=== PATIENT | male | born 1970 | race Caucasian/White ===

== ENCOUNTER 2021-01-09 15:43 | Inpatient (IN) | payer MEDICARE, MEDICAID, SELFPAY ==
[2021-01-09 15:59] VITALS: BP 128/94; PULSE 93; RESP 18; TEMP 37; O2SAT 92
--- NOTE | 2021-01-09 16:21 | ED.GENADUL_ITS ---
Discharge Plan Disposition Patient Disposition: [facility] INPATIENT Condition: Stable Discharge Details Clinical Impression: Alcohol intoxication, Depression, Suicidal ideation Primary Care Provider: Jada Mulligan ED Provider: Mark Parra Home Meds and New Rx's Prescriptions: No Action trazodone 100 mg Tablet 100 mg PO DAILY RF: 0 lisinopril 10 mg Tablet 10 mg PO DAILY RF: 0 sertraline [Zoloft] 50 mg Tablet 50 mg PO DAILY RF: 0 atenolol 50 mg Tablet 50 mg PO DAILY RF: 0 hydrochlorothiazide 12.5 mg Tablet 12.5 mg PO DAILY RF: 0 omeprazole 20 mg Tablet,Delayed Release (Dr/Ec) 20 mg PO DAILY RF: 0 methadone 5 mg/5 mL Syringe 80 mg PO QAM RF: 0 Medical Decision Making <Flo Machuca MD - Last Filed: 01/09/21 21:27> 50 yo male with hx of alcohol abuse comes in with complaints of feeling depressed and having thoughts of self harm due to his alcohol addiction. He has been feeling this way for 2 weeks and states he was kicked out of his intermediate house. He denies drug use but states he is on methadone. He denies acutally attempting to harm himself. HE does not give me a specific plan on how he would harm himself. He is caox4 with no focal deficits, no pain anywhere. Does have mild slurred speech and has smell of alcohol on his breath and admits to drinking today. Will order cpso and obtain psychiatric labs and reassess. labs show alcohol level of of 240, remains stable, will continue to monitor until sober enough for mental health evaluation pt signed out to Dr. Parra pending reevaluation when sober Differential Diagnosis Differential Diagnosis: depression, alcohol abuse Lab Data Lab results reviewed: Yes I reviewed the patient's lab results. <Makr Parra DO - Last Filed: 01/10/21 05:03> Patient was signed out to me by my colleague Dr. Flo Machuca, please refer to his physical exam assessment and plan. Time of signout are pending reassessment after the patient was clinically sober. Patient is clinically sober now, alcohol level has returned towards normal. On my reexamination the patient states that he still does not want to end his life, and he would do this by overdosing on pharmaceutical drugs. He denies any homicidal ideation. He does want help. We will consult mental health for evaluation. 4:27 AM Patient has been evaluated by mental health, they agree on the need for management and inpatient placement for mental health assistance. Patient was starting to get quite jittery again showing some signs of withdrawal, he was given 2 mg of Ativan p.o. Discussed the case with the hospitalist, he agrees with assessment and plan. Patient will be admitted for voluntary admission for potential inpatient psych placement. I have extensively reviewed the treatment plan with the patient. I have addressed all patient concerns at this time. I have also discussed the plan with the admitting physician and they agree with the current assessment and plan and have agreed to assume responsibility for the patient. All parties demonstrate verbal understanding and agreement with our assessment and plan at this time. The documentation in this chart was dictated using [employer] dictation software. Please excuse any dictation errors. HPI <Flo Machuca MD - Last Filed: 01/09/21 21:27> General Mode of arrival: ambulatory . Date/Time Provider Initiated Documentation: 01/09/21 16:06 . Limitations to Documentation: no limitations . Information obtained by: patient . History of Present Illness 50 year old M presents to the emergency department with the chief complaint of depressed, described as moderate, Patient started experiencing this week(s) (2) and it has been constant. No relieving factors improve symptom(s), No exacerbating factors reported . Patient notes denies fever/chills and headaches. Patient did receive the following treatments prior to arrival, none Related Data Home Medications Medication Instructions Recorded Confirmed atenolol 50 mg PO DAILY 01/09/21 01/09/21 hydrochlorothiazide 12.5 mg PO DAILY 01/09/21 01/09/21 lisinopril 10 mg PO DAILY 01/09/21 01/09/21 methadone 80 mg PO QAM 01/09/21 01/09/21 omeprazole 20 mg PO DAILY 01/09/21 01/09/21 sertraline [Zoloft] 50 mg PO DAILY 01/09/21 01/09/21 trazodone 100 mg PO DAILY 01/09/21 01/09/21 Allergies Allergy/AdvReac Type Severity Reaction Status Date / Time Sulfa (Sulfonamide Allergy Intermediate Skin Rash Unverified 01/09/21 16:04 Antibiotics) General Stated Complaint: PsychEval RODGER: 2 Review of Systems <Flo Machuca MD - Last Filed: 01/09/21 21:27> All systems reviewed & are unremarkable except as noted in HPI and below Constitutional Constitutional: Denies chills, Denies fever(s) and Denies weakness Cardiovascular Cardiovascular: Denies chest pain and Denies dyspnea Respiratory Respiratory: Denies cough and Denies dyspnea Gastrointestinal Gastrointestinal: Denies abdominal pain, Denies nausea and Denies vomiting Genitourinary Genitourinary: Denies dysuria Musculoskeletal Musculoskeletal: Denies joint swelling Neurologic Neurologic: Denies weakness PFS <Flo Machuca MD - Last Filed: 01/09/21 21:27> Social History Smoking/Tobacco Use Status: Current every day Tobacco Type: cigarettes Smoking risk assessment performed?: Yes Alcohol Intake: current Alcohol Intake frequency: 3 or more drinks per day Alcohol type: hard liquor Drug use: Never Substance use type: does not use Additional Social history: was in a intermediate house Exam <Flo Machuca MD - Last Filed: 01/09/21 21:27> Const General: no acute distress Orientation: alert HENOK Head: normal to inspection Ears: external ears normal General nose exam: external nose normal Mouth: moist mucous membranes Eyes General: appearance normal, both eyes and all related structures Neck Neck: normal visual inspection Resp Effort & Inspection: normal respiratory effort and able to speak in complete sentences Cardio Rate: regular rate Skin General skin exam: no rashes or lesions noted Neuro General: patient alert and patient oriented x3 Extrem General: normal to inspection Psych Affect: indifferent Attitude: cooperative Course <Flo Machuca MD - Last Filed: 01/09/21 21:27> Vital Signs Vital signs: Vital Signs Temperature 37 C 01/09/21 15:59 Pulse 93 H 01/09/21 15:59 Respiratory Rate 18 01/09/21 15:59 Blood Pressure 128/94 H 01/09/21 15:59 Pulse Oximetry 92 01/09/21 15:59 Temperature 37 C 01/09/21 15:59 Temperature Source Temporal Artery Scan 01/09/21 15:59 Pulse 93 H 01/09/21 15:59 Respiratory Rate 18 01/09/21 15:59 Respiratory Effort Non-Labored 01/09/21 16:05 Blood Pressure 128/94 H 01/09/21 15:59 Blood Pressure Position Sitting 01/09/21 15:59 Pulse Oximetry 92 01/09/21 15:59 Oxygen Delivery Method Room Air 01/09/21 15:59 Oxygen Flow Rate 0 01/09/21 15:59 Sign Out <Flo Machuca MD - Last Filed: 01/09/21 21:27> Sign Out Data: Sign Out Comment: intoxicated, stating thoughts of self harm, awaiting sobriety to have mental health exam Last updated by Flo Machuca MD at 01/09/21 21:54 PAWSS <Flo Machuca MD - Last Filed: 01/09/21 21:27> Have you Been Recently Intoxicated or Drunk Within the Last 30 days?: Yes Have you Ever Experienced Previous Episodes of Alcohol Withdrawal?: Yes Have you ever Experienced Withdrawal Seizures?: Yes Have you ever Experienced Delirium Tremens(DT)s?: Yes Have you ever undergone Alcohol Rehabilitation Treatment (i.e, inpt ot outpatient treatment programs)?: Yes Have you ever Experienced Blackouts?: Yes Have you ever Combined Alcohol with other Downers within the last 90 days?: No Have you ever Combined Alcohol with any other Substance of Abuse during the last 90 days?: Yes Positive Blood Alcohol level on Presentation? [PCS.BAL]: Yes Evidence of Increased Autonomic Activity (i.e. HR>120, tremor, sweating, agitation, nausea)?: No Result: 9
[2021-01-09 16:31] LABS: Source Nasal/Nares
[2021-01-09 16:35] LABS: Abs Immature Grans 0.04 10^3/uL (0.0-0.06); Absolute Basophil Count 0.08 10^3/uL (0.0-0.2); Absolute Eosinophil Count 0.04 10^3/uL (0.0-0.7); Absolute Monocyte Count 0.85 10^3/uL (0.1-0.8); Absolute Neutrophil Count 7.26 10^3/uL (1.2-6.7); Basophils % 0.8; Eosinophils % 0.4; HCT 40.4 % (40.0-50.0); HGB 13.4 g/dL (13.5-17.5); Immature Grans % 0.4; MCH 30.8 pg (27.0-33.0); MCHC 33.2 % (32.0-36.0); MCV 92.9 fL (80-95); MPV 9.1 fL (8.0-11.0); Monocytes % 8.1; Neutrophils % 69.3; Nucleated RBC 0 %; Platelet Count 299 10^3/uL (130-400); RBC 4.35 10^6/uL (4.36-5.78); RDW 13.5 % (11.8-14.1); RDW-SD 45.9 fL; WBC 10.47 10^3/uL (4.4-10.8)
[2021-01-09 16:57] LABS: ALT 33 U/L (16-63); AST 32 U/L (15-37); Albumin 3.7 g/dL (3.4-5.0); Alkaline Phosphatase 94 U/L (46-116); Anion Gap 8.1 mmol/L (3-11); BUN 14 mg/dL (7-18); Bilirubin, Total 0.6 mg/dL (0.2-1.0); CO2 28.9 mmol/L (21.0-32.0); CREATININE 1.1 mg/dL (0.70-1.30); Calcium 9.2 mg/dL (8.5-10.1); Chloride 105 mmol/L (98-107); ETHANOL BLOOD 242.1 mg/dL (<3); Glucose 90 mg/dL (74-106); Potassium 3.6 mmol/L (3.5-5.1); Sodium 142 mmol/L (136-145); TSH (W/Ref FT4) 1.04 uIU/mL (0.36-3.74); Total Protein 7.6 g/dL (6.4-8.2)
[2021-01-09 17:11] LABS: Salicylate 4.4 mg/dL (<2.8)
[2021-01-09 17:12] LABS: Acetaminophen < 2 ug/mL (10-30)
[2021-01-09] MEDS: LORazepam 1 MG TAB 2 MG PO (17:22)
[2021-01-09 17:40] LABS: COVID-19 PCR Negative (Negative)
[2021-01-09 18:37] LABS: Bilirubin Negative (Negative); Blood Trace-intact (Negative); Clarity Clear (Clear); Glucose Negative (Negative); Ketones Negative (Negative); Leukocyte Esterase Negative (Negative); Nitrite Negative (Negative); Specific Gravity <= 1.005 (1.005-1.025); Urobilinogen 0.2 EU/dL (Up TO 0.2)
[2021-01-09 18:43] LABS: *AMPHETAMINES SCREEN URINE Negative (Negative); *BARBITURATES SCREEN URINE Negative (Negative); *BENZODIAZEPINES SCREEN URINE Negative (Negative); Cannabinoids THC Negative (Negative); Cocaine Screen,Urine Negative (Negative); METHADONE URINE SCREEN Positive (Negative); OPIATES URINE SCREEN Negative (Negative)
[2021-01-09 18:44] LABS: Tricyclic Antidepressants Negative (Negative)
[2021-01-09 18:46] LABS: Bacteria Negative HPF (Negative); C & S Indicated? No; Casts Negative LPF (Negative); Crystals Negative HPF (Negative); Epithelial Cells Few HPF (Negative); Mucus Negative (Negative); RBC 0-2 HPF (0-2); WBC 0-2 HPF (0-5)
[2021-01-10 00:09] LABS: ETHANOL BLOOD 45.6 mg/dL (<3)
[2021-01-10 01:24] VITALS: BP 155/79; PULSE 84; RESP 18; TEMP 36.7; O2SAT 93
[2021-01-10] MEDS: LORazepam 1 MG TAB 2 MG PO (03:39)
[2021-01-10] MEDS: Acetaminophen 500 MG TAB (03:41)
--- NOTE | 2021-01-10 04:36 | W.PM.HP.N ---
Date of service: 01/10/21 Time of Service: 04:37 Assessment and Plan Assessment and plan (1) Depression: Status: Chronic Assessment and plan: Suicidal ideation. Agree with placement, will admit pending psych bed availability. Maintain precautions. Methadone use: continue usual dose Alcohol withdrawal: Seems to be responding well to benzos. Will place on scheduled Librium along with prn per CIWA scoring History of Present Illness History of Present Illness Chief Complaint: depression Narrative: 50 male with h/o alcohol abuse, substance abuse, on chronic Methadone. Here with several weeks of depression and suicidal thinking, though no actual plan or specific intent to harm. Last drink sometime yesterday, EtOH level 45 on arrival. Has received Ativan 4 mg in divided doses due to shakiness, feeling better at this time. Seen by mental health, agrees to voluntary admission pending availability of psych bed for transfer. UDS positive only for Methadone. Review of Systems All systems reviewed & are unremarkable except as noted in HPI and below PFSH Social History Smoking/Tobacco Use Status: Current every day Tobacco Type: cigarettes Smoking risk assessment performed?: Yes Alcohol Intake: current Alcohol Intake frequency: 3 or more drinks per day Alcohol type: hard liquor Drug use: Never Substance use type: does not use Additional Social history: was in a senior living house Meds Allergies and Home Medications Allergies Allergy/AdvReac Type Severity Reaction Status Date / Time Sulfa (Sulfonamide Allergy Intermediate Skin Rash Unverified 01/09/21 16:04 Antibiotics) Home Medications Medication Instructions Recorded Confirmed Type atenolol 50 mg PO DAILY 01/09/21 01/09/21 History hydrochlorothiazide 12.5 mg PO DAILY 01/09/21 01/09/21 History lisinopril 10 mg PO DAILY 01/09/21 01/09/21 History methadone 80 mg PO QAM 01/09/21 01/09/21 History omeprazole 20 mg PO DAILY 01/09/21 01/09/21 History sertraline [Zoloft] 50 mg PO DAILY 01/09/21 01/09/21 History trazodone 100 mg PO DAILY 01/09/21 01/09/21 History Exam Narrative Exam Narrative: 155/79, 84, 36.7, 18, 93% RA. HEENT atraumatic, no scleral icterus; neck supple; lungs clear; heart RRR; abdomen soft and NT; extremities w/o edema; neuro slightly tremulous, Ox3, moves all 4s Results Labs Result diagrams: 01/09/21 16:30 01/09/21 16:30 Labs: Laboratory Results - last 24 hr 01/09/21 01/09/21 01/09/21 16:06 16:30 16:30 WBC RBC Hgb Hct MCV MCH MCHC RDW Plt Count MPV Immature Gran % Neutrophils % Lymphocytes % Monocytes % Eosinophils % Basophils % Nucleated RBC % Absolute Neutrophils Absolute Lymphocytes Absolute Monocytes Absolute Eosinophils Absolute Basophils Sodium 142 Potassium 3.6 Chloride 105 Carbon Dioxide 28.9 Anion Gap 8.1 BUN 14 Creatinine 1.1 Estimated GFR/1.73 m2 >= 60.00 Glucose 90 Calcium 9.2 Total Bilirubin 0.6 AST 32 ALT 33 Alkaline Phosphatase 94 Total Protein 7.6 Albumin 3.7 TSH 1.04 Urine Color Urine Clarity Urine pH Ur Specific [place] Urine Protein Urine Ketones Urine Blood Urine Nitrite Urine Bilirubin Urine Urobilinogen Ur Leukocyte Esterase Urine RBC Urine WBC Ur Epithelial Cells Urine Crystals Urine Bacteria Urine Casts Urine Mucus Ur Culture Indicated? Urine Glucose Salicylates 4.4 Urine Opiates Screen Urine Methadone Screen Acetaminophen < 2 Ur Barbiturates Screen Ur Tricyclics Screen Ur Amphetamines Screen U Benzodiazepines Scrn Urine Cocaine Screen Ur THC Screen Ethyl Alcohol 242.1 COVID-19 Source Nasal/Nares SARS-CoV-2 (PCR) Negative 01/09/21 01/09/21 01/09/21 16:30 18:24 18:24 WBC 10.47 RBC 4.35 L Hgb 13.4 L Hct 40.4 MCV 92.9 MCH 30.8 MCHC 33.2 RDW 13.5 Plt Count 299 MPV 9.1 Immature Gran % 0.4 Neutrophils % 69.3 Lymphocytes % 21.0 Monocytes % 8.1 Eosinophils % 0.4 Basophils % 0.8 Nucleated RBC % 0 Absolute Neutrophils 7.26 H Absolute Lymphocytes 2.20 Absolute Monocytes 0.85 H Absolute Eosinophils 0.04 Absolute Basophils 0.08 Sodium Potassium Chloride Carbon Dioxide Anion Gap BUN Creatinine Estimated GFR/1.73 m2 Glucose Calcium Total Bilirubin AST ALT Alkaline Phosphatase Total Protein Albumin TSH Urine Color Yellow Urine Clarity Clear Urine pH 5.0 Ur Specific [place] <= 1.005 Urine Protein Negative Urine Ketones Negative Urine Blood Trace-intact H Urine Nitrite Negative Urine Bilirubin Negative Urine Urobilinogen 0.2 Ur Leukocyte Esterase Negative Urine RBC 0-2 Urine WBC 0-2 Ur Epithelial Cells Few Urine Crystals Negative Urine Bacteria Negative Urine Casts Negative Urine Mucus Negative Ur Culture Indicated? No Urine Glucose Negative Salicylates Urine Opiates Screen Negative Urine Methadone Screen Positive A Acetaminophen Ur Barbiturates Screen Negative Ur Tricyclics Screen Negative Ur Amphetamines Screen Negative U Benzodiazepines Scrn Negative Urine Cocaine Screen Negative Ur THC Screen Negative Ethyl Alcohol COVID-19 Source SARS-CoV-2 (PCR) 01/09/21 23:50 WBC RBC Hgb Hct MCV MCH MCHC RDW Plt Count MPV Immature Gran % Neutrophils % Lymphocytes % Monocytes % Eosinophils % Basophils % Nucleated RBC % Absolute Neutrophils Absolute Lymphocytes Absolute Monocytes Absolute Eosinophils Absolute Basophils Sodium Potassium Chloride Carbon Dioxide Anion Gap BUN Creatinine Estimated GFR/1.73 m2 Glucose Calcium Total Bilirubin AST ALT Alkaline Phosphatase Total Protein Albumin TSH Urine Color Urine Clarity Urine pH Ur Specific [place] Urine Protein Urine Ketones Urine Blood Urine Nitrite Urine Bilirubin Urine Urobilinogen Ur Leukocyte Esterase Urine RBC Urine WBC Ur Epithelial Cells Urine Crystals Urine Bacteria Urine Casts Urine Mucus Ur Culture Indicated? Urine Glucose Salicylates Urine Opiates Screen Urine Methadone Screen Acetaminophen Ur Barbiturates Screen Ur Tricyclics Screen Ur Amphetamines Screen U Benzodiazepines Scrn Urine Cocaine Screen Ur THC Screen Ethyl Alcohol 45.6 COVID-19 Source SARS-CoV-2 (PCR) Last Vital Signs Temp 36.7 C 01/10/21 01:24 Pulse 84 01/10/21 01:24 Resp 18 01/10/21 01:24 BP 155/79 H 01/10/21 01:24 Pulse Ox 93 01/10/21 01:24 PAWSS Have you Been Recently Intoxicated or Drunk Within the Last 30 days?: Yes Have you Ever Experienced Previous Episodes of Alcohol Withdrawal?: Yes Have you ever Experienced Withdrawal Seizures?: Yes Have you ever Experienced Delirium Tremens(DT)s?: Yes Have you ever undergone Alcohol Rehabilitation Treatment (i.e, inpt ot outpatient treatment programs)?: Yes Have you ever Experienced Blackouts?: Yes Have you ever Combined Alcohol with other Downers within the last 90 days?: No Have you ever Combined Alcohol with any other Substance of Abuse during the last 90 days?: Yes Positive Blood Alcohol level on Presentation? [PCS.BAL]: Yes Evidence of Increased Autonomic Activity (i.e. HR>120, tremor, sweating, agitation, nausea)?: No Result: 9
[2021-01-10] MEDS: chlordiazePOXIDE 25 MG CAP PO ×5 (05:03→19:45)
[2021-01-10 05:52] VITALS: BP 134/79; PULSE 72; RESP 18; TEMP 36.7; O2SAT 94
[2021-01-10] MEDS: LORazepam 1 MG TAB PO/SL ×3 (08:51→19:45)
[2021-01-10] MEDS: traZODone 100 MG TAB PO (08:52)
[2021-01-10] MEDS: Sertraline 50 MG TAB PO (08:52)
[2021-01-10] MEDS: Omeprazole 20 MG CAPCR PO (08:52)
[2021-01-10] MEDS: hydroCHLOROthiazide 12.5 MG TAB PO (08:52)
[2021-01-10] MEDS: Lisinopril 10 MG TAB PO (08:53)
[2021-01-10] MEDS: Methadone Liquid 10 MG/ML 80 MG PO (08:53)
[2021-01-10 08:54] VITALS: BP 151/95; PULSE 75; RESP 18; TEMP 36.4; O2SAT 96
[2021-01-10 09:00] VITALS: BP 151/95; PULSE 96; RESP 16; TEMP 36.4; O2SAT 96
[2021-01-10] MEDS: Folic Acid 1 MG TAB PO (09:38)
[2021-01-10] MEDS: Multivitamin TAB 1 TAB PO (09:38)
[2021-01-10] MEDS: Thiamine 100 MG TAB PO (09:38)
[2021-01-10] MEDS: Atenolol 50 MG TAB PO (10:00)
--- NOTE | 2021-01-10 10:20 | PDOC.CMSAFE ---
- If Service Date Differs Date of service: 01/10/21 Time of Service: 10:20 Care Management Safety Plan Status: Interim - Reason for Wait Reason for Wait: Inpatient Admission Chief Complaint: 50 year old male with h/o alcohol use, substance use and on chronic Methadone. Here with several weeks of depression and suicidal thinking, though no actual plan or specific intent to harm. Last drink sometime yesterday, ETOH level was 45 on arrival. Garrett was seen by mental health while in the ER and agrees to voluntary admission pending availability of psych bed for transfer. Garrett is not medically cleared by MD at this time. CM will assess patient after patient has been medically cleared and assessed by MH screener. If screener deems patient meets criteria for psychiatric stabilization CM will facilitate interdepartmental huddle with [facility] screener for safety planning considerations and meet with patient to review [facility] policy and safety plan, establish individual wishes for treatment and maintain patient rights. In the interim; please note safety plan below to guide patient care while awaiting medical clearance and mental health screening. SAFETY PLAN: 1. Will remain on suicide precautions and in paper clothes. 2. Will remain in room under direct supervision of one-on-one staff at all times provided by KEVAN, WAREHOUSE DELIVERY MANAGER agriculture instructor. 3. May have paper cups, plates, finger foods as well as a cardboard spoon with which to eat meals. 4. Follow [facility] Management of the Admitted Behavioral Health Patient policy. 5. Personal care: Comfort bath system only at this time. 6. Bathroom privileges: Available in room without limitation on Med/Surg. 6. No personal belongings at this time; per RN discretion. 7. No visitors at this time. 8. Phone contact limited to legal contact at this time. 9. Activities: Music tablet per RN discretion. Television and remote available at RN discretion. 10. Due to VOLUNTARY status, if patient wishes to leave [facility], staff will contact [facility] Crisis Screener ([phone]) and On-Call Safety Engineer ([phone]) as soon as possible. In the event of elopement, notify [facility] Police ([phone]). If deemed appropriate for inpatient psychiatric care, safety plan will be established with patient, and care team, to adhere to patient goals, identify restrictions based on behavioral status, address nutrition, and determine allowed personal belongings, tools for hygiene and personal care. As well plan will determine level of activity including ambulation, level of supervision, visitors, and determine privileges based on level of acuity, behaviors and level of engagement by patient.
--- NOTE | 2021-01-10 11:42 | INITIAL_ITS ---
- If Service Date Differs Date of service: 01/10/21 Time of Service: 11:42 Care Management Initial Assess REASON FOR HOSPITALIZATION:: SI, Alcohol Withdrawal, depression PAST MEDICAL HISTORY/PAST SURGICAL HISTORY:: H/O alcohol abuse, substance abuse, on chronic Methadone. PREVIOUS FUNCTIONAL STATUS/SOCIAL/FAMILY SUPPORTS:: Garrett is currently homeless and shares that he was recently kicked out of the senior living housing where he was r esiding in [facility] after using alcohol. Garrett is a member of the [employer] program and is on Methodone. He has been in and out of recovery centers and sober living environments for several years. He advises that prior to coming to [facility] he was sober for 3 months while at the [facility] in [place] but then they wanted him to seek transitional housing in [place] and was unable to do so because he was on Methodone. CURRENT FUNCTIONAL STATUS:: Garrett was lying in bed when CM met with him. He was alert and oriented X3, pleasant and open to conversation. He shares that his number one concern is being homeless and is hopeful that he will be able to go back to the sober living house where he was staying. He shares that he does find it to be a supportive environment. Garrett thinks it may be possible for him to return at some point if they are willing to add stipulations to his stay. In the meantime, he is willing to remain inpatient until medically cleared by MD. He is also agreeable to having [facility] continue to look for placement for inpatient psych and rehab centers. ADVANCE DIRECTIVES:: None on file at [facility] Has patient been provided with info about the portal/API?: Yes Did the patient sign up for the portal?: No CODE STATUS:: Full Code INSURANCE COVERAGE / FINANCIAL ISSUES:: Medicaid. Medicare. [facility] CURRENT HOME/COMMUNITY SERVICES/EQUIPMENT:: Recently [address] PRIMARY CARE PHYSICIAN:: Jada Mulligan POTENTIAL DISCHARGE NEEDS:: Inpatient psych treatment, [facility] PATIENT/FAMILY EDUCATION NEEDS:: Review of discharge instuctions, ask me three. ANTICIPATED BARRIERS TO DISCHARGE:: On methodone, waiting for psych placement TRANSPORTATION:: Dependent on disposition, anticipate inpatient psych facility via [employer] PLAN:: Garrett is awaiting voluntary admission to psych facility pending availability of psych bed availabilty. He will remain inpatient at [facility] on an interim safety plan until medically cleared by MD. [facility] has sent referrals to the following facilities, the majority has either declined or is at full capacity. Grant from [facility] reports that he is still waiting on a response from John and Lala. continues to follow. Declined: [facility] d/t homeless status. Full Capacity: [facility], [facility] and [facility]. John: Pending Review. Lala: [facility] will send referral
[2021-01-10] MEDS: Gabapentin 600 MG TAB PO ×2 (14:59→19:45)
[2021-01-10 16:30] VITALS: BP 117/79; PULSE 58; RESP 16; TEMP 36.2; O2SAT 96
[2021-01-10 23:43] VITALS: BP 114/77; PULSE 78; RESP 18; TEMP 36.2; O2SAT 97
[2021-01-11] MEDS: LORazepam 1 MG TAB PO/SL ×4 (06:44→19:18)
[2021-01-11] MEDS: Gabapentin 600 MG TAB PO ×3 (07:44→19:18)
[2021-01-11] MEDS: chlordiazePOXIDE 25 MG CAP PO ×4 (07:44→19:18)
[2021-01-11] MEDS: Atenolol 50 MG TAB PO (07:44)
[2021-01-11] MEDS: Thiamine 100 MG TAB PO (07:44)
[2021-01-11] MEDS: Sertraline 50 MG TAB PO (07:44)
[2021-01-11] MEDS: Lisinopril 10 MG TAB PO (07:44)
[2021-01-11] MEDS: Omeprazole 20 MG CAPCR PO (07:44)
[2021-01-11] MEDS: Multivitamin TAB 1 TAB PO (07:45)
[2021-01-11] MEDS: traZODone 100 MG TAB PO (07:45)
[2021-01-11] MEDS: hydroCHLOROthiazide 12.5 MG TAB PO (07:45)
[2021-01-11] MEDS: Folic Acid 1 MG TAB PO (07:45)
[2021-01-11] MEDS: Methadone Liquid 10 MG/ML 80 MG PO (07:45)
[2021-01-11 08:26] VITALS: BP 125/91; PULSE 79; RESP 18; TEMP 36.4; O2SAT 94
--- NOTE | 2021-01-11 09:43 | PDOC.CMSAFE ---
- If Service Date Differs Date of service: 01/11/21 Time of Service: 09:43 Care Management Safety Plan Status: Interim - Reason for Wait Reason for Wait: Inpatient Admission ( ) Chief Complaint: 50 year old male with h/o alcohol use, substance use and on chronic Methadone. Here with several weeks of depression and suicidal thinking, though no actual plan or specific intent to harm. Last drink sometime yesterday, ETOH level was 45 on arrival. Garrett was seen by mental health while in the ER and agrees to voluntary admission pending availability of psych bed for transfer. Garrett is not medically cleared by MD at this time. Per MD he is still showing symptoms of withdrawal. CM will assess patient after patient has been medically cleared and assessed by MH screener. If screener deems patient meets criteria for psychiatric stabilization CM will facilitate interdepartmental huddle with [facility] screener for safety planning considerations and meet with patient to review [facility] policy and safety plan, establish individual wishes for treatment and maintain patient rights. In the interim; please note safety plan below to guide patient care while awaiting medical clearance and mental health screening. SAFETY PLAN: 1. Will remain on suicide precautions and in paper clothes. 2. Will remain in room under direct supervision of one-on-one staff at all times provided by KEVAN, INDUSTRIAL ELECTRICIAN retort cooler. 3. May have paper cups, plates, finger foods as well as a cardboard spoon with which to eat meals. 4. Follow [facility] Management of the Admitted Behavioral Health Patient policy. 5. Personal care: Comfort bath system, may have a shower at RN discretion. 6. Bathroom privileges: Available in room without limitation on Med/Surg. 6. No personal belongings at this time; per RN discretion. 7. No visitors at this time. 8. Phone contact limited to legal contact at this time. 9. Activities: Music tablet per RN discretion. Television and remote available at RN discretion. 10. Due to VOLUNTARY status, if patient wishes to leave [facility], staff will contact [facility] Crisis Screener ([phone]) and On-Call General Studies Program Chair ([phone]) as soon as possible. In the event of elopement, notify [facility] Police ([phone]). If deemed appropriate for inpatient psychiatric care, safety plan will be established with patient, and care team, to adhere to patient goals, identify restrictions based on behavioral status, address nutrition, and determine allowed personal belongings, tools for hygiene and personal care. As well plan will determine level of activity including ambulation, level of supervision, visitors, and determine privileges based on level of acuity, behaviors and level of engagement by patient.
--- NOTE | 2021-01-11 09:52 | CMPROGNOTE_ITS ---
- If Service Date Differs Date of service: 01/11/21 Time of Service: 09:53 Care Management Progress Note S/O: Garrett was lying in bed when CM met with him. He was pleasant and agreeable to conversation and made good eye contact. He shares that he continues to have suicidal thoughts and reports that he doesn't have a lot to live for especially now that he is without housing. He doesn't relay any actual plan to CM but states if her really wants to he could. He is agreeable to remain inpatient until he is medically cleared followed by voluntary inpatient psychiatric placement. A: 50 year old male admitted to [facility] on 01/10/21 for suicidal ideation and alcohol intoxication. P: Garrett is awaiting voluntary admission to psych facility pending availability of psych bed availability. He will remain inpatient at [facility] on an interim safety plan until medically cleared by MD. [facility] has sent referrals to the following facilities, the majority have either declined or are at full capacity. Grant from [facility] reports that he is still waiting on a response from John and [facility]. CM continues to follow. Declined: [facility] d/t homeless status. Full Capacity: [facility], [facility] and [facility]. John: Pending Review. Lala: [facility] will send referral.
[2021-01-11 10:08] LABS: Abs Immature Grans 0.01 10^3/uL (0.0-0.06); Absolute Basophil Count 0.08 10^3/uL (0.0-0.2); Absolute Eosinophil Count 0.19 10^3/uL (0.0-0.7); Absolute Monocyte Count 0.83 10^3/uL (0.1-0.8); Absolute Neutrophil Count 3.88 10^3/uL (1.2-6.7); Basophils % 1.1; Eosinophils % 2.6; HCT 43.3 % (40.0-50.0); HGB 13.9 g/dL (13.5-17.5); Immature Grans % 0.1; Lymphocytes % 31.6; MCH 30.4 pg (27.0-33.0); MCHC 32.1 % (32.0-36.0); MCV 94.7 fL (80-95); MPV 9.4 fL (8.0-11.0); Monocytes % 11.4; Neutrophils % 53.2; Nucleated RBC 0 %; Platelet Count 275 10^3/uL (130-400); RBC 4.57 10^6/uL (4.36-5.78); RDW 13.8 % (11.8-14.1); RDW-SD 47.3 fL; WBC 7.29 10^3/uL (4.4-10.8)
[2021-01-11 10:16] LABS: BUN 17 mg/dL (7-18); CREATININE 1.1 mg/dL (0.70-1.30); Calcium 9.6 mg/dL (8.5-10.1); Chloride 105 mmol/L (98-107); Glucose 154 mg/dL (74-106); Magnesium 2.2 mg/dL (1.8-2.4); Potassium 3.9 mmol/L (3.5-5.1); Sodium 141 mmol/L (136-145)
[2021-01-11] MEDS: Nicotine 21 MG/24 HR PATCH TD (11:12)
[2021-01-11 13:01] LABS: Vitamin B12 483 pg/mL (193-986)
[2021-01-11 13:03] LABS: Folate > 20.0 ng/mL (8.6-20.0)
--- NOTE | 2021-01-11 13:20 | W.PM.PROGNOT ---
Date of Service Date of service: 01/11/21 Time of Service: 13:20 Assessment and Plan Assessment and plan (1) Suicidal ideation: Status: Acute Assessment and plan: remains here on a voluntary psychiatric hold. plan to overdose, contracts for safety here, CPSO and behavioral plan in place mental health will be consulted when medically cleared (2) Depression: Status: Chronic Assessment and plan: continue zoloft and trazodone (3) Alcohol intoxication: Status: Acute Assessment and plan: monitored on CIWA, does not appear to be having withdrawal at time of my exam prn ativan as needed. continue scheduled librium. (4) Methadone dependence: Status: Chronic Assessment and plan: will continue home methadone dosing. (5) Discharge planning issues: Status: Inactive Assessment and plan: case management following. mental health consult once medically stable. voluntary inpatient psychiatric placement discussed with Dr Franz Subjective Subjective Patient reports: tolerating liquids well, tolerating a regular diet, voiding w/o difficulty and afebrile; denies nausea and vomiting Interval history since last seen: reports feeling anxious. states he still feels suicidal, plan would be by overdose. . Exam Const General: no acute distress, disheveled and ill appearing chronically Nutritional Appearance: obese Orientation: alert, awake and oriented x3 HENMT Head: normal to inspection, normocephalic and atraumatic Resp Effort & Inspection: normal respiratory effort Auscultation: no wheezes Cardio Rate: regular rate and not tachycardic Rhythm: regular rhythm GI Inspection: obesity Palpation: soft and nontender Neuro General: patient alert, patient awake, patient oriented x3, gait normal and no focal motor deficits Extrem General: normal to inspection, full ROM and no pedal edema Psych Appearance: disheveled Speech and Movement: speech and movement normal Mood: anxious mood Affect: blunted Attitude: cooperative Thought Content: suicidality Objective Last Vital Signs Temp 36.4 C L 01/11/21 08:26 Pulse 79 01/11/21 08:26 Resp 18 01/11/21 08:26 BP 125/91 H 01/11/21 08:26 Pulse Ox 94 01/11/21 08:26 Laboratory Results - last 24 hr 01/11/21 01/11/21 01/11/21 09:50 09:50 09:50 WBC 7.29 RBC 4.57 Hgb 13.9 Hct 43.3 MCV 94.7 MCH 30.4 MCHC 32.1 RDW 13.8 Plt Count 275 MPV 9.4 Immature Gran % 0.1 Neutrophils % 53.2 Lymphocytes % 31.6 Monocytes % 11.4 Eosinophils % 2.6 Basophils % 1.1 Nucleated RBC % 0 Absolute Neutrophils 3.88 Absolute Lymphocytes 2.30 Absolute Monocytes 0.83 H Absolute Eosinophils 0.19 Absolute Basophils 0.08 Sodium 141 Potassium 3.9 Chloride 105 Carbon Dioxide 32.0 Anion Gap 4.0 BUN 17 Creatinine 1.1 Estimated GFR/1.73 m2 >= 60.00 Glucose 154 H Calcium 9.6 Magnesium 2.2 Vitamin B12 483 Folate > 20.0 H PAWSS Have you Been Recently Intoxicated or Drunk Within the Last 30 days?: Yes Have you Ever Experienced Previous Episodes of Alcohol Withdrawal?: Yes Have you ever Experienced Withdrawal Seizures?: Yes Have you ever Experienced Delirium Tremens(DT)s?: Yes Have you ever undergone Alcohol Rehabilitation Treatment (i.e, inpt ot outpatient treatment programs)?: Yes Have you ever Experienced Blackouts?: Yes Have you ever Combined Alcohol with other Downers within the last 90 days?: Yes Have you ever Combined Alcohol with any other Substance of Abuse during the last 90 days?: Yes Positive Blood Alcohol level on Presentation? [PCS.BAL]: Unable to Obtain Evidence of Increased Autonomic Activity (i.e. HR>120, tremor, sweating, agitation, nausea)?: Yes Result: 9
[2021-01-11 13:30] VITALS: RESP 18
--- NOTE | 2021-01-11 15:54 | NUR.NOTE ---
Nursing Note: 01/11/2021 15:55 Patient c/o middle back pain 7/10 pain. Patient offered Tylenol and patient refused states Tylenol does not do anything for me, what about Flexeril? COOPER APPRENTICE will notify charge nurse.
[2021-01-11 15:58] VITALS: BP 92/60; PULSE 72; RESP 18; TEMP 37.3; O2SAT 94
--- NOTE | 2021-01-11 16:00 | W.NUTRFU ---
Date of service: 01/11/21 Time of Service: 16:00 Nutritional Follow up NOTE: Pt. has excellent PO intake on regular diet precaution tray. BMI is 41.1 kg/m2 c/w class 3 obesity. No nutrition intervention at this time. Will continue to follow. Time Spent in Nutritional Counseling and Treatment: 0
[2021-01-11] MEDS: Cyclobenzaprine 10 MG TAB PO (16:38)
[2021-01-11] MEDS: Acetaminophen 325 MG TAB 650 MG PO (18:42)
[2021-01-12 02:43] VITALS: BP 106/78; PULSE 79; RESP 20; TEMP 36.8; O2SAT 95
[2021-01-12] MEDS: LORazepam 1 MG TAB PO/SL ×2 (06:52→11:55)
[2021-01-12 07:35] VITALS: BP 123/79; PULSE 75; RESP 14; TEMP 36.8; O2SAT 94
[2021-01-12] MEDS: Folic Acid 1 MG TAB PO (08:13)
[2021-01-12] MEDS: chlordiazePOXIDE 25 MG CAP PO ×3 (08:13→20:47)
[2021-01-12] MEDS: Gabapentin 600 MG TAB PO ×3 (08:13→20:47)
[2021-01-12] MEDS: Atenolol 50 MG TAB PO (08:13)
[2021-01-12] MEDS: hydroCHLOROthiazide 12.5 MG TAB PO (08:13)
[2021-01-12] MEDS: Sertraline 50 MG TAB PO (08:14)
[2021-01-12] MEDS: Omeprazole 20 MG CAPCR PO (08:14)
[2021-01-12] MEDS: Methadone Liquid 10 MG/ML 80 MG PO (08:14)
[2021-01-12] MEDS: Nicotine 21 MG/24 HR PATCH TD (08:14)
[2021-01-12] MEDS: Multivitamin TAB 1 TAB PO (08:14)
[2021-01-12] MEDS: Lisinopril 10 MG TAB PO (08:14)
[2021-01-12] MEDS: Thiamine 100 MG TAB PO (08:14)
[2021-01-12] MEDS: traZODone 100 MG TAB PO (08:15)
--- NOTE | 2021-01-12 09:18 | PGE_ITS ---
Date of Service Date of service: 01/12/21 Time of Service: 09:20 Assessment and Plan Assessment and plan (1) Back pain: Status: Chronic Assessment and plan: thoracic spine ongoing over a month, not worsening. no radiculopathy, no upper ext weakness or numbness. continue apap prn, add lidocaine patch. f/u pcp if not improving after discharge (2) Hypoxia: Status: Acute Assessment and plan: noted overnight. chest xray negative. consider obesity hypoventilation, JUAN DANIEL. no further hypoxia noted has been afebrile with no cough or sob. consider outpatient sleep study referral. (3) Suicidal ideation: Status: Acute Assessment and plan: remains here on a voluntary psychiatric hold. plan was to overdose, contracts for safety here, CPSO and behavioral plan in place mental health will be consulted patient now requesting to leave (4) Depression: Status: Chronic Assessment and plan: continue zoloft and trazodone (5) Alcohol intoxication: Status: Acute Assessment and plan: no sign of withdrawal, hemodynamically stable, symptoms at this point are subjective and behavioral. prn ativan changed to oral qid prn taper librium. stop ciwa monitoring. (6) Methadone dependence: Status: Chronic Assessment and plan: will continue home methadone dosing. (7) Discharge planning issues: Status: Inactive Assessment and plan: case management following. mental health consult once medically stable. voluntary inpatient psychiatric placement discussed with Dr Franz Subjective Subjective Interval history since last seen: noted to desat during the night, recovered with repositioning. no fever cough or shortness of breath, c/o chronic back pain for which he has been taking apap and flexeril. also c/o anxiety which hydroxyzine ordered. no further hypoxia noted. patient eating and drinking. c/o mid back pain that he states has been present for over a month. denies trauma Exam Const General: no acute distress, disheveled and ill appearing chronically Nutritional Appearance: obese Orientation: alert, awake and oriented x3 [facility] Head: normal to inspection, normocephalic and atraumatic Resp Effort & Inspection: normal respiratory effort Auscultation: no wheezes Cardio Rate: regular rate and not tachycardic Rhythm: regular rhythm GI Inspection: obesity Palpation: soft and nontender Neuro General: patient alert, patient awake, patient oriented x3, gait normal and no focal motor deficits Extrem General: normal to inspection, full ROM and no pedal edema Psych Appearance: disheveled Speech and Movement: speech and movement normal Mood: anxious mood Affect: blunted Attitude: cooperative Thought Content: suicidality Objective Last Vital Signs Temp 36.8 C 01/12/21 07:35 Pulse 75 01/12/21 07:35 Resp 14 01/12/21 07:35 BP 123/79 01/12/21 07:35 Pulse Ox 94 01/12/21 07:35 Laboratory Results - last 24 hr 01/11/21 01/11/21 01/11/21 09:50 09:50 09:50 WBC 7.29 RBC 4.57 Hgb 13.9 Hct 43.3 MCV 94.7 MCH 30.4 MCHC 32.1 RDW 13.8 Plt Count 275 MPV 9.4 Immature Gran % 0.1 Neutrophils % 53.2 Lymphocytes % 31.6 Monocytes % 11.4 Eosinophils % 2.6 Basophils % 1.1 Nucleated RBC % 0 Absolute Neutrophils 3.88 Absolute Lymphocytes 2.30 Absolute Monocytes 0.83 H Absolute Eosinophils 0.19 Absolute Basophils 0.08 Sodium 141 Potassium 3.9 Chloride 105 Carbon Dioxide 32.0 Anion Gap 4.0 BUN 17 Creatinine 1.1 Estimated GFR/1.73 m2 >= 60.00 Glucose 154 H Calcium 9.6 Magnesium 2.2 Vitamin B12 483 Folate > 20.0 H PAWSS Have you Been Recently Intoxicated or Drunk Within the Last 30 days?: Yes Have you Ever Experienced Previous Episodes of Alcohol Withdrawal?: Yes Have you ever Experienced Withdrawal Seizures?: Yes Have you ever Experienced Delirium Tremens(DT)s?: Yes Have you ever undergone Alcohol Rehabilitation Treatment (i.e, inpt ot outpatient treatment programs)?: Yes Have you ever Experienced Blackouts?: Yes Have you ever Combined Alcohol with other Downers within the last 90 days?: Yes Have you ever Combined Alcohol with any other Substance of Abuse during the last 90 days?: Yes Positive Blood Alcohol level on Presentation? [PCS.BAL]: Unable to Obtain Evidence of Increased Autonomic Activity (i.e. HR>120, tremor, sweating, agitation, nausea)?: Yes Result: 9
--- NOTE | 2021-01-12 09:58 | DI.RAD_ITS ---
Exam(s) XR CHEST 2V PA LATERAL EXAM: XR CHEST 2V PA LATERAL CLINICAL HISTORY: hypoxia TECHNIQUE: 2D digital imaging was performed of the chest. Two images were obtained. PA and lateral views were obtained. COMPARISON: No exams were available for comparison FINDINGS: MEDIASTINUM: Normal. HEART: Normal. PULMONARY VASCULATURE: Normal. LUNGS: Clear. PLEURAL SPACE: No pleural effusion or pneumothorax. BONE:Within normal limits for the patient's age. OTHER FINDINGS:Normal. IMPRESSION: No acute pulmonary findings. DATA REPOSITORY: RADIATION DOSE DELIVERED:
--- NOTE | 2021-01-12 10:16 | PDOC.CMPRO ---
- If Service Date Differs Date of service: 01/12/21 Time of Service: 10:16 Care Management Progress Note S/O: Garrett is lying in bed when CM comes to meet with him. He easily engages in conversation and says he hopes to return to [facility] sober housing upon discharge from the hospital. He admits to suicidal ideation that comes and goes and while he still describes his mood as depressed, he shares that he does not want to . He states he has lived at [facility] for approximately a month and a half and enjoys it there. He reports being sober for five months before falling off the wagon. A: 50 year old male admitted to [facility] on 01/10/21 for suicidal ideation and alcohol intoxication. P: Garrett will remain inpatient at [facility] until he is medically cleared by provider. Once medically stable, anticipate he will be reassessed by [facility] and if he meets criteria for a voluntary psychiatric hospitalization, [facility] will seek a psych placement for him at that time. CM continues to follow. - Status Status: Interim - Reason for Wait Reason for Wait: Medical Clearance
[2021-01-12 11:57] VITALS: O2SAT 94
[2021-01-12] MEDS: Lidocaine 5% Patch 1 PATCH TP (15:20)
[2021-01-12] MEDS: hydrOXYzine HCL 25 MG TAB PO ×2 (15:21→20:47)
--- NOTE | 2021-01-12 16:08 | PDOC.MHCN ---
Date of service: 01/12/21 Time of Service: 16:09 Mental Health Crisis Note Presenting Issue How did you arrive at the ED and why did you come: Pt arrived on 01.10.2021 for intoxication and SI. Precipitating Factors Pt endorsed continued SI today stating it depends if I drink or not and when asked about plan he responded that's my business. he is not showing any signs of delusions. Disposition BEHAVIOR: Pt is cooperative minimally with the assessment. He presents as withdrawn and guarded. EYE CONTACT: Poor eye contact. MOOD: Depressed and withdrawn, hopeless and helpless. AFFECT: Affect is congruent with mood. APPETITE: Pt reported on and off appetite. SLEEP(trouble falling/staying asleep: Pt reported poor sleep. Plan Pt's evasiveness with his plans of SI and his risk level put him at a high risk. His ETOH abuse puts him at a higher risk should he start drinking again which he could not confirm he would not do. Pt agreed to stay voluntarily while [facility] seeks hospital level of care. He only requests not to go to [facility] and to be able to use the phone to contact his home to see if he could return. A huddle was had with Angelika Obrien and she is allowing him to use the phone to try and secure housing for when he discharges. Signature Clinician's Name/Title: Ana Nam MS, [facility] Emergency Services Clinician, [facility]
[2021-01-12] MEDS: LORazepam 0.5 MG TAB PO ×2 (16:49→20:47)
[2021-01-12 20:28] VITALS: BP 124/83; PULSE 75; RESP 18; TEMP 37.1; O2SAT 95
[2021-01-12] MEDS: Cyclobenzaprine 10 MG TAB PO (20:47)
[2021-01-13 02:19] VITALS: BP 121/80; PULSE 67; RESP 19; TEMP 36.8; O2SAT 97
[2021-01-13 08:14] VITALS: BP 122/84; PULSE 75; RESP 12; TEMP 35.2; O2SAT 92
[2021-01-13] MEDS: chlordiazePOXIDE 25 MG CAP PO (08:21)
[2021-01-13] MEDS: Gabapentin 600 MG TAB PO ×3 (08:21→20:02)
[2021-01-13] MEDS: Folic Acid 1 MG TAB PO (08:21)
[2021-01-13] MEDS: Atenolol 50 MG TAB PO (08:21)
[2021-01-13] MEDS: Sertraline 50 MG TAB PO (08:22)
[2021-01-13] MEDS: Omeprazole 20 MG CAPCR PO (08:22)
[2021-01-13] MEDS: Multivitamin TAB 1 TAB PO (08:22)
[2021-01-13] MEDS: Nicotine 21 MG/24 HR PATCH TD (08:22)
[2021-01-13] MEDS: hydroCHLOROthiazide 12.5 MG TAB PO (08:22)
[2021-01-13] MEDS: Methadone Liquid 10 MG/ML 80 MG PO (08:22)
[2021-01-13] MEDS: Lisinopril 10 MG TAB PO (08:22)
[2021-01-13] MEDS: traZODone 100 MG TAB PO (08:23)
[2021-01-13] MEDS: Thiamine 100 MG TAB PO (08:23)
[2021-01-13 10:54] VITALS: O2SAT 92
--- NOTE | 2021-01-13 11:41 | W.INMHPGNOTE ---
Date of service: 01/13/21 Time of Service: 09:20 Mental Health Crisis Note Presenting Issue How did you arrive at the ED and why did you come: The patient presented to [facility] emergency department 01.10.21 and disclosed suicidal statements with plan to Dr. Machuca and Dr. Parra. Currently the patient is on med surge awaiting voluntary in-patient treatment for SI and ETOH dependence. He is seen today for a follow-up assessment via telehealth. Precipitating Factors Patient appears disheveled, otherwise unremarkable. He is fully alert and oriented to time, person, place and situation. He is behaviorally calm, no unusual movements, fleeting eye contact, and appears groggy from being woken up. Engagement is limited and responses are minimally elaborated and delayed. Speech is clear, low volume, flat tone. No reported appetite or sleep concerns. He reports feeling depressed with congruent affect. No delusions or hallucinations. He denies current SI, states Not right now I just woke up. He does not endorse intent or comment on a specific plan to harm himself and denies current HI, intent or plan. Patient reports that he typically consumes a fifth of alcohol daily after relapsing. He is still seeking placement and states I'm kind of being forced into it. Disposition BEHAVIOR: Minimal engagement EYE CONTACT: Fleeting MOOD: Depressed AFFECT: Congruent to stated mood APPETITE: No reported issues SLEEP(trouble falling/staying asleep: No reported issues Plan The patient will remain at [facility] and be assessed daily until placement is secured. Per recent history of suicidal ideation and expressed intent, an inpatient is the most suitable option at this time. Updated contact list [facility] - Only accepting in-house referrals at this time. [facility] - Under review. Currently at capacity. [facility] - 'Do not connect' status, referral has not been moved forward. [facility] - Awaiting callback. [facility] - Labs and 10.5 ES document faxed. [facility] - Labs and 10.5 ES document faxed. Signature Clinician's Name/Title: Landry Álvarez [facility] clinician / [facility]
--- NOTE | 2021-01-13 13:30 | CMPROGNOTE_ITS ---
- If Service Date Differs Date of service: 01/13/21 Time of Service: 13:30 Care Management Progress Note S/O: Garrett is lying in bed when CM comes to meet with him. He is experiencing some anxiety around housing issues. Garrett was staying at the [facility] sober house in [facility] prior to coming to [facility]. He fears that he will lose his housing if he does not speak with someone at [facility]. CM assists Garrett in calling the only phone number found on [facility]'s website ([phone]) but there is no answer and it does not provide the ability to leave a message, which adds to Garrett's frustration. CM calls that same number for a second time later in the day and is able to leave a voicemail message. Garrett requests his cell phone as he reportedly has the phone number to the [facility] saved in his phone. His cell phone, however, is not in his belongings. He then requests to be able to go out to his car parked in the [facility] parking lot to see if his cell phone is in the car. He becomes even more irritable when CM advises him that we cannot accommodate this request. A: 50 year old male admitted to [facility] on 01/10/21 for suicidal ideation and alcohol intoxication. P: Garrett remains inpatient at [facility] while awaiting a voluntary psychiatric placement. Referrals are faxed to [facility], [facility], [facility], [facility], and [facility] for review. There are no available beds today. CM continues to follow. - Status Status: Voluntary - Reason for Wait Reason for Wait: Inpatient Admission
--- NOTE | 2021-01-13 13:35 | CMSP_ITS ---
- If Service Date Differs Date of service: 01/13/21 Time of Service: 13:35 Care Management Safety Plan Status: Voluntary - Reason for Wait Reason for Wait: Inpatient Admission VOLUNTARY FOR INPATIENT PSYCHIATRIC STABILIZATION. Patient is appropriate in all interactions since arriving at [facility]; Pt has demonstrated appropriate coping and communication skills, has articulated his or her needs and concerns and is fully engaged during staff interactions. A huddle is done at approximately 16:00 pm with Echo Barrett, Debbie, Nursing Drum Stenciler, THEO Rey, and CAMILO Carney, in attendance. Safety plan has been established with patient, and care team, to adhere to patient goals, identify restrictions based on behavioral status, address nutrition, and determine allowed personal belongings, tools for hygiene and personal care. Determine level of activity including ambulation, level of supervision, visitors, and determine privileges based on behaviors and level of engagement by pt. SAFETY PLAN: 1. Will remain on suicide precautions. In Paper Clothes 2. Will remain in room under direct supervision of one-on-one staff at all times provided by CPSO, KEVAN, YANIV copping machine operator. 3. May have paper cups, plates, finger foods as well as a cardboard spoon with which to eat meals. 4. Follow [facility] Management of the Admitted Behavioral Health Patient policy. 5. Personal Care: May shower with supervision and at RN discretion. 6. No personal belongings 7. Visitors-No visitors at this time 8. Activities: Soft cart items, music tablet, television and other activities at RN discretion. 9. Bathroom privileges: May use bathroom in room with no restriction. 10. Phone: May use hospital phone for incoming and outgoing phone calls at RN discretion. 11. Due to VOLUNTARY status, if patient wishes to leave [facility], staff will contact [facility] Crisis Screener ([phone]) and On-Call Field Scout ([phone]) as soon as possible. In the event of elopement, notify [place] [email or web address] ([phone]). Patient is currently voluntarily at [facility] and seeking inpatient admission when a bed becomes available. [facility] Frontline Pipe Crew Foreman will continue seeking placement. Please contact the Operations Asst Field Scout ([phone]) and [facility] Pipe Crew Foreman ([phone]) for any needed changes in the Safety Plan. Safety plan has been provided to interdepartmental care team.
[2021-01-13] MEDS: chlordiazePOXIDE 25 MG CAP 10 MG PO (14:50)
--- NOTE | 2021-01-13 15:36 | W.PM.PROGNOT ---
Date of Service Date of service: 01/13/21 Time of Service: 15:36 Assessment and Plan Assessment and plan (1) Suicidal ideation: Start date: 01/13/21 Start time: 15:38 Status: Acute Assessment and plan: remains here on a voluntary psychiatric hold. plan was to overdose, contracts for safety here, CPSO and behavioral plan in place mental health consulted now that patient is medically cleared. patient agrees to staying for voluntary admission (2) Alcohol intoxication: Start date: 01/13/21 Start time: 15:39 Status: Resolved Assessment and plan: No longer w/d, taper libruim medically cleared. Qualifiers: Complication of substance-induced condition: uncomplicated Qualified Code(s): F10.920 - Alcohol use, unspecified with intoxication, uncomplicated (3) Methadone dependence: Start date: 01/13/21 Start time: 15:40 Status: Chronic Assessment and plan: will continue home methadone dosing. (4) Back pain: Start date: 01/13/21 Start time: 15:38 Status: Chronic Assessment and plan: thoracic spine ongoing over a month, not worsening. no radiculopathy, no upper ext weakness or numbness. continue apap prn, add lidocaine patch. f/u pcp if not improving after discharge Qualifiers: Back pain location: thoracic back pain Chronicity: chronic Back pain laterality: bilateral Qualified Code(s): M54.6 - Pain in thoracic spine; G89.29 - Other chronic pain (5) Hypoxia: Start date: 01/13/21 Start time: 15:40 Status: Resolved Assessment and plan: Recommend outpatient sleep study for JUAN DANIEL when he is done with MH issues (6) Depression: Start date: 01/13/21 Start time: 15:41 Status: Chronic Assessment and plan: continue zoloft and trazodone Qualifiers: Depression Type: major depressive disorder Major depression recurrence: recurrent Active/Remission status: currently active Major depression episode severity: moderate Qualified Code(s): F33.1 - Major depressive disorder, recurrent, moderate (7) Discharge planning issues: Start date: 01/13/21 Start time: 15:41 Status: Acute Assessment and plan: case management following, awaiting bed placement at this time discussed with Dr Franz Subjective Subjective Patient reports: no new complaints Interval history since last seen: States having SI but slightly improving, sleepy but awake. CPSO present. Continue to wait placement for facility Exam Const General: no acute distress, disheveled and ill appearing chronically Nutritional Appearance: obese Orientation: alert, awake and oriented x3 HENMT Head: normal to inspection, normocephalic and atraumatic Resp Effort & Inspection: normal respiratory effort Auscultation: no wheezes Cardio Rate: regular rate and not tachycardic Rhythm: regular rhythm GI Inspection: obesity Palpation: soft and nontender Neuro General: patient alert, patient awake, patient oriented x3, gait normal and no focal motor deficits Extrem General: normal to inspection, full ROM and no pedal edema Psych Appearance: disheveled Speech and Movement: speech and movement normal Affect: blunted Attitude: cooperative Thought Content: suicidality Objective Last Vital Signs Temp 35.2 C L 01/13/21 08:14 Pulse 75 01/13/21 08:14 Resp 12 01/13/21 08:14 BP 122/84 01/13/21 08:14 Pulse Ox 92 01/13/21 10:54 PAWSS Have you Been Recently Intoxicated or Drunk Within the Last 30 days?: Yes Have you Ever Experienced Previous Episodes of Alcohol Withdrawal?: Yes Have you ever Experienced Withdrawal Seizures?: Yes Have you ever Experienced Delirium Tremens(DT)s?: Yes Have you ever undergone Alcohol Rehabilitation Treatment (i.e, inpt ot outpatient treatment programs)?: Yes Have you ever Experienced Blackouts?: Yes Have you ever Combined Alcohol with other Downers within the last 90 days?: Yes Have you ever Combined Alcohol with any other Substance of Abuse during the last 90 days?: Yes Positive Blood Alcohol level on Presentation? [PCS.BAL]: Unable to Obtain Evidence of Increased Autonomic Activity (i.e. HR>120, tremor, sweating, agitation, nausea)?: Yes Result: 9
[2021-01-13] MEDS: Lidocaine 5% Patch 1 PATCH TP (16:17)
[2021-01-13] MEDS: LORazepam 0.5 MG TAB PO (16:18)
[2021-01-13 18:54] VITALS: BP 101/68; PULSE 75; RESP 18; TEMP 36.7; O2SAT 96
[2021-01-14] MEDS: Omeprazole 20 MG CAPCR PO (06:31)
[2021-01-14] MEDS: Nicotine 21 MG/24 HR PATCH TD (09:09)
[2021-01-14] MEDS: Folic Acid 1 MG TAB PO (09:10)
[2021-01-14] MEDS: hydroCHLOROthiazide 12.5 MG TAB PO (09:10)
[2021-01-14] MEDS: Sertraline 50 MG TAB PO (09:10)
[2021-01-14] MEDS: Multivitamin TAB 1 TAB PO (09:10)
[2021-01-14] MEDS: Atenolol 50 MG TAB PO (09:11)
[2021-01-14] MEDS: Methadone Liquid 10 MG/ML 80 MG PO (09:11)
[2021-01-14] MEDS: Gabapentin 600 MG TAB PO ×3 (09:11→22:26)
[2021-01-14] MEDS: Thiamine 100 MG TAB PO (09:11)
[2021-01-14] MEDS: Lisinopril 10 MG TAB PO (09:11)
[2021-01-14] MEDS: traZODone 100 MG TAB PO (09:29)
[2021-01-14 09:33] VITALS: BP 108/75; PULSE 75; RESP 18; TEMP 36.8; O2SAT 96
--- NOTE | 2021-01-14 10:31 | CMSP_ITS ---
- If Service Date Differs Date of service: 01/14/21 Time of Service: 17:16 Care Management Safety Plan Status: Voluntary - Reason for Wait Reason for Wait: Inpatient Admission VOLUNTARY FOR INPATIENT PSYCHIATRIC STABILIZATION. Garrett is experiencing some anxiety around housing issues, was previously at the [facility] ([facility]) sober house in [facility] prior to coming to [facility]. [place] ([phone]) Garrett requests his cell phone as he reportedly has a different phone number to the [facility] house saved in his phone. His cell phone, however, is not in his belongings. Referrals faxed to [facility], [facility], [facility], [facility], and [facility] for review. There are no available beds today. CM continues to follow. Safety plan has been established with patient, and care team, to adhere to patient goals, identify restrictions based on behavioral status, address nutrition, and determine allowed personal belongings, tools for hygiene and per tika care. Determine level of activity including ambulation, level of supervision, visitors, and determine privileges based on behaviors and level of engagement by pt. SAFETY PLAN: 1. Will remain on suicide precautions. In Paper Clothes. 2. Will remain in room under direct supervision of one-on-one staff at all times provided by CPSO, SAFETY SEALER, DUNGEON MASTER seed yeast operator. 3. May have paper cups, plates, finger foods as well as a cardboard spoon with which to eat meals. 4. Follow [facility] Management of the Admitted Behavioral Health Patient policy. 5. Personal Care: Comfort system available as well as shower with escort to shower room, at RN discretion. 6. No personal belongings at this time. 7. Visitors-No visitors at this time 8. Activities: Soft cart items, music tablet, television and other activities at RN discretion. 9. Bathroom available in room without restriction. 10. Phone: May use [employer] hospital phone for incoming and outgoing phone calls at RN discretion. 11. Due to VOLUNTARY status, if patient wishes to leave [facility], staff will contact [facility] Crisis Screener ([phone]) and On-Call Information Technology Administrator ([phone]) as soon as possible. In the event of elopement, notify [facility] Police ([phone]). Patient is currently voluntarily at [facility] and seeking inpatient admission when a bed becomes available. [facility] Frontline Laser Specialist will continue seeking placement. Please contact the Building Wrecker Information Technology Administrator ([phone]) and [facility] Laser Specialist ([phone]) for any needed changes in the Safety Plan. Safety p shanon has been provided to interdepartmental care team.
--- NOTE | 2021-01-14 10:31 | PDOC.CMSAFE ---
- If Service Date Differs Date of service: 01/14/21 Time of Service: 17:16 Care Management Safety Plan Status: Voluntary - Reason for Wait Reason for Wait: Inpatient Admission VOLUNTARY FOR INPATIENT PSYCHIATRIC STABILIZATION. Garrett is experiencing some anxiety around housing issues, was previously at the [facility] ([facility] sober house in [facility] prior to coming to [facility]. [facility] ([phone]) Garrett requests his cell phone as he reportedly has a different phone number to the [facility] house saved in his phone. His cell phone, however, is not in his belongings. Referrals faxed to [facility], [facility], [facility], [facility], [facility], and [facility] for review. There are no available beds today. CM continues to follow. Safety plan has been established with patient, and care team, to adhere to patient goals, identify restrictions based on behavioral status, address nutrition, and determine allowed personal belongings, tools for hygiene and personal care. Determine level of activity including ambulation, level of supervision, visitors, and determine privileges based on behaviors and level of engagement by pt. SAFETY PLAN: 1. Will remain on suicide precautions. In Paper Clothes. 2. Will remain in room under direct supervision of one-on-one staff at all times provided by CPSO, BEHAVIORAL SCIENTIST, DRIVE THRU ORDER TAKER skip operator. 3. May have paper cups, plates, finger foods as well as a cardboard spoon with which to eat meals. 4. Follow [facility] Management of the Admitted Behavioral Health Patient policy. 5. Personal Care: Comfort system available as well as shower with escort to shower room, at RN discretion. 6. No personal belongings at this time. 7. Visitors-No visitors at this time 8. Activities: Soft cart items, music tablet, television and other activities at RN discretion. 9. Bathroom available in room without restriction. 10. Phone: May use [employer] hospital phone for incoming and outgoing phone calls at RN discretion. 11. Due to VOLUNTARY status, if patient wishes to leave [facility], staff will contact [facility] Crisis Screener ([phone]) and On-Call Branch Account Executive ([phone]) as soon as possible. In the event of elopement, notify [facility] Police ([phone]). Patient is currently voluntarily at [facility] and seeking inpatient admission when a bed becomes available. [facility] Frontline Machine Clothing Worker will continue seeking placement. Please contact the Legal Document Assistant Branch Account Executive ([phone]) and [facility] Machine Clothing Worker ([phone]) for any needed changes in the Safety Plan. Safety plan has been provided to interdepartmental care team.
[2021-01-14] MEDS: LORazepam 0.5 MG TAB PO ×2 (13:44→17:13)
--- NOTE | 2021-01-14 14:27 | W.PM.PROGNOT ---
Date of Service Date of service: 01/14/21 Time of Service: 14:28 Assessment and Plan Assessment and plan (1) Suicidal ideation: Start date: 01/14/21 Start time: 14:31 Status: Acute Assessment and plan: remains here on a voluntary psychiatric hold. plan was to overdose, contracts for safety here, CPSO and behavioral plan in place mental health consulted now that patient is medically cleared. patient agrees to staying for voluntary admission (2) Alcohol intoxication: Start date: 01/14/21 Start time: 14:31 Status: Resolved Assessment and plan: No longer w/d, taper libruim medically cleared. Qualifiers: Complication of substance-induced condition: uncomplicated Qualified Code(s): F10.920 - Alcohol use, unspecified with intoxication, uncomplicated (3) Methadone dependence: Start date: 01/14/21 Start time: 14:32 Status: Chronic Assessment and plan: will continue home methadone dosing. (4) Back pain: Start date: 01/14/21 Start time: 14:32 Status: Chronic Assessment and plan: thoracic spine ongoing over a month, not worsening. no radiculopathy, no upper ext weakness or numbness. continue apap prn, add lidocaine patch. f/u pcp if not improving after discharge Qualifiers: Back pain location: thoracic back pain Chronicity: chronic Back pain laterality: bilateral Qualified Code(s): M54.6 - Pain in thoracic spine; G89.29 - Other chronic pain (5) Depression: Start date: 01/14/21 Start time: 14:33 Status: Chronic Assessment and plan: continue zoloft and trazodone Qualifiers: Depression Type: major depressive disorder Major depression recurrence: recurrent Active/Remission status: currently active Major depression episode severity: moderate Qualified Code(s): F33.1 - Major depressive disorder, recurrent, moderate (6) Discharge planning issues: Start date: 01/14/21 Start time: 14:33 Status: Acute Assessment and plan: case management following, awaiting bed placement at this time discussed with Dr Zamudio Subjective Subjective Patient reports: other Interval history since last seen: having SI voluntary status awaiting bed placement. Exam Const General: no acute distress, disheveled and ill appearing chronically Nutritional Appearance: obese Orientation: alert, awake and oriented x3 HENMT Head: normal to inspection, normocephalic and atraumatic Resp Effort & Inspection: normal respiratory effort Auscultation: no wheezes Cardio Rate: regular rate and not tachycardic Rhythm: regular rhythm GI Inspection: obesity Palpation: soft and nontender Neuro General: patient alert, patient awake, patient oriented x3, gait normal and no focal motor deficits Extrem General: normal to inspection, full ROM and no pedal edema Psych Appearance: disheveled Speech and Movement: speech and movement normal Affect: blunted Attitude: cooperative Thought Content: suicidality Objective Last Vital Signs Temp 36.8 C 01/14/21 09:33 Pulse 75 01/14/21 09:33 Resp 18 01/14/21 09:33 BP 108/75 01/14/21 09:33 Pulse Ox 96 01/14/21 09:33 PAWSS Have you Been Recently Intoxicated or Drunk Within the Last 30 days?: Yes Have you Ever Experienced Previous Episodes of Alcohol Withdrawal?: Yes Have you ever Experienced Withdrawal Seizures?: Yes Have you ever Experienced Delirium Tremens(DT)s?: Yes Have you ever undergone Alcohol Rehabilitation Treatment (i.e, inpt ot outpatient treatment programs)?: Yes Have you ever Experienced Blackouts?: Yes Have you ever Combined Alcohol with other Downers within the last 90 days?: Yes Have you ever Combined Alcohol with any other Substance of Abuse during the last 90 days?: Yes Positive Blood Alcohol level on Presentation? [PCS.BAL]: Unable to Obtain Evidence of Increased Autonomic Activity (i.e. HR>120, tremor, sweating, agitation, nausea)?: Yes Result: 9
[2021-01-14 17:00] VITALS: BP 101/69; PULSE 75; RESP 18; TEMP 37.1; O2SAT 95
[2021-01-14] MEDS: Lidocaine 5% Patch 1 PATCH TP (17:11)
[2021-01-14] MEDS: Cyclobenzaprine 10 MG TAB PO (22:26)
[2021-01-15 05:53] VITALS: BP 151/81; PULSE 79; RESP 18; TEMP 36.6; O2SAT 96
[2021-01-15] MEDS: Omeprazole 20 MG CAPCR PO (06:34)
[2021-01-15] MEDS: Atenolol 50 MG TAB PO (08:39)
[2021-01-15] MEDS: Sertraline 50 MG TAB PO (08:39)
[2021-01-15] MEDS: Gabapentin 600 MG TAB PO ×3 (08:39→22:48)
[2021-01-15] MEDS: hydroCHLOROthiazide 12.5 MG TAB PO (08:40)
[2021-01-15] MEDS: traZODone 100 MG TAB PO (08:40)
[2021-01-15] MEDS: Thiamine 100 MG TAB PO (08:40)
[2021-01-15] MEDS: Multivitamin TAB 1 TAB PO (08:40)
[2021-01-15] MEDS: Nicotine 21 MG/24 HR PATCH TD (08:41)
[2021-01-15] MEDS: Lisinopril 10 MG TAB PO (08:41)
[2021-01-15] MEDS: Methadone Liquid 10 MG/ML 80 MG PO (08:41)
[2021-01-15] MEDS: Folic Acid 1 MG TAB PO (08:56)
--- NOTE | 2021-01-15 09:33 | PGE_ITS ---
Date of Service Date of service: 01/15/21 Time of Service: 09:33 Assessment and Plan Assessment and plan (1) Suicidal ideation: Start date: 01/15/21 Start time: 09:34 Status: Acute Assessment and plan: remains here on a voluntary psychiatric hold. plan was to overdose, contracts for safety here, CPSO and behavioral plan in place mental health consulted now that patient is medically cleared. patient agrees to staying for voluntary admission (2) Alcohol intoxication: Start date: 01/15/21 Start time: 09:35 Status: Resolved Assessment and plan: No longer w/d, tapered libruim to BID yesterday, continue to taper medically cleared. Qualifiers: Complication of substance-induced condition: uncomplicated Qualified Code(s): F10.920 - Alcohol use, unspecified with intoxication, uncomplicated (3) Methadone dependence: Start date: 01/15/21 Start time: 09:35 Status: Chronic Assessment and plan: will continue home methadone dosing. (4) Back pain: Start date: 01/15/21 Start time: 09:35 Status: Chronic Assessment and plan: thoracic spine ongoing over a month, not worsening. no radiculopathy, no upper ext weakness or numbness. continue apap prn, add lidocaine patch. f/u pcp if not improving after discharge Qualifiers: Back pain laterality: bilateral Back pain location: thoracic back pain Chronicity: chronic Qualified Code(s): M54.6 - Pain in thoracic spine; G89.29 - Other chronic pain (5) Depression: Start date: 01/15/21 Start time: 09:35 Status: Chronic Assessment and plan: continue zoloft and trazodone Qualifiers: Active/Remission status: currently active Depression Type: major depressive disorder Major depression episode severity: moderate Major depression recurrence: recurrent Qualified Code(s): F33.1 - Major depressive disorder, recurrent, moderate (6) Discharge planning issues: Start date: 01/15/21 Start time: 09:36 Status: Acute Assessment and plan: case management following, awaiting bed placement at this time discussed with Dr Zamudio Subjective Subjective Patient reports: other Interval history since last seen: Still having thoughts of SI. Continue to wait for bed for MH. Exam Const General: no acute distress, disheveled and ill appearing chronically Nutritional Appearance: obese Orientation: alert, awake and oriented x3 HENMT Head: normal to inspection, normocephalic and atraumatic Resp Effort & Inspection: normal respiratory effort Auscultation: no wheezes Cardio Rate: regular rate and not tachycardic Rhythm: regular rhythm GI Inspection: obesity Palpation: soft and nontender Neuro General: patient alert, patient awake, patient oriented x3, gait normal and no focal motor deficits Extrem General: normal to inspection, full ROM and no pedal edema Psych Appearance: disheveled Speech and Movement: speech and movement normal Affect: blunted Attitude: cooperative Thought Content: suicidality Objective Last Vital Signs Temp 36.6 C 01/15/21 05:53 Pulse 79 01/15/21 05:53 Resp 18 01/15/21 05:53 BP 151/81 H 01/15/21 05:53 Pulse Ox 96 01/15/21 05:53 PAWSS Have you Been Recently Intoxicated or Drunk Within the Last 30 days?: Yes Have you Ever Experienced Previous Episodes of Alcohol Withdrawal?: Yes Have you ever Experienced Withdrawal Seizures?: Yes Have you ever Experienced Delirium Tremens(DT)s?: Yes Have you ever undergone Alcohol Rehabilitation Treatment (i.e, inpt ot outpatient treatment programs)?: Yes Have you ever Experienced Blackouts?: Yes Have you ever Combined Alcohol with other Downers within the last 90 days?: Yes Have you ever Combined Alcohol with any other Substance of Abuse during the last 90 days?: Yes Positive Blood Alcohol level on Presentation? [PCS.BAL]: Unable to Obtain Evidence of Increased Autonomic Activity (i.e. HR>120, tremor, sweating, agit ation, nausea)?: Yes Result: 9
--- NOTE | 2021-01-15 11:41 | CMSP_ITS ---
- If Service Date Differs Date of service: 01/15/21 Time of Service: 11:41 Care Management Safety Plan Status: Voluntary - Reason for Wait Reason for Wait: Inpatient Admission VOLUNTARY FOR INPATIENT PSYCHIATRIC STABILIZATION. Garrett is experiencing some anxiety around housing issues, was previously at the [facility] ([facility]) sober house in [facility] prior to coming to [facility]. [place] ([phone]) Garrett requests his cell phone as he reportedly has a different phone number to the [facility] house saved in his phone. His cell phone, however, is not in his belongings. Referrals faxed to [facility], [facility], [facility], [facility], and [facility] for review. There are no available beds today. CM continues to follow. Safety plan has been established with patient, and care team, to adhere to patient goals, identify restrictions based on behavioral status, address nutrition, and determine allowed personal belongings, tools for hygiene and per tika care. Determine level of activity including ambulation, level of supervision, visitors, and determine privileges based on behaviors and level of engagement by pt. SAFETY PLAN: 1. Will remain on suicide precautions. In Paper Clothes. 2. Will remain in room under direct supervision of one-on-one staff at all times provided by CPSO, AIRCRAFT RIGGING AND CONTROLS MECHANIC, CAMP MANAGER reporting analyst. 3. May have paper cups, plates, finger foods as well as a cardboard spoon with which to eat meals. 4. Follow [facility] Management of the Admitted Behavioral Health Patient policy. 5. Personal Care: Comfort system available as well as shower with escort to shower room, at RN discretion. 6. No personal belongings at this time. 7. Visitors-No visitors at this time 8. Activities: Soft cart items, music tablet, television and other activities at RN discretion. 9. Bathroom available in room without restriction. 10. Phone: May use [employer] hospital phone for incoming and outgoing phone calls at RN discretion. 11. Due to VOLUNTARY status, if patient wishes to leave [facility], staff will contact [facility] Crisis Screener ([phone]) and On-Call Continuity Clerk ([phone]) as soon as possible. In the event of elopement, notify [facility] Police ([phone]). Patient is currently voluntarily at [facility] and seeking inpatient admission when a bed becomes available. [facility] Frontline Cathode Ray Tube Assembler will continue seeking placement. Please contact the Filter Worker Continuity Clerk ([phone]) and [facility] Cathode Ray Tube Assembler ([phone]) for any needed changes in the Safety Plan. Safety p shanon has been provided to interdepartmental care team.
--- NOTE | 2021-01-15 11:41 | PDOC.CMSAFE ---
- If Service Date Differs Date of service: 01/15/21 Time of Service: 11:41 Care Management Safety Plan Status: Voluntary - Reason for Wait Reason for Wait: Inpatient Admission VOLUNTARY FOR INPATIENT PSYCHIATRIC STABILIZATION. Garrett is experiencing some anxiety around housing issues, was previously at the [facility] of [facility] ([facility] sober house in [facility] prior to coming to [facility]. [facility] ([phone]) Garrett requests his cell phone as he reportedly has a different phone number to the [facility] house saved in his phone. His cell phone, however, is not in his belongings. Referrals faxed to [facility], [facility], [facility], [facility] [place], and [facility] for review. There are no available beds today. CM continues to follow. Safety plan has been established with patient, and care team, to adhere to patient goals, identify restrictions based on behavioral status, address nutrition, and determine allowed personal belongings, tools for hygiene and personal care. Determine level of activity including ambulation, level of supervision, visitors, and determine privileges based on behaviors and level of engagement by pt. SAFETY PLAN: 1. Will remain on suicide precautions. In Paper Clothes. 2. Will remain in room under direct supervision of one-on-one staff at all times provided by [employer], GREEN FEED ATTENDANT, OFFICE 365 CONSULTANT transportation superintendent. 3. May have paper cups, plates, finger foods as well as a cardboard spoon with which to eat meals. 4. Follow [facility] Management of the Admitted Behavioral Health Patient policy. 5. Personal Care: Comfort system available as well as shower with escort to shower room, at RN discretion. 6. No personal belongings at this time. 7. Visitors-No visitors at this time 8. Activities: Soft cart items, music tablet, television and other activities at RN discretion. 9. Bathroom available in room without restriction. 10. Phone: May use [employer] hospital phone for incoming and outgoing phone calls at RN discretion. 11. Due to VOLUNTARY status, if patient wishes to leave [facility], staff will contact [facility] Crisis Screener ([phone]) and On-Call Sap Bw Developer ([phone]) as soon as possible. In the event of elopement, notify [facility] Police ([phone]). Patient is currently voluntarily at [facility] and seeking inpatient admission when a bed becomes available. [facility] Frontline Paper Cone Machine Tender will continue seeking placement. Please contact the Contract Runner Sap Bw Developer ([phone]) and [facility] Paper Cone Machine Tender ([phone]) for any needed changes in the Safety Plan. Safety plan has been provided to interdepartmental care team.
--- NOTE | 2021-01-15 19:05 | NUR.NOTE ---
Nursing Note: Full assessment at 1700 reveled patient still had lido patch on back from yesterday. Order states to have patch on for 12 hr and off for 12. No patch removal order. Discussed with [facility], spoke with pharmacy. Now have order for patch removal and placement again in the morning. Patch removed at 1700.
[2021-01-15] MEDS: Cyclobenzaprine 10 MG TAB PO (22:48)
[2021-01-15 22:52] VITALS: BP 102/68; PULSE 74; RESP 16; TEMP 37.2; O2SAT 96
[2021-01-16] MEDS: Acetaminophen 325 MG TAB 650 MG PO ×2 (03:21→18:08)
[2021-01-16] MEDS: Lidocaine 5% Patch 1 PATCH TP (08:48)
[2021-01-16] MEDS: Nicotine 21 MG/24 HR PATCH TD (08:49)
[2021-01-16] MEDS: Gabapentin 600 MG TAB PO ×3 (08:50→20:08)
[2021-01-16] MEDS: Thiamine 100 MG TAB PO (08:51)
[2021-01-16] MEDS: hydroCHLOROthiazide 12.5 MG TAB PO (08:51)
[2021-01-16] MEDS: Folic Acid 1 MG TAB PO (08:51)
[2021-01-16] MEDS: Multivitamin TAB 1 TAB PO (08:52)
[2021-01-16] MEDS: Sertraline 50 MG TAB PO (08:52)
[2021-01-16] MEDS: Omeprazole 20 MG CAPCR PO (08:52)
[2021-01-16] MEDS: Lisinopril 10 MG TAB PO (08:52)
[2021-01-16] MEDS: Atenolol 50 MG TAB PO (08:52)
[2021-01-16] MEDS: Methadone Liquid 10 MG/ML 80 MG PO (08:55)
--- NOTE | 2021-01-16 11:27 | CMSP_ITS ---
- If Service Date Differs Date of service: 01/16/21 Time of Service: 11:27 Care Management Safety Plan Status: Voluntary - Reason for Wait Reason for Wait: Inpatient Admission VOLUNTARY FOR INPATIENT PSYCHIATRIC STABILIZATION. Garrett is experiencing some anxiety around housing issues, was previously at the [facility] ([facility]) sober house in [facility] prior to coming to [facility]. [place] ([phone]) Garrett requests his cell phone as he reportedly has a different phone number to the [facility] house saved in his phone. His cell phone, however, is not in his belongings. Referrals faxed to [facility], [facility], [facility], [facility], and [facility] for review. Waiting for an update on bed availability for today. CM continues to follow. Safety plan has been established with patient, and care team, to adhere to patient goals, identify restrictions based on behavioral status, address nutrition, and determine allowed personal belongings, tools for hygiene and personal care. Determine level of activity including ambulation, level of supervision, visitors, and determine privileges based on behaviors and level of engagement by pt. SAFETY PLAN: 1. Will remain on suicide precautions. In Paper Clothes. 2. Will remain in room under direct supervision of one-on-one staff at all times provided by [employer]PS[employer], WOOL AND PELT GRADER, EXPERIENCE DESIGNER manual control auger press operator. 3. May have paper cups, plates, finger foods as well as a cardboard spoon with which to eat meals. 4. Follow [facility] Management of the Admitted Behavioral Health Patient policy. 5. Personal Care: Comfort system available as well as shower with escort to shower room, at RN discretion. 6. No personal belongings at this time. 7. Visitors-No visitors at this time 8. Activities: Soft cart items, music tablet, television and other activities at RN discretion. 9. Bathroom available in room without restriction. 10. Phone: May use [employer] hospital phone for incoming and outgoing phone calls at RN discretion. 11. Due to VOLUNTARY status, if patient wishes to leave [facility], staff will contact [facility] Crisis Screener ([phone]) and On-Call Chemical Sales Representative ([phone]) as soon as possible. In the event of elopement, notify [facility] Police ([phone]). Patient is currently voluntarily at [facility] and seeking inpatient admission when a bed becomes available. [facility] Frontline Tile And Marble Setter will continue seeking placement. Please contact the Manager Fine Chemical Sales Representative ([phone]) and [facility] Tile And Marble Setter ([phone]) for any needed changes in the Safety Plan. Safety plan has been provided to interdepartmental care team.
--- NOTE | 2021-01-16 11:27 | PDOC.CMSAFE ---
- If Service Date Differs Date of service: 01/16/21 Time of Service: 11:27 Care Management Safety Plan Status: Voluntary - Reason for Wait Reason for Wait: Inpatient Admission VOLUNTARY FOR INPATIENT PSYCHIATRIC STABILIZATION. Garrett is experiencing some anxiety around housing issues, was previously at the [facility] ([facility]) sober house in [facility] prior to coming to [facility]. [place] ([phone]) Garrett requests his cell phone as he reportedly has a different phone number to the [facility] house saved in his phone. His cell phone, however, is not in his belongings. Referrals faxed to [facility], [facility], [facility], [facility] [place], and [facility] for review. Waiting for an update on bed availability for today. CM continues to follow. Safety plan has been established with patient, and care team, to adhere to patient goals, identify restrictions based on behavioral status, address nutrition, and determine allowed personal belongings, tools for hygiene and personal care. Determine level of activity including ambulation, level of supervision, visitors, and determine privileges based on behaviors and level of engagement by pt. SAFETY PLAN: 1. Will remain on suicide precautions. In Paper Clothes. 2. Will remain in room under direct supervision of one-on-one staff at all times provided by CPSO, ENT PHYSICIAN, MARKET RESEARCH EXECUTIVE ore charger. 3. May have paper cups, plates, finger foods as well as a cardboard spoon with which to eat meals. 4. Follow [facility] Management of the Admitted Behavioral Health Patient policy. 5. Personal Care: Comfort system available as well as shower with escort to shower room, at RN discretion. 6. No personal belongings at this time. 7. Visitors-No visitors at this time 8. Activities: Soft cart items, music tablet, television and other activities at RN discretion. 9. Bathroom available in room without restriction. 10. Phone: May use [employer] hospital phone for incoming and outgoing phone calls at RN discretion. 11. Due to VOLUNTARY status, if patient wishes to leave [facility], staff will contact [facility] Crisis Screener ([phone]) and On-Call Cooking Instructor ([phone]) as soon as possible. In the event of elopement, notify [facility] Police ([phone]). Patient is currently voluntarily at [facility] and seeking inpatient admission when a bed becomes available. [facility] Frontline Junction Maker will continue seeking placement. Please contact the Roving Sizer Cooking Instructor ([phone]) and [facility] Junction Maker ([phone]) for any needed changes in the Safety Plan. Safety plan has been provided to interdepartmental care team.
--- NOTE | 2021-01-16 11:30 | PDOC.CMPRO ---
- If Service Date Differs Date of service: 01/16/21 Time of Service: 11:30 Care Management Progress Note S/O: Garrett was Lying in bed when CM met with him. He shared that he wants to go back to [facility] which is the sober living house in [place] [facility] he was recently kicked out of. Unfortunately, Grant from [facility] spoke with their court administrator Felix and re-entry for Garrett will not be considered for 60 days. Garrett remains adamant that he will be able to go back there with stipulations, if he has an advocate. Garrett had a meeting with a womens volleyball coach today coordinated by CM. Garrett was provided with contact information to the [facility] and [facility]. CM is unsure if Garrett will reach out to these sober living facilities. CM will continue to support discharge planning needs. A: 50 year old male admitted to [facility] on 01/10/21 for suicidal ideation and alcohol intoxication. P: Garrett is awaiting voluntary admission to a psych facility pending bed availability. He continues to decline placement at [place]. Garrett met with Grant from [facility] virtually today. He also met with a womens volleyball coach. Garrett wants to go back to [facility], but unfortunately they will not consider his re-entry for 60 days. CM provided patient with contact numbers to other sober living facilities such as [facility] and [facility] and encouraged him to reach out. CM continues to follow. Updated contact list [facility] - Only accepting in-house referrals at this time. [facility] - At capacity with no anticipated capacity for the next 2-3 days. [facility] - 'Do not connect' status, referral has not been moved forward. [facility] - At capacity. [facility] - Both units full with 10 in ED; Currently not accepting outside referrals.
--- NOTE | 2021-01-16 11:30 | CMPROGNOTE_ITS ---
- If Service Date Differs Date of service: 01/16/21 Time of Service: 11:30 Care Management Progress Note S/O: Garrett was Lying in bed when CM met with him. He shared that he wants to go back to [facility] which is the sober living house in [place] [facility] he was recently kicked out of. Unfortunately, Grant from [facility] spoke with their retirement administrator Felix and re- entry for Garrett will not be considered for 60 days. Garrett remains adamant that he will be able to go back there with stipulations, if he has an advocate. Garrett had a meeting with a recovery analyst today coordinated by CM. Garrett was provided with contact information to the [facility] and [facility]. CM is unsure if Garrett will reach out to these sober living facilities. CM will continue to support discharge planning needs. A: 50 year old male admitted to [facility] on 01/10/21 for suicidal ideation and alcohol intoxication. P: Garrett is awaiting voluntary admission to a psych facility pending bed availability. He continues to decline placement at [place]. Garrett met with Grant from [facility] virtually today. He also met with a recovery analyst. Garrett wants to go back to [facility], but unfortunately they will not consider his re-entry for 60 days. CM provided patient with contact numbers to other sober living facilities such as [facility] and [facility] and encouraged him to reach out. CM continues to follow. Updated contact list [facility] - Only accepting in-house referrals at this time. [facility] - At capacity with no anticipated capacity for the next 2-3 days. [facility] - 'Do not connect' status, referral has not been moved forward. [facility] - At capacity. [facility] - Both units full with 10 in ED; Currently not accepting outside referrals.
--- NOTE | 2021-01-16 12:58 | W.INMHPGNOTE ---
Date of service: 01/16/21 Time of Service: 11:45 Mental Health Crisis Note Presenting Issue How did you arrive at the ED and why did you come: The patient presented to [facility] emergency department .08.26 and disclosed suicidal statements with plan to Dr. Machuca and Dr. Parra. Currently the patient is on med surge awaiting voluntary in-patient treatment dual diagnosis of SI and ETOH dependence. No reported concerns over the weekend 10.9 - 10.10. He is seen today for a follow-up assessment via telehealth. Precipitating Factors The patient presents sitting up on hospital bed. Appearance is disheveled. He is fully alert and oriented to time, person, place and situation. General presentation unchanged from 10.8. He is behaviorally calm and appropriate with mixed eye contact. Speech is unpressured, low volume, flat tone. Patient reports Life is so shitty right now. I don't know what to do. Affect is dysphoric. Thought process intact and organized. No delusions or presenting evidence of hallucinations. Patient reports It's very boring here. I'm in a very degroot room I wish they would let me shower. He denies current SI/HI/SIB, states Not today. A little over the weekend. He reiterates several methods thought about when experiencing SI such as medication O/D, ETOH, and getting a gun, and reports intention as At the moment no, I can't here. Patient discusses his fdc house concerns and requests someone to advocate for him returning to [facility]. He states Having a place to go back to go a long way towards decreasing the thoughts. They won't take me back if I'm having suicidal thoughts though. No additional reported concerns. Disposition BEHAVIOR: Calm EYE CONTACT: Mixed MOOD: Life is so shitty right now. AFFECT: Dysphoric APPETITE: No reported issues SLEEP(trouble falling/staying asleep: No reported issues Plan The patient will remain at [facility] and be assessed daily until placement is secured. Per recent history of suicidal ideation and expressed intent, an inpatient is the most suitable option at this time, however the patient has not disclosed recent SI and alternative fdc house / detox programs may be considered. Discussed additional fdc house options with patient including [facility] and [facility] - patient indicates he would prefer returning to [facility] if possible if inpatient placement can't be secured. [facility] to [facility]. Updated [facility] CM - requested girls swimming coach consult with patient. Obtained verbal release for [facility] to obtain conditions / information on re-entry into program and spoke with Felix [facility] jira administrator. Per consult, the patient is no longer classified as a good fit for the program but may re-apply in 60 days starting from 10.7.21. The patient will need to have addressed the following concerns as part of re-application: Abuse of medications / alcohol, lack of motivation and effort to change and improve self towards growth. This information has already been emailed to the patient and has been reviewed. Updated contact list [facility] - Only accepting in-house referrals at this time. [facility] - At capacity with no anticipated capacity for the next 2-3 days. [facility] - 'Do not connect' status, referral has not been moved forward. [facility] - At capacity. [facility] - Both units full with 10 in ED; Currently not accepting outside referrals.
[2021-01-16] MEDS: LORazepam 0.5 MG TAB PO ×2 (14:11→21:43)
--- NOTE | 2021-01-16 16:42 | W.PM.PROGNOT ---
Date of Service Date of service: 01/16/21 Time of Service: 16:42 Assessment and Plan Assessment and plan (1) Suicidal ideation: Status: Acute Assessment and plan: remains here on a voluntary psychiatric hold. plan was to overdose, contracts for safety here, CPSO and behavioral plan in place mental health consulted now that patient is medically cleared. patient agrees to staying for voluntary admission (2) Alcohol intoxication: Status: Resolved Assessment and plan: No longer w/d, tapered libruim to BID yesterday, continue to taper medically cleared. Qualifiers: Complication of substance-induced condition: uncomplicated Qualified Code(s): F10.920 - Alcohol use, unspecified with intoxication, uncomplicated (3) Methadone dependence: Status: Chronic Assessment and plan: will continue home methadone dosing. (4) Back pain: Status: Chronic Assessment and plan: thoracic spine ongoing over a month, not worsening. no radiculopathy, no upper ext weakness or numbness. continue apap prn, add lidocaine patch. f/u pcp if not improving after discharge Qualifiers: Back pain location: thoracic back pain Chronicity: chronic Back pain laterality: bilateral Qualified Code(s): M54.6 - Pain in thoracic spine; G89.29 - Other chronic pain (5) Depression: Status: Chronic Assessment and plan: continue zoloft and trazodone Qualifiers: Depression Type: major depressive disorder Major depression recurrence: recurrent Active/Remission status: currently active Major depression episode severity: moderate Qualified Code(s): F33.1 - Major depressive disorder, recurrent, moderate (6) Discharge planning issues: Status: Acute Assessment and plan: case management following, awaiting bed placement at this time discussed with Dr Zamudio Subjective Subjective Patient reports: no new complaints, tolerating liquids well, tolerating a regular diet and afebrile Interval history since last seen: remains medically stable. Exam Const General: no acute distress, disheveled and ill appearing chronically Nutritional Appearance: obese Orientation: alert, awake and oriented x3 HENMT Head: normal to inspection, normocephalic and atraumatic Resp Effort & Inspection: normal respiratory effort Auscultation: no wheezes Cardio Rate: regular rate and not tachycardic Rhythm: regular rhythm GI Inspection: obesity Palpation: soft and nontender Neuro General: patient alert, patient awake, patient oriented x3, gait normal and no focal motor deficits Extrem General: normal to inspection, full ROM and no pedal edema Psych Appearance: disheveled Speech and Movement: speech and movement normal Mood: anxious mood Affect: blunted Attitude: cooperative Thought Content: suicidality Objective Last Vital Signs Temp 37.2 C 01/15/21 22:52 Pulse 74 01/15/21 22:52 Resp 16 01/15/21 22:52 BP 102/68 01/15/21 22:52 Pulse Ox 96 01/15/21 22:52 PAWSS Have you Been Recently Intoxicated or Drunk Within the Last 30 days?: Yes Have you Ever Experienced Previous Episodes of Alcohol Withdrawal?: Yes Have you ever Experienced Withdrawal Seizures?: Yes Have you ever Experienced Delirium Tremens(DT)s?: Yes Have you ever undergone Alcohol Rehabilitation Treatment (i.e, inpt ot outpatient treatment programs)?: Yes Have you ever Experienced Blackouts?: Yes Have you ever Combined Alcohol with other Downers within the last 90 days?: Yes Have you ever Combined Alcohol with any other Substance of Abuse during the last 90 days?: Yes Positive Blood Alcohol level on Presentation? [PCS.BAL]: Unable to Obtain Evidence of Increased Autonomic Activity (i.e. HR>120, tremor, sweating, agitation, nausea)?: Yes Result: 9
[2021-01-16] MEDS: Cyclobenzaprine 10 MG TAB PO (18:08)
[2021-01-16 19:19] VITALS: BP 91/61; PULSE 67; RESP 14; TEMP 36; O2SAT 96
[2021-01-16] MEDS: Lidocaine Patch Removal 1 EACH TP (20:09)
[2021-01-16] MEDS: traZODone 100 MG TAB PO (21:41)
--- NOTE | 2021-01-17 08:48 | CMSP_ITS ---
- If Service Date Differs Date of service: 01/17/21 Time of Service: 08:48 Care Management Safety Plan Status: Voluntary - Reason for Wait Reason for Wait: Inpatient Admission VOLUNTARY FOR INPATIENT PSYCHIATRIC STABILIZATION. Garrett is experiencing some anxiety around housing issues, was previously at the [facility] ([facility]) sober house in [facility] prior to coming to [facility]. [place] ([phone]) Garrett requests his cell phone as he reportedly has a different phone number to the [facility] house saved in his phone. His cell phone, however, is not in his belongings. Referrals faxed to [facility], [facility], [facility], [facility], and [facility] for review. Waiting for an update on bed availability for today. CM continues to follow. Safety plan has been established with patient, and care team, to adhere to patient goals, identify restrictions based on behavioral status, address nutrition, and determine allowed personal belongings, tools for hygiene and personal care. Determine level of activity including ambulation, level of supervision, visitors, and determine privileges based on behaviors and level of engagement by pt. SAFETY PLAN: 1. Will remain on suicide precautions. In Paper Clothes. 2. Will remain in room under direct supervision of one-on-one staff at all times provided by CPSO, DIRECTOR CONSUMER AFFAIRS, LUNCH COUNTER MANAGER interior decorator paperhanging. 3. May have paper cups, plates, finger foods as well as a cardboard spoon with which to eat meals. 4. Follow [facility] Management of the Admitted Behavioral Health Patient policy. 5. Personal Care: Comfort system available as well as shower with escort to shower room, at RN discretion. 6. No personal belongings at this time. 7. Visitors-No visitors at this time 8. Activities: Soft cart items, music tablet, television and other activities at RN discretion. 9. Bathroom available in room without restriction. 10. Phone: May use [employer] hospital phone for incoming and outgoing phone calls at RN discretion. 11. Due to VOLUNTARY status, if patient wishes to leave [facility], staff will contact [facility] Crisis Screener ([phone]) and On-Call P D Driver ([phone]) as soon as possible. In the event of elopement, notify [facility] Police ([phone]). Patient is currently voluntarily at [facility] and seeking inpatient admission when a bed becomes available. [facility] Frontline Polo Coach will continue seeking placement. Please contact the Sandfill Operator Surface P D Driver ([phone]) and [facility] Polo Coach ([phone]) for any needed changes in the Safety Plan. Safety plan has been provided to interdepartmental care team.
--- NOTE | 2021-01-17 08:48 | PDOC.CMSAFE ---
- If Service Date Differs Date of service: 01/17/21 Time of Service: 08:48 Care Management Safety Plan Status: Voluntary - Reason for Wait Reason for Wait: Inpatient Admission VOLUNTARY FOR INPATIENT PSYCHIATRIC STABILIZATION. Garrett is experiencing some anxiety around housing issues, was previously at the [facility] [place] [facility] ([facility]) sober house in [facility] prior to coming to [facility]. [place] ([phone]) Garrett requests his cell phone as he reportedly has a different phone number to the [facility] house saved in his phone. His cell phone, however, is not in his belongings. Referrals faxed to [facility], [facility], [facility], [facility], and [facility] for review. Waiting for an update on bed availability for today. CM continues to follow. Safety plan has been established with patient, and care team, to adhere to patient goals, identify restrictions based on behavioral status, address nutrition, and determine allowed personal belongings, tools for hygiene and personal care. Determine level of activity including ambulation, level of supervision, visitors, and determine privileges based on behaviors and level of engagement by pt. SAFETY PLAN: 1. Will remain on suicide precautions. In Paper Clothes. 2. Will remain in room under direct supervision of one-on-one staff at all times provided by CPSO, WORKFORCE ANALYST, METAL SPRAYER PROTECTIVE COATING feller buncher operator. 3. May have paper cups, plates, finger foods as well as a cardboard spoon with which to eat meals. 4. Follow [facility] Management of the Admitted Behavioral Health Patient policy. 5. Personal Care: Comfort system available as well as shower with escort to shower room, at RN discretion. 6. No personal belongings at this time. 7. Visitors-No visitors at this time 8. Activities: Soft cart items, music tablet, television and other activities at RN discretion. 9. Bathroom available in room without restriction. 10. Phone: May use [facility] hospital phone for incoming and outgoing phone calls at RN discretion. 11. Due to VOLUNTARY status, if patient wishes to leave [facility], staff will contact [facility] Crisis Screener ([phone]) and On-Call Power Driven Brush Maker ([phone]) as soon as possible. In the event of elopement, notify [facility] Police ([phone]). Patient is currently voluntarily at [facility] and seeking inpatient admission when a bed becomes available. [facility] Frontline Automation And Control Engineer will continue seeking placement. Please contact the Md Urologist Power Driven Brush Maker ([phone]) and [facility] Automation And Control Engineer ([phone]) for any needed changes in the Safety Plan. Safety plan has been provided to interdepartmental care team.
--- NOTE | 2021-01-17 08:53 | PDOC.CMPRO ---
- If Service Date Differs Date of service: 01/17/21 Time of Service: 08:53 Care Management Progress Note S/O: A: 50 year old male admitted to [facility] on 01/10/21 for suicidal ideation and alcohol intoxication. P: Garrett is awaiting voluntary admission to a psych facility pending bed availability. He continues to decline placement at [place]. Garrett met with a recovery collector yesterday. Garrett wants to go back to [facility], but unfortunately they will not consider his re-entry for 60 days. CM provided patient with contact numbers to other sober living facilities such as [facility] and [facility] and encouraged him to reach out. [facility] continues to look for psych placement and assess patient daily. CM continues to support discharge planning needs. Updated contact list as of 01/16/21: [facility] - Only accepting in-house referrals at this time. [facility] - At capacity with no anticipated capacity for the next 2-3 days. [facility] - 'Do not connect' status, referral has not been moved forward. [facility] - At capacity. [facility] - Both units full with 10 in ED; Currently not accepting outside referrals.
[2021-01-17 09:00] VITALS: BP 105/76; PULSE 71; RESP 18; TEMP 36.5; O2SAT 97
[2021-01-17] MEDS: Nicotine 21 MG/24 HR PATCH TD ×2 (09:00→14:15)
[2021-01-17] MEDS: Lidocaine 5% Patch 1 PATCH TP (09:01)
[2021-01-17] MEDS: Methadone Liquid 10 MG/ML 80 MG PO (09:01)
[2021-01-17] MEDS: Omeprazole 20 MG CAPCR PO (09:02)
[2021-01-17] MEDS: Lisinopril 10 MG TAB PO (09:02)
[2021-01-17] MEDS: Atenolol 50 MG TAB PO (09:02)
[2021-01-17] MEDS: Cyclobenzaprine 10 MG TAB PO (09:02)
[2021-01-17] MEDS: Folic Acid 1 MG TAB PO (09:02)
[2021-01-17] MEDS: Sertraline 50 MG TAB PO (09:02)
[2021-01-17] MEDS: Acetaminophen 325 MG TAB 650 MG PO (09:02)
[2021-01-17] MEDS: Multivitamin TAB 1 TAB PO (09:02)
[2021-01-17] MEDS: Gabapentin 600 MG TAB PO ×2 (09:02→14:10)
[2021-01-17] MEDS: Thiamine 100 MG TAB PO (09:03)
[2021-01-17] MEDS: hydroCHLOROthiazide 12.5 MG TAB PO (09:03)
[2021-01-17] MEDS: LORazepam 0.5 MG TAB PO (11:31)
[2021-01-17] MEDS: hydrOXYzine HCL 25 MG TAB PO (11:31)
--- NOTE | 2021-01-17 13:59 | DSE_ITS ---
Date of service: 01/17/21 Time of Service: 13:59 DS: Diagnosis Discharge Diagnosis (1) Suicidal ideation: Status: Acute (2) Alcohol intoxication: Status: Resolved (3) Methadone dependence: Status: Chronic (4) Back pain: Status: Chronic (5) Depression: Status: Chronic Discharge Plan Disposition Patient Disposition: HOME Condition: Stable Discharge Details Reason For Visit: suicidal ideation, alcohol intoxication Admit Date/Time: 01/10/21 04:45 Admit Provider: Garrett Chan Attending Provider: Garrett Chan Primary Care Provider: Jada Mulligan [facility] Course Hospital Course: This is a 50 male with history of alcohol abuse, substance abuse, on chronic Methadone who presented to the ED with several weeks of depression and suicidal thinking, though no actual plan or specific intent to harm. Last drink previous day with EtOH level 45 on arrival. He received Ativan 4 mg in divided doses due to shakiness and admitted to med/surg unit for medical clearance, alcohol withdrawal and suicidal ideation. He remained on ciwa protocol with scheduled librium which was weaned off. He was eating and drinking and did not have any behavioral issues. Seen by mental health, agrees to voluntary admission pending availability of psych bed for transfer. He was cleared medically and no inpatient psychiatric beds available. Mental health continued to follow and eventually he was cleared to be discharged home and no longer suicidal. Plan is to follow up outpatient with mental health. he is discharged to home. discharge discussed with Dr Franz. Home Meds and New Rx's Prescriptions: Continued trazodone 100 mg Tablet 100 mg PO DAILY RF: 0 lisinopril 10 mg Tablet 10 mg PO DAILY RF: 0 sertraline [Zoloft] 50 mg Tablet 50 mg PO DAILY RF: 0 atenolol 50 mg Tablet 50 mg PO DAILY RF: 0 hydrochlorothiazide 12.5 mg Tablet 12.5 mg PO DAILY RF: 0 omeprazole 20 mg Tablet,Delayed Release (Dr/Ec) 20 mg PO DAILY RF: 0 methadone 5 mg/5 mL Syringe 80 mg PO QAM RF: 0 gabapentin 600 mg Tablet 600 mg PO TID RF: 0 Discharge Instructions Instructions: Abuse of Alcohol (DC), Suicide Prevention (DC) Additional Instructions: DO not drink alcohol. resume usual medications as tolerated. Stand Alone Forms: Nursing Discharge Form Activity:: Activity as Tolerated Equipment/Supplies:: No Equipment Needed Diet:: As Tolerated Discharge Orders Discharge Orders: Discharge Order (Routine); Ordered 01/17/21 Ordered By: Pennie Ulloa Discharge Data Discharge Date/Time-TO BE ENTERED AT DEPARTURE: 01/17/21 14:30 DS: Summary Time Spent with Patient providing and/or coordinating discharge services: Greater than 30 minutes Status at Discharge Functional status at discharge: independent ambulation Overall status at discharge: patient is back to baseline Mental Status: mental status grossly normal Speech and Movement: speech and movement normal Mood: anxious mood Affect: blunted Exam Const General: no acute distress, disheveled and ill appearing chronically Nutritional Appearance: obese Orientation: alert, awake and oriented x3 HENMT Head: normal to inspection, normocephalic and atraumatic Resp Effort & Inspection: normal respiratory effort Auscultation: no wheezes Cardio Rate: regular rate and not tachycardic Rhythm: regular rhythm GI Inspection: obesity Palpation: soft and nontender Neuro General: patient alert, patient awake, patient oriented x3, gait normal and no focal motor deficits Extrem General: normal to inspection, full ROM and no pedal edema Psych Appearance: disheveled Mental Status: mental status grossly normal Speech and Movement: speech and movement normal Mood: anxious mood Affect: blunted Attitude: cooperative Thought Content: suicidality DS: Data Vitals/I&O Vitals and I&O: Vital Signs Temperature 36.5 C 01/17/21 09:00 Temperature Source Tympanic 01/17/21 09:00 Pulse 71 01/17/21 09:00 Pulse Rhythm Regular 01/17/21 09:00 Respiratory Rate 18 01/17/21 09:00 Respiratory Effort Non-Labored 01/17/21 09:00 Respiratory Depth Normal 01/17/21 09:00 Respiratory Pattern Normal 01/17/21 09:00 Blood Pressure 105/76 01/17/21 09:00 Blood Pressure Position Sitting 01/09/21 15:59 Pulse Oximetry 97 01/17/21 09:00 Oxygen Delivery Method Room Air 01/17/21 09:00 Oxygen Flow Rate 0 01/17/21 09:00 Pain Level 0 01/17/21 12:51 Comment 01/17/21 12:51 Intake & Output 01/16/21 01/17/21 01/17/21 23:59 11:59 23:59 Intake Total 240 / 240 1200 / 1440 240 / 1440 Balance 240 / -60 1200 / 1440 240 / 1440 Intake: Oral 240 / 240 1200 / 1440 240 / 1440 Other: Comment pt voided in toilet. ml output is unknown pt voided in toilet, unknown amount or appearance Voiding Methods Toilet Toilet [facility] Medical History (Updated 01/13/21 @ 15:41 by Tracey Guzman NP) Discharge planning issues Social History Smoking/Tobacco Use Status: Current every day Tobacco Type: cigarettes Smoking risk assessment performed?: Yes Alcohol Intake: current Alcohol Intake frequency: 3 or more drinks per day Alcohol type: hard liquor Drug use: Never Substance use type: does not use Additional Social history: was in a custodial house
[2021-01-17] MEDS: Lidocaine Patch Removal 1 EACH TP (14:15)
--- NOTE | 2021-01-17 15:32 | PDOC.CMDIS ---
- If Service Date Differs Date of service: 01/17/21 Time of Service: 15:32 LACE Index Scoring Tool - Questions: Length of Stay (in days): 7 - 13 Acuity (Admit via E.D.?): Yes E.D. Visits: 1 - Answers: Total Score: 9 Risk of Readmission: Low Risk Care Management Discharge Reason for Hospitalization: SI, Alcohol Withdrawal, depression Discharge Plan: Discharged to the community with no new services via private vehicle. He will secure housing on his own and stated he does not want additional resources from CM. Last dose letter for [facility] transcibed by CM and given to patient. Follow up with PCP, [facility] and discharge plan of care as prescribed. Patient/Family Education Needs: Review discharge instructions and plan to follow up with community providers. ask me three. - MH Services (Omit if N/A) Current MH Services: None Referred to Internal [facility] (ED embedded) patient case manager?: Yes - Disposition Disposition: Community Discharge Transport via of: Private Vechicle
--- NOTE | 2021-01-18 09:06 | W.INMHPGNOTE ---
Date of service: 01/17/21 Time of Service: 10:30 Mental Health Crisis Note Presenting Issue How did you arrive at the ED and why did you come: The patient presented to [facility] emergency department 01.10.21 and disclosed suicidal statements with plan to Dr. Machuca and Dr. Parra while intoxicated. Currently the patient is on med surge awaiting voluntary in-patient treatment dual diagnosis of SI and ETOH dependence. He is seen today for a follow-up assessment via telehealth. Precipitating Factors Patient presents sitting up on hospital bed. He appears fully alert and oriented to time, person, place and global circumstance. Behavior is calm / appropriate, attitude is reserved. Speech is unpressured, mumbled, variable / irritated tone when having to repeat answers to questions due to intelligibility issues. He reports mood as Not that great with flat affect. Thought process appears intact and coherent. No delusions or presenting evidence of hallucinations. He denies current SI/HI/SIB, states Not today. Patient denies intention or plan to harm himself or others at time of assessment and reports I'll be OK if he were to discharge to a hotel. Patient continues to decline referral to [facility], with reason stated that facility bathrooms are locked requiring permission for access. Disposition BEHAVIOR: Calm EYE CONTACT: Fair MOOD: Not that great AFFECT: Flat APPETITE: No reported issues SLEEP(trouble falling/staying asleep: No reported issues Plan Reviewed interaction with disaster recovery specialist, VFOR status, and options going forward. Patient reports that information was provided yesterday and that he has not followed up with any phone calls today. He acknowledges understanding that he will not be allowed to re-apply to [facility] for 60 days due to drug/alcohol use and lack of motivation. Patient reports wanting to remain until placement is secured or suitable discharge to alternative is found and it has been communicated that in-patient placement may not occur in a reasonable timeframe given capacity issues. However, given patient's lack of endorsement of SI, from a mental health standpoint he may discharge on a safety plan if indicated. Per [facility] CM, out of state options will be explored. Contact List [facility] - Under review. [facility] - Only accepting in-house referrals at this time. [facility] - At capacity. [facility] - 'Do not connect' status. [facility] - At capacity. Signature Clinician's Name/Title: Landry Álvarez [facility] ES clinician / HP
== END 2021-01-17 14:30 | disposition home or self-care (01) | DRG 885 ==
LOC: ER 01-10 05:45 → MS 01-10 05:49
PROVIDERS: Emergency Medicine; Nurse Practitioner Acute Care; Admitting Provider General Practice; Emergency Provider Student in an Organized Health Care Education/Training Program; PCP Nurse Practitioner Family; Visit Provider General Practice
DX: F33.1 Major depressive disorder, recurrent, moderate (principal); R45.851 Suicidal ideations; F11.20 Opioid dependence, uncomplicated; F10.139 Alcohol abuse with withdrawal, unspecified; Z68.41 Body mass index [BMI] 40.0-44.9, adult; F10.120 Alcohol abuse with intoxication, uncomplicated; F17.210 Nicotine dependence, cigarettes, uncomplicated; Y90.8 Blood alcohol level of 240 mg/100 ml or more; E66.9 Obesity, unspecified; M54.6 Pain in thoracic spine; Z20.822 Contact with and (suspected) exposure to COVID-19; R09.02 Hypoxemia
CPT/HCPCS: 36415; 80048; 80053; 80307; 87635; 99285; 71046; 80320; 80329; 81003; 81015; 82607; 82746; 83735; 84443; 85025; 99222; 99231; 99233; 99239; 99284; J3490

== ENCOUNTER 2021-01-18 10:25 | Inpatient (IN) | payer MEDICARE, MEDICAID, SELFPAY ==
[2021-01-18 10:33] VITALS: BP 122/79; PULSE 86; RESP 14; TEMP 37.3; O2SAT 92
--- NOTE | 2021-01-18 10:58 | ED.GENADUL_ITS ---
Discharge Plan Disposition Patient Disposition: [facility] INPATIENT Condition: Stable Discharge Details Clinical Impression: Major depression, Suicidal ideation, Alcohol abuse Admit Date/Time: 01/20/21 11:38 Admit Provider: Taryn Franz Attending Provider: Taryn Franz Primary Care Provider: Jada Mulligan ED Provider: Jeremy Lopes Discharge Data Discharge Date/Time-TO BE ENTERED AT DEPARTURE: 01/20/21 12:21 Medical Decision Making <Shanelle Johnson - Last Filed: 01/19/21 19:16> 30-year-old male presents to the ER with chief complaint of suicidal thoughts. Alcohol intoxication. He endorses vodka and hard liquor this morning. He does appear intoxicated slurred speech and tearful. He reports that he wants to kill himself by nova gasses such as helium in a jar. Patient reports that he did not take any of his normal medications today and did not get dose for methadone today. He has a past medical history of opioid use disorder, hypertension, GERD, does have a history of suicidal ideations, he was seen in the emergency department recently on January 09, 2021 for similar. On initial exam patient is tearful, appears depressed. Intoxicated. Denies any abdominal pain, neck pain, shortness of breath. Patient is a poor historian Medical clearance labs ordered including Tylenol salicylate level urine drug screen sitter ordered patient in the line of sight of nurses station patient dressed out in paper scrubs. At this time patient remains calm and cooperative. In formed on plan of care, verbalized understanding. 11:40 AM: Spoke with [facility] clinic: patient was last dose methadone January 09 80 mg Patient sleeping sitter at bedside. Care is to be handed off to oncoming provider Sophie Le pending metabolization of alcohol and mental health evaluation. <CANDELARIA Diaz - Last Filed: 01/18/21 23:22> Care transitioned to myself from Ayaka Johnson NP. Please see her initial note regarding history, presentation and exam. In brief, patient is a 50-year-old gentleman presenting today with chief complaint of suicidality. Currently intoxicated. Pending mental health evaluation once he is sober and able to do so. Patient is requesting his medication. States he has not taken his medications today. Blood pressure stable here. Given the time of day, I am hesitant to give him any medications now for blood pressure, particularly as his BP is WNL, will have him restart in his typical schedule tomorrow morning. However, he is scheduled for gabapentin 3 times daily, will give this now. Plan to give trazod one question of bedtime, hopefully after he is able to speak with mental health. ETOH now below legal limit. Patient evaluated by . Hayley evaluated him, he reports that patient still has a plan and suicidal ideation. She is familiar with the patient as he left our inpatient unit earlier today. Patient will stay voluntarily for placement. Patient continues to report to [facility] that he plan was to crash his truck into something alternatively as his truck for carbon monoxide poisoning. At the end of my shift, care transition to Dr. Parra with psychiatric bed placement pending. Patient is comfortable and remains voluntary. <Delores Guajardo DO - Last Filed: 01/19/21 19:45> 0800 -- no acute events overnight. 1100 -- Case discussed with mental health. No known available inpatient beds yet today. Pt remains voluntary. Case discussed with hospitalist who accepts patient for admission while awaiting inpatient psychiatric hospitalization. 1800 -- patient had been held in the ED while awaiting discharges on the floor. Floor bed no longer available. Will hold in the ED while awaiting placement at this time. 1999 -- Case endorsed to Dr. Fuentes to continue to monitor overnight. Medical Records Medical records reviewed: Yes I reviewed the patient's medical records. <Jeremy Lopes MD - Last Filed: 01/20/21 11:42> 1140 --care signed out by Dr. Fuentes. Patient here voluntarily. Apparently was here to be admitted yesterday and we were lacking bed capacity upstairs and so he was held in the ED overnight. No issues overnight. Patient did have some anxiety here this morning. He was given Ativan 1 mg IV. I called and spoke with his hospitalist Pennie Ulloa who notes that she knows the patient well and will admit him at this time daily transition bed HPI <Shanelle Johnson - Last Filed: 01/19/21 19:16> General Mode of arrival: ambulatory . Date/Time Provider Initiated Documentation: 01/18/21 10:55 . Limitations to Documentation: altered mental status (Intoxicated, Under the influence) . Information obtained by: patient, RN notes reviewed and old records reviewed . HPI Narrative: 30-year-old male presents to the ER with chief complaint of suici sobia thoughts. Alcohol intoxication. He endorses vodka and hard liquor this morning. He does appear intoxicated slurred speech and tearful. He reports that he wants to kill himself by nova gasses such as helium in a jar. Patient reports that he did not take any of his normal medications today and did not get dose for methadone today. He has a past medical history of opioid use disorder, hypertension, GERD, does have a history of suicidal ideations, he was seen in the emergency department recently on January 09, 2021 for similar. On initial exam patient is tearful, appears depressed. Intoxicated. Denies any abdominal pain, neck pain, shortness of breath. Patient is a poor historian Related Data Home Medications Medication Instructions Recorded Confirmed atenolol 50 mg PO DAILY 01/09/21 01/18/21 hydrochlorothiazide 12.5 mg PO DAILY 01/09/21 01/18/21 lisinopril 10 mg PO DAILY 01/09/21 01/18/21 methadone 80 mg PO QAM 01/09/21 01/18/21 omeprazole 20 mg PO DAILY 01/09/21 01/18/21 sertraline [Zoloft] 50 mg PO DAILY 01/09/21 01/18/21 trazodone 100 mg PO DAILY 01/09/21 01/18/21 gabapentin 600 mg PO TID 01/10/21 01/18/21 Allergies Allergy/AdvReac Type Severity Reaction Status Date / Time Sulfa (Sulfonamide Allergy Intermediate Skin Rash Unverified 01/19/21 12:54 Antibiotics) General Stated Complaint: PsychEval RODGER: 2 Review of Systems <Shanelle Johnson - Last Filed: 01/19/21 19:16> Unobtainable due to (Poor historian, intoxicated) Gastrointestinal Gastrointestinal: Denies abdominal pain, Denies hematochezia and Denies hematemesis Psychiatric Psychiatric: Reports as per HPI, Reports depression, Reports hopelessness, Denies homicidal ideation and Reports suicidal ideation Comments: Patient states it would be better for everyone if I wasn't here anymore. PFSH <Shanelle Johnson - Last Filed: 01/19/21 19:16> Medical History Discharge planning issues Social History Smoking/Tobacco Use Status: Current every day Tobacco Type: cigarettes Smoking risk assessment performed?: Yes Alcohol Intake: current Alcohol Intake frequency: 3 or more drinks per day Alcohol type: hard liquor Drug use: Never Substance use type: does not use Do you feel safe at home: No Do you feel safe in your relationship?: Yes Additional Social history: was in a detention house Exam <Shanelle Johnson - Last Filed: 01/19/21 19:16> Narrative Exam Narrative: Constitutional: intoxicated, slurred speech. Appears stated age. obese body habitus. Head: Normocephalic, no trauma. Eyes: Pupils PERRLA, Red reflex noted, EOM's intact. Eyelids symmetrical without lesions, discharge, or swelling. ENT: Bilateral TM's WNL, External ear normal to inspection, no mastoid TTP, swelling, or erythema, Nasal turbinates WNL, no nasal discharge. Normal dentition, Posterior pharynx WNL, no exudate. Chest: RRR, Normal S1, S2, distal pulses intact. Resp: Lungs clear to auscultation bilaterally, no wheezes, rales, or rhonchi. Abdomen: Soft, nondistended nontender all 4 quadrants. Musculoskeletal: Normal gait, 5/5 strength to all four extremities. Skin: No suspicious rashes or lesions. Capillary refill less than 2 sec. Neurologic: No focal neuro deficits Hematologic/Lymphatic: No ecchymosis, no lymphadenopathy. Psychiatric: See below Psych Speech and Movement: slurred speech Attitude: guarded and avoids eye contact Thought Process: loose association Thought Content: suicidality Insight: poor Judgment: poor Other: Patient states he was recently kicked out of detention house couple days ago due to alcohol use. Course <Shanelle Johnson - Last Filed: 01/19/21 19:16> Vital Signs Vital signs: Vital Signs Temperature 37.3 C 01/18/21 10:33 Pulse 86 01/18/21 10:33 Respiratory Rate 14 01/18/21 10:33 Blood Pressure 122/79 01/18/21 10:33 Pulse Oximetry 92 01/18/21 10:33 Temperature 37.3 C 01/18/21 10:33 Temperature Source Oral 01/18/21 10:33 Pulse 86 01/18/21 10:33 Respiratory Rate 14 01/18/21 10:33 Respiratory Effort Non-Labored 01/18/21 10:42 Blood Pressure 122/79 01/18/21 10:33 Blood Pressure Position Supine 01/18/21 10:33 Pulse Oximetry 92 01/18/21 10:33 Oxygen Delivery Method Room Air 01/18/21 10:33 Oxygen Flow Rate 0 01/18/21 10:33 Pain Level 4 01/18/21 10:33 Sign Out <Shanelle Johnson - Last Filed: 01/19/21 19:16> Sign Out Data: Sign Out Comment: Pending Metabolization of Alcohol, re-evaluation, and MH eval Last updated by Shanelle Johnson at 01/18/21 15:57 Sign Out Comment: Patient is actively suicidal, plans to crash truck into a tree. Was evaluated by mental health who feels that voluntary psychiatric placement is appropriate. Patient is comfortable, sitting in the room pending admission to psychiatric care facility. Last updated by Sophie Fam PA at 01/18/21 23:23 Sign Out Comment: Actively suicidal with plan, pending mental health reassessment his admission to psychiatric facility. Last updated by Mark Parra DO at 01/19/21 07:25 Sign Out Comment: Patient cooperative and remains voluntary. Awaiting placement. Last updated by Delores Guajardo DO at 01/19/21 19:42 Sign Out Comment: No issues overnight, remains cooperative. Pending voluntary psych placement Last updated by Tanner Fuentes MD at 01/20/21 07:37 PAWSS <Shanelle Johnson - Last Filed: 01/19/21 19:16> Have you Been Recently Intoxicated or Drunk Within the Last 30 days?: Yes Have you Ever Experienced Previous Episodes of Alcohol Withdrawal?: Yes Have you ever Experienced Withdrawal Seizures?: Yes Have you ever Experienced Delirium Tremens(DT)s?: Yes Have you ever undergone Alcohol Rehabilitation Treatment (i.e, inpt ot outpatient treatment programs)?: Yes Have you ever Experienced Blackouts?: Yes Have you ever Combined Alcohol with other Downers within the last 90 days?: Yes Have you ever Combined Alcohol with any other Substance of Abuse during the last 90 days?: No Evidence of Increased Autonomic Activity (i.e. HR>120, tremor, sweating, agitation, nausea)?: No Result: 6
[2021-01-18 11:27] LABS: Abs Immature Grans 0.04 10^3/uL (0.0-0.06); Absolute Basophil Count 0.07 10^3/uL (0.0-0.2); Absolute Eosinophil Count 0.29 10^3/uL (0.0-0.7); Absolute Monocyte Count 0.87 10^3/uL (0.1-0.8); Absolute Neutrophil Count 3.99 10^3/uL (1.2-6.7); Basophils % 0.8; Eosinophils % 3.4; HGB 13.2 g/dL (13.5-17.5); Immature Grans % 0.5; Lymphocytes % 38.6; MCH 30.6 pg (27.0-33.0); MCHC 32.2 % (32.0-36.0); MCV 95.1 fL (80-95); MPV 9.4 fL (8.0-11.0); Monocytes % 10.2; Neutrophils % 46.5; Nucleated RBC 0 %; Platelet Count 294 10^3/uL (130-400); RBC 4.31 10^6/uL (4.36-5.78); RDW 13.2 % (11.8-14.1); RDW-SD 46.5 fL; WBC 8.56 10^3/uL (4.4-10.8)
[2021-01-18 11:51] LABS: Salicylate 3.2 mg/dL (<2.8)
[2021-01-18 11:53] LABS: Acetaminophen < 2 ug/mL (10-30)
[2021-01-18 12:08] LABS: ALT 37 U/L (16-63); AST 24 U/L (15-37); Albumin 3.2 g/dL (3.4-5.0); Alkaline Phosphatase 86 U/L (46-116); Anion Gap 5.3 mmol/L (3-11); BUN 24 mg/dL (7-18); Bilirubin, Total 0.2 mg/dL (0.2-1.0); CO2 31.7 mmol/L (21.0-32.0); Chloride 103 mmol/L (98-107); ETHANOL BLOOD 189.9 mg/dL (<3); Glucose 100 mg/dL (74-106); Potassium 4.4 mmol/L (3.5-5.1); Sodium 140 mmol/L (136-145); TSH (W/Ref FT4) 1.51 uIU/mL (0.36-3.74); Total Protein 7.2 g/dL (6.4-8.2)
[2021-01-18 14:24] LABS: Bilirubin Negative (Negative); Blood Negative (Negative); Clarity Clear (Clear); Glucose Negative (Negative); Ketones Negative (Negative); Leukocyte Esterase Negative (Negative); Nitrite Negative (Negative); Specific Gravity 1.015 (1.005-1.025); Urobilinogen 0.2 EU/dL (Up TO 0.2); pH 5.5 (5-8)
[2021-01-18 14:36] LABS: *AMPHETAMINES SCREEN URINE Negative (Negative); *BARBITURATES SCREEN URINE Negative (Negative); *BENZODIAZEPINES SCREEN URINE Positive (Negative); Cannabinoids THC Negative (Negative); Cocaine Screen,Urine Negative (Negative); METHADONE URINE SCREEN Positive (Negative); OPIATES URINE SCREEN Negative (Negative)
[2021-01-18 14:38] LABS: Tricyclic Antidepressants Negative (Negative)
[2021-01-18 15:03] LABS: ETHANOL BLOOD 135.7 mg/dL (<3)
[2021-01-18] MEDS: Gabapentin 300 MG CAP 600 MG PO (18:20)
[2021-01-19] MEDS: Gabapentin 300 MG CAP (06:50)
[2021-01-19] MEDS: SERTRALINE 100 MG TAB (06:50)
[2021-01-19] MEDS: Methadone Liquid 10 MG/ML 80 MG PO (07:49)
[2021-01-19 07:52] VITALS: BP 126/86; PULSE 80; RESP 14; TEMP 36.6; O2SAT 92
[2021-01-19 10:30] LABS: Source Nasal/Nares
[2021-01-19] MEDS: hydroCHLOROthiazide 25 MG TAB (10:57)
[2021-01-19] MEDS: Atenolol 25 MG TAB (10:58)
[2021-01-19] MEDS: Lisinopril 10 MG TAB PO (10:58)
[2021-01-19] MEDS: Omeprazole 20 MG CAPCR PO (10:58)
[2021-01-19 12:23] LABS: Anion Gap 5.2 mmol/L (3-11); BUN 23 mg/dL (7-18); CO2 31.8 mmol/L (21.0-32.0); Chloride 103 mmol/L (98-107); Glucose 113 mg/dL (74-106); Magnesium 2.3 mg/dL (1.8-2.4); Potassium 4.2 mmol/L (3.5-5.1); Sodium 140 mmol/L (136-145)
[2021-01-19 12:24] LABS: ETHANOL BLOOD < 3.0 mg/dL (<3)
[2021-01-19 12:27] LABS: PHOSPHORUS 4.9 mg/dL (2.6-4.7)
--- NOTE | 2021-01-19 15:00 | PDOC.MHCN_ITS ---
Date of service: 01/19/21 Time of Service: 11:45 Mental Health Crisis Note Presenting Issue How did you arrive at the ED and why did you come: Patient arrived to [facility] ED 01.18.21 while intoxicated endorsing suicidal ideation with a plan and seeking in-patient referral for comorbid depression and ETOH dependence treatment. He is seen today for follow-up assessment via telehealth. Precipitating Factors Patient presents in standard issue hospital garments with disheveled appearance. He is fully alert and oriented to time, person, place and situation and reports full recollection leading up to current admission. He is calm and appropriate throughout interaction with no notable concerns. He reports I'm feeling kind of hopeless. A bit better today now that I got my methadone dose with dysphoric / flat affect and good eye contact. Appetite normal and dysregulated sleep. Thought content is coherent and goal-oriented around seeking treatment. Insight and judgment is fair. No delusions or hallucinations noted. He reports I made such a huge mistake leaving the last time. I felt I made a bad decision and I'll stay this time. He reports vague SI today, Yeah, kind of vague things of wanting to do something to end my life. On intent he reports Hard to do anything here at the hospital. Patient did not disclose specific plan to harm himself / others, however did verify statements issued to clinician 01.18.21 about driving his vehicle off a tom, into a tree, and stuffing the muffler so that he dies of carbon monoxide poisoning. He denies current HI, intent or plan. Disposition BEHAVIOR: Calm, appropriate EYE CONTACT: Good MOOD: I'm feeling kind of hopeless. A bit better today now that I got my methadone dose. AFFECT: Dysphoric / flat APPETITE: Normal SLEEP(trouble falling/staying asleep: Dysregulated Plan The patient will remain at [facility] on voluntary status and await recommended in- patient treatment. He will be assessed daily by [facility] until placement is secured. Due to patient's continued endorsement of suicidal ideation and potential for self-harm in the community, in-patient is the recommended course of action pending acuity. It has been explained to the patient that discharging prior to completion of process is counterproductive and that all hospitals need to be explored to expedite process - patient has acknowledged this and is amenable to [facility] referral. Updated [facility] CM. Contact list [facility] - Referral faxed. WC - Under review. [facility] - Only accepting in-house referrals. [facility] [place], [facility], [facility] [place] At capacity / not accepting referrals at this time. Signature Clinician's Name/Title: Landry Álvarez [facility] clinician / [facility]
--- NOTE | 2021-01-19 16:58 | W.PM.PROGNOT ---
Date of Service Date of service: 01/19/21 Time of Service: 16:59 Subjective Subjective Interval history since last seen: Observation on hospitalist service was initially requested and patient was preemptively admitted to the hospitalist service. We are now told that this admission is no longer required. Please, reconsult us if needed. Objective Last Vital Signs Temp 36.6 C 01/19/21 07:52 Pulse 80 01/19/21 07:52 Resp 14 01/19/21 07:52 BP 126/86 01/19/21 07:52 Pulse Ox 92 01/19/21 07:52 Laboratory Results - last 24 hr 01/18/21 01/19/21 01/19/21 20:10 10:23 11:58 Sodium 140 Potassium 4.2 Chloride 103 Carbon Dioxide 31.8 Anion Gap 5.2 BUN 23 H Creatinine 1.0 Estimated GFR/1.73 m2 >= 60.00 Glucose 113 H Calcium 9.0 Phosphorus Magnesium 2.3 Ethyl Alcohol 13.0 H < 3.0 COVID-19 Source Nasal/Nares 01/19/21 11:58 Sodium Potassium Chloride Carbon Dioxide Anion Gap BUN Creatinine Estimated GFR/1.73 m2 Glucose Calcium Phosphorus 4.9 H Magnesium Ethyl Alcohol COVID-19 Source PAWSS Have you Been Recently Intoxicated or Drunk Within the Last 30 days?: Yes Have you Ever Experienced Previous Episodes of Alcohol Withdrawal?: Yes Have you ever Experienced Withdrawal Seizures?: Yes Have you ever Experienced Delirium Tremens(DT)s?: Yes Have you ever undergone Alcohol Rehabilitation Treatment (i.e, inpt ot outpatient treatment programs)?: Yes Have you ever Experienced Blackouts?: Yes Have you ever Combined Alcohol with other Downers within the last 90 days?: Yes Have you ever Combined Alcohol with any other Substance of Abuse during the last 90 days?: No Evidence of Increased Autonomic Activity (i.e. HR>120, tremor, sweating, agitation, nausea)?: No Result: 6
[2021-01-19 20:30] VITALS: BP 93/56; PULSE 61; RESP 16; TEMP 36.7; O2SAT 90
[2021-01-19 20:36] LABS: COVID-19 PCR Negative (Negative)
[2021-01-19] MEDS: traZODone 100 MG TAB PO (21:29)
[2021-01-19] MEDS: Gabapentin 300 MG CAP 600 MG PO (21:29)
[2021-01-20] MEDS: Omeprazole 20 MG CAPCR PO (09:02)
[2021-01-20] MEDS: hydroCHLOROthiazide 25 MG TAB 12.5 MG PO (09:02)
[2021-01-20] MEDS: Lisinopril 10 MG TAB PO (09:02)
[2021-01-20] MEDS: Gabapentin 300 MG CAP 600 MG PO ×3 (09:03→20:12)
[2021-01-20] MEDS: Folic Acid 1 MG TAB PO (09:03)
[2021-01-20] MEDS: Atenolol 25 MG TAB 50 MG PO (09:03)
[2021-01-20] MEDS: Sertraline 50 MG TAB PO (09:04)
[2021-01-20] MEDS: Multivitamin TAB 1 TAB PO (09:04)
[2021-01-20] MEDS: Methadone Liquid 10 MG/ML 80 MG PO (09:04)
[2021-01-20] MEDS: Thiamine 100 MG TAB PO (09:04)
[2021-01-20 09:15] VITALS: BP 103/65; PULSE 60; RESP 17; TEMP 36.6; O2SAT 91
--- NOTE | 2021-01-20 09:49 | CMSP_ITS ---
- If Service Date Differs Date of service: 01/20/21 Time of Service: 18:44 Care Management Safety Plan Status: Voluntary - Reason for Wait Reason for Wait: Inpatient Admission VOLUNTARY FOR INPATIENT PSYCHIATRIC STABILIZATION. Garrett is experiencing some anxiety around housing issues, was previously at the [facility] ([facility]) sober house in [facility] prior to coming to [facility]. [place] ([phone]) reports Garrett will have to attend inpatient treatment prior to being eligible to return. Garrett asked for activity books and communicated and advocated for his needs appropriately. RN noted he communicated appropriately with her as well. Safety plan has been established with patient, and care team, to adhere to patient goals, identify restrictions based on behavioral status, address nutrition, and determine allowed personal belongings, tools for hygiene and personal care. Determine level of activity including ambulation, level of supervision, visitors, and determine privileges based on behaviors and level of engagement by pt. SAFETY PLAN: 1. Will remain on suicide precautions. In Paper Clothes. 2. Will remain in room under direct supervision of one-on-one staff at all times provided by CPSO, CUSTOMER ORDER CLERK, EVENT DECORATOR AND DESIGNER health and wellness instructor. 3. May have paper cups, plates, finger foods as well as a metal spoon with which to eat meals. 4. Follow [facility] Management of the Admitted Behavioral Health Patient policy. 5. Personal Care: Comfort system available as well as shower with escort to shower room, at RN discretion. 6. No personal belongings at this time, permitted cell phone if available at RN discretion. 7. Visitors-No visitors at this time 8. Activities: Soft cart items, music tablet, television and remote at RN discretion. 9. Bathroom available in room on M/S without limitation. 10. Phone: May use [employer] hospital phone for incoming and outgoing phone calls at RN discretion. 11. Due to VOLUNTARY status, if patient wishes to leave [facility], staff will contact [facility] Crisis Screener ([phone]) and On-Call Donor Relations Officer ([phone]) as soon as possible. In the event of elopement, notify [facility] ([phone]). Patient is currently voluntarily at [facility] and seeking inpatient admission when a bed becomes available. [facility] Frontline Support Staff will continue seeking pl acement. Please contact the Dynamicist Donor Relations Officer ([phone]) and [facility] Support Staff ([phone]) for any needed changes in the Safety Plan. Safety plan has been provided to interdepartmental care team.
--- NOTE | 2021-01-20 09:49 | PDOC.CMSAFED ---
- If Service Date Differs Date of service: 01/20/21 Time of Service: 18:44 Care Management Safety Plan Status: Voluntary - Reason for Wait Reason for Wait: Inpatient Admission VOLUNTARY FOR INPATIENT PSYCHIATRIC STABILIZATION. Garrett is experiencing some anxiety around housing issues, was previously at the [facility] sober house in [facility] prior to coming to [facility]. [place] ([phone]) reports Garrett will have to attend inpatient treatment prior to being eligible to return. Garrett asked for activity books and communicated and advocated for his needs appropriately. RN noted he communicated appropriately with her as well. Safety plan has been established with patient, and care team, to adhere to patient goals, identify restrictions based on behavioral status, address nutrition, and determine allowed personal belongings, tools for hygiene and personal care. Determine level of activity including ambulation, level of supervision, visitors, and determine privileges based on behaviors and level of engagement by pt. SAFETY PLAN: 1. Will remain on suicide precautions. In Paper Clothes. 2. Will remain in room under direct supervision of one-on-one staff at all times provided by CPSO, GAMING COMMISSIONER, FUNCTIONAL DIRECTOR supervisor weaving. 3. May have paper cups, plates, finger foods as well as a metal spoon with which to eat meals. 4. Follow [facility] Management of the Admitted Behavioral Health Patient policy. 5. Personal Care: Comfort system available as well as shower with escort to shower room, at RN discretion. 6. No personal belongings at this time, permitted cell phone if available at RN discretion. 7. Visitors-No visitors at this time 8. Activities: Soft cart items, music tablet, television and remote at RN discretion. 9. Bathroom available in room on M/S without limitation. 10. Phone: May use [email or web address] hospital phone for incoming and outgoing phone calls at RN discretion. 11. Due to VOLUNTARY status, if patient wishes to leave [facility], staff will contact [facility] Crisis Screener ([phone]) and On-Call Oracle Database Developer ([phone]) as soon as possible. In the event of elopement, notify [facility] Police ([phone]). Patient is currently voluntarily at [facility] and seeking inpatient admission when a bed becomes available. [facility] Frontline Dinkey Skinner will continue seeking placement. Please contact the Mailing Machine Assistant Oracle Database Developer ([phone]) and [facility] Dinkey Skinner ([phone]) for any needed changes in the Safety Plan. Safety plan has been provided to interdepartmental care team.
[2021-01-20] MEDS: LORazepam 1 MG TAB PO (10:55)
--- NOTE | 2021-01-20 11:40 | HPE_ITS ---
Date of service: 01/20/21 Time of Service: 11:40 Assessment and Plan Assessment and plan (1) Alcohol abuse: Status: Chronic Assessment and plan: was admitted earlier this week with no issues and tapered off librium, unlikely to withdraw. He frequently seeks polypharmacy and requests freq prn medications for anxiety. He is displaying no signs of acute alcohol withdrawal, again do not anticipate it based on time he's been here. (2) Suicidal ideation: Status: Acute (3) Major depression: Status: Chronic History of Present Illness History of Present Illness Chief Complaint: depression with suicidal ideation Narrative: returns to the ED after recent discharge for same c/o including intoxication with suicidal ideation. no behaviors issues while being held in ED. medically stable, required a dose of ativan this morning for anxiety. awaiting voluntary inpatient psychiatric placement Review of Systems All systems reviewed & are unremarkable except as noted in HPI and below Constitutional Constitutional: Denies fever(s) and Denies headache(s) Eyes Eyes: Denies change in vision ENT Ears, Nose, Mouth, and Throat: Denies headache(s) Cardiovascular Cardiovascular: Denies chest pain and Denies dyspnea Respiratory Respiratory: Denies cough and Denies dyspnea Gastrointestinal Gastrointestinal: Reports nausea Neurologic Neurologic: Denies headache(s) Psychiatric Psychiatric: Reports depression, Denies homicidal ideation and Reports suicidal ideation [facility] Medical History Discharge planning issues Social History Smoking/Tobacco Use Status: Current every day Tobacco Type: cigarettes Smoking risk assessment performed?: Yes Alcohol Intake: current Alcohol Intake frequency: 3 or more drinks per day Alcohol type: hard liquor Drug use: Never Substance use type: does not use Do you feel safe at home: No Do you feel safe in your relationship?: Yes Additional Social history: was in a long-term house Meds Allergies and Home Medications Allergies Allergy/AdvReac Type Severity Reaction Status Date / Time Sulfa (Sulfonamide Allergy Intermediate Skin Rash Unverified 01/19/21 12:54 Antibiotics) Home Medications Medication Instructions Recorded Confirmed Type atenolol 50 mg PO DAILY 01/09/21 01/18/21 History hydrochlorothiazide 12.5 mg PO DAILY 01/09/21 01/18/21 History lisinopril 10 mg PO DAILY 01/09/21 01/18/21 History methadone 80 mg PO QAM 01/09/21 01/18/21 History omeprazole 20 mg PO DAILY 01/09/21 01/18/21 History sertraline [Zoloft] 50 mg PO DAILY 01/09/21 01/18/21 History trazodone 100 mg PO DAILY 01/09/21 01/18/21 History gabapentin 600 mg PO TID 01/10/21 01/18/21 History Exam Const General: cooperative and no acute distress Nutritional Appearance: obese Orientation: alert, awake and oriented x3 HENMT Head: normal to inspection, normocephalic and atraumatic Mouth: oral mucosae normal Resp Effort & Inspection: normal respiratory effort Auscultation: clear to auscultation bilaterally Cardio Rate: regular rate Rhythm: regular rhythm GI Inspection: large pannus and obesity Palpation: soft Skin General skin exam: no rashes or lesions noted Neuro General: patient alert, patient awake and patient oriented x3 Extrem General: normal to inspection, full ROM and no pedal edema Psych Mental Status: other Speech and Movement: slowed movement Mood: other Affect: blunted Attitude: cooperative Thought Content: suicidality Results Labs Result diagrams: 01/18/21 11:13 01/19/21 11:58 Labs: Laboratory Results - last 24 hr 01/19/21 01/19/21 01/19/21 10:23 11:58 11:58 Sodium 140 Potassium 4.2 Chloride 103 Carbon Dioxide 31.8 Anion Gap 5.2 BUN 23 H Creatinine 1.0 Estimated GFR/1.73 m2 >= 60.00 Glucose 113 H Calcium 9.0 Phosphorus 4.9 H Magnesium 2.3 Ethyl Alcohol < 3.0 SARS-CoV-2 (PCR) Negative Last Vital Signs Temp 36.6 C 01/20/21 09:15 Pulse 60 01/20/21 09:15 Resp 17 01/20/21 09:15 BP 103/65 01/20/21 09:15 Pulse Ox 91 L 01/20/21 09:15 PAWSS Have you Been Recently Intoxicated or Drunk Within the Last 30 days?: Yes Have you Ever Experienced Previous Episodes of Alcohol Withdrawal?: Yes Have you ever Experienced Withdrawal Seizures?: Yes Have you ever Experienced Delirium Tremens(DT)s?: Yes Have you ever undergone Alcohol Rehabilitation Treatment (i.e, inpt ot outpatient treatment programs)?: Yes Have you ever Experienced Blackouts?: Yes Have you ever Combined Alcohol with other Downers within the last 90 days?: Yes Have you ever Combined Alcohol with any other Substance of Abuse during the last 90 days?: No Evidence of Increased Autonomic Activity (i.e. HR>120, tremor, sweating, agitation, nausea)?: No Result: 6
[2021-01-20] MEDS: LORazepam 1 MG TAB PO/SL ×2 (14:02→18:08)
--- NOTE | 2021-01-20 14:14 | PDOC.MHCN_ITS ---
Date of service: 01/20/21 Time of Service: 09:45 Mental Health Crisis Note Presenting Issue How did you arrive at the ED and why did you come: Patient arrived to [facility] ED 01.18.21 while intoxicated endorsing suicidal ideation with a plan and seeking in-patient referral for comorbid depression and ETOH dependence treatment. He is seen today for follow-up assessment via telehealth. Patient last presented to [facility] ED 01.10.21 seeking voluntary in-patient referral and discharged 01.17.21 after no longer meeting criteria and wishing to return to the community. Precipitating Factors Patient appearance unchanged from 01.19. He is fully alert and oriented to time, person, place and situation. No reported memory concerns. He is behaviorally calm and engages appropriately throughout assessment. Patient states he is doing Alright. I'm going bored out of my mind in this room. today with euthymic affect. No delusions or psychotic thought process noted. Insight and judgment appear fair. Patient endorses vague SI today, states I feel pretty hopeless. Missing my family and I'm feeling very isolated. He reports that thoughts of self-harm typically increase while under the influence of alcohol and mentions that recent relapses have been difficult. He states, It's like I can only go 4 months or so before relapsing. I know I need to also address my mental health because that's a part of it. He denies current HI, intent or plan. Disposition BEHAVIOR: Appropriate EYE CONTACT: Good MOOD: Alright. AFFECT: Euthymic APPETITE: No reported issues SLEEP(trouble falling/staying asleep: No reported issues Plan The patient will remain at [facility] on voluntary status and await recommended in- patient treatment. He will be assessed daily by [facility] until placement is secured. If self-harming ideation / acuity level decreases, discharge back to the [facility] or alternatives to in-patient placement such as penitentiary residential treatment options can be explored. Updated [facility] CM. Contact list WC - Under review; currently at capacity. [facility] - Unable to accept referrals at this time due to positive COVID cases. [facility], [facility], [facility] [place], [facility] [place] - At capacity; not accepting referrals at this time. Signature Clinician's Name/Title: Landry Álvarez [facility] clinician / [facility]
[2021-01-20 19:55] VITALS: BP 93/64; PULSE 78; RESP 18; TEMP 36.3; O2SAT 94
[2021-01-20] MEDS: traZODone 100 MG TAB PO (20:12)
[2021-01-20 22:00] VITALS: BP 94/60; PULSE 65; RESP 18; TEMP 37; O2SAT 96
[2021-01-20] MEDS: Normal Saline Flush 10 ML SYR (22:56)
[2021-01-21] VITALS (13 sets, daily range): BP systolic 89–121; BP diastolic 58–75; PULSE 48–69; RESP 12–22; TEMP 35.4–37; O2SAT 91–96
[2021-01-21] MEDS: Multivitamin TAB 1 TAB PO (07:51)
[2021-01-21] MEDS: Omeprazole 20 MG CAPCR PO (07:51)
[2021-01-21] MEDS: Folic Acid 1 MG TAB PO (07:51)
[2021-01-21] MEDS: hydroCHLOROthiazide 25 MG TAB 12.5 MG PO (07:52)
[2021-01-21] MEDS: Lisinopril 10 MG TAB PO (07:52)
[2021-01-21] MEDS: Thiamine 100 MG TAB PO (07:53)
[2021-01-21] MEDS: Gabapentin 300 MG CAP 600 MG PO ×3 (07:53→21:49)
[2021-01-21] MEDS: Atenolol 25 MG TAB 50 MG PO (07:53)
[2021-01-21] MEDS: Sertraline 50 MG TAB PO (07:53)
[2021-01-21] MEDS: Methadone Liquid 10 MG/ML 80 MG PO (08:06)
[2021-01-21] MEDS: LORazepam 1 MG TAB PO/SL (10:19)
--- NOTE | 2021-01-21 13:32 | W.PM.PROGNOT ---
Date of Service Date of service: 01/21/21 Time of Service: 13:32 Assessment and Plan Assessment and plan (1) Alcohol abuse: Status: Chronic Assessment and plan: Was admitted earlier this week with no issues and tapered off librium, unlikely to withdraw. Last drink 2 days ago. He reportedly frequently seeks polypharmacy and requests freq prn medications for anxiety. He is anxious, he states this is why he drinks ETOH. CIWA 4. (2) Suicidal ideation: Status: Acute Assessment and plan: Mental health consulted. Safety plan in place. Will need to be medically cleared. (3) Major depression: Status: Chronic Assessment and plan: Increase Zoloft. (4) Anxiety: Status: Chronic Assessment and plan: This is his biggest concern. Increase Zoloft. Hydroxyzine added. Buspar added. Lorazepam 0.5 mg TID PRN ordered during acute hospitalization. Case discussed with Dr. Batista. Subjective Subjective Interval history since last seen: Last drink 2 days ago. He feels very anxious. States this is why he drinks ETOH. Has been on zoloft for about a year. Has new hydroxyzine, states it does not work for him. States Buspar has not helped in the past. Discussed the need for a rat exterminator regimen for his anxiety, which would unlikely include benzodiazepines. Feeling hopeless. He feels like he would drink if he left the hospital. He is eating and drinking and tolerating his diet. He sleeps well if he gets his trazodone early enough. He would like it scheduled earlier. Denies SOB, coughing, wheezing, CP. Exam Narrative Exam Narrative: General: middle aged, overweight man, sitting at the edge of the bed. Appears frustrated while trying to express his needs. He is alert and oriented. HEENT: normocephalic, atraumatic, EOMI, wearing glasses, avoids eye contact, mucous membranes moist. Neck: supple. Cardiovascular: heart sounds regular, nontachycardic. Respiratory: respirations appear even and unlabored, lung sounds are clear throughout. GI: large, round abdomen, soft, nontender on palpation, nondistended. Extremities: no edema, moves all 4 extremities freely. Objective Last Vital Signs Temp 36.7 C 01/21/21 12:34 Pulse 69 01/21/21 12:34 Resp 18 10/16/21 12:34 BP 111/75 01/21/21 12:34 Pulse Ox 95 01/21/21 12:34 PAWSS Have you Been Recently Intoxicated or Drunk Within the Last 30 days?: Yes Have you Ever Experienced Previous Episodes of Alcohol Withdrawal?: Yes Have you ever Experienced Withdrawal Seizures?: Yes Have you ever Experienced Delirium Tremens(DT)s?: Yes Have you ever undergone Alcohol Rehabilitation Treatment (i.e, inpt ot outpatient treatment programs)?: Yes Have you ever Experienced Blackouts?: Yes Have you ever Combined Alcohol with other Downers within the last 90 days?: Yes Have you ever Combined Alcohol with any other Substance of Abuse during the last 90 days?: No Evidence of Increased Autonomic Activity (i.e. HR>120, tremor, sweating, agitation, nausea)?: No Result: 6
[2021-01-21] MEDS: LORazepam 0.5 MG TAB PO (16:48)
--- NOTE | 2021-01-21 17:14 | CMPROGNOTE_ITS ---
- If Service Date Differs Date of service: 01/21/21 Time of Service: 17:14 Care Management Progress Note S/O: Garrett was lying in bed when CM met with him. Per report, after concern for his potential withdrawal from alcohol, he was moved into a medical room, and is not currently medically cleared. He will not be evaluated by [facility] today, or until he becomes medically cleared. CM reviewed this with Garrett. Garrett reported that he feels that his anxiety is not being addressed. CM brought this info rmation to his RN and provider. No huddle performed today, safety plan will remain as is, and will be reviewed tomorrow if he becomes medically cleared. When asked, he stated that he is still feeling suicidal. CM will continue to follow. A: Garrett is a 50 year old male admitted to [facility] on 01/18/21 with depression and SI. P: Garrett is currently not medically cleared. Once he becomes medically cleared, CM will coordinate a Zoom with [facility] for a re assessment, which will determine if he continues to meet criteria for inpatient psychiatric treatment. Transportation to be determined by disposition. He will follow up with his PCP, [facility], and his discharge plan of care. CM will continue to follow.
--- NOTE | 2021-01-21 17:20 | CMSP_ITS ---
- If Service Date Differs Date of service: 01/21/21 Time of Service: 17:20 Care Management Safety Plan Status: Voluntary - Reason for Wait Reason for Wait: Inpatient Admission Garrett is experiencing some anxiety around housing issues, was previously at the [facility] ([facility]) sober house in [facility] prior to coming to [facility]. [facility] ([phone]) reports Garrett will have to attend inpatient treatment prior to being eligible to return. Garrett was moved to a medical room due to concern for him withdrawing from alcohol. No change in safety plan today. He will be reassessed by [facility] once he becomes medically cleared. Safety plan has been established with patient, and care team, to adhere to patient goals, identify restrictions based on behavioral status, address nutrition, and determine allowed personal belongings, tools for hygiene and personal care. Determine level of activity including ambulation, level of supervision, visitors, and determine privileges based on behaviors and level of engagement by pt. SAFETY PLAN: 1. Will remain on suicide precautions. In Paper Clothes. 2. Will remain in room under direct supervision of one-on-one staff at all times provided by CPSO, LANG INTERPRETER, OPERATING COST CLERK domestic laundry worker. 3. May have paper cups, plates, finger foods as well as a metal spoon with which to eat meals. 4. Follow [facility] Management of the Admitted Behavioral Health Patient policy. 5. Personal Care: Comfort system available as well as shower with escort to shower room, at RN discretion. 6. No personal belongings at this time, permitted cell phone if available at RN discretion. 7. Visitors-No visitors at this time 8. Activities: Soft cart items, music tablet, television and remote at RN discretion. 9. Bathroom available in room on M/S without limitation. 10. Phone: May use [email or web address] hospital phone for incoming and outgoing phone calls at RN discretion. 11. Due to VOLUNTARY status, if patient wishes to leave [facility], staff will contact [facility] Crisis Screener ([phone]) and On-Call .Net Programmer ([phone]) as soon as possible. In the event of elopement, notify [facility] Police ([phone]). Patient is currently voluntarily at [facility] and seeking inpatient admission when a bed becomes available. [facility] Frontline Termite Control Representative will continue seeking placement. Please contact the Correctional Sergeant .Net Programmer ([phone]) and [facility] Termite Control Representative ([phone]) for any needed changes in the Safety Plan. Safety plan has been provided to interdepartmental care team.
--- NOTE | 2021-01-21 17:20 | PDOC.CMSAFE ---
- If Service Date Differs Date of service: 01/21/21 Time of Service: 17:20 Care Management Safety Plan Status: Voluntary - Reason for Wait Reason for Wait: Inpatient Admission Garrett is experiencing some anxiety around housing issues, was previously at the [facility] sober house in [facility] prior to coming to [facility]. [facility] ([phone]) reports Garrett will have to attend inpatient treatment prior to being eligible to return. Garrett was moved to a medical room due to concern for him withdrawing from alcohol. No change in safety plan today. He will be reassessed by [facility] once he becomes medically cleared. Safety plan has been established with patient, and care team, to adhere to patient goals, identify restrictions based on behavioral status, address nutrition, and determine allowed personal belongings, tools for hygiene and personal care. Determine level of activity including ambulation, level of supervision, visitors, and determine privileges based on behaviors and level of engagement by pt. SAFETY PLAN: 1. Will remain on suicide precautions. In Paper Clothes. 2. Will remain in room under direct supervision of one-on-one staff at all times provided by CPSO, ANIMAL SKINNER, SOLUTION ENGINEER lay out inspector. 3. May have paper cups, plates, finger foods as well as a metal spoon with which to eat meals. 4. Follow [facility] Management of the Admitted Behavioral Health Patient policy. 5. Personal Care: Comfort system available as well as shower with escort to shower room, at RN discretion. 6. No personal belongings at this time, permitted cell phone if available at RN discretion. 7. Visitors-No visitors at this time 8. Activities: Soft cart items, music tablet, television and remote at RN discretion. 9. Bathroom available in room on M/S without limitation. 10. Phone: May use [employer] hospital phone for incoming and outgoing phone calls at RN discretion. 11. Due to VOLUNTARY status, if patient wishes to leave [facility], staff will contact [facility] Crisis Screener ([phone]) and On-Call Operating Room Registered Nurse ([phone]) as soon as possible. In the event of elopement, notify [facility] Police ([phone]). Patient is currently voluntarily at [facility] and seeking inpatient admission when a bed becomes available. [facility] Frontline Traffic Maintenance Officer will continue seeking placement. Please contact the Plumbing Assembler Operating Room Registered Nurse ([phone]) and [facility] Traffic Maintenance Officer ([phone]) for any needed changes in the Safety Plan. Safety plan has been provided to interdepartmental care team.
[2021-01-21] MEDS: busPIRone 5 MG TAB PO (21:49)
[2021-01-21] MEDS: traZODone 100 MG TAB PO (21:49)
[2021-01-22 03:04] VITALS: BP 128/79; PULSE 64; RESP 19; TEMP 35.9; O2SAT 96
[2021-01-22 07:11] VITALS: BP 101/56; PULSE 65; RESP 18; TEMP 35.4; O2SAT 95
[2021-01-22] MEDS: Omeprazole 20 MG CAPCR PO (07:12)
[2021-01-22] MEDS: Gabapentin 300 MG CAP 600 MG PO ×3 (07:13→20:16)
[2021-01-22] MEDS: busPIRone 5 MG TAB PO ×3 (07:13→20:16)
[2021-01-22] MEDS: Multivitamin TAB 1 TAB PO (07:13)
[2021-01-22] MEDS: Folic Acid 1 MG TAB PO (07:13)
[2021-01-22] MEDS: Atenolol 25 MG TAB 50 MG PO (07:13)
[2021-01-22] MEDS: Lisinopril 10 MG TAB PO (07:14)
[2021-01-22] MEDS: Thiamine 100 MG TAB PO (07:14)
[2021-01-22] MEDS: hydroCHLOROthiazide 25 MG TAB 12.5 MG PO (07:14)
[2021-01-22] MEDS: Sertraline 50 MG TAB 75 MG PO (08:25)
[2021-01-22] MEDS: Nicotine 14 MG/24 HR PATCH TD (08:26)
[2021-01-22] MEDS: Methadone Liquid 10 MG/ML 80 MG PO (08:26)
[2021-01-22] MEDS: diazePAM 5 MG TAB PO ×2 (14:08→20:16)
[2021-01-22 15:42] VITALS: BP 111/67; PULSE 67; RESP 16; TEMP 36.9; O2SAT 95
[2021-01-22] MEDS: Acetaminophen 500 MG TAB 1000 MG PO ×2 (16:07→22:03)
--- NOTE | 2021-01-22 16:42 | PGE_ITS ---
Date of Service Date of service: 01/22/21 Time of Service: 14:00 Assessment and Plan Assessment and plan (1) Suicidal ideation: Start date: 01/22/21 Start time: 14:00 Status: Acute Assessment and plan: Mental health consulted. Safety plan in place. continues to have thoughts of SI he is also very anxious and depressed. (2) Alcohol abuse: Start date: 01/22/21 Start time: 14:00 Status: Chronic Assessment and plan: medically cleared no signs of w/d (3) Major depression: Start date: 01/22/21 Start time: 14:00 Status: Chronic Assessment and plan: Increase Zoloft. (4) Anxiety: Start date: 01/22/21 Start time: 14:00 Status: Chronic Assessment and plan: This is his biggest concern. Increase Zoloft. Hydroxyzine added. Buspar added. valium 5 mg TID scheduled for anxiety and 10 mg HS Case discussed with Dr. Batista. Subjective Subjective Patient reports: other Interval history since last seen: Continues to have anxiety depression and thoughts of SI. valium scheduled to help with anxiety. 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 He has never seen a psychiatrist. he would benefit from outpatient psychiatry. [facility] At this time he is having active thoughts. He has been open and he is homeless. Exam Narrative Exam Narrative: General: middle aged, obese male, sitting at the edge of the bed. Open and honest. Expresses that he feels no one has explained anything to him He is alert and oriented. HEENT: normocephalic, atraumatic, EOMI, wearing glasses, makes eye contact, mucous membranes moist. Neck: supple. Cardiovascular: heart sounds regular, nontachycardic. Respiratory: respirations appear even and unlabored, lung sounds are clear throughout. GI: large, round abdomen, soft, nontender on palpation, nondistended. Extremities: no edema, moves all 4 extremities freely. Objective Last Vital Signs Temp 36.9 C 01/22/21 15:42 Pulse 67 01/22/21 15:42 Resp 16 01/22/21 15:42 BP 111/67 01/22/21 15:42 Pulse Ox 95 01/22/21 15:42 PAWSS Have you Been Recently Intoxicated or Drunk Within the Last 30 days?: Yes Have you Ever Experienced Previous Episodes of Alcohol Withdrawal?: Yes Have you ever Experienced Withdrawal Seizures?: Yes Have you ever Experienced Delirium Tremens(DT)s?: Yes Have you ever undergone Alcohol Rehabilitation Treatment (i.e, inpt ot outpatient treatment programs)?: Yes Have you ever Experienced Blackouts?: Yes Have you ever Combined Alcohol with other Downers within the last 90 days?: Yes Have you ever Combined Alcohol with any other Substance of Abuse during the last 90 days?: No Evidence of Increased Autonomic Activity (i.e. HR>120, tremor, sweating, agitation, nausea)?: No Result: 6
--- NOTE | 2021-01-22 17:48 | CMPROGNOTE_ITS ---
- If Service Date Differs Date of service: 01/22/21 Time of Service: 17:48 Care Management Progress Note S/O: Garrett was moved into the transitional area today, as he is medically cleared. CM coordinated a zoom call with CRISTHIAN Rjoas. Garrett spoke to Shila and gayle PAGE for quite a while regarding how he has been feeling. He stated that he has a long history of alcohol use and is very frustrated that he is not able to stay sober in the community. He reported that he was in a three month program b efore he went to [facility], but drank again, which led him to be homeless. He has had several inpatient admissions, both for detox and psychiatric stabilization. He feels that the programs are generally not long enough. He stated that he has been disabled due to his anxiety/panic attacks for 20 years, but he has never seen a Psychiatrist, as he has never been successfully connected to one. Crystal discussed opening him to services at [facility] following his inpatient psychiatric stay, which he was very happy about. He will be connected to a therapist, a psychiatrist, and a executive community planning. He reported that he feels that he is receiving good care at [facility], and understands that it can take time for a bed to become available, due to a statewide shortage. He continues to meet criteria for inpatient psychiatric stabilization. CM will continue to follow. A: Garrett is a 50 year old male admitted to [facility] on 01/18/21 with depression and SI. P: Garrett is awaiting a bed at an inpatient psychiatric hospital currently. He continues to meet criteria for inpatient treatment, and will be reassessed daily by [facility]. Transportation to be determined by disposition. He will follow up with his PCP, AMANDA, and his discharge plan of care. CM will continue to follow. - MH Services (Omit if N/A) Current MH Services: Psychiatric Inp - Status Status: Voluntary - Reason for Wait Reason for Wait: Inpatient Admission (Tequila dhaliwal)
--- NOTE | 2021-01-22 17:57 | CMSP_ITS ---
- If Service Date Differs Date of service: 01/22/21 Time of Service: 17:57 Care Management Safety Plan Status: Voluntary - Reason for Wait Reason for Wait: Inpatient Admission Garrett is experiencing some anxiety around housing issues, was previously at the [facility] ([facility]) sober house in [facility] prior to coming to [facility]. [facility] ([phone]) reports Garrett will have to attend inpatient treatment prior to being eligible to return. He shares that he drinks to lower his inhibitions, and take his pain away, and has many plans for ending his life. Safety plan has been established with patient, and care team, to adhere to patient goals, identify restrictions based on behavioral status, address nutrition, and determine allowed personal belongings, tools for hygiene and personal care. Determine level of activity including ambulation, level of supervision, visitors, and determine privileges based on behaviors and level of engagement by pt. SAFETY PLAN: 1. Will remain on suicide precautions. In Paper Clothes. 2. Will remain in room under direct supervision of one-on-one staff at all times provided by CPSO, RIM ROLLER OPERATOR, BLOOD BANK ORDER CONTROL CLERK director of recruitment and admissions. 3. May have paper cups, plates, finger foods as well as a metal spoon with which to eat meals. 4. Follow [facility] Management of the Admitted Behavioral Health Patient policy. 5. Personal Care: Comfort system available as well as shower with escort to shower room, at RN discretion. 6. No personal belongings at this time, permitted cell phone if available at RN discretion. 7. Visitors-No visitors at this time 8. Activities: Soft cart items, music tablet, television and remote at RN discretion. 9. Bathroom available in room on M/S without limitation. 10. Phone: May use [employer] hospital phone for incoming and outgoing phone calls at RN discretion. 11. Due to VOLUNTARY status, if patient wishes to leave [facility], staff will contact [facility] Crisis Screener ([phone]) and On-Call Pressroom Worker ([phone]) as soon as possible. In the event of elopement, notify [facility] Police ([phone]). Patient is currently voluntarily at [facility] and seeking inpatient admission when a bed becomes available. [facility] Frontline Night Monitor will continue seeking placement. Please contact the Auto Body Repairman Pressroom Worker ([phone]) and [facility] Night Monitor ([phone]) for any needed changes in the Safety Plan. Safety plan has been provided to interdepartmental care team.
[2021-01-22 20:07] VITALS: BP 102/72; PULSE 67; RESP 19; TEMP 36.8; O2SAT 94
[2021-01-22] MEDS: traZODone 100 MG TAB PO (22:00)
[2021-01-22] MEDS: diazePAM 5 MG TAB 10 MG PO (22:01)
[2021-01-22 22:49] VITALS: BP 129/78; PULSE 80; RESP 18; TEMP 36.8; O2SAT 95
[2021-01-23 04:19] VITALS: BP 110/74; PULSE 68; RESP 19; TEMP 36.4; O2SAT 95
[2021-01-23] MEDS: hydroCHLOROthiazide 25 MG TAB 12.5 MG PO (07:55)
[2021-01-23 07:56] VITALS: BP 103/71; PULSE 67; RESP 18; TEMP 36.6; O2SAT 95
[2021-01-23] MEDS: Omeprazole 20 MG CAPCR PO (07:56)
[2021-01-23] MEDS: Lisinopril 10 MG TAB PO (07:56)
[2021-01-23] MEDS: Atenolol 25 MG TAB 50 MG PO (07:56)
[2021-01-23] MEDS: busPIRone 5 MG TAB PO ×3 (07:56→20:42)
[2021-01-23] MEDS: Thiamine 100 MG TAB PO (07:56)
[2021-01-23] MEDS: Gabapentin 300 MG CAP 600 MG PO ×3 (07:57→20:42)
[2021-01-23] MEDS: Sertraline 50 MG TAB 75 MG PO (07:57)
[2021-01-23] MEDS: diazePAM 5 MG TAB PO ×3 (07:57→20:42)
[2021-01-23] MEDS: Nicotine 14 MG/24 HR PATCH TD (07:58)
[2021-01-23] MEDS: Multivitamin TAB 1 TAB PO (07:58)
[2021-01-23] MEDS: Methadone Liquid 10 MG/ML 80 MG PO (07:59)
[2021-01-23] MEDS: Folic Acid 1 MG TAB PO (10:09)
--- NOTE | 2021-01-23 12:51 | MHPN_ITS ---
Date of service: 01/23/21 Time of Service: 11:45 Mental Health Crisis Note Presenting Issue How did you arrive at the ED and why did you come: Patient arrived to [facility] ED 01.18.21 while intoxicated endorsing suicidal ideation with a plan and seeking in-patient referral for comorbid depression and ETOH dependence treatment. He is seen today for follow-up assessment via telehealth. Per [facility] CM, no reported concerns over the weekend and patient has been more engaged. Precipitating Factors Patient is fully alert and oriented to time, person, place and situation with memory issues noted. He is calm and appropriate throughout assessment is more engaged compared to previous week. Speech is unpressured, talkative, normal tone. Normal appetite, some sleep dysregulation last night. He reports mood as I feel OK. I felt a little more hopeful after the doctor said I could be getting a pillowcase turner. with euthymic affect. Insight and judgment appear good, thought process intact and coherent, no evidence of delusions or hallucinations. He discloses current SI, states On and off. I feel so cornered right now. He declines to provide definitive response on intent, states It's just an option I keep open., and shares method as The same method. Something with gas. The thought of shooting myself in the head is terrifying. He denes current HI, intent or plan. Patient discusses wanting to develop a plan for his life and reconnect to his in [place]. He shares that having additional support in terms of counseling and case management would be beneficial once he discharges from in-patient care. Disposition BEHAVIOR: Calm, engaged EYE CONTACT: Good MOOD: OK AFFECT: Euthymic APPETITE: Normal SLEEP(trouble falling/staying asleep: Sleep dysregulation last night Plan The patient will remain at [facility] on voluntary status and await recommended in- patient treatment. He will be assessed daily by [facility] until placement is secured. If self-harming ideation / acuity level decreases, discharge back to the community or alternatives to in-patient placement such as intermediate residential treatment options can be explored. Updated [facility] CM. Contact list WC - At capacity BR - At capacity [facility], [facility], [facility], [facility] - At capacity; not accepting referrals at this time. Signature Clinician's Name/Title: Landry Álvarez [facility] clinician / HP
--- NOTE | 2021-01-23 18:50 | W.PM.PROGNOT ---
Date of Service Date of service: 01/23/21 Time of Service: 14:00 Assessment and Plan Assessment and plan (1) Suicidal ideation: Start date: 01/23/21 Start time: 14:00 Status: Acute Assessment and plan: Mental health consulted. Safety plan in place. continues to have thoughts of SI he is also very anxious and depressed. Valium scheduled TID with Dose for bed time (2) Alcohol abuse: Start date: 01/23/21 Start time: 14:00 Status: Chronic Assessment and plan: medically cleared no signs of w/d (3) Major depression: Start date: 01/23/21 Start time: 14:00 Status: Chronic Assessment and plan: Increase Zoloft. Appears to be in a better place opening up more (4) Back pain: Start date: 01/23/21 Start time: 14:00 Status: Chronic Assessment and plan: Initially wanted flexiril however with being on valium did not feel comfortable giving flexiril. Patient was understanding, lidoderm patches orderd. Qualifiers: Back pain location: thoracic back pain Chronicity: chronic Back pain laterality: bilateral Qualified Code(s): M54.6 - Pain in thoracic spine; G89.29 - Other chronic pain (5) Anxiety: Start date: 01/23/21 Start time: 14:00 Status: Chronic Assessment and plan: This is his biggest concern. Increase Zoloft. Hydroxyzine added. Buspar added. valium 5 mg TID scheduled for anxiety and 10 mg HS Case discussed with Dr. Batista. Subjective Subjective Patient reports: still having pain Interval history since last seen: c/o pain t mid back. Ordered lidoderm patches continues to have thoughts of SI, waiting bed placement. CM working on placement. Exam Narrative Exam Narrative: General: middle aged, obese male, sitting at the edge of the bed. Open and honest. Expresses that he feels no one has explained anything to him He is alert and oriented. HEENT: normocephalic, atraumatic, EOMI, wearing glasses, makes eye contact, mucous membranes moist. Neck: supple. Cardiovascular: heart sounds regular, nontachycardic. Respiratory: respirations appear even and unlabored, lung sounds are clear throughout. GI: large, round abdomen, soft, nontender on palpation, nondistended. Extremities: no edema, moves all 4 extremities freely. Objective Last Vital Signs Temp 36.6 C 01/23/21 07:56 Pulse 67 01/23/21 07:56 Resp 18 01/23/21 07:56 BP 103/71 01/23/21 07:56 Pulse Ox 95 01/23/21 07:56 PAWSS Have you Been Recently Intoxicated or Drunk Within the Last 30 days?: Yes Have you Ever Experienced Previous Episodes of Alcohol Withdrawal?: Yes Have you ever Experienced Withdrawal Seizures?: Yes Have you ever Experienced Delirium Tremens(DT)s?: Yes Have you ever undergone Alcohol Rehabilitation Treatment (i.e, inpt ot outpatient treatment programs)?: Yes Have you ever Experienced Blackouts?: Yes Have you ever Combined Alcohol with other Downers within the last 90 days?: Yes Have you ever Combined Alcohol with any other Substance of Abuse during the last 90 days?: No Evidence of Increased Autonomic Activity (i.e. HR>120, tremor, sweating, agitation, nausea)?: No Result: 6
[2021-01-23 20:37] VITALS: BP 101/64; PULSE 69; RESP 18; TEMP 36.6; O2SAT 95
[2021-01-23] MEDS: Lidocaine 5% Patch 2 PATCH TP (20:42)
--- NOTE | 2021-01-23 21:04 | CMPROGNOTE_ITS ---
- If Service Date Differs Date of service: 01/23/21 Time of Service: 21:04 Care Management Progress Note S/O: Garrett continues to meet criteria for inpatient psychiatric treatment. He is endorsing SI, and is also very anxious and depressed. Per report, he is more engaged with [facility] screener today. Garrett reported to CM that he feels that his needs are being met, and he is being heard on this admission. [facility] has offered to support him post hospitalization with counseling, psychiatry and case man agement, which he is agreeable to and happy about. Per [facility], Lala Hulleat and Dominic both have referrals and are reviewing, no bed availability today. Safety plan to remain in place, no changes today. CM will continue to follow. A: Garrett is a 50 year old male admitted to [facility] on 01/18/21 with depression and SI. P: Garrett is awaiting a bed at an inpatient psychiatric hospital currently. He continues to meet criteria for inpatient treatment, and will be reassessed daily by [facility]. Transportation to be determined by disposition. He will follow up with his PCP, [facility], and his discharge plan of care. CM will continue to follow.
--- NOTE | 2021-01-23 21:04 | PDOC.CMPRO ---
- If Service Date Differs Date of service: 01/23/21 Time of Service: 21:04 Care Management Progress Note S/O: Garrett continues to meet criteria for inpatient psychiatric treatment. He is endorsing SI, and is also very anxious and depressed. Per report, he is more engaged with [facility] screener today. Garrett reported to CM that he feels that his needs are being met, and he is being heard on this admission. [facility] has offered to support him post hospitalization with counseling, psychiatry and case management, which he is agreeable to and happy about. Per [facility], Lala Hulleat and Dominic both have referrals and are reviewing, no bed availability today. Safety plan to remain in place, no changes today. CM will continue to follow. A: Garrett is a 50 year old male admitted to [facility] on 01/18/21 with depression and SI. P: Garrett is awaiting a bed at an inpatient psychiatric hospital currently. He continues to meet criteria for inpatient treatment, and will be reassessed daily by [facility]. Transportation to be determined by disposition. He will follow up with his PCP, [facility], and his discharge plan of care. CM will continue to follow.
--- NOTE | 2021-01-23 21:09 | CMSP_ITS ---
- If Service Date Differs Date of service: 01/23/21 Time of Service: 21:09 Care Management Safety Plan Status: Voluntary - Reason for Wait Reason for Wait: Inpatient Admission Garrett is experiencing some anxiety around housing issues, was previously at the [facility] ([facility] sober house in [facility] prior to coming to [facility]. [facility] ([phone]) reports Garrett will have to attend inpatient treatment prior to being eligible to return. He shares that he drinks to lower his inhibitions, and take his pain away, and has many plans for ending his life. Safety plan has been established with patient, and care team, to adhere to patient goals, identify restrictions based on behavioral status, address nutrition, and determine allowed personal belongings, tools for hygiene and personal care. Determine level of activity including ambulation, level of supervision, visitors, and determine privileges based on behaviors and level of engagement by pt. SAFETY PLAN: 1. Will remain on suicide precautions. In Paper Clothes. 2. Will remain in room under direct supervision of one-on-one staff at all times provided by CPSO, EXHAUST EMISSIONS AUTOMOTIVE TECHNICIAN, LIMEHOUSE WORKER supervisor dimension warehouse. 3. May have paper cups, plates, finger foods as well as a metal spoon with which to eat meals. 4. Follow [facility] Management of the Admitted Behavioral Health Patient policy. 5. Personal Care: Comfort system available as well as shower with escort to shower room, at RN discretion. 6. No personal belongings at this time, permitted cell phone if available at RN discretion. 7. Visitors-No visitors at this time 8. Activities: Soft cart items, music tablet, television and remote at RN discretion. 9. Bathroom available in room on M/S without limitation. 10. Phone: May use [employer] hospital phone for incoming and outgoing phone calls at RN discretion. 11. Due to VOLUNTARY status, if patient wishes to leave [facility], staff will contact [facility] Crisis Screener ([phone]) and On-Call Soil Specialist ([phone]) as soon as possible. In the event of elopement, notify [facility] Police ([phone]). Patient is currently voluntarily at [facility] and seeking inpatient admission when a bed becomes available. [facility] Frontline Alligator Shear Operator will continue seeking placement. Please contact the Information Systems Architect Soil Specialist ([phone]) and [facility] Alligator Shear Operator ([phone]) for any needed changes in the Safety Plan. Safety plan has been provided to interdepartmental care team.
[2021-01-23] MEDS: diazePAM 5 MG TAB 10 MG PO (22:21)
[2021-01-23] MEDS: traZODone 100 MG TAB PO (22:21)
[2021-01-24 07:59] VITALS: BP 111/79; PULSE 65; RESP 18; TEMP 36; O2SAT 94
[2021-01-24] MEDS: Nicotine 14 MG/24 HR PATCH TD (08:01)
[2021-01-24] MEDS: Methadone Liquid 10 MG/ML 80 MG PO (08:02)
[2021-01-24] MEDS: Omeprazole 20 MG CAPCR PO (08:03)
[2021-01-24] MEDS: hydroCHLOROthiazide 25 MG TAB 12.5 MG PO (08:03)
[2021-01-24] MEDS: Sertraline 50 MG TAB 75 MG PO (08:03)
[2021-01-24] MEDS: Atenolol 25 MG TAB 50 MG PO (08:03)
[2021-01-24] MEDS: Gabapentin 300 MG CAP 600 MG PO ×3 (08:03→20:56)
[2021-01-24] MEDS: Thiamine 100 MG TAB PO (08:03)
[2021-01-24] MEDS: busPIRone 5 MG TAB PO ×3 (08:03→20:56)
[2021-01-24] MEDS: diazePAM 5 MG TAB PO ×3 (08:03→20:56)
[2021-01-24] MEDS: Lisinopril 10 MG TAB PO (08:04)
[2021-01-24] MEDS: Multivitamin TAB 1 TAB PO (08:04)
[2021-01-24] MEDS: Folic Acid 1 MG TAB PO (08:04)
[2021-01-24] MEDS: Lidocaine Patch Removal 2 EACH TP (08:07)
--- NOTE | 2021-01-24 12:25 | MHPN_ITS ---
Date of service: 01/24/21 Time of Service: 11:00 Mental Health Crisis Note Presenting Issue How did you arrive at the ED and why did you come: Patient arrived to [facility] ED 01.18.21 while intoxicated endorsing suicidal ideation with a plan and seeking in-patient referral for comorbid depression and ETOH dependence treatment. He is seen today for follow-up assessment via telehealth. Precipitating Factors Patient is fully alert to time, person place and situation, no reported memory deficits. He remains cooperative and engaged and does not report any significant issues with his stay the hospital. Speech is coherent, unpressured, normal rate and tone. No appetite or sleep concerns noted. He reports feeling Oxana down today with euthymic affect. Thought process is coherent, no delusions or hallucinations. He endorses vague SI today, Just general thoughts. Nothing I would act on., with 'gas' as method. He denies current HI, intent or plan. Patient expresses anxiety around housing and wanting to remain in the area specifically for mental health treatment. He shares being hopeful that an assigned case filler can facilitate housing and make arrangements after completion of in-patient stay. No other issues noted. Disposition BEHAVIOR: Appropriate EYE CONTACT: Good MOOD: Oxana down AFFECT: Euthymic APPETITE: No reported issues. SLEEP(trouble falling/staying asleep: No reported issues. Plan The patient will remain at [facility] on voluntary status and await recommended in- patient treatment. He will be assessed daily by [facility] until placement is secured. If self-harming ideation / acuity level decreases, discharge back to the community or alternatives to in-patient placement such as detention residential treatment options can be explored. Discussed [facility] / [facility] housing, patient was made aware that a phone can be provided and that he would need to complete process. Obtained current contact number ([phone]) for wardrobe coordinator to complete necessary paperwork and updated [facility] in-house referral for psychiatry and IOP/SA treatment. Updated [facility] CM Angelika Obrien, who will be making arrangements to provide phone so that patient can contact [facility]. Contact list WC - At capacity BR - At capacity [facility], [facility], [facility] [place] [facility] [place] - At capacity; not accepting referrals at this time. Signature Clinician's Name/Title: Landry Álvarez, [facility] clinician / HP
--- NOTE | 2021-01-24 12:25 | W.INMHPGNOTE ---
Date of service: 01/24/21 Time of Service: 11:00 Mental Health Crisis Note Presenting Issue How did you arrive at the ED and why did you come: Patient arrived to [facility] ED 01.18.21 while intoxicated endorsing suicidal ideation with a plan and seeking in-patient referral for comorbid depression and ETOH dependence treatment. He is seen today for follow-up assessment via telehealth. Precipitating Factors Patient is fully alert to time, person place and situation, no reported memory deficits. He remains cooperative and engaged and does not report any significant issues with his stay the hospital. Speech is coherent, unpressured, normal rate and tone. No appetite or sleep concerns noted. He reports feeling Oxana down today with euthymic affect. Thought process is coherent, no delusions or hallucinations. He endorses vague SI today, Just general thoughts. Nothing I would act on., with 'gas' as method. He denies current HI, intent or plan. Patient expresses anxiety around housing and wanting to remain in the area specifically for mental health treatment. He shares being hopeful that an assigned telephonic case manager can facilitate housing and make arrangements after completion of in-patient stay. No other issues noted. Disposition BEHAVIOR: Appropriate EYE CONTACT: Good MOOD: Oxana down AFFECT: Euthymic APPETITE: No reported issues. SLEEP(trouble falling/staying asleep: No reported issues. Plan The patient will remain at [facility] on voluntary status and await recommended in-patient treatment. He will be assessed daily by [facility] until placement is secured. If self-harming ideation / acuity level decreases, discharge back to the community or alternatives to in-patient placement such as longterm residential treatment options can be explored. Discussed [facility] / [facility] housing, patient was made aware that a phone can be provided and that he would need to complete process. Obtained current contact number ([phone]) for gsa coordinator to complete necessary paperwork and updated [facility] in-house referral for psychiatry and IOP/SA treatment. Updated [facility] CM Angelika Obrien, who will be making arrangements to provide phone so that patient can contact [facility] Contact list WC - At capacity BR - At capacity [facility], [facility], [facility] [place] [facility] [place] - At capacity; not accepting referrals at this time. Signature Clinician's Name/Title: Landry Álvarez, [facility] clinician / HP
--- NOTE | 2021-01-24 15:12 | PGE_ITS ---
Date of Service Date of service: 01/24/21 Time of Service: 15:12 Assessment and Plan Assessment and plan (1) Suicidal ideation: Status: Acute Assessment and plan: Mental health consulted. Safety plan in place. continues to have thoughts of SI he is also very anxious and depressed. Valium scheduled TID with Dose for bed time (2) Alcohol abuse: Status: Chronic Assessment and plan: medically cleared no signs of w/d (3) Major depression: Status: Chronic Assessment and plan: Increase Zoloft. Appears to be in a better place opening up more (4) Back pain: Status: Chronic Assessment and plan: Initially wanted flexiril however with being on valiu m did not feel comfortable giving flexiril. Patient was understanding, lidoderm patches orderd. Qualifiers: Back pain location: thoracic back pain Chronicity: chronic Back pain laterality: bilateral Qualified Code(s): M54.6 - Pain in thoracic spine; G89.29 - Other chronic pain (5) Anxiety: Status: Chronic Assessment and plan: This is his biggest concern. Increase Zoloft. Hydroxyzine added. Buspar added. valium 5 mg TID scheduled for anxiety and 10 mg HS Case discussed with Dr. Batista. Subjective Subjective Patient reports: no new complaints, tolerating liquids well, tolerating a regular diet and afebrile Exam Const General: cooperative and no acute distress Nutritional Appearance: obese Orientation: alert, awake and oriented x3 HENMT Head: normal to inspection, normocephalic and atraumatic Mouth: oral mucosae normal Resp Effort & Inspection: normal respiratory effort Auscultation: clear to auscultation bilaterally Cardio Rate: regular rate Rhythm: regular rhythm GI Inspection: large pannus and obesity Palpation: soft Skin General skin exam: no rashes or lesions noted Neuro General: patient alert, patient awake and patient oriented x3 Extrem General: normal to inspection, full ROM and no pedal edema Psych Mental Status: other Speech and Movement: slowed movement Mood: other Affect: blunted Attitude: cooperative Thought Content: suicidality Objective Last Vital Signs Temp 36 C L 01/24/21 07:59 Pulse 65 01/24/21 07:59 Resp 18 01/24/21 07:59 BP 111/79 01/24/21 07:59 Pulse Ox 94 01/24/21 07:59 PAWSS Have you Been Recently Intoxicated or Drunk Within the Last 30 days?: Yes Have you Ever Experienced Previous Episodes of Alcohol Withdrawal?: Yes Have you ever Experienced Withdrawal Seizures?: Yes Have you ever Experienced Delirium Tremens(DT)s?: Yes Have you ever undergone Alcohol Rehabilitation Treatment (i.e, inpt ot outpatient treatment programs)?: Yes Have you ever Experienced Blackouts?: Yes Have you ever Combined Alcohol with other Downers within the last 90 days?: Yes Have you ever Combined Alcohol with any other Substance of Abuse during the last 90 days?: No Evidence of Increased Autonomic Activity (i.e. HR>120, tremor, sweating, agitation, nausea)?: No Result: 6
--- NOTE | 2021-01-24 17:41 | CMSP_ITS ---
- If Service Date Differs Date of service: 01/24/21 Time of Service: 17:41 Care Management Safety Plan Status: Voluntary - Reason for Wait Reason for Wait: Inpatient Admission Safety plan has been established with patient, and care team, to adhere to patient goals, identify restrictions based on behavioral status, address nutrition, and determine allowed personal belongings, tools for hygiene and personal care. Determine level of activity including ambulation, level of supervision, visitors, and determine privileges based on behaviors and level of engagement by pt. SAFETY PLAN: 1. Will remain on suicide precautions. In Paper Clothes. 2. Will remain in room under direct supervision of one-on-one staff at all times provided by CPSO, EMERGENCY MANAGEMENT SPECIALIST, BARREL COOPER temporary office assistant. 3. May have paper cups, plates, finger foods as well as a metal spoon with which to eat meals. 4. Follow [facility] Management of the Admitted Behavioral Health Patient policy. 5. Personal Care: Comfort system available as well as shower with escort to shower room, at RN discretion. 6. No personal belongings at this time, permitted cell phone if available at RN discretion. 7. Visitors-No visitors at this time 8. Activities: Soft cart items, music tablet, television and remote at RN discretion. 9. Bathroom available in room on M/S without limitation. 10. Phone: May use cordless hospital phone for incoming and outgoing phone calls at RN discretion. 11. Due to VOLUNTARY status, if patient wishes to leave [facility], staff will contact [facility] Crisis Screener ([phone]) and On-Call Radiosonde Operator ([phone]) as soon as possible. In the event of elopement, notify [facility] Police ([phone]). Patient is currently voluntarily at [facility] and seeking inpatient admission when a bed becomes available. [facility] Frontline Pathological Technician will continue seeking placement. Please contact the Transport Specialist Radiosonde Operator ([phone]) and [facility] Pathological Technician ([phone]) for any needed changes in the Safety Plan. Safety plan has been provided to interdepartmental care team.
--- NOTE | 2021-01-24 17:43 | CMPROGNOTE_ITS ---
- If Service Date Differs Date of service: 01/24/21 Time of Service: 17:43 Care Management Progress Note S/O: Garrett is lying in bed watching television when CM comes to meet with him. He is pleasant and readily engages in conversation. He asks if CM can assist him in making a phone call to [employer] so he can secure a motel voucher for when he is discharged from the psychiatric treatment facility. He expresses a desire to remain in the [facility] area, as he has been set up with appointments at [facility]. Garrett shares that he has struggled with anxiety and panic attacks for the past 20 years but has never seen a psychiatrist. Per [facility], [facility] both have referrals and are reviewing but no beds are available today. Safety plan to remain in place, no changes. CM will continue to follow. A: Garrett is a 50 year old male admitted to [facility] on 01/18/21 with depression and SI. P: CM will support Garrett in making a phone call to [employer]. Garrett is awaiting a bed at an inpatient psychiatric hospital currently. He continues to meet criteria for inpatient treatment, and will be reassessed daily by [facility]. Transportation to be determined by disposition. He will follow up with his PCP, [facility], and his discharge plan of care. CM will continue to follow. - Status Status: Voluntary - Reason for Wait Reason for Wait: Inpatient Admission
[2021-01-24] MEDS: Acetaminophen 500 MG TAB 1000 MG PO (20:55)
[2021-01-24] MEDS: Lidocaine 5% Patch 2 PATCH TP (20:56)
[2021-01-24 21:03] VITALS: BP 112/74; PULSE 63; RESP 18; TEMP 37; O2SAT 95
[2021-01-24] MEDS: traZODone 100 MG TAB PO (22:14)
[2021-01-24] MEDS: diazePAM 5 MG TAB 10 MG PO (22:14)
[2021-01-25 08:25] VITALS: BP 102/69; PULSE 64; RESP 16; TEMP 36.4; O2SAT 97
[2021-01-25] MEDS: Atenolol 25 MG TAB 50 MG PO (08:28)
[2021-01-25] MEDS: Nicotine 14 MG/24 HR PATCH TD (08:28)
[2021-01-25] MEDS: Methadone Liquid 10 MG/ML 80 MG PO (08:28)
[2021-01-25] MEDS: Thiamine 100 MG TAB PO (08:29)
[2021-01-25] MEDS: Multivitamin TAB 1 TAB PO (08:29)
[2021-01-25] MEDS: Omeprazole 20 MG CAPCR PO (08:29)
[2021-01-25] MEDS: Sertraline 50 MG TAB 75 MG PO (08:29)
[2021-01-25] MEDS: hydroCHLOROthiazide 25 MG TAB 12.5 MG PO (08:29)
[2021-01-25] MEDS: diazePAM 5 MG TAB PO ×3 (08:29→22:05)
[2021-01-25] MEDS: Gabapentin 300 MG CAP 600 MG PO ×3 (08:30→22:06)
[2021-01-25] MEDS: Lisinopril 10 MG TAB PO (08:30)
[2021-01-25] MEDS: Folic Acid 1 MG TAB PO (08:30)
[2021-01-25] MEDS: busPIRone 5 MG TAB PO ×3 (08:30→22:07)
[2021-01-25] MEDS: Lidocaine Patch Removal 2 EACH TP (08:53)
--- NOTE | 2021-01-25 12:48 | PGE_ITS ---
Date of Service Date of service: 01/25/21 Time of Service: 12:49 Assessment and Plan Assessment and plan (1) Suicidal ideation: Status: Acute Assessment and plan: Mental health consulted. Safety plan in place. continues to have thoughts of SI he is also very anxious and depressed. Valium scheduled TID with Dose for bed time (2) Alcohol abuse: Status: Chronic Assessment and plan: medically cleared no signs of w/d (3) Major depression: Status: Chronic Assessment and plan: Increase Zoloft. Appears to be in a better place opening up more (4) Back pain: Status: Chronic Assessment and plan: Initially wanted flexiril however with being on valiu m did not feel comfortable giving flexiril. Patient was understanding, lidoderm patches orderd. Qualifiers: Back pain laterality: bilateral Back pain location: thoracic back pain Chronicity: chronic Qualified Code(s): M54.6 - Pain in thoracic spine; G89.29 - Other chronic pain (5) Anxiety: Status: Chronic Assessment and plan: This is his biggest concern. Increase Zoloft. Hydroxyzine added. Buspar added. valium 5 mg TID scheduled for anxiety and 10 mg HS Case discussed with Dr. Batista. Subjective Subjective Patient reports: no new complaints, tolerating liquids well, tolerating a regular diet and afebrile Exam Const General: cooperative and no acute distress Nutritional Appearance: obese Orientation: alert, awake and oriented x3 HENMT Head: normal to inspection, normocephalic and atraumatic Mouth: oral mucosae normal Resp Effort & Inspection: normal respiratory effort Auscultation: clear to auscultation bilaterally Cardio Rate: regular rate Rhythm: regular rhythm GI Inspection: large pannus and obesity Palpation: soft Skin General skin exam: no rashes or lesions noted Neuro General: patient alert, patient awake and patient oriented x3 Extrem General: normal to inspection, full ROM and no pedal edema Psych Mental Status: other Speech and Movement: slowed movement Mood: other Affect: blunted Attitude: cooperative Thought Content: suicidality Objective Last Vital Signs Temp 36.4 C L 01/25/21 08:25 Pulse 64 01/25/21 08:25 Resp 16 01/25/21 08:25 BP 102/69 01/25/21 08:25 Pulse Ox 97 01/25/21 08:25 PAWSS Have you Been Recently Intoxicated or Drunk Within the Last 30 days?: Yes Have you Ever Experienced Previous Episodes of Alcohol Withdrawal?: Yes Have you ever Experienced Withdrawal Seizures?: Yes Have you ever Experienced Delirium Tremens(DT)s?: Yes Have you ever undergone Alcohol Rehabilitation Treatment (i.e, inpt ot outpatient treatment programs)?: Yes Have you ever Experienced Blackouts?: Yes Have you ever Combined Alcohol with other Downers within the last 90 days?: Yes Have you ever Combined Alcohol with any other Substance of Abuse during the last 90 days?: No Evidence of Increased Autonomic Activity (i.e. HR>120, tremor, sweating, agitation, nausea)?: No Result: 6
--- NOTE | 2021-01-25 13:17 | PDOC.CMSAFE ---
- If Service Date Differs Date of service: 01/25/21 Time of Service: 13:17 Care Management Safety Plan Status: Voluntary - Reason for Wait Reason for Wait: Inpatient Admission Safety plan has been established with patient, and care team, to adhere to patient goals, identify restrictions based on behavioral status, address nutrition, and determine allowed personal belongings, tools for hygiene and personal care. Determine level of activity including ambulation, level of supervision, visitors, and determine privileges based on behaviors and level of engagement by pt. A huddle is held at 13:00 pm with Qing, Nursing Acid Patroller, Amy, Coordinator, Karishma RN, and Angelika, Director Digital Analytics, in attendance. SAFETY PLAN: 1. Will remain on suicide precautions. In Paper Clothes. 2. Will remain in room under direct supervision of one-on-one staff at all times provided by CPSO, KEVAN, INSURANCE INSPECTOR coil rewind machine operator. 3. May have paper cups, plates, finger foods as well as a metal spoon with which to eat meals. 4. Follow [facility] Management of the Admitted Behavioral Health Patient policy. 5. Personal Care: Comfort system available as well as shower with escort to shower room, at RN discretion. 6. No personal belongings at this time, permitted cell phone if available at RN discretion. 7. Visitors-No visitors at this time 8. Activities: Soft cart items, music tablet, and television at RN discretion. 9. Bathroom available in room on M/S without limitation. 10. Phone: May use [employer] hospital phone for incoming and outgoing phone calls at RN discretion. 11. Due to VOLUNTARY status, if patient wishes to leave [facility], staff will contact [facility] Crisis Screener ([phone]) and On-Call Director Digital Analytics ([phone]) as soon as possible. In the event of elopement, notify [employer] Police ([phone]). Patient is currently voluntarily at [facility] and seeking inpatient admission when a bed becomes available. [facility] Frontline Supervisor Tubing will continue seeking placement. Please contact the Environmental Protection Economist Director Digital Analytics ([phone]) and [facility] Supervisor Tubing ([phone]) for any needed changes in the Safety Plan. Safety plan has been provided to interdepartmental care team.
--- NOTE | 2021-01-25 14:33 | W.INMHPGNOTE ---
Date of service: 01/25/21 Time of Service: 11:30 Mental Health Crisis Note Presenting Issue How did you arrive at the ED and why did you come: francisco arrived to [facility] ED 01.18.21 while intoxicated endorsing suicidal ideation with a plan and seeking in-patient referral for comorbid depression and ETOH dependence treatment. He is seen today for follow-up assessment via telehealth. Precipitating Factors atjacob general presentation unchanged from 01.24. He remains cooperative and agreeable to remaining at [facility] until placement secured. No appetite or sleep concerns. He reports mood today as Oxana down I guess. A bit discouraged. with mildly dysphoric affect. No delusions or hallucinations noted. He reports current SI and states, Yeah definitely., is unable to verify intention / ability to maintain safety, and endorses plan of using 'gases'. No reported HI. Patient perseverates on past mistakes and reports morbidly reflecting on running out of time in his life to make changes. He reports missing his family and struggling with not seeing his for the past 2 years. He remains agreeable to in-patient treatment referral. Disposition BEHAVIOR: Calm, appropriate EYE CONTACT: Fair MOOD: Oxana down I guess. A bit discouraged. AFFECT: Mildy dysphoric APPETITE: No reported issues. SLEEP(trouble falling/staying asleep: No reported issues. Plan The patient will remain at [facility] on voluntary status and await recommended in-patient treatment. He will be assessed daily by [facility] until placement is secured. If self-harming ideation / acuity level decreases, discharge back to the community or alternatives to in-patient placement such as intermediate residential treatment options can be explored. Updated [facility] CM Angelika Obrien. Arrangements will be made so that patient can contact [facility] for housing. Discussed intermediate house options such as [place] / [facility] - patient reports a negative prior experience and alleged that it was a trap house where the majority of people were using in one form or another. He remains open to the idea but remains insistent on wanting to stay in the [facility] area in order to connect with mental health services. Contact list WC - At capacity BR - At capacity CV - At capacity; referral sent. [facility], [facility], [facility] - At capacity; not accepting referrals at this time.
--- NOTE | 2021-01-25 15:54 | CMPROGNOTE_ITS ---
- If Service Date Differs Date of service: 01/25/21 Time of Service: 15:54 Care Management Progress Note S/O: Garrett reports doing okay today. At his request, CM assists him in calling [employer] to inquire about a motel voucher. The call leaves Garrett frustrated as the staff member at [employer] is unable to answer some of his questions. The worker additionally advises him to call back to apply for a voucher when he is no longer hospitalized. Garrett then requests that CM contact Mackenzie at [facility] to advocate for him and to ask that they allow him to return there. I tell him I am happy to make that phone call but that [facility] is unlikely to bend their rules. Garrett states he is exhausted and asks if we can call [facility] tomorrow to enlist their help with housing. Per [facility], [facility], [facility][Note 3], and [facility] have referrals for review but are currently at capacity. [facility], [facility], and [facility] are not accepting referrals at this time. Safety plan to remain in place, no changes. CM will continue to follow. A: Garrett is a 50 year old male admitted to [facility] on 01/18/21 with depression and SI. P: Garrett is awaiting a bed at an inpatient psychiatric hospital currently. He continues to meet criteria for inpatient treatment, and will be reassessed daily by [facility]. Transportation to be determined by disposition. He will follow up with his PCP, [facility], and his discharge plan of care. CM will continue to follow. - Status Status: Voluntary - Reason for Wait Reason for Wait: Inpatient Admission
--- NOTE | 2021-01-25 15:54 | PDOC.CMPRO ---
- If Service Date Differs Date of service: 01/25/21 Time of Service: 15:54 Care Management Progress Note S/O: Garrett reports doing okay today. At his request, CM assists him in calling [employer] to inquire about a motel voucher. The call leaves Garrett frustrated as the staff member at [employer] is unable to answer some of his questions. The worker additionally advises him to call back to apply for a voucher when he is no longer hospitalized. Garrett then requests that CM contact Mackenzie at [facility] to advocate for him and to ask that they allow him to return there. I tell him I am happy to make that phone call but that [facility] is unlikely to bend their rules. Garrett states he is exhausted and asks if we can call [facility] tomorrow to enlist their help with housing. Per [facility], [facility], [facility], and [facility] have referrals for review but are currently at capacity. [facility], [facility], and [facility] are not accepting referrals at this time. Safety plan to remain in place, no changes. CM will continue to follow. A: Garrett is a 50 year old male admitted to [facility] on 01/18/21 with depression and SI. P: Garrett is awaiting a bed at an inpatient psychiatric hospital currently. He continues to meet criteria for inpatient treatment, and will be reassessed daily by [facility]. Transportation to be determined by disposition. He will follow up with his PCP, [facility], and his discharge plan of care. CM will continue to follow. - Status Status: Voluntary - Reason for Wait Reason for Wait: Inpatient Admission
[2021-01-25 20:39] VITALS: BP 99/63; PULSE 68; RESP 18; TEMP 35.8; O2SAT 93
[2021-01-25] MEDS: traZODone 100 MG TAB PO (22:05)
[2021-01-25] MEDS: diazePAM 5 MG TAB 10 MG PO (22:06)
[2021-01-26 07:29] VITALS: BP 107/73; PULSE 69; RESP 18; TEMP 36.6; O2SAT 94
[2021-01-26] MEDS: Nicotine 14 MG/24 HR PATCH TD (08:11)
[2021-01-26] MEDS: Atenolol 25 MG TAB 50 MG PO (08:12)
[2021-01-26] MEDS: Acetaminophen 500 MG TAB 1000 MG PO (08:12)
[2021-01-26] MEDS: hydroCHLOROthiazide 25 MG TAB 12.5 MG PO (08:12)
[2021-01-26] MEDS: Folic Acid 1 MG TAB PO (08:13)
[2021-01-26] MEDS: Thiamine 100 MG TAB PO (08:13)
[2021-01-26] MEDS: Sertraline 50 MG TAB 75 MG PO (08:13)
[2021-01-26] MEDS: busPIRone 5 MG TAB PO ×3 (08:13→19:45)
[2021-01-26] MEDS: Omeprazole 20 MG CAPCR PO (08:13)
[2021-01-26] MEDS: Gabapentin 300 MG CAP 600 MG PO ×3 (08:13→19:45)
[2021-01-26] MEDS: Multivitamin TAB 1 TAB PO (08:13)
[2021-01-26] MEDS: diazePAM 5 MG TAB PO ×3 (08:13→19:45)
[2021-01-26] MEDS: Lisinopril 10 MG TAB PO (08:14)
[2021-01-26] MEDS: Methadone Liquid 10 MG/ML 80 MG PO (08:14)
--- NOTE | 2021-01-26 12:39 | PGE_ITS ---
Date of Service Date of service: 01/26/21 Time of Service: 12:39 Assessment and Plan Assessment and plan (1) Suicidal ideation: Status: Acute Assessment and plan: Mental health consulted. Safety plan in place. continues to have thoughts of SI he is also very anxious and depressed. Valium scheduled TID with Dose for bed time (2) Alcohol abuse: Status: Chronic Assessment and plan: medically cleared no signs of w/d (3) Major depression: Status: Chronic Assessment and plan: Increase Zoloft. Appears to be in a better place opening up more (4) Back pain: Status: Chronic Assessment and plan: Initially wanted flexiril however with being on valiu m did not feel comfortable giving flexiril. Patient was understanding, lidoderm patches orderd. Qualifiers: Back pain laterality: bilateral Back pain location: thoracic back pain Chronicity: chronic Qualified Code(s): M54.6 - Pain in thoracic spine; G89.29 - Other chronic pain (5) Anxiety: Status: Chronic Assessment and plan: This is his biggest concern. Increase Zoloft. Hydroxyzine added. Buspar added. valium 5 mg TID scheduled for anxiety and 10 mg HS Case discussed with Dr. Batista. Subjective Subjective Patient reports: no new complaints, feels better and afebrile Interval history since last seen: remains medically stable. Exam Const General: cooperative and no acute distress Nutritional Appearance: obese Orientation: alert, awake and oriented x3 HENMT Head: normal to inspection, normocephalic and atraumatic Mouth: oral mucosae normal Resp Effort & Inspection: normal respiratory effort Auscultation: clear to auscultation bilaterally Cardio Rate: regular rate Rhythm: regular rhythm GI Inspection: large pannus and obesity Palpation: soft Skin General skin exam: no rashes or lesions noted Neuro General: patient alert, patient awake and patient oriented x3 Extrem General: normal to inspection, full ROM and no pedal edema Psych Mental Status: other Speech and Movement: slowed movement Mood: other Affect: blunted Attitude: cooperative Thought Content: suicidality Objective Last Vital Signs Temp 36.6 C 01/26/21 07:29 Pulse 69 01/26/21 07:29 Resp 18 01/26/21 07:29 BP 107/73 01/26/21 07:29 Pulse Ox 94 01/26/21 07:29 PAWSS Have you Been Recently Intoxicated or Drunk Within the Last 30 days?: Yes Have you Ever Experienced Previous Episodes of Alcohol Withdrawal?: Yes Have you ever Experienced Withdrawal Seizures?: Yes Have you ever Experienced Delirium Tremens(DT)s?: Yes Have you ever undergone Alcohol Rehabilitation Treatment (i.e, inpt ot outpatient treatment programs)?: Yes Have you ever Experienced Blackouts?: Yes Have you ever Combined Alcohol with other Downers within the last 90 days?: Yes Have you ever Combined Alcohol with any other Substance of Abuse during the last 90 days?: No Evidence of Increased Autonomic Activity (i.e. HR>120, tremor, sweating, agitation, nausea)?: No Result: 6
--- NOTE | 2021-01-26 13:03 | MHPN_ITS ---
Date of service: 01/26/21 Time of Service: 11:00 Mental Health Crisis Note Presenting Issue How did you arrive at the ED and why did you come: Patient arrived to [facility] ED 01.18.21 while intoxicated endorsing suicidal ideation with a plan and seeking in-patient referral for comorbid depression and ETOH dependence treatment. He is seen today for follow-up assessment via telehealth. Precipitating Factors Patient presents via telehealth with disheveled appearance. He is fully alert and oriented to time, person, place and situation. Attitude is cooperative and engaged. He reports feeling Alright today with dysphoric / slightly agitated affect. No delusions or hallucinations noted. He reports good appetite and shares that he has been eating too much while at the hospital. Patient reports contacting [facility] yesterday and expresses feeling very upset from the interaction. He states, She was so rude and patronizing to me and couldn't provide even basic process information. He reports current SI, states, Not really that great I guess. I'm just very depressed. I feel like there is nowhere for me to go with plan of Getting intoxicated and offing myself in one form or another. He does not identify a specific facor for his presenting SI and reports Being homeless is just a component. It's my depression. I need psychiatry. When asked about intention to act on disclosed thoughts, he shares If the opportunity arrives. No reported HI, intent or plan. Disposition BEHAVIOR: Cooperative EYE CONTACT: Fair MOOD: Alright AFFECT: Dysphoric / agitated APPETITE: Pt reports overeating. SLEEP(trouble falling/staying asleep: No reported issues. Plan The patient will remain at [facility] on voluntary status and await recommended in- patient treatment. He will be assessed daily by [facility] until placement is secured. If self-harming ideation / acuity level decreases, discharge back to the community or alternatives to in-patient placement such as [facility] residential treatment options can be explored. Updated [facility] CM. The patient will be contacting [facility] today and requisite paperwork for emergency housing will be printed and provided at [facility] so that he can work on the process while waiting. Per [facility] interaction, an application needs to be filed post-discharge. At this time the patient wishes to remain at [facility] to await placement for treatment of depression / SI and is not agreeable to discharging on a safety plan. Contact list - At capacity [facility] - At capacity; H/P + COVID results requested, [facility] will fax. [facility] - At capacity, no anticipated discharges. Referral sent 01.25. [facility], [facility], [facility] - At capacity; not accepting referrals at this time.
[2021-01-26 15:23] VITALS: BP 121/81; PULSE 68; RESP 18; TEMP 36.6; O2SAT 94
--- NOTE | 2021-01-26 19:41 | CMSP_ITS ---
- If Service Date Differs Date of service: 01/26/21 Time of Service: 19:41 Care Management Safety Plan Status: Voluntary - Reason for Wait Reason for Wait: Inpatient Admission Safety plan has been established with patient, and care team, to adhere to patient goals, identify restrictions based on behavioral status, address nutrition, and determine allowed personal belongings, tools for hygiene and personal care. Determine level of activity including ambulation, level of supervision, visitors, and determine privileges based on behaviors and level of engagement by pt. A huddle is held with Debbie, Nursing Cost Estimating Manager, Amy, Coordinator, Elise RN, and Brenda, Floatlight Loading Supervisor, in attendance. SAFETY PLAN: 1. Will remain on suicide precautions. In Paper Clothes. 2. Will remain in room under direct supervision of one-on-one staff at all times provided by CPSO, KEVAN, LACQUER MAKER medical supervisor. 3. May have paper cups, plates, finger foods as well as a metal spoon with which to eat meals. 4. Follow [facility] Management of the Admitted Behavioral Health Patient policy. 5. Personal Care: Comfort system available as well as shower with escort to shower room, at RN discretion. 6. No personal belongings at this time, permitted cell phone if available at RN discretion. 7. Visitors-No visitors at this time 8. Activities: Soft cart items, music tablet, and television at RN discretion. May have pen to fill out housing applications. 9. Bathroom available in room on M/S without limitation. 10. Phone: May use cordless hospital phone for incoming and outgoing phone calls at RN discretion. 11. Due to VOLUNTARY status, if patient wishes to leave [facility], staff will contact [facility] Crisis Screener ([phone]) and On-Call Floatlight Loading Supervisor ([phone]) as soon as possible. In the event of elopement, notify [place] [employer] ([phone]). Patient is currently voluntarily at [facility] and seeking inpatient admission when a bed becomes available. [facility] Frontline Staff Electronic Warfare Officer will continue seeking placement. Please contact the [employer] Floatlight Loading Supervisor ([phone]) and [facility] Staff Electronic Warfare Officer ([phone]) for any needed changes in the Safety Plan. Safety plan has been provided to interdepartmental care team.
--- NOTE | 2021-01-26 19:42 | PDOC.CMPRO ---
- If Service Date Differs Date of service: 01/26/21 Time of Service: 19:42 Care Management Progress Note S/O: Garrett was sitting up on his bed when CM met with him. CM coordinated a zoom with AMANDA Burns, who determined that Garrett continues to meet criteria for inpatient psychiatric admission. No bed availability today. Garrett discussed his homelessness as a factor in his SI, but reported that there are many factors including being estranged from his family, apart from his for 2 years, as well as his chronic struggle with alcohol use. CAMILO suggested that he work on housing applications while waiting for a bed at a psychiatric facility. Garrett reports that he plans to discuss this with [facility], who he has had trouble connecting to. CAMILO printed him a housing application for [facility] and provided it to Garrett, as well as a pen, which was added to his safety plan. CAMILO also sent a referral to [facility] for case management in the community, as having community supports in place upon his discharge will help him remain stable in the community. CM will continue to follow. A: Garrett is a 50 year old male admitted to [facility] on 01/18/21 with depression and SI. P: Garrett is awaiting a bed at an inpatient psychiatric hospital currently. He continues to meet criteria for inpatient treatment, and will be reassessed daily by [facility]. Transportation to be determined by disposition. He will follow up with his PCP, [facility], and his discharge plan of care. CM will continue to follow.
[2021-01-26] MEDS: Lidocaine 5% Patch 2 PATCH TP (19:47)
[2021-01-26] MEDS: diazePAM 5 MG TAB 10 MG PO (21:00)
[2021-01-26] MEDS: traZODone 100 MG TAB PO (21:01)
[2021-01-27 07:37] VITALS: BP 117/80; PULSE 71; RESP 20; TEMP 36.1; O2SAT 95
[2021-01-27] MEDS: Nicotine 14 MG/24 HR PATCH TD (08:09)
[2021-01-27] MEDS: Omeprazole 20 MG CAPCR PO (08:10)
[2021-01-27] MEDS: hydroCHLOROthiazide 25 MG TAB 12.5 MG PO (08:10)
[2021-01-27] MEDS: Sertraline 50 MG TAB 75 MG PO (08:11)
[2021-01-27] MEDS: Lidocaine Patch Removal 2 EACH TP (08:11)
[2021-01-27] MEDS: Lisinopril 10 MG TAB PO (08:11)
[2021-01-27] MEDS: Atenolol 25 MG TAB 50 MG PO (08:11)
[2021-01-27] MEDS: busPIRone 5 MG TAB PO (08:12)
[2021-01-27] MEDS: diazePAM 5 MG TAB PO ×2 (08:12→12:41)
[2021-01-27] MEDS: Methadone Liquid 10 MG/ML 80 MG PO (08:12)
[2021-01-27] MEDS: Gabapentin 300 MG CAP 600 MG PO (08:12)
--- NOTE | 2021-01-27 12:01 | NUR.NOTE ---
Nursing Note: At 1155 on 01/27/21, this RN received a call from THEO Carter at [facility]. Nurse to nurse report was given. Emma was updated regarding pt.'s mentation, VS, pain level, head to toe assessment, suicide risk assessment, medications the pt. is taking, plan of care, etc. Emma verbalized understanding and presented with a few questions that were answered. RN will reassess as necessary.
--- NOTE | 2021-01-27 12:09 | W.PM.DS.N ---
Date of service: 01/27/21 Time of Service: 12:09 DS: Diagnosis Discharge Diagnosis (1) Suicidal ideation: Start date: 01/27/21 Start time: 12:09 Status: Acute Asessment and Plan: Severe depression and anxiety for over 20 years, to the point of debilitating and requiring disability this has affected his depression to the point that he is having SI to the point of thought out planning. He has been accepted at [facility] by provider Melisa (2) Alcohol abuse: Start date: 01/27/21 Start time: 12:17 Status: Chronic Asessment and Plan: He drinks to help with anxiety and depression (3) Major depression: Start date: 01/27/21 Start time: 12:18 Status: Chronic Asessment and Plan: as above (4) Back pain: Start date: 01/27/21 Start time: 12:18 Status: Chronic Asessment and Plan: Lidoderm patches, he can have conservative treatment at [facility] (5) Anxiety: Start date: 01/27/21 Start time: 12:19 Status: Chronic Asessment and Plan: as above discussed with Dr. Batista Discharge Plan Disposition Patient Disposition: [facility] Condition: Stable Discharge Details Reason For Visit: Depression with Suicidal Ideation Admit Date/Time: 01/22/21 09:00 Admit Provider: Taryn Franz Attending Provider: Taryn Franz Primary Care Provider: [facility] Course Hospital Course: 50 y.o male with severe anxiety and depression was admitted to [facility] after presenting to ED with thoughts of SI and drinking half a quart of alcohol. He was admitted and placed on CIWA with CPSO. He did not w/d, therefore he was medically cleared and moved to transition area. He was placed on valium for anxiety and lidoderm patches for backpain. He has had a cpso for 1:1. He has been offered a bed at [facility] and will be transferred via pediatric rn. Home Meds and New Rx's Prescriptions: New sertraline 50 mg Tablet 75 mg PO DAILY Qty: 30 RF: 0 Continued trazodone 100 mg Tablet 100 mg PO DAILY RF: 0 lisinopril 10 mg Tablet 10 mg PO DAILY RF: 0 sertraline [Zoloft] 50 mg Tablet 50 mg PO DAILY RF: 0 atenolol 50 mg Tablet 50 mg PO DAILY RF: 0 hydrochlorothiazide 12.5 mg Tablet 12.5 mg PO DAILY RF: 0 omeprazole 20 mg Tablet,Delayed Release (Dr/Ec) 20 mg PO DAILY RF: 0 methadone 5 mg/5 mL Syringe 80 mg PO QAM RF: 0 gabapentin 600 mg Tablet 600 mg PO TID RF: 0 Discharge Instructions Additional Instructions: transfer to [facility] Stand Alone Forms: Nursing Discharge Form Activity:: Activity as Tolerated Diet:: Low Sodium DS: Summary Time Spent with Patient providing and/or coordinating discharge services: Less than 30 minutes Status at Discharge Functional status at discharge: independent ambulation Overall status at discharge: patient is not back to baseline Mental Status: other Speech and Movement: speech and movement normal Mood: other Affect: anxious affect Exam Narrative Exam Narrative: General: middle aged, obese male, sitting at the edge of the bed. Open and honest. Expresses that he feels no one has explained anything to him He is alert and oriented. HEENT: normocephalic, atraumatic, EOMI, wearing glasses, makes eye contact, mucous membranes moist. Neck: supple. Cardiovascular: heart sounds regular, nontachycardic. Respiratory: respirations appear even and unlabored, lung sounds are clear throughout. GI: large, round abdomen, soft, nontender on palpation, nondistended. Extremities: no edema, moves all 4 extremities freely. Psych Mental Status: other Speech and Movement: speech and movement normal Mood: other Affect: anxious affect DS: Data Vitals/I&O Vitals and I&O: Vital Signs Temperature 36.1 C L 01/27/21 07:37 Temperature Source Tympanic 01/27/21 07:37 Pulse 71 01/27/21 07:37 Pulse Rhythm Regular 01/27/21 09:30 Pulse Strength Normal 01/19/21 20:30 Respiratory Rate 20 01/27/21 07:37 Respiratory Effort Non-Labored 01/27/21 09:30 Respiratory Depth Normal 01/27/21 09:30 Respiratory Pattern Normal 01/27/21 09:30 Blood Pressure 117/80 01/27/21 07:37 Blood Pressure Mean 68 01/19/21 20:30 Blood Pressure Position Supine 01/18/21 10:33 Pulse Oximetry 95 01/27/21 07:37 Oxygen Delivery Method Room Air 01/27/21 07:37 Oxygen Flow Rate 0 01/27/21 07:37 Pain Level 0 01/27/21 08:12 Comment 01/27/21 07:28 Intake & Output 01/26/21 01/27/21 01/27/21 23:59 11:59 23:59 Intake Total 840 / 3160 1260 / 1260 Balance 840 / 3160 1260 / 1260 Intake: Oral 840 / 3160 1260 / 1260 Other: Urine Color Yellow Urine Appearance Cloudy Urine Odor Normal Comment Pt uses toilet independently Stool Size Moderate Stool Characteristics Formed Voiding Methods Toilet Toilet Data Completed and Pending Completed studies during hospitalization [Text1]: Exam(s) XR CHEST 2V PA LATERAL EXAM: XR CHEST 2V PA LATERAL CLINICAL HISTORY: hypoxia TECHNIQUE: 2D digital imaging was performed of the chest. Two images were obtained. PA and lateral views were obtained. COMPARISON: No exams were available for comparison FINDINGS: MEDIASTINUM: Normal. HEART: Normal. PULMONARY VASCULATURE: Normal. LUNGS: Clear. PLEURAL SPACE: No pleural effusion or pneumothorax. BONE:Within normal limits for the patient's age. OTHER FINDINGS:Normal. IMPRESSION: No acute pulmonary findings. [facility] Medical History (Updated 01/21/21 @ 13:32 by Debbie Cardenas NP) Anxiety Discharge planning issues Social History Smoking/Tobacco Use Status: Current every day Tobacco Type: cigarettes Smoking risk assessment performed?: Yes Alcohol Intake: current Alcohol Intake frequency: 3 or more drinks per day Alcohol type: hard liquor Drug use: Never Substance use type: does not use Do you feel safe at home: No Do you feel safe in your relationship?: Yes Additional Social history: was in a senior care house
--- NOTE | 2021-01-27 13:03 | PDOC.CMDIS ---
- If Service Date Differs Date of service: 01/27/21 Time of Service: 13:03 LACE Index Scoring Tool - Questions: Length of Stay (in days): 4 - 6 Acuity (Admit via E.D.?): Yes E.D. Visits: 2 - Answers: Total Score: 9 Risk of Readmission: Low Risk Care Management Discharge Reason for Hospitalization: Depression with suicidal ideation. Discharge Plan: Garrett is accepted for a voluntary placement at the [facility]. He will follow up with his PCP, NIKKIE, [facility], and other community providers upon his discharge from the [facility]. Garrett is transported to [facility] via [facility]. Patient/Family Education Needs: Review discharge instructions, expectations, and discuss Ask Me Three. - Disposition Disposition: [facility]
--- NOTE | 2021-01-27 14:05 | PDOC.MHCN_ITS ---
Date of service: 01/27/21 Time of Service: 11:30 Mental Health Crisis Note Presenting Issue How did you arrive at the ED and why did you come: Patient arrived to [facility] ED 01.18.21 while intoxicated endorsing suicidal ideation with a plan and seeking in-patient referral for comorbid depression and ETOH dependence treatment. He is seen today for follow-up assessment via telehealth. Precipitating Factors Patient general appearance and presentation unchanged from 01.26. He is fully alert and oriented to time, person, place and situation. He is calm, appropriate, and engaged throughout interaction. No appetite concerns or sleep concerns. He reports doing Alright today with flat affect. No delusions or psychotic thought process evident. Insight and judgment appear fair, client remains goal-oriented on moving forward with placement. Patient endorses current SI, Thinking I would be better off . That I'm such a piece of shit, with self-reported intent 08/15. He identifies Something with gas or while intoxicated. No reported HI. Patient perseverates on past mistakes requiring some redirection. Patient reports attempting to complete [employer] housing application today. He remains agreeable to in-patient referral. No other reported concerns or issues noted during interaction. Disposition BEHAVIOR: Appropriate EYE CONTACT: Fair MOOD: Alright AFFECT: Flat APPETITE: No reported issues SLEEP(trouble falling/staying asleep: No reported issues Plan The patient has been accepted to [facility] and will be processed accordingly. Updated [facility] CM. Signature Clinician's Name/Title: Landry [facility]lvarez [facility] clinician / [place]
== END 2021-01-27 12:55 | disposition short-term general hospital (02) | DRG 881 ==
LOC: ER 01-20 10:24 → MS 01-20 12:40
PROVIDERS: Physician Assistant; Registered Nurse Emergency; Admitting Provider Internal Medicine; Emergency Provider Student in an Organized Health Care Education/Training Program; PCP Nurse Practitioner Family; Visit Provider Internal Medicine
DX: F32.9 Major depressive disorder, single episode, unspecified (principal); R45.851 Suicidal ideations; F11.20 Opioid dependence, uncomplicated; Z68.41 Body mass index [BMI] 40.0-44.9, adult; G89.29 Other chronic pain; M54.6 Pain in thoracic spine; F41.9 Anxiety disorder, unspecified; F10.129 Alcohol abuse with intoxication, unspecified; Y90.6 Blood alcohol level of 120-199 mg/100 ml; Z20.822 Contact with and (suspected) exposure to COVID-19; F17.210 Nicotine dependence, cigarettes, uncomplicated; E66.9 Obesity, unspecified
CPT/HCPCS: 36415; 80048; 80053; 80307; 87635; 99285; 80320; 80329; 81003; 83735; 84100; 84443; 85025; 99220; 99225; 99231; 99232; 99233; 99238; G0378; J3490

== ENCOUNTER 2021-03-22 21:41 | Inpatient (IN) | payer MEDICARE, MEDICAID, SELFPAY ==
[2021-03-22] VITALS (24 sets, daily range): BP systolic 109–154; BP diastolic 73–97; PULSE 74–92; RESP 7–18; TEMP 36.7; O2SAT 85–97
--- NOTE | 2021-03-22 21:30 | RT.EKG_ITS ---
APPROVED REPORT Exam: Resting ECG Reason for Exam: chest pain Patient Location: E HR:84 bpm ECG Measurements Heart Rate 84 AXIS FL 165 P 52 QRSd 100 QRS 1 QT 401 T 46 QTc 473 Conclusion Sinus rhythm...normal P axis, V-rate 60- 99
--- NOTE | 2021-03-22 22:18 | W.ED.GENAD ---
Discharge Plan Disposition Patient Disposition: [facility] INPATIENT Condition: Serious Discharge Details Chief Complaint: ETOHWithdr Clinical Impression: Alcohol intoxication, Alcohol withdrawal seizure Primary Care Provider: Jada Mulligan ED Provider: Jeremy Lopes Home Meds and New Rx's Prescriptions: No Action trazodone 100 mg Tablet 100 mg PO DAILY RF: 0 lisinopril 10 mg Tablet 10 mg PO DAILY RF: 0 sertraline [Zoloft] 50 mg Tablet 50 mg PO DAILY RF: 0 atenolol 50 mg Tablet 50 mg PO DAILY RF: 0 hydrochlorothiazide 12.5 mg Tablet 12.5 mg PO DAILY RF: 0 omeprazole 20 mg Tablet,Delayed Release (Dr/Ec) 20 mg PO DAILY RF: 0 methadone 5 mg/5 mL Syringe 80 mg PO QAM RF: 0 gabapentin 600 mg Tablet 600 mg PO TID RF: 0 sertraline 50 mg Tablet 75 mg PO DAILY Qty: 30 RF: 0 Medical Decision Making 1044 --50-year-old male with history of alcohol use disorder and opioid use disorder, here with acute alcohol intoxication, seeking alcohol rehabilitation, concern for recent withdrawal seizure. I will give thiamine 100 mg IV. Plan to check labs to assess for electrolyte normalities. Will also check alcohol level. Screening EKG was reviewed and interpreted by me: Please see report, sinus rhythm, nondiagnostic. --Labs reviewed and no significant electrolyte abnormalities. LFTs mildly elevated which I suspect is secondary to alcohol abuse. Alcohol level 291. I called and spoke with Dr. oCrtez, on-call hospitalist, discussed ED presentation course and my concern that patient is high risk for alcohol withdrawal seizure and that he is motivated to stop drinking. Plan will be to admit and monitor closely for alcohol withdrawal. Patient is not a candidate for phenobarbital given concern for oversedation with current intoxication and methadone use earlier today. Bridging orders placed by me at the request of Dr. Zamudio to ICU. Lab Data Lab results reviewed: Yes I reviewed the patient's lab results. Labs: Laboratory Tests Range/Units 03/22/21 03/22/21 22:14 22:14 WBC (4.4-10.8) 10^3/uL 11.43 H RBC (4.36-5.78) 10^6/uL 4.15 L Hgb (13.5-17.5) g/dL 12.5 L Hct (40.0-50.0) % 37.7 L MCV (80-95) fL 90.8 MCH (27.0-33.0) pg 30.1 MCHC (32.0-36.0) % 33.2 RDW (11.8-14.1) % 13.5 Plt Count (130-400) 10^3/uL 303 MPV (8.0-11.0) fL 9.1 Immature Gran % 0.2 Neutrophils % 52.8 Lymphocytes % 33.9 Monocytes % 10.5 Eosinophils % 1.7 Basophils % 0.9 Nucleated RBC % % 0 Absolute Neutrophils (1.2-6.7) 10^3/uL 6.04 Absolute Lymphocytes (1.2-3.4) 10^3/uL 3.87 H Absolute Monocytes (0.1-0.8) 10^3/uL 1.20 H Absolute Eosinophils (0.0-0.7) 10^3/uL 0.19 Absolute Basophils (0.0-0.2) 10^3/uL 0.10 Sodium (136-145) mmol/L 140 Potassium (3.5-5.1) mmol/L 3.4 L Chloride (98-107) mmol/L 101 Carbon Dioxide (21.0-32.0) mmol/L 32.4 H Anion Gap (3-11) mmol/L 6.6 BUN (7-18) mg/dL 16 Creatinine (0.70-1.30) mg/dL 0.9 Estimated GFR/1.73 m2 (mL/min/1.73m2) >= 60.00 Glucose (74-106) mg/dL 119 H Calcium (8.5-10.1) mg/dL 8.5 Magnesium (1.8-2.4) mg/dL 2.3 Total Bilirubin (0.2-1.0) mg/dL 0.5 AST (15-37) U/L 60 H ALT (16-63) U/L 141 H Alkaline Phosphatase (46-116) U/L 134 H Total Protein (6.4-8.2) g/dL 7.0 Albumin (3.4-5.0) g/dL 3.4 Ethyl Alcohol (<10) mg/dL 291.6 H HPI General Mode of arrival: ambulatory. Date/Time Provider Initiated Documentation: 03/22/21 21:45. Limitations to Documentation: no limitations. Information obtained by: patient. HPI Narrative: Mr. Munroe 50yo m with history of alcohol use disorder and opioid use disorder, here with acute alcohol intoxication, recent alcohol withdraw with seizures, seeking alcohol rehabilitation. Patient drank alcohol prior to arrival. He notes he typically drinks 17-18 alcoholic beverages. Patient recently discharged from [facility] about 1 week ago having been hospitalized for 40 days for depression. Patient is depressed today. No specific suicidal plan but does note I do not know what I will do if I can't stop drinking. Patient has been sober at [place] and upon discharge he notes he had difficulty accessing housing and was refused admission to a sober house and relapsed. He then attempted to detox himself and believes he had a seizure. He states that yesterday he woke up on the floor and thinks he has had a seizure. He is now quite motivated and is seeking treatment at [facility] in [place] -notes he called today he states that he called today and they unfortunately do not have immediate availability but may have availability a couple days. Related Data Home Medications Medication Instructions Recorded Confirmed atenolol 50 mg PO DAILY 01/09/21 03/22/21 hydrochlorothiazide 12.5 mg PO DAILY 01/09/21 03/22/21 lisinopril 10 mg PO DAILY 01/09/21 03/22/21 methadone 80 mg PO QAM 01/09/21 03/22/21 omeprazole 20 mg PO DAILY 01/09/21 03/22/21 sertraline [Zoloft] 50 mg PO DAILY 01/09/21 01/18/21 trazodone 100 mg PO DAILY 01/09/21 03/22/21 gabapentin 600 mg PO TID 01/10/21 03/22/21 sertraline 75 mg PO DAILY #30 tab 01/27/21 03/22/21 Previous Rx's Medication Instructions Recorded sertraline 75 mg PO DAILY #30 tab 01/27/21 Allergies Allergy/AdvReac Type Severity Reaction Status Date / Time Sulfa (Sulfonamide Allergy Intermediate Skin Rash Unverified 03/22/21 21:49 Antibiotics) General Stated Complaint: ETOHWithdr RODGER: 3 Review of Systems All systems reviewed & are unremarkable except as noted in HPI and below Constitutional Constitutional: Denies fever(s) Cardiovascular Cardiovascular: Denies chest pain Psychiatric Psychiatric: Reports depression PFSH All Active Problems (Updated 03/22/21 @ 23:22 by Jeremy Lopes MD) Alcohol intoxication (Acute) Alcohol withdrawal seizure (Acute) Anxiety (Chronic) Discharge planning issues (Acute) Major depression (Chronic) Suicidal ideation (Acute) Alcohol abuse (Chronic) Back pain (Chronic) Methadone dependence (Chronic) Depression (Chronic) Suicidal ideation (Acute) Social History Smoking/Tobacco Use Status: Current every day Tobacco Type: cigarettes Smoking risk assessment performed?: Yes Alcohol Intake: current Alcohol Intake frequency: 3 or more drinks per day Alcohol type: beer and hard liquor Drug use: Never Substance use type: does not use Do you feel safe at home: No Do you feel safe in your relationship?: Yes Additional Social history: Homeless Exam Const General: cooperative and no acute distress HENMT Head: normocephalic and atraumatic Mouth: moist mucous membranes Eyes Conjunctivae: normal conjunctivae Sclera: normal sclerae Neck Neck: trachea midline and supple Resp Auscultation: clear to auscultation bilaterally, no rales, no rhonchi and no wheezes Cardio Jugular venous pressure: no JVD Rate: regular rate and not tachycardic Rhythm: regular rhythm GI Palpation: soft, not firm, no guarding, no masses, not rigid and nontender Skin General skin exam: no rashes or lesions noted Neuro General: patient alert, patient awake, patient oriented x3 and tone normal Extrem General: no edema Psych Appearance: grossly normal Mental Status: mental status grossly normal Speech and Movement: slurred speech Mood: other (Depressed) Affect: sad Attitude: cooperative Course Vital Signs Vital signs: Vital Signs Temperature 36.7 C 03/22/21 21:43 Pulse 91 H 03/22/21 21:43 Respiratory Rate 18 03/22/21 21:43 Blood Pressure 147/97 H 03/22/21 21:43 Pulse Oximetry 94 03/22/21 21:43 Temperature 36.7 C 03/22/21 21:43 Temperature Source Temporal Artery Scan 03/22/21 21:43 Pulse 91 H 03/22/21 21:43 Respiratory Rate 18 03/22/21 21:43 Respiratory Effort Non-Labored 03/22/21 21:50 Respiratory Pattern Normal 03/22/21 21:50 Blood Pressure 147/97 H 03/22/21 21:43 Blood Pressure Position Sitting 03/22/21 21:43 Pulse Oximetry 94 03/22/21 21:43 Oxygen Delivery Method Room Air 03/22/21 21:43 Oxygen Flow Rate 0 03/22/21 21:43 Pain Level 0 03/22/21 21:43 PAWSS Have you Been Recently Intoxicated or Drunk Within the Last 30 days?: Yes Have you Ever Experienced Previous Episodes of Alcohol Withdrawal?: Yes Have you ever Experienced Withdrawal Seizures?: Yes Have you ever Experienced Delirium Tremens(DT)s?: Unable to Obtain Have you ever undergone Alcohol Rehabilitation Treatment (i.e, inpt ot outpatient treatment programs)?: Yes Have you ever Experienced Blackouts?: Unable to Obtain Have you ever Combined Alcohol with other Downers within the last 90 days?: No Have you ever Combined Alcohol with any other Substance of Abuse during the last 90 days?: No Positive Blood Alcohol level on Presentation? [PCS.BAL]: Yes Evidence of Increased Autonomic Activity (i.e. HR>120, tremor, sweating, agitation, nausea)?: Yes Result: 6
[2021-03-22 22:22] LABS: Abs Immature Grans 0.02 10^3/uL (0.0-0.06); Absolute Lymphocyte Count 3.87 10^3/uL (1.2-3.4); Absolute Neutrophil Count 6.04 10^3/uL (1.2-6.7); Basophils % 0.9; Eosinophils % 1.7; HCT 37.7 % (40.0-50.0); HGB 12.5 g/dL (13.5-17.5); Immature Grans % 0.2; Lymphocytes % 33.9; MCH 30.1 pg (27.0-33.0); MCHC 33.2 % (32.0-36.0); MCV 90.8 fL (80-95); MPV 9.1 fL (8.0-11.0); Monocytes % 10.5; Neutrophils % 52.8; Nucleated RBC 0 %; Platelet Count 303 10^3/uL (130-400); RBC 4.15 10^6/uL (4.36-5.78); RDW 13.5 % (11.8-14.1); RDW-SD 44.9 fL; WBC 11.43 10^3/uL (4.4-10.8)
[2021-03-22 22:23] LABS: Absolute Eosinophil Count 0.19 10^3/uL (0.0-0.7)
[2021-03-22] MEDS: THIAMINE 100 MG in Normal Saline 100 ML 200 MG IVPB (22:25)
[2021-03-22 22:35] LABS: ALT 141 U/L (16-63); AST 60 U/L (15-37); Albumin 3.4 g/dL (3.4-5.0); Alkaline Phosphatase 134 U/L (46-116); Anion Gap 6.6 mmol/L (3-11); BUN 16 mg/dL (7-18); Bilirubin, Total 0.5 mg/dL (0.2-1.0); CO2 32.4 mmol/L (21.0-32.0); CREATININE 0.9 mg/dL (0.70-1.30); Calcium 8.5 mg/dL (8.5-10.1); Chloride 101 mmol/L (98-107); ETHANOL BLOOD 291.6 mg/dL (<10); Glucose 119 mg/dL (74-106); Magnesium 2.3 mg/dL (1.8-2.4); Potassium 3.4 mmol/L (3.5-5.1); Sodium 140 mmol/L (136-145)
[2021-03-23] VITALS (39 sets, daily range): BP systolic 102–138; BP diastolic 71–98; PULSE 69–92; RESP 4–20; TEMP 35.9–37.3; O2SAT 89–98
[2021-03-23 00:43] LABS: Source Nasal/Nares
[2021-03-23] MEDS: chlordiazePOXIDE 25 MG CAP 50 MG PO ×5 (01:18→20:13)
--- NOTE | 2021-03-23 05:04 | W.PM.HP.N ---
Date of service: 03/23/21 Time of Service: 05:04 Assessment and Plan Assessment and plan (1) Alcohol intoxication: Status: Acute Assessment and plan: Patient presented with acute alcohol intoxication along with recent resumption of heavy daily drinking of alcohol as well as possible recent alcohol withdrawal seizure when he tried to detox himself on his own. Patient will be admitted and started on prophylaxis with thiamine and folic acid and multivitamin and begun on scheduled doses of Librium to prevent acute alcohol withdrawal. His Librium dose should be tapered over the next 3 days. Patient should be referred to an alcohol sobriety program upon discharge. Patient will need to be seen by mental health and cleared prior to discharge given his recent suicidal ideation and recent prolonged hospitalization at [facility] for his depression. Qualifiers: Complication of substance-induced condition: uncomplicated Qualified Code(s): F10.920 - Alcohol use, unspecified with intoxication, uncomplicated (2) Alcohol abuse: Assessment and plan: As above (3) Methadone dependence: Status: Chronic (4) Depression: Status: Chronic Assessment and plan: I have increased his sertraline to 100 mg daily. this may need further titration after a few days or he may need a second agent for his depression. It would be helpful to get records from [facility]. Qualifiers: Depression Type: major depressive disorder Major depression recurrence: recurrent Active/Remission status: currently active Major depression episode severity: moderate Qualified Code(s): F33.1 - Major depressive disorder, recurrent, moderate (5) Suicidal ideation: Status: Acute Assessment and plan: Patient will need clearance by mental health services prior to discharge to see if he is appropriate for outpatient follow-up versus referral to an inpatient psychiatric program for treatment of his dual diagnosis of depression and alcoholism. In the interim of increased to Zoloft 100 mg daily. History of Present Illness History of Present Illness Chief Complaint: alcohol intoxication Narrative: 50-year-old male with a history of alcoholism and opioid use disorder, chronically maintained on methadone who has a history of depression and suicidal ideation. Patient was recently discharged from [facility] after an extended stay for treatment of his depression and alcoholism. Prior to entering [facility] patient had been living in sobriety home here in [place] but was kicked out when he started drinking. Patient reports that the sobriety home would not take him back when he left [facility] and he was placed in a local motel ([facility]). Patient started drinking again up to 1/5 of vodka a day and has been more depressed with suicidal thoughts but no plan of action. He states that he wants to quit drinking and he tried to detox himself but then started having tremors and he had a spell in which he passed out a couple days ago and found himself on the floor in which he thinks he had a seizure. This was associated with urinary incontinence as well as biting his cheek and lips. This was an unwitnessed event. He presented to the emergency department last night stating that he wants to be detoxed. Prior to presenting to the emergency department the patient had called a detox center in [facility] called [facility] who suggested that he go to the nearest emergency room as they had no immediate availability. Upon arrival the patient was found to be intoxicated with a blood alcohol level of 291 mg/dL. Rest of his routine labs including CBC, CMP and a nasal swab for COVID-19. His nasal swab for COVID-19 is pending at this time. He has been vaccinated with 1 dose vaccine of the [employer] vaccine but is indicated he would like a booster vaccine. CMP was remarkable for low potassium of 3.4 and elevated transaminases with an AST of 60, ALT 141, alkaline phosphatase 134 but normal bilirubin of 0.5. CBC was remarkable for mild leukocytosis of 11,000. In the emergency department his vital signs were stable and I had indicated to Dr. Lopes that I thought the patient was appropriate for the medical/surgical floor for monitoring for alcohol withdrawal and initiation of prophylaxis with thiamine and folic acid and scheduled doses of benzodiazepines. We did discuss potentially using phenobarbital however because of the patient's chronic methadone use and presenting in an intoxicated state the risk of phenobarbital causing respiratory depression was too great. Patient was admitted to the intensive care unit although I had requested a medical/surgical floor admission and apparently this was done out of an abundance of concern from the medical/surgical nursing staff out of concern that given his prior history of seizures that he may escalate and go into severe withdrawal. At this point the patient is a medical/surgical floor patient as an overflow in the medical ICU. He has remained stable and show no signs of seizures and no escalation in his CIWA score. Review of Systems All systems reviewed & are unremarkable except as noted in HPI and below Constitutional Constitutional: Reports difficulty sleeping and Reports excessive sweating ENT Ears, Nose, Mouth, and Throat: Reports system reviewed and no additional complaints, except as documented Cardiovascular Cardiovascular: Reports system reviewed and no additional complaints, except as documented Respiratory Respiratory: Reports system reviewed and no additional complaints, except as documented Gastrointestinal Gastrointestinal: Reports diarrhea, Reports nausea and Denies vomiting Genitourinary Genitourinary: Reports system reviewed and no additional complaints, except as documented Neurologic Neurologic: Reports convulsions and Reports tremor(s) Psychiatric Psychiatric: Reports abnormal sleep pattern, Reports anxiety, Reports depression, Reports hopelessness, Reports irritability and Reports suicidal ideation Endocrine Endocrine: Reports excessive sweating Hematologic/Lymphatic Hematologic/Lymphatic: Reports system reviewed and no additional complaints, except as documented Allergic/Immunologic Allergic/Immunologic: Reports system reviewed and no additional complaints, except as documented PFSH All Active Problems (Updated 03/23/21 @ 06:13 by Grant Zamudio) Alcohol intoxication (Acute) Alcohol withdrawal seizure (Acute) Back pain (Chronic) Methadone dependence (Chronic) Depression (Chronic) Suicidal ideation (Acute) Medical History Alcohol abuse Anxiety Major depression Surgical History History of tonsillectomy and adenoidectomy Family History (Updated 03/23/21 @ 06:01 by Grant Zamudio) Maternal Grandfather Alcohol use disorder Social History (Updated 03/23/21 @ 06:03 by Grant Zamudio) Smoking/Tobacco Use Status: Current every day Tobacco Type: cigarettes Smoking risk assessment performed?: Yes Alcohol Intake: current Alcohol Intake frequency: 3 or more drinks per day Alcohol type: beer and hard liquor Drug use: Current Sobriety Substance use type: former substance user Date of last use: >5yrs and prescription drug Housing: other Details: lives in [facility] Do you feel safe at home: No Do you feel safe in your relationship?: Yes Additional Social history: Homeless Meds Allergies and Home Medications Allergies Allergy/AdvReac Type Severity Reaction Status Date / Time Sulfa (Sulfonamide Allergy Intermediate Skin Rash Unverified 03/22/21 21:49 Antibiotics) Home Medications Medication Instructions Recorded Confirmed Type atenolol 50 mg PO DAILY 01/09/21 03/22/21 History hydrochlorothiazide 12.5 mg PO DAILY 01/09/21 03/22/21 History lisinopril 10 mg PO DAILY 01/09/21 03/22/21 History methadone 80 mg PO QAM 01/09/21 03/22/21 History omeprazole 20 mg PO DAILY 01/09/21 03/22/21 History sertraline [Zoloft] 50 mg PO DAILY 01/09/21 01/18/21 History trazodone 100 mg PO DAILY 01/09/21 03/22/21 History gabapentin 600 mg PO TID 01/10/21 03/22/21 History sertraline 75 mg PO DAILY #30 tab 01/27/21 03/22/21 Rx Exam Narrative Exam Narrative: Obese white male lying in bed initially was sleeping when I walked into the room but he awakened easily and was alert and oriented x3. HEENT is remarkable for wearing glasses. There is no scleral icterus no facial jaundice. Oropharynx dry mucous membranes with poor dentition Neck is obese no overt JVD normal carotid pulses no bruits no thyromegaly no cervical lymphadenopathy Lungs are clear to auscultation Heart regular rate and rhythm without murmur rub or gallop Abdomen is obese soft nontender nondistended with active bowel sounds and no palpable masses or bruits Lower extremities without peripheral cyanosis or edema. He has an abrasion over the right lovett that is not erythematous and is superficial with no discharge. He has normal pedal pulses. Normal range of motion and strength in his lower extremities with no discomfort with range of motion. Neurologic exam grossly intact no focal cranial nerve deficits no focal motor deficits. He has no tremors Skin without rashes and no diaphoresis Psychiatric patient's mood is depressed he tends to avoid eye contact and is repeatedly apologizing for his behavior but insists that he just wants help with his alcoholism. He is not tearful. He is cooperative and well he admits thoughts of suicide he denies any specific plan but just states that he knows he can continue drinking heavily. He is somewhat forward thinking and that he states that his parents are willing to help him out with setting him up with an apartment and that they will pay for the apartment for the next year. He would like to get into an alcohol rehab program and would like outpatient counseling upon discharge. Results Imaging Chest x-ray: report reviewed and image reviewed EKG: image reviewed Labs Result diagrams: 03/22/21 22:14 03/22/21 22:14 Labs: Laboratory Results - last 24 hr 03/22/21 03/22/21 03/23/21 22:14 22:14 00:10 WBC 11.43 H RBC 4.15 L Hgb 12.5 L Hct 37.7 L MCV 90.8 MCH 30.1 MCHC 33.2 RDW 13.5 Plt Count 303 MPV 9.1 Immature Gran % 0.2 Neutrophils % 52.8 Lymphocytes % 33.9 Monocytes % 10.5 Eosinophils % 1.7 Basophils % 0.9 Nucleated RBC % 0 Absolute Neutrophils 6.04 Absolute Lymphocytes 3.87 H Absolute Monocytes 1.20 H Absolute Eosinophils 0.19 Absolute Basophils 0.10 Sodium 140 Potassium 3.4 L Chloride 101 Carbon Dioxide 32.4 H Anion Gap 6.6 BUN 16 Creatinine 0.9 Estimated GFR/1.73 m2 >= 60.00 Glucose 119 H Calcium 8.5 Magnesium 2.3 Total Bilirubin 0.5 AST 60 H ALT 141 H Alkaline Phosphatase 134 H Total Protein 7.0 Albumin 3.4 Ethyl Alcohol 291.6 H COVID-19 Source Nasal/Nares Last Vital Signs Temp 37.3 C 03/23/21 00:30 Pulse 84 03/23/21 03:58 Resp 12 03/23/21 03:01 BP 119/83 03/23/21 03:01 Pulse Ox 93 03/23/21 03:58 PAWSS Have you Been Recently Intoxicated or Drunk Within the Last 30 days?: Yes Have you Ever Experienced Previous Episodes of Alcohol Withdrawal?: Yes Have you ever Experienced Withdrawal Seizures?: Yes Have you ever Experienced Delirium Tremens(DT)s?: Unable to Obtain Have you ever undergone Alcohol Rehabilitation Treatment (i.e, inpt ot outpatient treatment programs)?: Yes Have you ever Experienced Blackouts?: Unable to Obtain Have you ever Combined Alcohol with other Downers within the last 90 days?: No Have you ever Combined Alcohol with any other Substance of Abuse during the last 90 days?: No Positive Blood Alcohol level on Presentation? [PCS.BAL]: Yes Evidence of Increased Autonomic Activity (i.e. HR>120, tremor, sweating, agitation, nausea)?: Yes Result: 6
[2021-03-23 06:58] LABS: ETHANOL BLOOD 119.8 mg/dL (<10)
[2021-03-23] MEDS: Normal Saline Flush 10 ML SYR IVP (06:59)
[2021-03-23 07:05] LABS: Bilirubin Negative (Negative); Blood Negative (Negative); Clarity Clear (Clear); Glucose Negative (Negative); Ketones Negative (Negative); Leukocyte Esterase Negative (Negative); Nitrite Negative (Negative); Specific Gravity 1.015 (1.005-1.025); pH 6.5 (5-8)
[2021-03-23 07:37] LABS: ALT 132 U/L (16-63); AST 63 U/L (15-37); Albumin 3.2 g/dL (3.4-5.0); Alkaline Phosphatase 132 U/L (46-116); Anion Gap 5.9 mmol/L (3-11); BUN 19 mg/dL (7-18); Bilirubin, Direct 0.2 mg/dL (0.0-0.2); Bilirubin, Total 0.7 mg/dL (0.2-1.0); CO2 34.1 mmol/L (21.0-32.0); Calcium 8.2 mg/dL (8.5-10.1); Chloride 103 mmol/L (98-107); Glucose 115 mg/dL (74-106); Magnesium 2.3 mg/dL (1.8-2.4); PHOSPHORUS 3.5 mg/dL (2.6-4.7); Potassium 3.7 mmol/L (3.5-5.1); Sodium 143 mmol/L (136-145); Total Protein 6.6 g/dL (6.4-8.2)
[2021-03-23 07:37] LABS: *AMPHETAMINES SCREEN URINE Negative (Negative); *BARBITURATES SCREEN URINE Negative (Negative); *BENZODIAZEPINES SCREEN URINE Negative (Negative); Cannabinoids THC Negative (Negative); Cocaine Screen,Urine Negative (Negative); METHADONE URINE SCREEN Positive (Negative); OPIATES URINE SCREEN Negative (Negative)
[2021-03-23 07:38] LABS: Tricyclic Antidepressants Negative (Negative)
[2021-03-23 08:00] LABS: Lipase 236 U/L (73-393)
[2021-03-23] MEDS: Enoxaparin 40 MG/0.4 ML SYR SC (08:03)
[2021-03-23] MEDS: Thiamine 100 MG TAB PO (08:03)
[2021-03-23] MEDS: Pantoprazole 40 MG TABCR PO (08:03)
[2021-03-23] MEDS: Multivitamin TAB 1 TAB PO (08:03)
[2021-03-23] MEDS: Folic Acid 1 MG TAB PO (08:03)
[2021-03-23] MEDS: Atenolol 50 MG TAB PO (08:03)
[2021-03-23] MEDS: Potassium Chloride 20 MEQ TABCR PO (08:04)
[2021-03-23] MEDS: Gabapentin 600 MG TAB PO ×3 (08:04→20:14)
[2021-03-23] MEDS: hydroCHLOROthiazide 25 MG TAB 12.5 MG PO (08:04)
[2021-03-23] MEDS: Sertraline 50 MG TAB 100 MG PO (08:04)
[2021-03-23] MEDS: Omeprazole 20 MG CAPCR PO (08:04)
[2021-03-23] MEDS: Methadone Liquid 10 MG/ML 80 MG PO (08:05)
[2021-03-23] MEDS: Lisinopril 10 MG TAB PO (08:08)
--- NOTE | 2021-03-23 08:33 | INITIAL_ITS ---
- If Service Date Differs Date of service: 03/23/21 Time of Service: 08:33 Care Management Initial Assess REASON FOR HOSPITALIZATION:: ETOH withdrawal PAST MEDICAL HISTORY/PAST SURGICAL HISTORY:: All Active Problems (Updated 03/23/21 @ 06:13 by Grant Zamudio). Alcohol intoxication (Acute). Alcohol withdrawal seizure (Acute). Back pain (Chronic). Methadone dependence (Chronic). Depression (Chronic). Suicidal ideation (Acute). Medical History . Alcohol abuse. Anxiety. Major depression. Surgical History . History of tonsillectomy and adenoidectomy PREVIOUS FUNCTIONAL STATUS/SOCIAL/FAMILY SUPPORTS:: Garrett was discharged from [facility] last week. He is staying at the [facility]. He is independent at baseline and drives. He is connected with [employer]. CURRENT FUNCTIONAL STATUS:: Garrett was sitting up in bed when met with him. He was alert and oriented. He does not endorse SI/HI this admission. He shared with that he was discharged to the [facility] from [facility] last week, after a 6 week admission. He states that he was connected with [facility] while at [place], and is planning on being connected with with therapist and a psychiatrist. He shared with that even though he used alcohol this week, he still feels motivated to live a sober life. He asks to help him obtain more community supports and would ultimately like a sponser to help him with accountablitly. CAM[facility]O [facility] a [facility] to [facility]. Sulma from the came in to see him today. She will call him again tomorrow and follow up with him post discharge. Sulma let him know to call the hotel and let them know he is in the hospital, so they will hold his room. Per Sulma, [facility] is [facility] door to Garrett's hotel room and he can walk there for follow up and support, following discharge. In addition, left a message for Sonya from [facility] to see where he is in the process of being connected with a psychiatrist and therapist . ADVANCE DIRECTIVES:: None on file at [facility] Has patient been provided with info about the portal/API?: Yes Did the patient sign up for the portal?: No CODE STATUS:: Full Code INSURANCE COVERAGE / FINANCIAL ISSUES:: Medicaid. Medicare. [facility] CURRENT HOME/COMMUNITY SERVICES/EQUIPMENT:: [facility](on Methadone). AA, has not been since he was discharged from [facility]. [facility]: working on getting him a Therapist and Psychiatrist. [facility] ([facility] connected this admission) PRIMARY CARE PHYSICIAN:: Jada Mulligan POTENTIAL DISCHARGE NEEDS:: Increased community supports. PATIENT/FAMILY EDUCATION NEEDS:: Review of discharge instuctions, ask me three. TRANSPORTATION:: Via private vehicle with a friend vs [facility]. PLAN:: Anticipate Garrett will be discharged home when medically cleared by provider. He will transport via private vehicle with a friend vs. [facility]. He will follow up with his community providers (PCP, [facility], [facility], [facility] and AA) and discharge plan of care as prescribed. CM will continue to support his discharging needs.
[2021-03-23 08:49] LABS: COVID-19 PCR Negative (Negative)
--- NOTE | 2021-03-23 11:11 | PGE_ITS ---
Date of Service Date of service: 03/23/21 Time of Service: 11:11 Assessment and Plan Assessment and plan (1) Alcohol intoxication: Status: Acute Assessment and plan: Patient presented with acute alcohol intoxication along with recent resumption of heavy daily drinking of alcohol as well as possible recent alcohol withdrawal seizure when he tried to detox himself on his own. Patient will be admitted and started on prophylaxis with thiamine and folic acid and multivitamin and begun on scheduled doses of Librium to prevent acute alcohol withdrawal. His Librium dose should be tapered over the next 3 days. Patient should be referred to an alcohol sobriety program upon discharge. Patient will need to be seen by mental health and cleared prior to discharge given his recent suicidal ideation and recent prolonged hospitalization at [facility] for his depression. Qualifiers: Complication of substance-induced condition: uncomplicated Qualified Code(s): F10.920 - Alcohol use, unspecified with intoxication, uncomplicated (2) Alcohol abuse: Assessment and plan: As above (3) Methadone dependence: Status: Chronic (4) Depression: Status: Chronic Assessment and plan: increased his sertraline to 100 mg daily. this may need further titration after a few days or he may need a second agent for his depression. It would be helpful to get records from [facility]. Qualifiers: Active/Remission status: currently active Depression Type: major depressive disorder Major depression episode severity: moderate Major depression recurrence: recurrent Qualified Code(s): F33.1 - Major depressive disorder, recurrent, moderate (5) Suicidal ideation: Status: Acute Assessment and plan: Patient will need clearance by mental health services prior to discharge to see if he is appropriate for outpatient follow-up versus referral to an inpatient psychiatric program for treatment of his dual diagnosis of depression and alcoholism. In the interim of increased to Zoloft [address] the [address] Batista Subjective Subjective Patient reports: afebrile; denies shortness of breath Interval history since last seen: sleeping most of the day, vitals stable, taking meds and PO. Exam Const General: comfortable, no acute distress, disheveled and ill appearing (older than stated age) Nutritional Appearance: obese HENMT Head: normal to inspection, normocephalic and atraumatic Resp Effort & Inspection: normal respiratory effort (even and unlabored) Cardio Rate: regular rate Rhythm: regular rhythm GI Inspection: large pannus and obesity Skin General skin exam: no rashes or lesions noted Neuro General: patient oriented x3 Extrem General: normal to inspection Objective Last Vital Signs Temp 36.3 C L 03/23/21 10:30 Pulse 69 03/23/21 10:30 Resp 16 03/23/21 10:30 BP 124/85 03/23/21 10:30 Pulse Ox 94 03/23/21 10:30 Laboratory Results - last 24 hr 03/22/21 03/22/21 03/23/21 22:14 22:14 00:10 WBC 11.43 H RBC 4.15 L Hgb 12.5 L Hct 37.7 L MCV 90.8 MCH 30.1 MCHC 33.2 RDW 13.5 Plt Count 303 MPV 9.1 Immature Gran % 0.2 Neutrophils % 52.8 Lymphocytes % 33.9 Monocytes % 10.5 Eosinophils % 1.7 Basophils % 0.9 Nucleated RBC % 0 Absolute Neutrophils 6.04 Absolute Lymphocytes 3.87 H Absolute Monocytes 1.20 H Absolute Eosinophils 0.19 Absolute Basophils 0.10 Sodium 140 Potassium 3.4 L Chloride 101 Carbon Dioxide 32.4 H Anion Gap 6.6 BUN 16 Creatinine 0.9 Estimated GFR/1.73 m2 >= 60.00 Glucose 119 H Calcium 8.5 Phosphorus Magnesium 2.3 Total Bilirubin 0.5 Conjugated Bilirubin AST 60 H ALT 141 H Alkaline Phosphatase 134 H Total Protein 7.0 Albumin 3.4 Lipase Urine Color Urine Clarity Urine pH Ur Specific [place] Urine Protein Urine Ketones Urine Blood Urine Nitrite Urine Bilirubin Urine Urobilinogen Ur Leukocyte Esterase Urine Glucose Urine Opiates Screen Urine Methadone Screen Ur Barbiturates Screen Ur Tricyclics Screen Ur Amphetamines Screen U Benzodiazepines Scrn Urine Cocaine Screen Ur THC Screen Ethyl Alcohol 291.6 H COVID-19 Source Nasal/Nares SARS-CoV-2 (PCR) Negative 03/23/21 03/23/21 03/23/21 06:10 06:10 06:32 WBC RBC Hgb Hct MCV MCH MCHC RDW Plt Count MPV Immature Gran % Neutrophils % Lymphocytes % Monocytes % Eosinophils % Basophils % Nucleated RBC % Absolute Neutrophils Absolute Lymphocytes Absolute Monocytes Absolute Eosinophils Absolute Basophils Sodium 143 Potassium 3.7 Chloride 103 Carbon Dioxide 34.1 H Anion Gap 5.9 BUN 19 H Creatinine 1.0 Estimated GFR/1.73 m2 >= 60.00 Glucose 115 H Calcium 8.2 L Phosphorus 3.5 Magnesium 2.3 Total Bilirubin 0.7 Conjugated Bilirubin 0.2 AST 63 H ALT 132 H Alkaline Phosphatase 132 H Total Protein 6.6 Albumin 3.2 L Lipase 236 Urine Color Urine Clarity Urine pH Ur Specific [place] Urine Protein Urine Ketones Urine Blood Urine Nitrite Urine Bilirubin Urine Urobilinogen Ur Leukocyte Esterase Urine Glucose Urine Opiates Screen Negative Urine Methadone Screen Positive A Ur Barbiturates Screen Negative Ur Tricyclics Screen Negative Ur Amphetamines Screen Negative U Benzodiazepines Scrn Negative Urine Cocaine Screen Negative Ur THC Screen Negative Ethyl Alcohol 119.8 H COVID-19 Source SARS-CoV-2 (PCR) 03/23/21 06:32 WBC RBC Hgb Hct MCV MCH MCHC RDW Plt Count MPV Immature Gran % Neutrophils % Lymphocytes % Monocytes % Eosinophils % Basophils % Nucleated RBC % Absolute Neutrophils Absolute Lymphocytes Absolute Monocytes Absolute Eosinophils Absolute Basophils Sodium Potassium Chloride Carbon Dioxide Anion Gap BUN Creatinine Estimated GFR/1.73 m2 Glucose Calcium Phosphorus Magnesium Total Bilirubin Conjugated Bilirubin AST ALT Alkaline Phosphatase Total Protein Albumin Lipase Urine Color Yellow Urine Clarity Clear Urine pH 6.5 Ur Specific [place] 1.015 Urine Protein Negative Urine Ketones Negative Urine Blood Negative Urine Nitrite Negative Urine Bilirubin Negative Urine Urobilinogen 1.0 H Ur Leukocyte Esterase Negative Urine Glucose Negative Urine Opiates Screen Urine Methadone Screen Ur Barbiturates Screen Ur Tricyclics Screen Ur Amphetamines Screen U Benzodiazepines Scrn Urine Cocaine Screen Ur THC Screen Ethyl Alcohol COVID-19 Source SARS-CoV-2 (PCR) PAWSS Have you Been Recently Intoxicated or Drunk Within the Last 30 days?: Yes Have you Ever Experienced Previous Episodes of Alcohol Withdrawal?: Yes Have you ever Experienced Withdrawal Seizures?: Yes Have you ever Experienced Delirium Tremens(DT)s?: Unable to Obtain Have you ever undergone Alcohol Rehabilitation Treatment (i.e, inpt ot outpatient treatment programs)?: Yes Have you ever Experienced Blackouts?: Unable to Obtain Have you ever Combined Alcohol with other Downers within the last 90 days?: No Have you ever Combined Alcohol with any other Substance of Abuse during the last 90 days?: No Positive Blood Alcohol level on Presentation? [PCS.BAL]: Yes Evidence of Increased Autonomic Activity (i.e. HR>120, tremor, sweating, agitation, nausea)?: Yes Result: 6
--- NOTE | 2021-03-23 15:51 | PHA.REVIEW ---
Pharmacy Admission Review - Admission Clinical Review (Last Reviewed 03/23/21 @ 06:00 by Grant Zamudio) Alcohol intoxication (Acute) Alcohol withdrawal seizure (Acute) Suicidal ideation (Acute) Sulfa (Sulfonamide Antibiotics) Allergy (Intermediate, Unverified 03/22/21 21:49) Skin Rash Resuscitation Status Full Code Weight 130.3 kg - Renal Dosing Renal Dosing: BUN 19 mg/dL (7-18) H 03/23/21 06:10 Creatinine 1.0 mg/dL (0.70-1.30) 03/23/21 06:10 Medications needing adjustments: Reviewed (SCr: 1.0, CrCl~115.2mL/min (using adjusted body weight). All meds dosed appropriately.) - Anticoagulation Anticoagulation: Hgb 12.5 g/dL (13.5-17.5) L 03/22/21 22:14 Hct 37.7 % (40.0-50.0) L 03/22/21 22:14 Plt Count 303 10^3/uL (130-400) 03/22/21 22:14 Creatinine 1.0 mg/dL (0.70-1.30) 03/23/21 06:10 DVT Prophylaxis: Reviewed Medications: Enoxaparin - Opiate Usage Evaluate Pain Scale/Pains Meds: Reviewed (Methadone 80mg daily maintenance) Scheduled Bowel Reg ordered if on Opiates?: No (PRN only) - Relevant Labs Sodium 143 mmol/L (136-145) 03/23/21 06:10 Potassium 3.7 mmol/L (3.5-5.1) 03/23/21 06:10 Chloride 103 mmol/L (98-107) 03/23/21 06:10 Phosphorus 3.5 mg/dL (2.6-4.7) 03/23/21 06:10 Magnesium 2.3 mg/dL (1.8-2.4) 03/23/21 06:10 Electrolytes, C-Reactive P, ESR: Reviewed (Potassium 20mEq daily) - DM Control DM Control: Glucose 115 mg/dL (74-106) H 03/23/21 06:10 Insulin Dosing: N/A - Heart Failure/SC EF%, JAZMINE's, B-Blockers, Diuretics: N/A - BP Control BP Control: Blood Pressure 128/96 Blood Pressure 132/81 Blood Pressure 124/85 Blood Pressure 125/98 Blood Pressure 133/83 Blood Pressure 123/71 Blood Pressure 133/79 Blood Pressure 123/85 If elevated: Reviewed (Lisinopril, HCTZ) - Qtc Review If Elevated: Reviewed (QTc 473 on admission.) - IV to PO Switch IV Medications: Reviewed - Home Meds Home Med List reviewed: Intervened (Sertraline dose increased to 150mg) Relevent Home Meds Not ordered & why?: Aripiprazole 5mg daily and Trazodone 100mg HS not ordered. - Current meds Current Medication Order Review: Intervened (Discontinued Pantoprazole 40mg daily (continued home med omeprazole 20mg)) - Comments Comments/Follow Ups: Continue to monitor vitals, labs and for medication changes.
[2021-03-23 17:36] LABS: Creatine Kinase 201 U/L (39-308)
--- NOTE | 2021-03-23 18:15 | NUR.NOTE ---
Nursing Note: At 1750 on 03/23/21, this RN received report on the pt. from the LAB TECH. At 1800 on 03/23/21, the pt. was transferred from ICU to Med/Surg per MD order. Pt. was settled in and oriented to room 212. VS were obtained; VSS. Head to toe assessment performed; see shift assessment flowsheet for more information. RN will reassess as necessary.
[2021-03-23] MEDS: Cyclobenzaprine 10 MG TAB 5 MG PO (21:15)
[2021-03-23] MEDS: traZODone 50 MG TAB 100 MG PO (21:16)
[2021-03-24 02:24] VITALS: RESP 17
[2021-03-24 06:57] LABS: HCT 40.3 % (40.0-50.0); HGB 13.1 g/dL (13.5-17.5); MCH 30.3 pg (27.0-33.0); MCHC 32.5 % (32.0-36.0); MCV 93.1 fL (80-95); MPV 8.9 fL (8.0-11.0); Platelet Count 265 10^3/uL (130-400); RBC 4.33 10^6/uL (4.36-5.78); RDW-SD 47.1 fL; WBC 8.58 10^3/uL (4.4-10.8)
[2021-03-24 07:19] VITALS: PULSE 78
[2021-03-24] MEDS: Methadone Liquid 10 MG/ML 80 MG PO (08:10)
[2021-03-24] MEDS: Acetaminophen 325 MG TAB PO ×3 (08:10→22:00)
[2021-03-24] MEDS: Folic Acid 1 MG TAB PO (08:10)
[2021-03-24] MEDS: Omeprazole 20 MG CAPCR PO (08:11)
[2021-03-24] MEDS: hydroCHLOROthiazide 25 MG TAB 12.5 MG PO (08:11)
[2021-03-24] MEDS: Gabapentin 600 MG TAB PO ×3 (08:11→19:45)
[2021-03-24] MEDS: chlordiazePOXIDE 25 MG CAP PO ×4 (08:11→19:44)
[2021-03-24] MEDS: Multivitamin TAB 1 TAB PO (08:12)
[2021-03-24] MEDS: Lisinopril 10 MG TAB PO (08:12)
[2021-03-24] MEDS: Sertraline 50 MG TAB 150 MG PO (08:12)
[2021-03-24] MEDS: ARIPiprazole 5 MG TAB PO (08:12)
[2021-03-24] MEDS: Atenolol 50 MG TAB PO (08:12)
[2021-03-24] MEDS: Thiamine 100 MG TAB PO (08:13)
[2021-03-24] MEDS: Nicotine 21 MG/24 HR PATCH TD (08:13)
[2021-03-24] MEDS: Enoxaparin 40 MG/0.4 ML SYR SC (08:13)
[2021-03-24] MEDS: Potassium Chloride 20 MEQ TABCR PO (08:13)
[2021-03-24 08:15] VITALS: BP 135/91; PULSE 87; RESP 18; TEMP 36.6; O2SAT 94
--- NOTE | 2021-03-24 10:49 | PGE_ITS ---
Date of Service Date of service: 03/24/21 Time of Service: 10:51 Assessment and Plan Assessment and plan (1) Alcohol intoxication: Start date: 03/24/21 Start time: 11:02 Status: Acute Assessment and plan: continue thiamine, folate and multi vitamin continue CIWA scoring 0-2, continue libruim taper no sz w/d d/c telemetry Would like to get sober, ashamed of himself. Slight tremors, otherwise no other signs of detox. 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 this may need further titration after a few days or he may need a second agent for his depression. It would be helpful to get records from [facility]. Qualifiers: Depression Type: major depressive disorder Major depression recurrence: recurrent Active/Remission status: currently active Major depression episode severity: moderate Qualified Code(s): F33.1 - Major depressive disorder, recurrent, moderate (5) Suicidal ideation: Start date: 03/24/21 Start time: 11:05 Status: Acute Assessment and plan: Once medically cleared will consult . discussed the DR Batista Subjective Subjective Patient reports: no new complaints Interval history since last seen: Patient sitting up in chair. No complaints. HR has been in normal range, will d/c telemetry. Patient feels ashamed of himself for going back to drinking. He wants to quite. 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 he stated that he would speaking with one daily Exam Const General: cooperative, comfortable, no acute distress and disheveled Nutritional Appearance: obese Other: older than stated age [facility] Head: normal to inspection, normocephalic and atraumatic Neck Neck: normal visual inspection, full ROM and no lymphadenopathy Resp Effort & Inspection: normal respiratory effort (even and unlabored) Auscultation: clear to auscultation bilaterally Cardio Rate: regular rate Rhythm: regular rhythm GI Inspection: large pannus and obesity Auscultation: normal bowel sounds Skin General skin exam: no rashes or lesions noted Other: large skin tags to back notes. Neuro General: patient oriented x3 Extrem General: normal to inspection Objective Last Vital Signs Temp 36.6 C 03/24/21 08:15 Pulse 87 03/24/21 08:15 Resp 18 03/24/21 08:15 BP 135/91 H 03/24/21 08:15 Pulse Ox 94 03/24/21 08:15 Laboratory Results - last 24 hr 03/23/21 03/24/21 06:10 06:40 WBC 8.58 RBC 4.33 L Hgb 13.1 L Hct 40.3 MCV 93.1 MCH 30.3 MCHC 32.5 RDW 14.0 Plt Count 265 MPV 8.9 Creatine Kinase 201 PAWSS Have you Been Recently Intoxicated or Drunk Within the Last 30 days?: Yes Have you Ever Experienced Previous Episodes of Alcohol Withdrawal?: Yes Have you ever Experienced Withdrawal Seizures?: Yes Have you ever Experienced Delirium Tremens(DT)s?: Unable to Obtain Have you ever undergone Alcohol Rehabilitation Treatment (i.e, inpt ot outpatient treatment programs)?: Yes Have you ever Experienced Blackouts?: Unable to Obtain Have you ever Combined Alcohol with other Downers within the last 90 days?: No Have you ever Combined Alcohol with any other Substance of Abuse during the last 90 days?: No Positive Blood Alcohol level on Presentation? [PCS.BAL]: Yes Evidence of Increased Autonomic Activity (i.e. HR>120, tremor, sweating, agitation, nausea)?: Yes Result: 6
--- NOTE | 2021-03-24 11:26 | W.NUTRFU ---
Date of service: 03/24/21 Time of Service: 11:26 Nutrition Note NOTE: Mr. iPke continues to have excellent PO intake. His weight has been stable. His BMI is 42.6 kg/m2 which is c/w class 3 severe obesity. Will continue to monitor nutritional status and will update nutrition care plan accordingly. Time Spent in Nutritional Counseling and Treatment: 0
[2021-03-24 15:30] VITALS: BP 106/77; PULSE 80; RESP 19; TEMP 36.4; O2SAT 95
--- NOTE | 2021-03-24 15:40 | CMPROGNOTE_ITS ---
- If Service Date Differs Date of service: 03/24/21 Time of Service: 17:04 Care Management Progress Note S/O: Garrett continues to be closely monitored and treated. He will be screened by [facility] when medically cleared, likely tomorrow per WEB SUPPORT ENGINEER to determine need for psychiatric or substance use placement. No change to overall plan, CM continues to follow. A: 50 year old male admitted to [facility] 03/22/21 for alcohol use disorder, alcohol withdrawal seizure P: Garrett will be screened by [facility] when medically cleared, likely tomorrow per WEB SUPPORT ENGINEER. If returning home he will transport via private vehicle with a friend vs. RCT, follow up with his community providers ([facility], [facility], [facility], [facility] and AA) and discharge plan of care as prescribed.
--- NOTE | 2021-03-24 15:40 | PDOC.CMPRO ---
- If Service Date Differs Date of service: 03/24/21 Time of Service: 17:04 Care Management Progress Note S/O: Garrett continues to be closely monitored and treated. He will be screened by [facility] when medically cleared, likely tomorrow per DRAWING IN HAND to determine need for psychiatric or substance use placement. No change to overall plan, CM continues to follow. A: 50 year old male admitted to [facility] 03/22/21 for alcohol use disorder, alcohol withdrawal seizure P: Garrett will be screened by [facility] when medically cleared, likely tomorrow per DRAWING IN HAND. If returning home he will transport via private vehicle with a friend vs. RCT, follow up with his community providers ([facility], [facility], [facility], [facility] and AA) and discharge plan of care as prescribed.
[2021-03-24 19:43] VITALS: BP 125/82; PULSE 83; RESP 12; TEMP 36.2; O2SAT 94
[2021-03-24] MEDS: Normal Saline Flush 10 ML SYR IVP (19:45)
[2021-03-24] MEDS: Cyclobenzaprine 10 MG TAB 5 MG PO (22:01)
[2021-03-24] MEDS: Nicotine 4 MG GUM BC (22:11)
[2021-03-24 23:16] VITALS: BP 136/98; PULSE 90; RESP 16; TEMP 36.6; O2SAT 95
[2021-03-25 02:50] VITALS: BP 136/79; PULSE 86; RESP 12; TEMP 36.5; O2SAT 94
--- NOTE | 2021-03-25 05:12 | NUR.NOTE ---
Nursing Note: Patient up around this time, for the third time, in the hallway without a mask or proper footwear despite education from charge nurse, other staff nurses, and this RN. Patient re-educated on mask and safety policies.
[2021-03-25 07:30] VITALS: BP 126/88; PULSE 90; RESP 18; TEMP 36.4; O2SAT 97
[2021-03-25] MEDS: Nicotine 21 MG/24 HR PATCH TD (09:09)
[2021-03-25] MEDS: Methadone Liquid 10 MG/ML 80 MG PO (09:09)
[2021-03-25] MEDS: Enoxaparin 40 MG/0.4 ML SYR SC (09:09)
[2021-03-25] MEDS: Multivitamin TAB 1 TAB PO (09:10)
[2021-03-25] MEDS: Folic Acid 1 MG TAB PO (09:10)
[2021-03-25] MEDS: chlordiazePOXIDE 25 MG CAP PO ×3 (09:10→21:12)
[2021-03-25] MEDS: ARIPiprazole 5 MG TAB PO (09:10)
[2021-03-25] MEDS: Omeprazole 20 MG CAPCR PO (09:10)
[2021-03-25] MEDS: hydroCHLOROthiazide 25 MG TAB 12.5 MG PO (09:10)
[2021-03-25] MEDS: Sertraline 50 MG TAB 150 MG PO (09:10)
[2021-03-25] MEDS: Lisinopril 10 MG TAB PO (09:11)
[2021-03-25] MEDS: Atenolol 50 MG TAB PO (09:11)
[2021-03-25] MEDS: Potassium Chloride 20 MEQ TABCR PO (09:11)
[2021-03-25] MEDS: Gabapentin 600 MG TAB PO ×3 (09:11→21:12)
[2021-03-25] MEDS: Thiamine 100 MG TAB PO (09:11)
--- NOTE | 2021-03-25 10:26 | PDOC.CMPRO ---
- If Service Date Differs Date of service: 03/25/21 Time of Service: 10:26 Care Management Progress Note S/O: Garrett was deemed medically cleared by the provider this morning and was subsequently screened by [facility] Crisis screener. He is not seeking inpatient treatment at this time but does want to pursue rehab for his substance use. At his request he was given contact information for [facility] which is a sober living house.He is cleared for discharge from a mental health perspective and will likely go home tomorrow. A: 50 year old male admitted to [facility] 03/22/21 for alcohol use disorder, alcohol withdrawal seizure P: Garrett was screened by [facility] as he was deemed medically cleared this morning by PAPETERIE TABLE ASSEMBLER. He was cleared by mental health and will pursue programs for his substance use in the community on his own. He will likely be discharged tomorrow after receiving his morning methadone dose. If returning home he will transport via private vehicle with a friend vs. RCT, follow up with his community providers ([facility], [facility], [facility], [facility] and AA) and discharge plan of care as prescribed.
--- NOTE | 2021-03-25 11:01 | W.PM.PROGNOT ---
Date of Service Date of service: 03/25/21 Time of Service: 08:15 Assessment and Plan Assessment and plan (1) Alcohol intoxication: Start date: 03/25/21 Start time: 08:20 Status: Acute Assessment and plan: continue thiamine, folate and multi vitamin Continue to taper off lithium Medically cleared at this time. to evaluate. Qualifiers: Complication of substance-induced condition: uncomplicated Qualified Code(s): F10.920 - Alcohol use, unspecified with intoxication, uncomplicated (2) Alcohol abuse: Start date: 03/25/21 Start time: 0820 Assessment and plan: As above (3) Methadone dependence: Start date: 03/25/21 Start time: 08:20 Status: Chronic Assessment and plan: Continue current dosing (4) Depression: Start date: 03/25/21 Start time: 08:20 Status: Chronic Assessment and plan: increased his sertraline to 100 mg daily. this may need further titration after a few days or he may need a second agent for his depression. Qualifiers: Depression Type: major depressive disorder Major depression recurrence: recurrent Active/Remission status: currently active Major depression episode severity: moderate Qualified Code(s): F33.1 - Major depressive disorder, recurrent, moderate (5) Suicidal ideation: Start date: 03/25/21 Status: Acute Assessment and plan: Once medically cleared will consult . He has had thoughts but not stating SI at this time discussed the Dr. Zamudio Subjective Subjective Patient reports: no new complaints Interval history since last seen: Medically cleared. [facility] is interested in him. He is concerned about missing his methadone dose tomorrow. I explained to him that needs to evaluate him he will likely be here until he is given a bed. He denies SI and HI at this time. Exam Const General: cooperative, comfortable, no acute distress and disheveled Nutritional Appearance: obese HENMT Head: normal to inspection, normocephalic and atraumatic Neck Neck: normal visual inspection, full ROM and no lymphadenopathy Resp Effort & Inspection: normal respiratory effort (even and unlabored) Auscultation: clear to auscultation bilaterally Cardio Rate: regular rate Rhythm: regular rhythm GI Inspection: large pannus and obesity Auscultation: normal bowel sounds Skin General skin exam: no rashes or lesions noted Neuro General: patient oriented x3 Extrem General: normal to inspection Objective Last Vital Signs Temp 36.4 C L 03/25/21 07:30 Pulse 90 03/25/21 07:30 Resp 18 03/25/21 07:30 BP 126/88 03/25/21 07:30 Pulse Ox 97 03/25/21 07:30 PAWSS Have you Been Recently Intoxicated or Drunk Within the Last 30 days?: Yes Have you Ever Experienced Previous Episodes of Alcohol Withdrawal?: Yes Have you ever Experienced Withdrawal Seizures?: Yes Have you ever Experienced Delirium Tremens(DT)s?: Unable to Obtain Have you ever undergone Alcohol Rehabilitation Treatment (i.e, inpt ot outpatient treatment programs)?: Yes Have you ever Experienced Blackouts?: Unable to Obtain Have you ever Combined Alcohol with other Downers within the last 90 days?: No Have you ever Combined Alcohol with any other Substance of Abuse during the last 90 days?: No Positive Blood Alcohol level on Presentation? [PCS.BAL]: Yes Evidence of Increased Autonomic Activity (i.e. HR>120, tremor, sweating, agitation, nausea)?: Yes Result: 6
[2021-03-25 15:29] VITALS: BP 131/84; PULSE 88; RESP 19; TEMP 36.6; O2SAT 94
[2021-03-25] MEDS: Cyclobenzaprine 10 MG TAB 5 MG PO (21:10)
[2021-03-25] MEDS: traZODone 50 MG TAB 100 MG PO (21:10)
[2021-03-25] MEDS: Normal Saline Flush 10 ML SYR IVP (21:10)
[2021-03-25 23:30] VITALS: BP 120/84; PULSE 85; RESP 19; TEMP 36.4; O2SAT 95
[2021-03-26 07:23] LABS: HCT 39.8 % (40.0-50.0); HGB 12.8 g/dL (13.5-17.5); MCH 30.5 pg (27.0-33.0); MCHC 32.2 % (32.0-36.0); MPV 9.5 fL (8.0-11.0); Platelet Count 245 10^3/uL (130-400); RBC 4.19 10^6/uL (4.36-5.78); RDW 14.7 % (11.8-14.1); RDW-SD 49.3 fL; WBC 10.65 10^3/uL (4.4-10.8)
[2021-03-26 07:30] VITALS: BP 118/81; PULSE 85; RESP 18; TEMP 36.4; O2SAT 95
[2021-03-26] MEDS: Enoxaparin 40 MG/0.4 ML SYR SC (08:02)
[2021-03-26] MEDS: Nicotine 21 MG/24 HR PATCH TD (08:02)
[2021-03-26] MEDS: Thiamine 100 MG TAB PO (08:03)
[2021-03-26] MEDS: Lisinopril 10 MG TAB PO (08:03)
[2021-03-26] MEDS: Multivitamin TAB 1 TAB PO (08:03)
[2021-03-26] MEDS: Folic Acid 1 MG TAB PO (08:03)
[2021-03-26] MEDS: ARIPiprazole 5 MG TAB PO (08:03)
[2021-03-26] MEDS: hydroCHLOROthiazide 25 MG TAB 12.5 MG PO (08:03)
[2021-03-26] MEDS: Gabapentin 600 MG TAB PO (08:03)
[2021-03-26] MEDS: Atenolol 50 MG TAB PO (08:03)
[2021-03-26] MEDS: Sertraline 50 MG TAB 150 MG PO (08:04)
[2021-03-26] MEDS: Omeprazole 20 MG CAPCR PO (08:04)
[2021-03-26] MEDS: Potassium Chloride 20 MEQ TABCR PO (08:04)
--- NOTE | 2021-03-26 09:10 | PDOC.MHCN ---
Date of service: 03/25/21 Time of Service: 12:11 Mental Health Crisis Note Presenting Issue How did you arrive at the ED and why did you come: Client arrived to [facility] ED on 03/23/21 due to relapsing on alcohol and depression. Client was released from [place] on 03/15/21. Client is medically cleared and see for assessment today. Precipitating Factors Client denies current SI/HI with no intent or plan. Client states: I really do not want to harm myself I just want to get help so I no longer have the urge to drink anymore. Disposition BEHAVIOR: Client is dressed in street clothe sitting up in chair eating lunch when this underwriter mortgage loan arrives via zoom. Client is withdrawn, however answers all of the questions that are being asked of him. He kept repeating: I am not crazy and I do not want to kill myself I just want help to stop drinking. EYE CONTACT: Client make mainly good eye contact, however at times is observed to be distracted watching TV. MOOD: Clients mood appears to be depressed and distracted. AFFECT: Normal affect APPETITE: Client states that he has been eating well since being at [facility]: they make some good food here. SLEEP(trouble falling/staying asleep: Client states that he has been having trouble sleeping, but states that is average for him to get about 3-4 hours of sleep. Client also states that he does not have his CPAP machine that he needs to use to sleep due to having sleep apnea. Plan Client was giving numbers to sober living houses that he requested and he needs to self referrals. Client denies need for inpatient treatment at this time. Client will be discharged back into the community as there is no reason medically to hold him. This underwriter mortgage loan will do referral for counseling at [facility] as requested by client. Signature Clinician's Name/Title: Jaida Aragon, [facility] Emergency Clinician.
[2021-03-26] MEDS: Methadone Liquid 10 MG/ML 80 MG PO (09:18)
--- NOTE | 2021-03-26 12:13 | W.PM.DS.N ---
Date of service: 03/26/21 Time of Service: 11:15 DS: Diagnosis Discharge Diagnosis (1) Alcohol intoxication: Status: Resolved (2) Alcohol abuse: (3) Methadone dependence: Status: Chronic (4) Depression: Status: Chronic (5) Suicidal ideation: Status: Inactive Discharge Plan Disposition Patient Disposition: HOME Condition: Improving Discharge Details Reason For Visit: alcohol use disorder, alcohol withdrawal seizure Admit Date/Time: 03/22/21 23:04 Admit Provider: Grant Zamudio Attending Provider: Grant Zamudio Primary Care Provider: Jada Mulligan Hospital Course Hospital Course: Garrett is a 50 year old man with a past medical history significant for alcoholism and opioid use disorder, chronically maintained on methadone and depression. He was recently discharged from [facility] after an extended stay for treatment of his depression and alcoholism. After his discharge, was placed at the [facility] and he began drinking heavily again. He was drinking up to 1/5 of vodka per day and was experiencing increased depression and thoughts of suicide. He tried to stop drinking alcohol on his own and experienced withdrawal and what sounds like a seizure. He presented to the ed on 03/22/21 stating that he wanted to detox from ETOH. Upon arrival the patient was found to be intoxicated with a blood alcohol level of 291 mg/dL. Rest of his routine labs including CBC, CMP and a nasal swab for COVID-19. His nasal swab for COVID-19 is pending at this time. He has been vaccinated with 1 dose vaccine of the [employer] vaccine but is indicated he would like a booster vaccine. CMP was remarkable for low potassium of 3.4 and elevated transaminases with an AST of 60, ALT 141, alkaline phosphatase 134 but normal bilirubin of 0.5. CBC was remarkable for mild leukocytosis of 11,000. He was admitted to the ICU as a med/surg overflow patient. He was tapered off librium over the following days. He did not experience significant withdrawal symptoms. His sertraline was increased to 100mg/day. He was deemed medically clear. He was seen by mental health. He was cleared for discharge. He was given information on sober living houses, which he has contacted. He was kept overnight last night to ensure that he got his morning methadone today since his outpatient MAT program is closed on Sundays. During his visit today, he denies SI or HI. He verbalizes that he has contacted a sober living house. He plans to return to [facility] today upon discharge. He reports left lovett discomfort since his fall when he was trying to detox at home. He also reports ongoing R shoulder pain with ROM. He is encouraged to follow up with his PCP within the next 1-2 weeks. He thinks he has an appointment scheduled for the near future. Home Meds and New Rx's Prescriptions: New folic acid 1 mg Tablet 1 mg PO QAM Qty: 30 RF: 0 multivitamin [Multiple Vitamins] Tablet 1 tab PO QAM Qty: 30 RF: 0 thiamine mononitrate (vit B1) [Vitamin B-1 (mononitrate)] 100 mg Tablet 100 mg PO QAM Qty: 30 RF: 0 Continued trazodone 100 mg Tablet 100 mg PO HS RF: 0 lisinopril 10 mg Tablet 10 mg PO DAILY RF: 0 atenolol 50 mg Tablet 50 mg PO DAILY RF: 0 hydrochlorothiazide 12.5 mg Tablet 12.5 mg PO DAILY RF: 0 omeprazole 20 mg Tablet,Delayed Release (Dr/Ec) 20 mg PO DAILY RF: 0 methadone 5 mg/5 mL Syringe 80 mg PO QAM RF: 0 gabapentin 600 mg Tablet 600 mg PO TID RF: 0 aripiprazole 5 mg Tablet 5 mg PO DAILY RF: 0 sertraline 50 mg Tablet 150 mg PO DAILY RF: 0 cyclobenzaprine 5 mg Tablet 5 mg PO HS RF: 0 disulfiram 250 mg Tablet 250 mg PO DAILY RF: 0 nicotine 21 mg/24 hr Patch 24 Hour 21 mg transdermal DAILY RF: 0 nicotine (polacrilex) 4 mg Gum 4 mg BUCCAL Q2H RF: 0 Discharge Instructions Instructions: Depression (DC), Abuse of Alcohol (DC) Additional Instructions: Follow up with your PCP as scheduled. You should see him within the next 1-2 weeks. Continue to avoid alcohol. Continue to make plans to get to a sober living house. Activity:: Activity as Tolerated Equipment/Supplies:: No Equipment Needed Diet:: As Tolerated Discharge Orders Discharge Orders: Discharge Order (Routine); Ordered 03/26/21 Ordered By: Debbie Cardenas DS: Summary Time Spent with Patient providing and/or coordinating discharge services: Greater than 30 minutes Status at Discharge Functional status at discharge: independent ambulation Overall status at discharge: patient is back to baseline Mental Status: mental status grossly normal Speech and Movement: speech and movement normal Mood: congruent mood Affect: normal affect (depressed) Exam Narrative Exam Narrative: General: appears stated age, sitting up in the chair, awake and alert. Answers questions appropriately. Appears calm. HEENT: normocephalic, atraumatic, EOMI, wearing glasses, mucous membranes moist. Neck: supple. Cardiovascular: heart sounds regular, nontachycardic. Respiratory: respirations appear even and unlabored, lung sounds are clear throughout. GI: +BS, large round abdomen, soft, nontender on palpation, nondistended. Extremities: moves all 4 extremities freely, RLE with area of ecchymosis to lovett. Psych Mental Status: mental status grossly normal Speech and Movement: speech and movement normal Mood: congruent mood Affect: normal affect (depressed) DS: Data Vitals/I&O Vitals and I&O: Vital Signs Temperature 36.4 C L 03/26/21 07:30 Temperature Source Tympanic 03/26/21 07:30 Pulse 85 03/26/21 07:30 Pulse Rhythm Regular 03/26/21 08:21 Pulse 80 03/23/21 17:00 Respiratory Rate 18 03/26/21 07:30 Respiratory Effort Non-Labored 03/26/21 08:21 Respiratory Depth Normal 03/26/21 08:21 Respiratory Pattern Normal 03/26/21 08:21 Blood Pressure 118/81 03/26/21 07:30 Blood Pressure Mean 105 03/23/21 08:01 Blood Pressure Position Supine 03/23/21 03:58 Pulse Oximetry 95 03/26/21 07:30 Oxygen Delivery Method Room Air 03/26/21 07:30 Oxygen Flow Rate 0 03/26/21 07:30 Pain Level 3 03/26/21 07:30 Comment 03/23/21 18:05 Intake & Output 03/25/21 03/26/21 03/26/21 23:59 11:59 23:59 Intake Total 360 / 360 650 / 650 Balance 360 / 360 650 / 650 Intake: Oral 360 / 360 650 / 650 Other: Urine Appearance Clear Clear Comment Patient reports normal urination indepenently to the toilet. pT voiding independent in toilet Voiding Methods Toilet Toilet Data Completed and Pending Labs on day of discharge: Labs from last 24 hours 03/26/21 06:35 WBC 10.65 RBC 4.19 L Hgb 12.8 L Hct 39.8 L MCV 95.0 MCH 30.5 MCHC 32.2 RDW 14.7 H Plt Count 245 MPV 9.5 PFSH All Active Problems Alcohol withdrawal seizure (Acute) Back pain (Chronic) Methadone dependence (Chronic) Depression (Chronic) Medical History Alcohol abuse Anxiety Major depression Surgical History History of tonsillectomy and adenoidectomy Family History Maternal Grandfather Alcohol use disorder Social History Smoking/Tobacco Use Status: Current every day Tobacco Type: cigarettes Smoking risk assessment performed?: Yes Alcohol Intake: current Alcohol Intake frequency: 3 or more drinks per day Alcohol type: beer and hard liquor Drug use: Current Sobriety Substance use type: former substance user Date of last use: >5yrs and prescription drug Housing: other Details: lives in [facility] Do you feel safe at home: No Do you feel safe in your relationship?: Yes Additional Social history: Homeless
--- NOTE | 2021-03-26 12:54 | PDOC.CMDIS ---
- If Service Date Differs Date of service: 03/26/21 Time of Service: 12:54 Care Management Discharge Reason for Hospitalization: ETOH withdrawal Discharge Plan: Garrett will be discharged home with no new services and will transport via private vehicle with a friend. He will follow up with his community providers (PCP, [facility], [facility], [facility] and [facility]) and discharge plan of care as prescribed. CM will provide him with a last dose letter for BALIANET. Garrett has been provided with contact information for sober houses in [place] at his request as these facilities require self-referral. Patient/Family Education Needs: Review of discharge instuctions, medications, contact information for sober houses and substance use treatment and [facility].
== END 2021-03-26 14:40 | disposition home or self-care (01) | DRG 897 ==
LOC: ER 23:52 → ICU 03-23 05:25 → MS 03-23 18:09
PROVIDERS: Emergency Medicine; Internal Medicine; Nurse Practitioner Acute Care; Admitting Provider Internal Medicine; Emergency Provider Student in an Organized Health Care Education/Training Program; PCP Nurse Practitioner Family; Visit Provider Internal Medicine
DX: F10.220 Alcohol dependence with intoxication, uncomplicated (principal); F11.20 Opioid dependence, uncomplicated; F33.1 Major depressive disorder, recurrent, moderate; F17.210 Nicotine dependence, cigarettes, uncomplicated
CPT/HCPCS: 36415; 80048; 80053; 80076; 80307; 82550; 83690; 85027; 87635; 93005; 96365; 96366; 99285; J1650; 80320; 81003; 83735; 84100; 85025; 93010; 99222; 99232; 99233; 99239

== ENCOUNTER 2021-04-10 18:09 | Inpatient (IN) | payer MEDICARE, MEDICAID, SELFPAY ==
[2021-04-10] VITALS (47 sets, daily range): BP systolic 104–136; BP diastolic 54–90; PULSE 64–103; RESP 9–24; TEMP 36.6–36.9; O2SAT 86–96
--- NOTE | 2021-04-10 18:30 | DI.RAD_ITS ---
Exam(s) XR CHEST 2V PA LATERAL EXAM: XR CHEST 2V PA LATERAL CLINICAL HISTORY: leg swelling, r/o acute disease TECHNIQUE: 2D digital imaging was performed of the chest. Three images were obtained. PA and later al views were obtained. COMPARISON: CR XR CHEST 2V PA LATERAL from 01/12/2021 FINDINGS: MEDIASTINUM: Normal. HEART: Normal. PULMONARY VASCULATURE: Normal. LUNGS: Clear. PLEURAL SPACE: No pleural effusion or pneumothorax. BONE:Within normal limits for the patient's age. OTHER FINDINGS:Normal. IMPRESSION: No acute pulmonary findings. DATA REPOSITORY: RADIATION DOSE DELIVERED:
--- NOTE | 2021-04-10 18:37 | W.ED.GENAD ---
Discharge Plan Disposition Patient Disposition: [facility] INPATIENT Condition: Stable Discharge Details Clinical Impression: Bilateral edema of lower extremity, History of alcohol abuse Admit Date/Time: 04/10/21 21:59 Admit Provider: Garrett Chan Attending Provider: Garrett Chan Primary Care Provider: Jada Mulligan ED Provider: Delores Guajardo Discharge Data Discharge Date/Time-TO BE ENTERED AT DEPARTURE: 04/10/21 23:11 Medical Decision Making 50-year-old male with a history of alcohol abuse, alcohol withdrawal seizures, methadone dependence, anxiety and depression presents for bilateral lower extremity swelling for the past 2 weeks. He was admitted here last month for alcohol withdrawal and stopped drinking alcohol until 1 week after discharge. Last alcoholic drink 2-1/2 hours ago. He has moderate edema most significant in his distal lower extremities with erythema in his distal lower legs which he states has been chronic for a few weeks. He has potentially cellulitis versus dermatitis in his lower abdomen below his pannus. He appears slightly intoxicated but is oriented x3. His vitals are within normal limits and demonstrates no signs of alcohol withdrawal. We will obtain screening labs, chest x-ray, EKG and administer banana bag and 40 mg of Lasix IV x1. Labs and imaging reviewed. Normal white blood cell count. Hemoglobin 11.4. Potassium 3.3. AST 42, ALT 68, alk phos 165. Troponin negative. BNP 520. Urinalysis negative for infection. UDS positive for methadone, benzodiazepines and cocaine. Alcohol level 123. Chest x-ray negative for acute disease. Patient reassessed and he is complaining of nausea and still with sensation of leg pain and swelling. He states his leg erythema is chronic still may be more consistent with venous stasis but also consider cellulitis. Lower suspicion for DVT. Case discussed with hospitalist who accepts patient for admission. Request a D-dimer which hospitalist will f/u with and plan for US in the am if dimer elevated. Will start diuretic, antibiotics for potential cellulitis. Medical Records Medical records reviewed: Yes I reviewed the patient's medical records. Imaging Data Radiologic Study: Radiologist's impression: XR Chest Exam date and time: 04/10/2021 6:37 PM Age: 50 years old Clinical indication: Other: Leg swelling, R/O acute disease TECHNIQUE: Imaging protocol: XR of the chest. Views: 2 views. COMPARISON: CR XR CHEST 2V PA LATERAL 01/12/2021 9:50 AM FINDINGS: Lungs: Unremarkable. No consolidation. Pleural spaces: Unremarkable. No pleural effusion. No pneumothorax. Heart/Mediastinum: Unremarkable. No cardiomegaly. Bones/joints: Unremarkable. IMPRESSION: No acute findings. Lab Data Lab results reviewed: Yes I reviewed the patient's lab results. Labs: Laboratory Tests Range/Units 04/10/21 04/10/21 04/10/21 16:58 16:58 16:58 WBC (4.4-10.8) 10^3/uL 6.60 RBC (4.36-5.78) 10^6/uL 3.74 L Hgb (13.5-17.5) g/dL 11.4 L Hct (40.0-50.0) % 36.4 L MCV (80-95) fL 97.3 H MCH (27.0-33.0) pg 30.5 MCHC (32.0-36.0) % 31.3 L RDW (11.8-14.1) % 15.8 H Plt Count (130-400) 10^3/uL 282 MPV (8.0-11.0) fL 9.0 Immature Gran % 0.6 Neutrophils % 58.9 Lymphocytes % 27.6 Monocytes % 9.8 Eosinophils % 2.3 Basophils % 0.8 Nucleated RBC % % 0 Absolute Neutrophils (1.2-6.7) 10^3/uL 3.89 Absolute Lymphocytes (1.2-3.4) 10^3/uL 1.82 Absolute Monocytes (0.1-0.8) 10^3/uL 0.65 Absolute Eosinophils (0.0-0.7) 10^3/uL 0.15 Absolute Basophils (0.0-0.2) 10^3/uL 0.05 Sodium (136-145) mmol/L 145 Potassium (3.5-5.1) mmol/L 3.3 L Chloride (98-107) mmol/L 105 Carbon Dioxide (21.0-32.0) mmol/L 31.6 Anion Gap (3-11) mmol/L 8.4 BUN (7-18) mg/dL 13 Creatinine (0.70-1.30) mg/dL 1.0 Estimated GFR/1.73 m2 (mL/min/1.73m2) >= 60.00 Glucose (74-106) mg/dL 125 H Calcium (8.5-10.1) mg/dL 8.0 L Magnesium (1.8-2.4) mg/dL 2.2 Total Bilirubin (0.2-1.0) mg/dL 0.3 AST (15-37) U/L 42 H ALT (16-63) U/L 68 H Alkaline Phosphatase (46-116) U/L 165 H Troponin I (<or=60) ng/L < 50 NT-Pro-B Natriuret Pep (<300) pg/mL 520 H Total Protein (6.4-8.2) g/dL 6.3 L Albumin (3.4-5.0) g/dL 2.9 L Urine Color (Yellow) Urine Clarity (Clear) Urine pH (5-8) Ur Specific Mckinney (1.005-1.025) Urine Protein (Negative) mg/dL Urine Ketones (Negative) mg/dL Urine Blood (Negative) Urine Nitrite (Negative) Urine Bilirubin (Negative) Urine Urobilinogen (Up TO 0.2) EU/dL Ur Leukocyte Esterase (Negative) Urine Glucose (Negative) mg/dL Urine Opiates Screen (Negative) Urine Methadone Screen (Negative) Ur Barbiturates Screen (Negative) Ur Tricyclics Screen (Negative) Ur Amphetamines Screen (Negative) U Benzodiazepines Scrn (Negative) Urine Cocaine Screen (Negative) Ur THC Screen (Negative) Ethyl Alcohol (<10) mg/dL 123.6 H Range/Units 04/10/21 04/10/21 20:00 20:00 WBC (4.4-10.8) 10^3/uL RBC (4.36-5.78) 10^6/uL Hgb (13.5-17.5) g/dL Hct (40.0-50.0) % MCV (80-95) fL MCH (27.0-33.0) pg MCHC (32.0-36.0) % RDW (11.8-14.1) % Plt Count (130-400) 10^3/uL MPV (8.0-11.0) fL Immature Gran % Neutrophils % Lymphocytes % Monocytes % Eosinophils % Basophils % Nucleated RBC % % Absolute Neutrophils (1.2-6.7) 10^3/uL Absolute Lymphocytes (1.2-3.4) 10^3/uL Absolute Monocytes (0.1-0.8) 10^3/uL Absolute Eosinophils (0.0-0.7) 10^3/uL Absolute Basophils (0.0-0.2) 10^3/uL Sodium (136-145) mmol/L Potassium (3.5-5.1) mmol/L Chloride (98-107) mmol/L Carbon Dioxide (21.0-32.0) mmol/L Anion Gap (3-11) mmol/L BUN (7-18) mg/dL Creatinine (0.70-1.30) mg/dL Estimated GFR/1.73 m2 (mL/min/1.73m2) Glucose (74-106) mg/dL Calcium (8.5-10.1) mg/dL Magnesium (1.8-2.4) mg/dL Total Bilirubin (0.2-1.0) mg/dL AST (15-37) U/L ALT (16-63) U/L Alkaline Phosphatase (46-116) U/L Troponin I (<or=60) ng/L NT-Pro-B Natriuret Pep (<300) pg/mL Total Protein (6.4-8.2) g/dL Albumin (3.4-5.0) g/dL Urine Color (Yellow) Yellow Urine Clarity (Clear) Clear Urine pH (5-8) 6.0 Ur Specific Mckinney (1.005-1.025) 1.015 Urine Protein (Negative) mg/dL Negative Urine Ketones (Negative) mg/dL Negative Urine Blood (Negative) Negative Urine Nitrite (Negative) Negative Urine Bilirubin (Negative) Negative Urine Urobilinogen (Up TO 0.2) EU/dL 0.2 Ur Leukocyte Esterase (Negative) Negative Urine Glucose (Negative) mg/dL Negative Urine Opiates Screen (Negative) Negative Urine Methadone Screen (Negative) Positive A Ur Barbiturates Screen (Negative) Negative Ur Tricyclics Screen (Negative) Negative Ur Amphetamines Screen (Negative) Negative U Benzodiazepines Scrn (Negative) Positive A Urine Cocaine Screen (Negative) Positive A Ur THC Screen (Negative) Negative Ethyl Alcohol (<10) mg/dL ECG Data Attestation: I personally reviewed and interpreted this ECG (s) as follows: Interpretation: rate of 69, sinus, no acute ST elevation or depression, CO 167, QTc 474. HPI General Mode of arrival: ambulatory. Date/Time Provider Initiated Documentation: 04/10/21 18:20. Limitations to Documentation: no limitations. Information obtained by: patient. HPI Narrative: Patient is a 50-year-old male with a history of chronic alcohol abuse, history of alcohol withdrawal seizures, anxiety and depression who presents for bilateral lower extremity swelling extending from his lower legs up to his thighs and lower abdomen since discharge from here last month. Patient was admitted here in January and in mid March for alcohol withdrawal. Patient states he started drinking again 1 week after discharge from here last month and states he has been drinking 325 ounce tall boys daily. He states his last drink was 2-1/2 hours ago. He also states he has been injecting crushed Ritalin occasionally, and states his last use was 4 days ago. Denies any other drug use. He states he is having significant leg pain with ambulation. He states he has not been eating well. He denies any known fever, chest pain, shortness of breath, significant abdominal pain, vomiting or diarrhea. He states he does not use assistance while ambulating. Related Data Home Medications Medication Instructions Recorded Confirmed atenolol 50 mg PO DAILY 01/09/21 04/10/21 hydrochlorothiazide 12.5 mg PO DAILY 01/09/21 04/10/21 lisinopril 10 mg PO DAILY 01/09/21 04/10/21 methadone 90 mg PO QAM 01/09/21 04/10/21 omeprazole 20 mg PO DAILY 01/09/21 04/10/21 trazodone 100 mg PO HS 01/09/21 04/10/21 gabapentin 600 mg PO TID 01/10/21 04/10/21 aripiprazole 5 mg PO DAILY 03/23/21 04/10/21 cyclobenzaprine 5 mg PO HS 03/23/21 04/10/21 disulfiram 250 mg PO DAILY 03/23/21 04/10/21 nicotine 21 mg TRANSDERMAL DAILY 03/23/21 04/10/21 nicotine (polacrilex) 4 mg BUCCAL Q2H 03/23/21 04/10/21 sertraline 150 mg PO DAILY 03/23/21 04/10/21 folic acid 1 mg PO QAM #30 tab 03/26/21 04/10/21 multivitamin [Multiple Vitamins] 1 tab PO QAM #30 tab 03/26/21 04/10/21 thiamine mononitrate (vit B1) 100 mg PO QAM #30 tab 03/26/21 04/10/21 [Vitamin B-1 (mononitrate)] Previous Rx's Medication Instructions Recorded folic acid 1 mg PO QAM #30 tab 03/26/21 multivitamin [Multiple Vitamins] 1 tab PO QAM #30 tab 03/26/21 thiamine mononitrate (vit B1) 100 mg PO QAM #30 tab 03/26/21 [Vitamin B-1 (mononitrate)] Allergies Allergy/AdvReac Type Severity Reaction Status Date / Time Sulfa (Sulfonamide Allergy Intermediate Skin Rash Unverified 04/10/21 18:28 Antibiotics) General Stated Complaint: ETOHWithdr RODGER: 3 Review of Systems All systems reviewed & are unremarkable except as noted in HPI and below Constitutional Constitutional: Reports as per HPI, Denies chills and Denies fever(s) Eyes Eyes: Denies blurry vision ENT Ears, Nose, Mouth, and Throat: Denies dizziness, Denies sore throat and Denies throat swelling Cardiovascular Cardiovascular: Denies chest pain and Denies dyspnea Respiratory Respiratory: Denies cough and Denies dyspnea Gastrointestinal Gastrointestinal: Denies abdominal pain, Denies diarrhea and Denies vomiting Genitourinary Genitourinary: Denies hematuria and Denies dysuria Musculoskeletal Musculoskeletal: Denies back pain and Denies numbness Integumentary/Breasts Skin/Breast: Denies lesions and Denies rash Neurologic Neurologic: Denies dizziness, Denies localized weakness and Denies numbness Allergic/Immunologic Allergic/Immunologic: Denies throat swelling PFSH All Active Problems (Updated 04/11/21 @ 13:00 by Rinku Batista MD) Hypertension (Chronic) Bilateral edema of lower extremity (Acute) History of alcohol abuse (Acute) Alcohol withdrawal seizure (Acute) Back pain (Chronic) Methadone dependence (Chronic) Depression (Chronic) Medical History Alcohol abuse Anxiety Major depression Surgical History History of tonsillectomy and adenoidectomy Family History Maternal Grandfather Alcohol use disorder Social History Smoking/Tobacco Use Status: Current every day Tobacco Type: cigarettes Smoking risk assessment performed?: Yes Alcohol Intake: current Alcohol Intake frequency: 3 or more drinks per day Alcohol type: beer and hard liquor Drug use: Current Sobriety Substance use type: former substance user Date of last use: >5yrs and prescription drug Housing: other Details: lives in [facility] Do you feel safe at home: No Do you feel safe in your relationship?: Yes Additional Social history: Homeless Exam Const General: cooperative, no acute distress, ill appearing chronically and intoxicated appearing Orientation: alert, awake and oriented x3 HENMT Head: normal to inspection Face and sinus: normal facial exam Eyes General: appearance normal, both eyes and all related structures Pupils: PERRL EOM: EOM intact bilaterally Neck Neck: normal visual inspection and No submandibular swelling Lymphatic: no lymphadenopathy noted Chest Chest: normal inspection of the chest and no tenderness Resp Effort & Inspection: normal respiratory effort and able to speak in complete sentences Auscultation: clear to auscultation bilaterally Cardio Rate: regular rate Rhythm: regular rhythm GI Inspection: obesity Palpation: soft, not firm, not rigid and nontender Auscultation: no hypoactive bowel sounds Abdomen image: 1. Erythema and scaling consistent with pannus noted underlying obese abdomen and bilateral groin. Skin General skin exam: no rashes or lesions noted Neuro General: patient alert, patient awake and patient oriented x3 Cognition: normal cognition Speech: speech normal Motor: muscle tone normal throughout Sensory Exam: no sensory deficits noted Extrem Upper/lower leg/hip images: 1. Moderate edema and cellulitis noted to b/l lower extremities extending from the distal lower leg up to proximal thigh. There is 2+ pitting edema in the distal lower extremities and nonpitting edema in the thighs. Other: Bilateral distal lower extremity pulses intact. Psych Appearance: grossly normal Mental Status: mental status grossly normal Speech and Movement: speech and movement normal Affect: normal affect Course Vital Signs Vital signs: Vital Signs Temperature 97.9 F 04/10/21 18:21 Pulse 84 04/10/21 18:21 Respiratory Rate 16 04/10/21 18:21 Blood Pressure 134/75 04/10/21 18:21 Pulse Oximetry 96 04/10/21 18:21 Temperature 97.9 F 04/10/21 18:21 Temperature Source Skin 04/10/21 18:21 Pulse 84 04/10/21 18:21 Respiratory Rate 16 04/10/21 18:21 Respiratory Effort 04/10/21 18:21 Blood Pressure 134/75 04/10/21 18:21 Blood Pressure Position Supine 04/10/21 18:21 Pulse Oximetry 96 04/10/21 18:21 Oxygen Delivery Method Room Air 04/10/21 18:21 Oxygen Flow Rate 0 04/10/21 18:21 Pain Level 6 04/10/21 18:21 PAWSS Have you Been Recently Intoxicated or Drunk Within the Last 30 days?: Yes Have you Ever Experienced Previous Episodes of Alcohol Withdrawal?: Yes Have you ever Experienced Withdrawal Seizures?: Yes Have you ever Experienced Delirium Tremens(DT)s?: Yes Have you ever undergone Alcohol Rehabilitation Treatment (i.e, inpt ot outpatient treatment programs)?: Yes Have you ever Experienced Blackouts?: Yes Have you ever Combined Alcohol with other Downers within the last 90 days?: Yes Have you ever Combined Alcohol with any other Substance of Abuse during the last 90 days?: Yes Positive Blood Alcohol level on Presentation? [PCS.BAL]: Yes Evidence of Increased Autonomic Activity (i.e. HR>120, tremor, sweating, agitation, nausea)?: No Result: 9
--- NOTE | 2021-04-10 19:00 | RT.EKG_ITS ---
APPROVED REPORT Exam: Resting ECG Reason for Exam: leg swelling Patient Location: E HR:69 bpm ECG Measurements Heart Rate 69 AXIS ND 167 P 41 QRSd 102 QRS -2 QT 441 T 12 QTc 474 Conclusion Sinus rhythm...normal P axis, V-rate 60- 99. Sinus. No STEMI. I have reviewed and interpreted ECG and agree with software generated interpretation.
[2021-04-10 19:11] LABS: Abs Immature Grans 0.04 10^3/uL (0.0-0.06); Absolute Basophil Count 0.05 10^3/uL (0.0-0.2); Absolute Eosinophil Count 0.15 10^3/uL (0.0-0.7); Absolute Lymphocyte Count 1.82 10^3/uL (1.2-3.4); Absolute Monocyte Count 0.65 10^3/uL (0.1-0.8); Absolute Neutrophil Count 3.89 10^3/uL (1.2-6.7); Basophils % 0.8; Eosinophils % 2.3; HCT 36.4 % (40.0-50.0); HGB 11.4 g/dL (13.5-17.5); Immature Grans % 0.6; Lymphocytes % 27.6; MCH 30.5 pg (27.0-33.0); MCHC 31.3 % (32.0-36.0); MCV 97.3 fL (80-95); Monocytes % 9.8; Neutrophils % 58.9; Nucleated RBC 0 %; Platelet Count 282 10^3/uL (130-400); RBC 3.74 10^6/uL (4.36-5.78); RDW 15.8 % (11.8-14.1)
[2021-04-10] MEDS: Folic Acid 50 MG/10 ML VIAL (19:28)
[2021-04-10] MEDS: Furosemide 40 MG/4 ML VIAL IVP (19:28)
[2021-04-10] MEDS: Thiamine 200 MG/2 ML VIAL (19:29)
[2021-04-10] MEDS: MAGNESIUM SULFATE 8.12 MEQ, MULTIVITAMIN 10 ML, THIAMINE 100 MG, FOLIC ACID 1 MG in Nor... 168.867 MG IV (19:29)
[2021-04-10 19:31] LABS: ALT 68 U/L (16-63); AST 42 U/L (15-37); Albumin 2.9 g/dL (3.4-5.0); Alkaline Phosphatase 165 U/L (46-116); Anion Gap 8.4 mmol/L (3-11); BUN 13 mg/dL (7-18); Bilirubin, Total 0.3 mg/dL (0.2-1.0); CO2 31.6 mmol/L (21.0-32.0); Chloride 105 mmol/L (98-107); Glucose 125 mg/dL (74-106); Magnesium 2.2 mg/dL (1.8-2.4); NT-proBNP 520 pg/mL (<300); Potassium 3.3 mmol/L (3.5-5.1); Sodium 145 mmol/L (136-145); Total Protein 6.3 g/dL (6.4-8.2); Troponin I < 50 ng/L (<or=60)
[2021-04-10 19:33] LABS: ETHANOL BLOOD 123.6 mg/dL (<10)
--- NOTE | 2021-04-10 19:59 | DI.VRAD_ITS ---
PROCEDURE INFORMATION: Exam: XR Chest Exam date and time: 04/10/2021 6:37 PM Age: 50 years old Clinical indication: Other: Leg swelling, R/O acute disease TECHNIQUE: Imaging protocol: XR of the chest. Views: 2 views. COMPARISON: CR XR CHEST 2V PA LATERAL 01/12/2021 9:50 AM FINDINGS: Lungs: Unremarkable. No consolidation. Pleural spaces: Unremarkable. No pleural effusion. No pneumothorax. Heart/Mediastinum: Unremarkable. No cardiomegaly. Bones/joints: Unremarkable. IMPRESSION: No acute findings. Dictated and Authenticated by: Eddie Raymond MD. Ordering:YAEL Estrella MD
[2021-04-10 20:20] LABS: *AMPHETAMINES SCREEN URINE Negative (Negative); *BARBITURATES SCREEN URINE Negative (Negative); *BENZODIAZEPINES SCREEN URINE Positive (Negative); Cannabinoids THC Negative (Negative); Cocaine Screen,Urine Positive (Negative); METHADONE URINE SCREEN Positive (Negative); OPIATES URINE SCREEN Negative (Negative); Tricyclic Antidepressants Negative (Negative)
[2021-04-10 20:26] LABS: Bilirubin Negative (Negative); Blood Negative (Negative); Clarity Clear (Clear); Glucose Negative (Negative); Ketones Negative (Negative); Leukocyte Esterase Negative (Negative); Nitrite Negative (Negative); Specific Gravity 1.015 (1.005-1.025); Urobilinogen 0.2 EU/dL (Up TO 0.2)
--- NOTE | 2021-04-10 21:30 | W.PM.HP.N ---
Date of service: 04/10/21 Time of Service: 21:30 Assessment and Plan Assessment and plan (1) Bilateral edema of lower extremity: Status: Acute Assessment and plan: Peripheral edema. I do not think this is cardiogenic, more likely due to hypoalbuminemia and either stasis dermatitis or perhaps cellulitis. I think DVT is clinically low probability but have requested d-Dimer. 1. Edema: continue Lasix, trial Rocephin, await d-Dimer 2. Alcohol: scheduled Librium, CIWA 3. HTN: continue Atenolol and Lisinopril (hold HCTZ while getting Lasix) 4. Opiate dependence: continue Methadone as is 5. Psych: unclear what he is or is not taking, was d/c'ed on Abilify, Zoloft, gabapentin and Trazadone. Not able to clearly detail these. I think I would hold until we can verify, but will be on Librium (VS) in interim in any case. History of Present Illness History of Present Illness Chief Complaint: leg swelling Narrative: 50 male alcoholic, here with 2 weeks of painless swelling and redness of lower extremities, and today some nausea. NO SOB or orthopnea. No CP, no abd pain. Last drink approx 5 hours ago. In ER findings of note for bilateral pedal edema and erythema, and EtOH 123. BNP 520, albumin 2.9. UDS + Methadone (prescribed), benzos and cocaine. Patient given banana bag and 40 lasix IV. I was asked to evaluate for admission. Has h/o w/d seizures; last visit (03/28) was treated with scheduled and tapering doses of Librium successfully. Review of Systems All systems reviewed & are unremarkable except as noted in HPI and below PFSH All Active Problems Bilateral edema of lower extremity (Acute) History of alcohol abuse (Acute) Alcohol withdrawal seizure (Acute) Back pain (Chronic) Methadone dependence (Chronic) Depression (Chronic) Medical History Alcohol abuse Anxiety Major depression Surgical History History of tonsillectomy and adenoidectomy Family History Maternal Grandfather Alcohol use disorder Social History Smoking/Tobacco Use Status: Current every day Tobacco Type: cigarettes Smoking risk assessment performed?: Yes Alcohol Intake: current Alcohol Intake frequency: 3 or more drinks per day Alcohol type: beer and hard liquor Drug use: Current Sobriety Substance use type: former substance user Date of last use: >5yrs and prescription drug Housing: other Details: lives in [facility] Do you feel safe at home: No Do you feel safe in your relationship?: Yes Additional Social history: Homeless Meds Allergies and Home Medications Allergies Allergy/AdvReac Type Severity Reaction Status Date / Time Sulfa (Sulfonamide Allergy Intermediate Skin Rash Unverified 04/10/21 18:28 Antibiotics) Home Medications Medication Instructions Recorded Confirmed Type atenolol 50 mg PO DAILY 01/09/21 04/10/21 History hydrochlorothiazide 12.5 mg PO DAILY 01/09/21 04/10/21 History lisinopril 10 mg PO DAILY 01/09/21 04/10/21 History methadone 90 mg PO QAM 01/09/21 04/10/21 History omeprazole 20 mg PO DAILY 01/09/21 04/10/21 History trazodone 100 mg PO HS 01/09/21 04/10/21 History gabapentin 600 mg PO TID 01/10/21 04/10/21 History aripiprazole 5 mg PO DAILY 03/23/21 04/10/21 History cyclobenzaprine 5 mg PO HS 03/23/21 04/10/21 History disulfiram 250 mg PO DAILY 03/23/21 04/10/21 History nicotine 21 mg TRANSDERMAL DAILY 03/23/21 04/10/21 History nicotine (polacrilex) 4 mg BUCCAL Q2H 03/23/21 04/10/21 History sertraline 150 mg PO DAILY 03/23/21 04/10/21 History folic acid 1 mg PO QAM #30 tab 03/26/21 04/10/21 Rx multivitamin [Multiple Vitamins] 1 tab PO QAM #30 tab 03/26/21 04/10/21 Rx thiamine mononitrate (vit B1) 100 mg PO QAM #30 tab 03/26/21 04/10/21 Rx [Vitamin B-1 (mononitrate)] methadone 90 mg PO DAILY 04/10/21 04/10/21 History Exam Narrative Exam Narrative: 124/66, 64, 36.6, RR 11-18, 90% (last recorded, during visit sat 95% RA). HEENT atraumatic; neck supple; lungs clear; heart RRR; abdomen soft and NT, extensive erythema overlying pannus; extremities 2+ mixed pitting and non-pitting pedal edema extending to shins, with warm erythema lower leg on left, extending to thigh on right, non-tender, and admixed with more muted and duskier erythema more c/w stasis dermatitis, no calf tenderness, no cords and negative Rere's; neuro Ox3, moves all 4s Results Labs Result diagrams: 04/10/21 16:58 04/10/21 16:58 Labs: Laboratory Results - last 24 hr 04/10/21 04/10/21 04/10/21 16:58 16:58 16:58 WBC 6.60 RBC 3.74 L Hgb 11.4 L Hct 36.4 L MCV 97.3 H MCH 30.5 MCHC 31.3 L RDW 15.8 H Plt Count 282 MPV 9.0 Immature Gran % 0.6 Neutrophils % 58.9 Lymphocytes % 27.6 Monocytes % 9.8 Eosinophils % 2.3 Basophils % 0.8 Nucleated RBC % 0 Absolute Neutrophils 3.89 Absolute Lymphocytes 1.82 Absolute Monocytes 0.65 Absolute Eosinophils 0.15 Absolute Basophils 0.05 Sodium 145 Potassium 3.3 L Chloride 105 Carbon Dioxide 31.6 Anion Gap 8.4 BUN 13 Creatinine 1.0 Estimated GFR/1.73 m2 >= 60.00 Glucose 125 H Calcium 8.0 L Magnesium 2.2 Total Bilirubin 0.3 AST 42 H ALT 68 H Alkaline Phosphatase 165 H Troponin I < 50 NT-Pro-B Natriuret Pep 520 H Total Protein 6.3 L Albumin 2.9 L Urine Color Urine Clarity Urine pH Ur Specific [place] Urine Protein Urine Ketones Urine Blood Urine Nitrite Urine Bilirubin Urine Urobilinogen Ur Leukocyte Esterase Urine Glucose Urine Opiates Screen Urine Methadone Screen Ur Barbiturates Screen Ur Tricyclics Screen Ur Amphetamines Screen U Benzodiazepines Scrn Urine Cocaine Screen Ur THC Screen Ethyl Alcohol 123.6 H 04/10/21 04/10/21 20:00 20:00 WBC RBC Hgb Hct MCV MCH MCHC RDW Plt Count MPV Immature Gran % Neutrophils % Lymphocytes % Monocytes % Eosinophils % Basophils % Nucleated RBC % Absolute Neutrophils Absolute Lymphocytes Absolute Monocytes Absolute Eosinophils Absolute Basophils Sodium Potassium Chloride Carbon Dioxide Anion Gap BUN Creatinine Estimated GFR/1.73 m2 Glucose Calcium Magnesium Total Bilirubin AST ALT Alkaline Phosphatase Troponin I NT-Pro-B Natriuret Pep Total Protein Albumin Urine Color Yellow Urine Clarity Clear Urine pH 6.0 Ur Specific [place] 1.015 Urine Protein Negative Urine Ketones Negative Urine Blood Negative Urine Nitrite Negative Urine Bilirubin Negative Urine Urobilinogen 0.2 Ur Leukocyte Esterase Negative Urine Glucose Negative Urine Opiates Screen Negative Urine Methadone Screen Positive A Ur Barbiturates Screen Negative Ur Tricyclics Screen Negative Ur Amphetamines Screen Negative U Benzodiazepines Scrn Positive A Urine Cocaine Screen Positive A Ur THC Screen Negative Ethyl Alcohol Last Vital Signs Temp 36.6 C 04/10/21 18:21 Pulse 64 04/10/21 21:01 Resp 11 L 04/10/21 21:01 BP 124/66 04/10/21 21:01 Pulse Ox 90 L 04/10/21 21:01 PAWSS Have you Been Recently Intoxicated or Drunk Within the Last 30 days?: Yes Have you Ever Experienced Previous Episodes of Alcohol Withdrawal?: Yes Have you ever Experienced Withdrawal Seizures?: Yes Have you ever Experienced Delirium Tremens(DT)s?: Yes Have you ever undergone Alcohol Rehabilitation Treatment (i.e, inpt ot outpatient treatment programs)?: Yes Have you ever Experienced Blackouts?: Yes Have you ever Combined Alcohol with other Downers within the last 90 days?: Yes Have you ever Combined Alcohol with any other Substance of Abuse during the last 90 days?: Yes Positive Blood Alcohol level on Presentation? [PCS.BAL]: Yes Evidence of Increased Autonomic Activity (i.e. HR>120, tremor, sweating, agitation, nausea)?: No Result: 9
[2021-04-10 22:10] LABS: D-Dimer 1634 ng/mlFEU (<500)
[2021-04-10 23:07] LABS: Source Nasal/Nares
[2021-04-10] MEDS: cefTRIAXone 1,000 MG in Normal Saline 50 ML 100 MG IVPB (23:40)
[2021-04-10 23:45] LABS: COVID-19 PCR Negative (Negative)
[2021-04-10] MEDS: chlordiazePOXIDE 25 MG CAP 50 MG PO (23:45)
[2021-04-11] VITALS (25 sets, daily range): BP systolic 109–151; BP diastolic 57–91; PULSE 46–68; RESP 22; TEMP 36.7; O2SAT 85–93
[2021-04-11] MEDS: Lactated Ringers 1,000 ML 75 ML IV ×3 (01:30→22:55)
--- NOTE | 2021-04-11 08:00 | DI.US_ITS ---
Exam(s) US EXTREMITY VENOUS BI EXAM: US EXTREMITY VENOUS BI CLINICAL HISTORY: bilateral lower extremity edema. TECHNIQUE: Bilateral lower extremity venous ultrasound performed using grayscale, color-flow, and sp ectral Doppler analysis. COMPARISON: No exams were available for comparison FINDINGS: The bilateral common femoral, femoral and popliteal veins demonstrate normal compressibility, augment ation, and color Doppler. The posterior tibial veins are patent. The saphenofemoral junctions are unr emarkable. There is a 2.3 x 1.4 x 1.7 cm right Cordero cyst. The soft tissues are unremarkable. IMPRESSION: Right: Negative for DVT Left: Negative for DVT DATA REPOSITORY:
[2021-04-11] MEDS: Lisinopril 10 MG TAB PO (08:17)
[2021-04-11] MEDS: chlordiazePOXIDE 25 MG CAP 50 MG PO ×4 (08:17→22:52)
[2021-04-11] MEDS: Atenolol 50 MG TAB PO (08:17)
[2021-04-11] MEDS: Multivitamin TAB 1 TAB PO (08:17)
[2021-04-11] MEDS: Omeprazole 20 MG CAPCR PO (08:17)
[2021-04-11] MEDS: Normal Saline Flush 10 ML SYR IVP (08:18)
[2021-04-11] MEDS: Methadone Liquid 10 MG/ML 90 MG PO (08:18)
[2021-04-11] MEDS: Furosemide 40 MG/4 ML VIAL IVP ×2 (08:23→17:09)
--- NOTE | 2021-04-11 08:35 | PDOC.CMIN ---
- If Service Date Differs Date of service: 04/11/21 Time of Service: 08:35 Care Management Initial Assess REASON FOR HOSPITALIZATION:: Edema, Alcohol Intoxication, HTN PAST MEDICAL HISTORY/PAST SURGICAL HISTORY:: All Active Problems . Bilateral edema of lower extremity (Acute). History of alcohol abuse (Acute). Alcohol withdrawal seizure (Acute). Back pain (Chronic). Methadone dependence (Chronic). Depression (Chronic). Medical History . Alcohol abuse. Anxiety. Major depression. Surgical History . History of tonsillectomy and adenoidectomy PREVIOUS FUNCTIONAL STATUS/SOCIAL/FAMILY SUPPORTS:: Garrett currently lives alone at the [facility] in [facility]. He drives and is independent at baseline. He's had four hospitalizations here over the last three months related to ETOH intoxication and withdrawal. He's been to rehab several times. He is connected with [facility]. He was also connected to a [facility] at his last admission, but he did not follow up with them after discharge. CURRENT FUNCTIONAL STATUS:: Garrett was lying in bed when CM met with him. He was pleasant but difficult to engage in conversation likely due to the librium. His VS are WNL, nursing has no concerns. Garrett shared that he lives at the [facility]. He did not follow up with a [facility] after his last admission. Garrett does not know if he wants to go back to rehab and wants to think about his options. He denies SI/HI this admission. will continue to support discharge planning needs. ADVANCE DIRECTIVES:: None on file at [facility] Has patient been provided with info about the portal/API?: Yes Did the patient sign up for the portal?: No CODE STATUS:: Full Code INSURANCE COVERAGE / FINANCIAL ISSUES:: Medicaid. Medicare. [facility] Plan CURRENT HOME/COMMUNITY SERVICES/EQUIPMENT:: [facility](on Methadone). AA, has not been since he was discharged from [facility]. [facility]: working on getting him a Therapist and Psychiatrist. [facility] ([facility] connected [facility] admission) PRIMARY CARE PHYSICIAN:: Jada Mulligan POTENTIAL DISCHARGE NEEDS:: Increased community supports vs. inpatient rehab PATIENT/FAMILY EDUCATION NEEDS:: Review of discharge instuctions, ask me three TRANSPORTATION:: Via private vehicle with a friend vs RCT PLAN:: Anticipate Garrett will be discharged home when medically cleared by provider. He will transport via private vehicle with a friend vs. RCT. He will follow up with his community providers (PCP, [facility], [facility], [facility] and AA) and discharge plan of care as prescribed. CM will continue to support his discharging needs.
[2021-04-11 08:41] LABS: Anion Gap 5.3 mmol/L (3-11); BUN 14 mg/dL (7-18); CO2 34.7 mmol/L (21.0-32.0); Calcium 8.5 mg/dL (8.5-10.1); Chloride 106 mmol/L (98-107); Glucose 89 mg/dL (74-106); Potassium 3.3 mmol/L (3.5-5.1); Sodium 146 mmol/L (136-145)
[2021-04-11] MEDS: Potassium Chloride Liquid 20 MEQ PKT PO ×2 (10:41→22:52)
[2021-04-11] MEDS: Nystatin POWDER 60 GM JAR TP ×2 (10:41→22:53)
--- NOTE | 2021-04-11 12:09 | PGE_ITS ---
Date of Service Date of service: 04/11/21 Time of Service: 12:09 Assessment and Plan Assessment and plan (1) Bilateral edema of lower extremity: Status: Acute Assessment and plan: Peripheral edema. I do not think this is cardiogenic / minimally elevated NTProBNP. Most likely due to hypoalbuminemia and either stasis dermatitis or perhaps cellulitis. D dimer elevated but BLE venous doppler studies are negative for DVT. Will continue Lasix, trial Rocephin. PADMINI compression stocking to RLE. (2) Alcohol intoxication: Status: Resolved Assessment and plan: Scheduled librium. CIWA monitoring. Thiamine and folic acid supplementation. Has had disulfuram prescribed but not taking. Qualifiers: Complication of substance-induced condition: uncomplicated Qualified Code(s): F10.920 - Alcohol use, unspecified with intoxication, uncomplicated (3) Methadone dependence: Status: Chronic Assessment and plan: Cont home methadone dosing. (4) Depression: Status: Chronic Assessment and plan: Cont sertraline 150mg daily. Abilify, gabapentin and trazadone held on admission. Will restart gabapentin, hold trazadone while on scheudled librium. Likely restart abilify before d/c. Qualifiers: Depression Type: major depressive disorder Major depression recurrence: recurrent Active/Remission status: currently active Major depression episode severity: moderate Qualified Code(s): F33.1 - Major depressive disorder, recurrent, moderate (5) Hypertension: Status: Chronic Assessment and plan: Cont lisinopril. Holding HCTZ. Now on lasix for pedal edema. Plan to likely restart HCTZ on d/c. Subjective Subjective Patient reports: no new complaints and afebrile; denies nausea, vomiting and shortness of breath Exam Const General: cooperative and no acute distress Orientation: alert, oriented to person and oriented to place Resp Effort & Inspection: normal respiratory effort Auscultation: clear to auscultation bilaterally Cardio Rate: regular rate Rhythm: regular rhythm Heart Sounds: S1 normal and S2 normal GI Inspection: obesity Palpation: soft and nontender Skin General skin exam: erythema (BLE below knees; R>L) Neuro General: moves all extremities Cranial Nerves: facial strength normal Speech: speech normal Extrem General: no calf tenderness and edema Laterality: right (1-2+ below knee. Left nonpitting below knee.) Objective Last Vital Signs Temp 36.7 C 04/11/21 05:55 Pulse 62 04/11/21 05:57 Resp 22 04/11/21 05:55 BP 129/73 04/11/21 05:57 Pulse Ox 92 04/11/21 07:50 Laboratory Results - last 24 hr 04/10/21 04/10/21 04/10/21 16:58 16:58 16:58 WBC 6.60 RBC 3.74 L Hgb 11.4 L Hct 36.4 L MCV 97.3 H MCH 30.5 MCHC 31.3 L RDW 15.8 H Plt Count 282 MPV 9.0 Immature Gran % 0.6 Neutrophils % 58.9 Lymphocytes % 27.6 Monocytes % 9.8 Eosinophils % 2.3 Basophils % 0.8 Nucleated RBC % 0 Absolute Neutrophils 3.89 Absolute Lymphocytes 1.82 Absolute Monocytes 0.65 Absolute Eosinophils 0.15 Absolute Basophils 0.05 D-Dimer Sodium 145 Potassium 3.3 L Chloride 105 Carbon Dioxide 31.6 Anion Gap 8.4 BUN 13 Creatinine 1.0 Estimated GFR/1.73 m2 >= 60.00 Glucose 125 H Calcium 8.0 L Magnesium 2.2 Total Bilirubin 0.3 AST 42 H ALT 68 H Alkaline Phosphatase 165 H Troponin I < 50 NT-Pro-B Natriuret Pep 520 H Total Protein 6.3 L Albumin 2.9 L Urine Color Urine Clarity Urine pH Ur Specific [place] Urine Protein Urine Ketones Urine Blood Urine Nitrite Urine Bilirubin Urine Urobilinogen Ur Leukocyte Esterase Urine Glucose Urine Opiates Screen Urine Methadone Screen Ur Barbiturates Screen Ur Tricyclics Screen Ur Amphetamines Screen U Benzodiazepines Scrn Urine Cocaine Screen Ur THC Screen Ethyl Alcohol 123.6 H COVID-19 Source SARS-CoV-2 (PCR) 04/10/21 04/10/21 04/10/21 20:00 20:00 21:34 WBC RBC Hgb Hct MCV MCH MCHC RDW Plt Count MPV Immature Gran % Neutrophils % Lymphocytes % Monocytes % Eosinophils % Basophils % Nucleated RBC % Absolute Neutrophils Absolute Lymphocytes Absolute Monocytes Absolute Eosinophils Absolute Basophils D-Dimer 1634 H Sodium Potassium Chloride Carbon Dioxide Anion Gap BUN Creatinine Estimated GFR/1.73 m2 Glucose Calcium Magnesium Total Bilirubin AST ALT Alkaline Phosphatase Troponin I NT-Pro-B Natriuret Pep Total Protein Albumin Urine Color Yellow Urine Clarity Clear Urine pH 6.0 Ur Specific [place] 1.015 Urine Protein Negative Urine Ketones Negative Urine Blood Negative Urine Nitrite Negative Urine Bilirubin Negative Urine Urobilinogen 0.2 Ur Leukocyte Esterase Negative Urine Glucose Negative Urine Opiates Screen Negative Urine Methadone Screen Positive A Ur Barbiturates Screen Negative Ur Tricyclics Screen Negative Ur Amphetamines Screen Negative U Benzodiazepines Scrn Positive A Urine Cocaine Screen Positive A Ur THC Screen Negative Ethyl Alcohol COVID-19 Source SARS-CoV-2 (PCR) 04/10/21 04/11/21 23:05 06:20 WBC RBC Hgb Hct MCV MCH MCHC RDW Plt Count MPV Immature Gran % Neutrophils % Lymphocytes % Monocytes % Eosinophils % Basophils % Nucleated RBC % Absolute Neutrophils Absolute Lymphocytes Absolute Monocytes Absolute Eosinophils Absolute Basophils D-Dimer Sodium 146 H Potassium 3.3 L Chloride 106 Carbon Dioxide 34.7 H Anion Gap 5.3 BUN 14 Creatinine 1.0 Estimated GFR/1.73 m2 >= 60.00 Glucose 89 Calcium 8.5 Magnesium Total Bilirubin AST ALT Alkaline Phosphatase Troponin I NT-Pro-B Natriuret Pep Total Protein Albumin Urine Color Urine Clarity Urine pH Ur Specific [place] Urine Protein Urine Ketones Urine Blood Urine Nitrite Urine Bilirubin Urine Urobilinogen Ur Leukocyte Esterase Urine Glucose Urine Opiates Screen Urine Methadone Screen Ur Barbiturates Screen Ur Tricyclics Screen Ur Amphetamines Screen U Benzodiazepines Scrn Urine Cocaine Screen Ur THC Screen Ethyl Alcohol COVID-19 Source Nasal/Nares SARS-CoV-2 (PCR) Negative PAWSS Have you Been Recently Intoxicated or Drunk Within the Last 30 days?: Yes Have you Ever Experienced Previous Episodes of Alcohol Withdrawal?: Yes Have you ever Experienced Withdrawal Seizures?: Yes Have you ever Experienced Delirium Tremens(DT)s?: Yes Have you ever undergone Alcohol Rehabilitation Treatment (i.e, inpt ot outpatient treatment programs)?: Yes Have you ever Experienced Blackouts?: Yes Have you ever Combined Alcohol with other Downers within the last 90 days?: Yes Have you ever Combined Alcohol with any other Substance of Abuse during the last 90 days?: Yes Positive Blood Alcohol level on Presentation? [PCS.BAL]: Yes Evidence of Increased Autonomic Activity (i.e. HR>120, tremor, sweating, a gitation, nausea)?: No Result: 9
[2021-04-11] MEDS: Sertraline 50 MG TAB 150 MG PO (14:03)
[2021-04-11] MEDS: ARIPiprazole 5 MG TAB PO (14:03)
--- NOTE | 2021-04-11 14:11 | PHA.REVIEW ---
Pharmacy Admission Review - Admission Clinical Review (Last Reviewed 04/10/21 @ 21:40 by Garrett Chan MD) Bilateral edema of lower extremity (Acute) History of alcohol abuse (Acute) Sulfa (Sulfonamide Antibiotics) Allergy (Intermediate, Unverified 04/10/21 18:28) Skin Rash Resuscitation Status Full Code Height 5 ft 8 in Weight 128.7 kg - Renal Dosing Renal Dosing: BUN 14 mg/dL (7-18) 04/11/21 06:20 Creatinine 1.0 mg/dL (0.70-1.30) 04/11/21 06:20 Medications needing adjustments: Reviewed (Crcl ~114.3 mL/min using adjusted body weight, current meds okay.) - Anticoagulation Anticoagulation: Hgb 11.4 g/dL (13.5-17.5) L 04/10/21 16:58 Hct 36.4 % (40.0-50.0) L 04/10/21 16:58 Plt Count 282 10^3/uL (130-400) 04/10/21 16:58 Creatinine 1.0 mg/dL (0.70-1.30) 04/11/21 06:20 DVT Prophylaxis: Intervened (Therapeutic dose lasts night, no new orders, will ask provider about. Does have TEDs ordered.) Therapeutic Anticoagulation: N/A - Opiate Usage Evaluate Pain Scale/Pains Meds: Intervened Scheduled Bowel Reg ordered if on Opiates?: No (will mention to provider) - Relevant Labs Sodium 146 mmol/L (136-145) H 04/11/21 06:20 Potassium 3.3 mmol/L (3.5-5.1) L 04/11/21 06:20 Chloride 106 mmol/L (98-107) 04/11/21 06:20 Magnesium 2.2 mg/dL (1.8-2.4) 04/10/21 16:58 Electrolytes, C-Reactive P, ESR: Intervened (K+ a little low, mentioned to provider this morning. PO K+ replacement ordered.) - DM Control DM Control: Glucose 89 mg/dL (74-106) 04/11/21 06:20 Insulin Dosing: N/A - Heart Failure/MA Heart Failure/MA: Troponin I < 50 ng/L (<or=60) 04/10/21 16:58 NT-Pro-B Natriuret Pep 520 pg/mL (<300) H 04/10/21 16:58 EF%, JAZMINE's, B-Blockers, Diuretics: Reviewed - BP Control BP Control: Blood Pressure 129/73 Blood Pressure 129/73 If elevated: N/A - Qtc Review If Elevated: Reviewed (QTc 474 on admission, suzi has methadone ordered.) - IV to PO Switch IV Medications: Reviewed - Home Meds Home Med List reviewed: Reviewed Relevent Home Meds Not ordered & why?: cyclobenzaprine, disulfram (not taking per progress note), folic acid, gabapentin (held per progress note), HCTZ (on hold per progress note), nicotine, thiamine, trazodone(held per progress note) - Current meds Current Medication Order Review: Intervened (Ceftriaxone changed from admix to premix as premix bags available.) - Comments Comments/Follow Ups: Watch VS, K+, labs and for med changes (possible need of BM meds, possible anticoagulation, avoid QT prolonging meds) Antibiotic Activity - Pharmacy Antibiotic Review Pharmacy Antibiotic Activity: Reviewed, no change (Ceftriaxone continues for possible cellulitis per progress note.)
[2021-04-11] MEDS: Thiamine 100 MG TAB PO (14:56)
[2021-04-11] MEDS: Enoxaparin 40 MG/0.4 ML SYR SC (14:56)
[2021-04-11] MEDS: LORazepam 1 MG TAB PO/SL (22:52)
[2021-04-11] MEDS: cefTRIAXone 1 GM/50 ML BAG IVPB (22:53)
[2021-04-12] MEDS: Lactated Ringers 1,000 ML 75 ML IV (03:36)
[2021-04-12 03:42] VITALS: BP 120/76; PULSE 83; RESP 16; TEMP 36.5; O2SAT 95
[2021-04-12 06:42] LABS: Platelet Count 306 10^3/uL (130-400)
[2021-04-12 06:58] LABS: ALT 48 U/L (16-63); AST 24 U/L (15-37); Albumin 2.9 g/dL (3.4-5.0); Alkaline Phosphatase 145 U/L (46-116); Anion Gap 4.9 mmol/L (3-11); BUN 18 mg/dL (7-18); Bilirubin, Total 0.4 mg/dL (0.2-1.0); CO2 35.1 mmol/L (21.0-32.0); Calcium 8.6 mg/dL (8.5-10.1); Chloride 104 mmol/L (98-107); Glucose 99 mg/dL (74-106); Potassium 3.3 mmol/L (3.5-5.1); Sodium 144 mmol/L (136-145); Total Protein 6.4 g/dL (6.4-8.2)
[2021-04-12] MEDS: chlordiazePOXIDE 25 MG CAP 50 MG PO (08:00)
[2021-04-12] MEDS: Enoxaparin 40 MG/0.4 ML SYR SC (08:21)
[2021-04-12] MEDS: Potassium Chloride Liquid 20 MEQ PKT PO (08:22)
[2021-04-12] MEDS: Sertraline 50 MG TAB 150 MG PO (08:22)
[2021-04-12] MEDS: ARIPiprazole 5 MG TAB PO (08:23)
[2021-04-12] MEDS: Omeprazole 20 MG CAPCR PO (08:23)
[2021-04-12] MEDS: Multivitamin TAB 1 TAB PO (08:23)
[2021-04-12] MEDS: Lisinopril 10 MG TAB PO (08:23)
[2021-04-12] MEDS: Atenolol 50 MG TAB PO (08:23)
[2021-04-12] MEDS: Thiamine 100 MG TAB PO (08:23)
[2021-04-12] MEDS: Folic Acid 1 MG TAB PO (08:23)
[2021-04-12] MEDS: Furosemide 40 MG/4 ML VIAL IVP (08:24)
[2021-04-12] MEDS: Methadone Liquid 10 MG/ML 90 MG PO (08:24)
[2021-04-12] MEDS: Nystatin POWDER 60 GM JAR TP (08:45)
[2021-04-12] MEDS: LORazepam 1 MG TAB PO/SL (10:37)
--- NOTE | 2021-04-12 10:53 | DSE_ITS ---
Date of service: 04/12/21 Time of Service: 10:53 DS: Diagnosis Discharge Diagnosis (1) Bilateral edema of lower extremity: Status: Acute (2) Alcohol intoxication: Status: Resolved (3) Methadone dependence: Status: Chronic (4) Depression: Status: Chronic (5) Hypertension: Status: Chronic Discharge Plan Disposition Patient Disposition: HOME Condition: Improving Discharge Details Reason For Visit: Edema, Alcohol Intoxication Admit Date/Time: 04/10/21 21:59 Admit Provider: Garrett Chan Attending Provider: Garrett Chan [facility] Hospital Course: This is a 50 male with a PMH of acohol abuse syndrome, HTN, methadone dependence, depression, previous SI. He presented with 2 weeks of painless swelling and redness of lower extremities. On day pf presentation he also noted some nausea. No SOB or orthopnea. No CP, no abd pain. Last drink approx 5 hours prior to arrival. In ER findings of note for bilateral pedal edema and erythema, and EtOH 123. BNP 520, albumin 2.9. UDS + Methadone (prescribed), benzos and cocaine. Patient given banana bag and 40 lasix IV. He diuresed well with the lasix. Venous dopplers of the lower extremities was negative for a DVT. There was concern for cellulitis of the RLE; Rocephin initiated in the ED. Compression stocking applied to the RLE. He was discharged on doxycycline and a librium taper. Has h/o w/d seizures; last visit (03/28) was treated with scheduled and tapering doses of Librium successfully. Home Meds and New Rx's Prescriptions: New methadone [Methadone Intensol] 10 mg/mL Concentrate 90 mg PO DAILY Qty: 0 RF: 0 chlordiazepoxide HCl 25 mg Capsule See Rx Instructions .ROUTE .COMPLEX Qty: 16 RF: 0 doxycycline hyclate 100 mg tablet 100 mg PO BID Qty: 10 RF: 0 Continued trazodone 100 mg Tablet 100 mg PO HS RF: 0 lisinopril 10 mg Tablet 10 mg PO DAILY RF: 0 atenolol 50 mg Tablet 50 mg PO DAILY RF: 0 hydrochlorothiazide 12.5 mg Tablet 12.5 mg PO DAILY RF: 0 omeprazole 20 mg Tablet,Delayed Release (Dr/Ec) 20 mg PO DAILY RF: 0 methadone 5 mg/5 mL Syringe 90 mg PO QAM RF: 0 gabapentin 600 mg Tablet 600 mg PO TID RF: 0 aripiprazole 5 mg Tablet 5 mg PO DAILY RF: 0 sertraline 50 mg Tablet 150 mg PO DAILY RF: 0 cyclobenzaprine 5 mg Tablet 5 mg PO HS RF: 0 disulfiram 250 mg Tablet 250 mg PO DAILY RF: 0 nicotine 21 mg/24 hr Patch 24 Hour 21 mg transdermal DAILY RF: 0 nicotine (polacrilex) 4 mg Gum 4 mg BUCCAL Q2H RF: 0 folic acid 1 mg Tablet 1 mg PO QAM Qty: 30 RF: 0 multivitamin [Multiple Vitamins] Tablet 1 tab PO QAM Qty: 30 RF: 0 thiamine mononitrate (vit B1) [Vitamin B-1 (mononitrate)] 100 mg Tablet 100 mg PO QAM Qty: 30 RF: 0 Discharge Instructions Instructions: Leg Edema (ED) Stand Alone Forms: Nursing Discharge Form Referrals: Mayito Stearns [ [facility] STAFF PHYSICIAN] - 04/20/21 10:00 am Activity:: Activity as Tolerated Equipment/Supplies:: No Equipment Needed Diet:: resume usual diet Discharge Orders Discharge Orders: Discharge Order (Routine); Ordered 04/12/21 Ordered By: Rinku Batista Discharge Data Discharge Date/Time-TO BE ENTERED AT DEPARTURE: 04/12/21 12:30 DS: Summary Time Spent with Patient providing and/or coordinating discharge services: Greater than 30 minutes Status at Discharge Functional status at discharge: independent ambulation Overall status at discharge: patient is back to baseline Mental Status: mental status grossly normal Speech and Movement: speech and movement normal Mood: congruent mood Affect: blunted Exam Psych Mental Status: mental status grossly normal Speech and Movement: speech and movement normal Mood: congruent mood Affect: blunted DS: Data Vitals/I&O Vitals and I&O: Vital Signs Temperature 36.5 C 04/12/21 03:42 Temperature Source Tympanic 04/12/21 03:42 Pulse 83 04/12/21 03:42 Pulse Rhythm Regular 04/12/21 09:37 Pulse 71 04/10/21 23:00 Respiratory Rate 16 04/12/21 03:42 Respiratory Effort 04/12/21 09:37 Respiratory Depth Normal 04/12/21 09:37 Respiratory Pattern Normal 04/12/21 09:37 Blood Pressure 120/76 04/12/21 03:42 Blood Pressure Mean 71 04/11/21 20:11 Blood Pressure Position Supine 04/10/21 23:35 Pulse Oximetry 95 04/12/21 03:42 Oxygen Delivery Method Room Air 04/12/21 03:42 Oxygen Flow Rate 0 04/12/21 03:42 Pain Level 4 04/12/21 03:42 Intake & Output 04/11/21 04/11/21 04/12/21 11:59 23:59 11:59 Intake Total 1303.2 / 3784.45 2481.25 / 3784.45 651.25 / 651.25 Output Total 1600 / 2725 1125 / 2725 400 / 400 Balance -296.8 / 1059.45 1356.25 / 1059.45 251.25 / 251.25 Weight 128.7 kg 128.6 kg Intake: IV 1063.2 / 2669.45 1606.25 / 2669.45 351.25 / 351.25 Oral 240 / 1115 875 / 1115 300 / 300 Output: Urine 1600 / 2725 1125 / 2725 400 / 400 Other: Urine Color Pale Yellow Yellow Yellow Brown Urine Appearance Clear Clear Clear Urine Odor Strong Normal Comment patient voided directly in toilet, removing measuring hat. Stool Occult Blood Negative Stool Size Moderate Stool Characteristics Soft Brown Voiding Methods Urinal Urinal Urinal Data Completed and Pending Labs on day of discharge: Labs from last 24 hours 04/12/21 04/12/21 06:07 06:07 Plt Count 306 Sodium 144 Potassium 3.3 L Chloride 104 Carbon Dioxide 35.1 H Anion Gap 4.9 BUN 18 Creatinine 1.0 Estimated GFR/1.73 m2 >= 60.00 Glucose 99 Calcium 8.6 Total Bilirubin 0.4 AST 24 ALT 48 Alkaline Phosphatase 145 H Total Protein 6.4 Albumin 2.9 L PFSH All Active Problems Hypertension (Chronic) Bilateral edema of lower extremity (Acute) History of alcohol abuse (Acute) Alcohol withdrawal seizure (Acute) Back pain (Chronic) Methadone dependence (Chronic) Depression (Chronic) Medical History Alcohol abuse Anxiety Major depression Surgical History History of tonsillectomy and adenoidectomy Family History Maternal Grandfather Alcohol use disorder Social History Smoking/Tobacco Use Status: Current every day Tobacco Type: cigarettes Smoking risk assessment performed?: Yes Alcohol Intake: current Alcohol Intake frequency: 3 or more drinks per day Alcohol type: beer and hard liquor Drug use: Current Sobriety Substance use type: former substance user Date of last use: >5yrs and prescript ion drug Housing: other Details: lives in [facility] Do you feel safe at home: No Do you feel safe in your relationship?: Yes Additional Social history: Homeless
--- NOTE | 2021-04-12 10:58 | CMDISCH_ITS ---
- If Service Date Differs Date of service: 04/12/21 Time of Service: 10:58 LACE Index Scoring Tool - Questions: Length of Stay (in days): 2 Acuity (Admit via E.D.?): Yes E.D. Visits: 4 - Answers: Total Score: 9 Risk of Readmission: Low Risk Care Management Discharge Reason for Hospitalization: Edema, Alcohol Intoxication, HTN Discharge Plan: Discharge back to his room at the [facility] in [facility] via private vehicle with a friend. He will follow up with his community providers and discharge plan of care as prescribed. CM offered to coordinate a follow up with a Endodontic Assistant before discharge, however he declines. Patient/Family Education Needs: Review discharge instructions, limitations and plan to follow up with providers. ask me three.
== END 2021-04-12 12:30 | disposition home or self-care (01) | DRG 844 ==
LOC: ER 23:12 → ICU 23:13 → MS 04-12 00:16
PROVIDERS: Family Medicine; Internal Medicine; Admitting Provider General Practice; Emergency Provider Physician Assistant; PCP Nurse Practitioner Family; Visit Provider General Practice
DX: E88.09 Other disorders of plasma-protein metabolism, not elsewhere classified (principal); F11.20 Opioid dependence, uncomplicated; F33.1 Major depressive disorder, recurrent, moderate; I87.2 Venous insufficiency (chronic) (peripheral); R60.0 Localized edema; F10.120 Alcohol abuse with intoxication, uncomplicated; F41.9 Anxiety disorder, unspecified; Y90.6 Blood alcohol level of 120-199 mg/100 ml; I10 Essential (primary) hypertension
CPT/HCPCS: 36415; 80048; 80053; 80307; 87635; 93005; 96365; 96366; 96368; 96375; 99285; J1650; 71046; 80320; 81003; 83735; 83880; 84484; 85025; 85049; 85379; 93010; 93970; 99222; 99233; 99239; J0696; J1940

== ENCOUNTER 2021-04-28 16:03 | Emergency (ER) | payer MEDICARE, MEDICAID, SELFPAY ==
[2021-04-28 16:21] VITALS: BP 104/69; PULSE 78; RESP 12; TEMP 36.7; O2SAT 94
--- NOTE | 2021-04-28 16:41 | ED.GENADUL_ITS ---
Discharge Plan Disposition Patient Disposition: HOME Condition: Stable Discharge Details Clinical Impression: Alcohol dependence, Depression, COVID-19 Primary Care Provider: Jada Mulligan ED Provider: Tanner Fuentes Meds and New Rx's Prescriptions: Continued methadone [Methadone Intensol] 10 mg/mL Concentrate 90 mg PO DAILY Qty: 0 RF: 0 trazodone 100 mg Tablet 100 mg PO HS RF: 0 lisinopril 10 mg Tablet 10 mg PO DAILY RF: 0 atenolol 50 mg Tablet 50 mg PO DAILY RF: 0 hydrochlorothiazide 12.5 mg Tablet 12.5 mg PO DAILY RF: 0 omeprazole 20 mg Tablet,Delayed Release (Dr/Ec) 20 mg PO DAILY RF: 0 gabapentin 600 mg Tablet 600 mg PO TID RF: 0 aripiprazole 5 mg Tablet 5 mg PO DAILY RF: 0 sertraline 50 mg Tablet 150 mg PO DAILY RF: 0 cyclobenzaprine 5 mg Tablet 5 mg PO HS RF: 0 disulfiram 250 mg Tablet 250 mg PO DAILY RF: 0 nicotine 21 mg/24 hr Patch 24 Hour 21 mg transdermal DAILY RF: 0 nicotine (polacrilex) 4 mg Gum 4 mg BUCCAL Q2H RF: 0 folic acid 1 mg Tablet 1 mg PO QAM Qty: 30 RF: 0 multivitamin [Multiple Vitamins] Tablet 1 tab PO QAM Qty: 30 RF: 0 thiamine mononitrate (vit B1) [Vitamin B-1 (mononitrate)] 100 mg Tablet 100 mg PO QAM Qty: 30 RF: 0 chlordiazepoxide HCl 25 mg Capsule See Rx Instructions .ROUTE .COMPLEX Qty: 16 RF: 0 Discharge Instructions Instructions: COVID-19 (Coronavirus Disease 2019) (ED) Additional Instructions: You underwent medical screening examination in the emergency department including laboratory analysis. You are medically stable for discharge from the emergency department. Your potassium was slightly low and you may increase potassium containing foods in your diet such as bananas, strawberries, tree nuts like almonds or cashews. You were given mental potassium today in the ER. Continue your efforts to decrease or cease alcohol use. Prescription for Librium sent to pharmacy. Contact coach operator for help. Contact PCP for further care. You have COVID and should isolate from others until symptoms have resolved. Referrals: Jada Mulligan, CLARKE [Primary Care Provider] - Medical Decision Making <Johnny Dc MD - Last Filed: 04/28/21 18:50> 50-year-old male with depressed mood. States he had longstanding alcoholism, currently drinking liquor and malt beverages daily. States he is homeless and presents tonight with his friend due to that they are both needed and homeless. Denies any specific plan to kill himself. Medical screening examination performed including laboratory analysis. Patient's alcohol level was 186. AST 91, ALT 84, total bili 0.3. Chemistries with sodium 135, potassium 3.1 which was supplemented in the emergency department. Patient evaluated by [facility] human services. They recommended further observation given the patient's history of alcohol detox. Lab Data Lab results reviewed: Yes I reviewed the patient's lab results. Labs: Laboratory Results - last 24 hr 04/28/21 04/28/21 04/28/21 15:00 16:50 16:50 WBC 7.97 RBC 4.40 Hgb 13.4 L Hct 41.9 MCV 95.2 H MCH 30.5 MCHC 32.0 RDW 16.3 H Plt Count 270 MPV 9.3 Immature Gran % 0.3 Neutrophils % 70.3 Lymphocytes % 19.9 Monocytes % 8.8 Eosinophils % 0.1 Basophils % 0.6 Nucleated RBC % 0 Absolute Neutrophils 5.60 Absolute Lymphocytes 1.59 Absolute Monocytes 0.70 Absolute Eosinophils 0.01 Absolute Basophils 0.05 Sodium 135 L Potassium 3.1 L Chloride 95 L Carbon Dioxide 27.6 Anion Gap 12.4 H BUN 12 Creatinine 1.1 Estimated GFR/1.73 m2 >= 60.00 Glucose 124 H Calcium 8.1 L Magnesium 1.9 Total Bilirubin 0.3 AST 91 H ALT 84 H Alkaline Phosphatase 146 H Total Protein 7.4 Albumin 3.3 L Urine Opiates Screen Negative Urine Methadone Screen Positive A Ur Barbiturates Screen Negative Ur Tricyclics Screen Negative Ur Amphetamines Screen Negative U Benzodiazepines Scrn Positive A Urine Cocaine Screen Negative Ur THC Screen Negative Ethyl Alcohol 186.1 H COVID-19 Source 04/28/21 16:50 WBC RBC Hgb Hct MCV MCH MCHC RDW Plt Count MPV Immature Gran % Neutrophils % Lymphocytes % Monocytes % Eosinophils % Basophils % Nucleated RBC % Absolute Neutrophils Absolute Lymphocytes Absolute Monocytes Absolute Eosinophils Absolute Basophils Sodium Potassium Chloride Carbon Dioxide Anion Gap BUN Creatinine Estimated GFR/1.73 m2 Glucose Calcium Magnesium Total Bilirubin AST ALT Alkaline Phosphatase Total Protein Albumin Urine Opiates Screen Urine Methadone Screen Ur Barbiturates Screen Ur Tricyclics Screen Ur Amphetamines Screen U Benzodiazepines Scrn Urine Cocaine Screen Ur THC Screen Ethyl Alcohol COVID-19 Source Nasal/Nares <Tanner Fuentes MD - Last Filed: 04/29/21 06:23> Patient signed out to me pending overnight observation for alcohol withdrawal. Patient did recieve a couple doses of Librium 25 mg and did well overall. He is COVID positive and has been doing IS as well as instructed to move and change positions throughout the night. He is requesting discharge and will go to get his methadone this morning and berry picker prescription for Librium later today. Return to ED if problems, otherwise contact PCP for further care. Lab Data Lab results reviewed: Yes I reviewed the patient's lab results. HPI <Johnny Dc MD - Last Filed: 04/28/21 18:50> General Mode of arrival: ambulatory . Date/Time Provider Initiated Documentation: 04/28/21 16:09 . Limitations to Documentation: no limitations . Information obtained by: patient . History of Present Illness 50 year old M presents to the emergency department with the chief complaint of Alcohol abuse, homelessness, described as moderate, Patient started experiencing this week(s) and it has been constant. No relieving factors improve symptom(s), No exacerbating factors reported . Patient notes no other symptoms.. Patient did receive the following treatments prior to arrival, none Related Data Home Medications Medication Instructions Recorded Confirmed atenolol 50 mg PO DAILY 01/09/21 04/10/21 hydrochlorothiazide 12.5 mg PO DAILY 01/09/21 04/10/21 lisinopril 10 mg PO DAILY 01/09/21 04/10/21 omeprazole 20 mg PO DAILY 01/09/21 04/10/21 trazodone 100 mg PO HS 01/09/21 04/10/21 gabapentin 600 mg PO TID 01/10/21 04/10/21 aripiprazole 5 mg PO DAILY 03/23/21 04/10/21 cyclobenzaprine 5 mg PO HS 03/23/21 04/10/21 disulfiram 250 mg PO DAILY 03/23/21 04/10/21 nicotine 21 mg TRANSDERMAL DAILY 03/23/21 04/10/21 nicotine (polacrilex) 4 mg BUCCAL Q2H 03/23/21 04/10/21 sertraline 150 mg PO DAILY 03/23/21 04/10/21 folic acid 1 mg PO QAM #30 tab 03/26/21 04/10/21 multivitamin [Multiple Vitamins] 1 tab PO QAM #30 tab 03/26/21 04/10/21 thiamine mononitrate (vit B1) 100 mg PO QAM #30 tab 03/26/21 04/10/21 [Vitamin B-1 (mononitrate)] methadone [Methadone Intensol] 90 mg PO DAILY #0 ml 04/12/21 chlordiazepoxide HCl See Rx Instructions .ROUTE 04/29/21 .COMPLEX #16 cap Previous Rx's Medication Instructions Recorded folic acid 1 mg PO QAM #30 tab 03/26/21 multivitamin [Multiple Vitamins] 1 tab PO QAM #30 tab 03/26/21 thiamine mononitrate (vit B1) 100 mg PO QAM #30 tab 03/26/21 [Vitamin B-1 (mononitrate)] methadone [Methadone Intensol] 90 mg PO DAILY #0 ml 04/12/21 chlordiazepoxide HCl See Rx Instructions .ROUTE 04/29/21 .COMPLEX #16 cap Allergies Allergy/AdvReac Type Severity Reaction Status Date / Time Sulfa (Sulfonamide Allergy Intermediate Skin Rash Unverified 04/10/21 18:28 Antibiotics) General Stated Complaint: ETOHWithdr RDOGER: 2 Review of Systems <Johnny Dc MD - Last Filed: 04/28/21 18:50> Narrative: Received the [employer] COVID-19 immunization. Drinking daily. Feels his mood depressed but no specific plan to kill himself. Sick systems reviewed and otherwise negative PFSH <Johnny Dc MD - Last Filed: 04/28/21 18:50> All Active Problems (Updated 04/29/21 @ 06:15 by Tanner Fuentes MD) Alcohol dependence (Acute) COVID-19 (Acute) Hypertension (Chronic) Bilateral edema of lower extremity (Acute) History of alcohol abuse (Acute) Alcohol withdrawal seizure (Acute) Back pain (Chronic) Methadone dependence (Chronic) Depression (Chronic) Medical History Alcohol abuse Anxiety Major depression Surgical History History of tonsillectomy and adenoidectomy Family History Maternal Grandfather Alcohol use disorder Social History Smoking/Tobacco Use Status: Current every day Tobacco Type: cigarettes Smoking risk assessment performed?: Yes Alcohol Intake: current Alcohol Intake frequency: 3 or more drinks per day Alcohol type: beer and hard liquor Drug use: Never Substance use type: former substance user Date of last use: >5yrs, crack/cocaine, amphetamines and prescription drug Housing: other Details: lives in [facility] Do you feel safe at home: No Do you feel safe in your relationship?: Yes Additional Social history: Homeless Exam <Johnny Dc MD - Last Filed: 04/28/21 18:50> Narrative Exam Narrative: GEN: awake, alert, oriented 3. Pleasant, well groomed, interactive. HEAD: Normocephalic, atraumatic ENT: Mucous membranes dry, oropharynx unremarkable, External ear exam unremarkable EYES: PERRL, EOMI NECK: Full ROM, no SHAKA, no menigismus CHEST/RESP: Nontender, clear to auscultation bilateral, no wheeze/rhonchi/rales CARDIOVASCULAR: RRR, no murmur, rub seda. 2+ Rad pulse bilateral ABDOMEN: Soft, nontender, no mass. +Bowel sounds EXT: Full ROM, no edema, no rash Neuro: Grossly normal neurologic exam, conversant, interactive. Psych: Speech fluent, thoughts congruent, affect normal Course <Johnny Dc MD - Last Filed: 04/28/21 18:50> Vital Signs Vital signs: Vital Signs Temperature 36.7 C 04/28/21 16:21 Pulse 78 04/28/21 16:21 Respiratory Rate 12 04/28/21 16:21 Blood Pressure 104/69 04/28/21 16:21 Pulse Oximetry 94 04/28/21 16:21 Temperature 36.7 C 04/28/21 16:21 Temperature Source Oral 04/28/21 16:21 Pulse 78 04/28/21 16:21 Respiratory Rate 12 04/28/21 16:21 Blood Pressure 104/69 04/28/21 16:21 Blood Pressure Position Sitting 04/28/21 16:21 Pulse Oximetry 94 04/28/21 16:21 Oxygen Delivery Method Room Air 04/28/21 16:21 Oxygen Flow Rate 0 04/28/21 16:21 Pain Level 0 04/28/21 16:21 Comment 04/28/21 16:21 Sign Out <Johnny Dc MD - Last Filed: 04/28/21 18:50> Sign Out Data: Sign Out Comment: Etoh, Depression. Re-eval in AM Last updated by Johnny Dc MD at 04/28/21 21:58
[2021-04-28 17:00] LABS: Source Nasal/Nares
[2021-04-28 17:02] LABS: Abs Immature Grans 0.02 10^3/uL (0.0-0.06); Absolute Basophil Count 0.05 10^3/uL (0.0-0.2); Absolute Eosinophil Count 0.01 10^3/uL (0.0-0.7); Absolute Lymphocyte Count 1.59 10^3/uL (1.2-3.4); Basophils % 0.6; Eosinophils % 0.1; HCT 41.9 % (40.0-50.0); HGB 13.4 g/dL (13.5-17.5); Immature Grans % 0.3; Lymphocytes % 19.9; MCH 30.5 pg (27.0-33.0); MCV 95.2 fL (80-95); MPV 9.3 fL (8.0-11.0); Monocytes % 8.8; Neutrophils % 70.3; Nucleated RBC 0 %; Platelet Count 270 10^3/uL (130-400); RDW 16.3 % (11.8-14.1); RDW-SD 57.1 fL; WBC 7.97 10^3/uL (4.4-10.8)
--- NOTE | 2021-04-28 17:10 | NUR.NOTE ---
Nursing Note: Unable to complete alcohol assessment, pt sleeping, awakens to name but then mumbles & returns to sleep, unable to keep awake for assessment at this time, cont. to monitor.
[2021-04-28 17:16] LABS: ALT 84 U/L (16-63); AST 91 U/L (15-37); Albumin 3.3 g/dL (3.4-5.0); Alkaline Phosphatase 146 U/L (46-116); Anion Gap 12.4 mmol/L (3-11); BUN 12 mg/dL (7-18); Bilirubin, Total 0.3 mg/dL (0.2-1.0); CO2 27.6 mmol/L (21.0-32.0); CREATININE 1.1 mg/dL (0.70-1.30); Calcium 8.1 mg/dL (8.5-10.1); Chloride 95 mmol/L (98-107); ETHANOL BLOOD 186.1 mg/dL (<10); Glucose 124 mg/dL (74-106); Magnesium 1.9 mg/dL (1.8-2.4); Potassium 3.1 mmol/L (3.5-5.1); Sodium 135 mmol/L (136-145); Total Protein 7.4 g/dL (6.4-8.2)
[2021-04-28 17:21] LABS: *AMPHETAMINES SCREEN URINE Negative (Negative); *BARBITURATES SCREEN URINE Negative (Negative); *BENZODIAZEPINES SCREEN URINE Positive (Negative); Cannabinoids THC Negative (Negative); Cocaine Screen,Urine Negative (Negative); METHADONE URINE SCREEN Positive (Negative); OPIATES URINE SCREEN Negative (Negative); Tricyclic Antidepressants Negative (Negative)
[2021-04-28] MEDS: Potassium Chloride Liquid 20 MEQ PKT PO (17:43)
[2021-04-28 20:26] LABS: COVID-19 PCR Positive (Negative)
[2021-04-28 22:45] VITALS: BP 143/68; PULSE 82; RESP 20; TEMP 36.9; O2SAT 90
[2021-04-28] MEDS: chlordiazePOXIDE 25 MG CAP PO (22:55)
[2021-04-28] MEDS: Ondansetron O.D.T. 4 MG TABEF (22:55)
[2021-04-29 03:15] VITALS: BP 123/82; PULSE 94; RESP 20; TEMP 36.7; O2SAT 93
[2021-04-29] MEDS: chlordiazePOXIDE 25 MG CAP PO (03:35)
[2021-04-29 06:15] VITALS: BP 132/70; PULSE 92; RESP 18; TEMP 36.8; O2SAT 94
== END 2021-04-29 06:26 | disposition home or self-care (01) ==
PROVIDERS: Emergency Medicine; Emergency Provider Emergency Medicine; PCP Nurse Practitioner Family
DX: F10.229 Alcohol dependence with intoxication, unspecified (principal); Y90.6 Blood alcohol level of 120-199 mg/100 ml; F32.A Depression, unspecified; U07.1 COVID-19; E87.6 Hypokalemia; F10.20 Alcohol dependence, uncomplicated
CPT/HCPCS: 36415; 80053; 80307; 87635; 99283; 80320; 83735; 85025; J8597

== ENCOUNTER 2021-05-11 13:39 | Inpatient (IN) | payer MEDICARE, MEDICAID, SELFPAY ==
[2021-05-11 13:43] VITALS: BP 110/80; PULSE 97; RESP 18; TEMP 37.2; O2SAT 90
--- NOTE | 2021-05-11 13:54 | W.ED.GENAD ---
Discharge Plan Disposition Patient Disposition: [facility] INPATIENT Condition: Stable Discharge Details Clinical Impression: Depression, Alcohol dependence Primary Care Provider: Jada Mulligan ED Provider: Johnny Dc Home Meds and New Rx's Prescriptions: No Action methadone [Methadone Intensol] 10 mg/mL Concentrate 90 mg PO DAILY Qty: 0 RF: 0 trazodone 100 mg Tablet 100 mg PO HS RF: 0 lisinopril 10 mg Tablet 10 mg PO DAILY RF: 0 atenolol 50 mg Tablet 50 mg PO DAILY RF: 0 hydrochlorothiazide 12.5 mg Tablet 12.5 mg PO DAILY RF: 0 omeprazole 20 mg Tablet,Delayed Release (Dr/Ec) 20 mg PO DAILY RF: 0 gabapentin 600 mg Tablet 600 mg PO TID RF: 0 aripiprazole 5 mg Tablet 5 mg PO DAILY RF: 0 sertraline 50 mg Tablet 150 mg PO DAILY RF: 0 cyclobenzaprine 5 mg Tablet 5 mg PO HS RF: 0 disulfiram 250 mg Tablet 250 mg PO DAILY RF: 0 nicotine 21 mg/24 hr Patch 24 Hour 21 mg transdermal DAILY RF: 0 nicotine (polacrilex) 4 mg Gum 4 mg BUCCAL Q2H RF: 0 folic acid 1 mg Tablet 1 mg PO QAM Qty: 30 RF: 0 multivitamin [Multiple Vitamins] Tablet 1 tab PO QAM Qty: 30 RF: 0 thiamine mononitrate (vit B1) [Vitamin B-1 (mononitrate)] 100 mg Tablet 100 mg PO QAM Qty: 30 RF: 0 chlordiazepoxide HCl 25 mg Capsule See Rx Instructions .ROUTE .COMPLEX Qty: 16 RF: 0 Medical Decision Making <Johnny Dc MD - Last Filed: 05/13/21 12:58> 51-year-old male presents from the community complaining of depression and ongoing substance abuse with cocaine and alcohol. He has been seen in the emergency department recently including a trial of outpatient Librium taper. States he continues to drink with last alcohol use morning. He feels depressed and feels he needs inpatient psychiatric care. Patient underwent medical screening examination including laboratory analysis. He is slightly intoxicated with an alcohol of 130, but is clinically able to carry on a conversation and history taking. Laboratory notes a white count of 9, hematocrit 43, platelets 300. MCV is 96. Chemistries reassuring, AST 111, ALT 102, total bili 0.3. Initial alcohol of 130. Patient remains calm and crisis screening requested. We were informed that there is a policy of 0 alcohol and therefore ethyl alcohol was redrawn approximately 630p with a level of 24. At this time patient complains of feeling slightly jittery as if he is withdrawing and is given Librium while awaiting interview by crisis services. Addendum: Received transfer of care from Dr. Lopes for the morning of May 12. Patient with some mild withdrawal symptoms for which he is receiving Librium. No beds currently available in the hospital. Mental health services feel the patient requires further medical stabilization and will reinterview him tomorrow. Patient will be signed out to Dr. Machuca for the evening shift of May 12. Addendum: I again recent assumed care of the patient from Dr. Parra for the morning of May 13. As per Dr. Parra's note, patient overnight with no objective signs of alcohol withdrawal. I have reexamined him, his pulse is 80 and his affect is somewhat anxious and mildly agitated. He certainly has longstanding addiction and anxiety with cravings for alcohol and polysubstance abuse. I feel he is medically stable and has essentially detoxed off of EtOH. Nonetheless, I do feel a single 25 mg dose of Librium will allow him to taper and will provide him this this morning with plans for no need of further Librium. Patient medically stable for reevaluation by crisis services on May 13. They feel the patient does merit treatment for ongoing suicidality and depression and a place referral to [facility]. Would note that while the patient's COVID 2 PCR remains positive he has been 2 weeks since the initial diagnosis is and is without symptoms. <Jeremy Lopes MD - Last Filed: 05/12/21 06:50> Care signed out by Dr. Dc with plan to follow-up on crisis screener recommendations in a.m. Nursing noted patient was feeling a little jittery requesting Librium. Last dose of Librium was given last night. Will repeat dosing. Daily meds including methadone ordered. <Flo Machuca MD - Last Filed: 05/12/21 17:48> pt stable awaitin reassessment from mental health tomorrow, is not currently in withdrawal or DT's, has had some prn doses of librium. Will continue to monitor pt stating he is feeling anxious, vitals stable, no tremors or other signs of withdrawal so likely just anxiety, has had good relief with librium, will give a dose now <Mark Parra DO - Last Filed: 05/13/21 06:53> Patient signed out to me by my colleague Dr. Aditya Machuca. Patient stable throughout the night. Required no interventions or Librium throughout my shift or the prior shift. Patient shows no signs of alcohol withdrawal whatsoever at this time. Patient medically cleared at this time. Patient will be signed out to my colleague Dr. Johnny Dc. HPI <Johnny Dc MD - Last Filed: 05/13/21 12:58> General Mode of arrival: ambulatory. Date/Time Provider Initiated Documentation: 05/11/21 13:48. Limitations to Documentation: no limitations. Information obtained by: patient. History of Present Illness 51 year old M presents to the emergency department with the chief complaint of Depressed, substance abuse, described as moderate and similar to prior episodes, Quality is described as dull and constant, Patient reports no radiation. Patient started experiencing this week(s) and it has been constant. No relieving factors improve symptom(s), No exacerbating factors reported . Patient notes cough; denies shortness of breath and syncope. Patient did receive the following treatments prior to arrival, none Related Data Home Medications Medication Instructions Recorded Confirmed atenolol 50 mg PO DAILY 01/09/21 05/11/21 hydrochlorothiazide 12.5 mg PO DAILY 01/09/21 05/11/21 lisinopril 10 mg PO DAILY 01/09/21 05/11/21 omeprazole 20 mg PO DAILY 01/09/21 05/11/21 trazodone 100 mg PO HS 01/09/21 05/11/21 gabapentin 600 mg PO TID 01/10/21 05/11/21 aripiprazole 5 mg PO DAILY 03/23/21 05/11/21 cyclobenzaprine 5 mg PO HS 03/23/21 05/11/21 disulfiram 250 mg PO DAILY 03/23/21 05/12/21 nicotine 21 mg TRANSDERMAL DAILY 03/23/21 04/29/21 nicotine (polacrilex) 4 mg BUCCAL Q2H 03/23/21 04/29/21 sertraline 150 mg PO DAILY 03/23/21 05/11/21 folic acid 1 mg PO QAM #30 tab 03/26/21 05/11/21 multivitamin [Multiple Vitamins] 1 tab PO QAM #30 tab 03/26/21 05/11/21 thiamine mononitrate (vit B1) 100 mg PO QAM #30 tab 03/26/21 05/11/21 [Vitamin B-1 (mononitrate)] methadone [Methadone Intensol] 90 mg PO DAILY #0 ml 04/12/21 05/12/21 chlordiazepoxide HCl See Rx Instructions .ROUTE 04/29/21 05/11/21 .COMPLEX #16 cap Previous Rx's Medication Instructions Recorded folic acid 1 mg PO QAM #30 tab 03/26/21 multivitamin [Multiple Vitamins] 1 tab PO QAM #30 tab 03/26/21 thiamine mononitrate (vit B1) 100 mg PO QAM #30 tab 03/26/21 [Vitamin B-1 (mononitrate)] methadone [Methadone Intensol] 90 mg PO DAILY #0 ml 04/12/21 chlordiazepoxide HCl See Rx Instructions .ROUTE 04/29/21 .COMPLEX #16 cap Allergies Allergy/AdvReac Type Severity Reaction Status Date / Time Sulfa (Sulfonamide Allergy Intermediate Skin Rash Unverified 05/11/21 13:48 Antibiotics) General Stated Complaint: PsychEval RODGER: 2 Review of Systems <Johnny Dc MD - Last Filed: 05/13/21 12:58> Narrative: 6 systems reviewed and otherwise negative. PFSH <Johnny Dc MD - Last Filed: 05/13/21 12:58> All Active Problems (Updated 05/12/21 @ 14:10 by Johnny Dc MD) Alcohol dependence (Acute) COVID-19 (Acute) Hypertension (Chronic) History of alcohol abuse (Acute) Alcohol withdrawal seizure (Acute) Back pain (Chronic) Methadone dependence (Chronic) Depression (Chronic) Medical History Alcohol abuse Anxiety Major depression Surgical History History of tonsillectomy and adenoidectomy Family History Maternal Grandfather Alcohol use disorder Social History Smoking/Tobacco Use Status: Current every day Tobacco Type: cigarettes Smoking risk assessment performed?: Yes Alcohol Intake: current Alcohol Intake frequency: 3 or more drinks per day Alcohol type: beer and hard liquor Drug use: Daily Substance use type: former substance user Date of last use: >5yrs, crack/cocaine, amphetamines and prescription drug Housing: other Details: lives [facility] Do you feel safe at home: No Do you feel safe in your relationship?: Yes Additional Social history: Homeless Exam <Johnny Dc MD - Last Filed: 05/13/21 12:58> Narrative Exam Narrative: GEN: awake, alert, oriented 3. Pleasant, well groomed, interactive. HEAD: Normocephalic, atraumatic ENT: Mucous membranes dry, oropharynx unremarkable, External ear exam unremarkable EYES: PERRL, EOMI NECK: Full ROM, no SHAKA, no menigismus CHEST/RESP: Nontender, clear to auscultation bilateral, no wheeze/rhonchi/rales CARDIOVASCULAR: RRR, no murmur, rub seda. 2+ Rad pulse bilateral ABDOMEN: Soft, nontender, no mass. +Bowel sounds EXT: Full ROM, no edema, no rash Neuro: Grossly normal neurologic exam, conversant, interactive. Psych: Speech fluent, thoughts congruent, affect flat Course <Johnny Dc MD - Last Filed: 05/13/21 12:58> Vital Signs Vital signs: Vital Signs Temperature 37.2 C 05/11/21 13:43 Pulse 97 H 05/11/21 13:43 Respiratory Rate 18 05/11/21 13:43 Blood Pressure 110/80 05/11/21 13:43 Pulse Oximetry 90 L 05/11/21 13:43 Temperature 37.2 C 05/11/21 13:43 Temperature Source Oral 05/11/21 13:43 Pulse 97 H 05/11/21 13:43 Respiratory Rate 18 05/11/21 13:43 Blood Pressure 110/80 05/11/21 13:43 Blood Pressure Position Sitting 05/11/21 13:43 Pulse Oximetry 90 L 05/11/21 13:43 Oxygen Delivery Method Room Air 05/11/21 13:43 Oxygen Flow Rate 0 05/11/21 13:43 Sign Out <Johnny Dc MD - Last Filed: 05/13/21 12:58> Sign Out Data: Sign Out Comment: Voluntary for depression and EtOH Last updated by Johnny Dc MD at 05/11/21 19:13 Sign Out Comment: Awaiting crisis evaluation. Patient did receive methadone dosing today. Last updated by Jeremy Lopes MD at 05/12/21 07:54 Sign Out Comment: Pending placement, rescreen tomorrow Last updated by Johnny Dc MD at 05/12/21 14:14 Sign Out Comment: voluntary for depression and alcohol abuse, has had a few prn doses of librium for possible mild withdrawal symptoms. Will be rescreened tomorrow Last updated by Flo Machuca MD at 05/12/21 16:17 Sign Out Comment: Patient signed out to me by my colleague Dr. Aditya Machuca. Patient stable throughout the night. Required no interventions or Librium throughout my shift or the prior shift. Patient shows no signs of alcohol withdrawal whatsoever at this time. Patient medically cleared at this time. Patient will be signed out to my colleague Dr. Johnny Dc. Last updated by Mark Parra DO at 05/13/21 06:53
[2021-05-11 14:49] LABS: Source Nasal/Nares
[2021-05-11 14:52] LABS: Abs Immature Grans 0.04 10^3/uL (0.0-0.06); Absolute Basophil Count 0.05 10^3/uL (0.0-0.2); Absolute Eosinophil Count 0.16 10^3/uL (0.0-0.7); Absolute Lymphocyte Count 2.65 10^3/uL (1.2-3.4); Absolute Monocyte Count 0.81 10^3/uL (0.1-0.8); Absolute Neutrophil Count 5.65 10^3/uL (1.2-6.7); Basophils % 0.5; Eosinophils % 1.7; HCT 43.8 % (40.0-50.0); HGB 13.8 g/dL (13.5-17.5); Immature Grans % 0.4; Lymphocytes % 28.3; MCH 30.5 pg (27.0-33.0); MCHC 31.5 % (32.0-36.0); MCV 96.7 fL (80-95); MPV 9.5 fL (8.0-11.0); Monocytes % 8.7; Neutrophils % 60.4; Nucleated RBC 0 %; Platelet Count 300 10^3/uL (130-400); RBC 4.53 10^6/uL (4.36-5.78); RDW 15.2 % (11.8-14.1); RDW-SD 54.3 fL; WBC 9.36 10^3/uL (4.4-10.8)
[2021-05-11 15:08] LABS: ALT 102 U/L (16-63); AST 111 U/L (15-37); Albumin 2.7 g/dL (3.4-5.0); Alkaline Phosphatase 153 U/L (46-116); BUN 8 mg/dL (7-18); Bilirubin, Total 0.3 mg/dL (0.2-1.0); Calcium 8.8 mg/dL (8.5-10.1); Chloride 101 mmol/L (98-107); ETHANOL BLOOD 130.1 mg/dL (<10); Glucose 121 mg/dL (74-106); Potassium 3.2 mmol/L (3.5-5.1); Sodium 140 mmol/L (136-145); TSH (W/Ref FT4) 1.53 uIU/mL (0.36-3.74); Total Protein 6.9 g/dL (6.4-8.2)
--- NOTE | 2021-05-11 16:44 | CMSP_ITS ---
- If Service Date Differs Date of service: 05/11/21 Time of Service: 16:44 Care Management Safety Plan Status: Voluntary - Reason for Wait Reason for Wait: Inpatient Admission Chief Complaint: Garrett is a 51 year old male who presents in the ED for depression, substance use, and to seek inpatient admission. He will be assessed by [facility] once he is medically cleared. VOLUNTARY FOR INPATIENT PSYCHIATRIC STABILIZATION. Patient is appropriate in all interactions since arriving at [facility]; Pt has demonstrated appropriate coping and communication skills, has articulated his or her needs and concerns and is fully engaged during staff interactions. A huddle is held at approximately 16:[address] Dc, ED Provider, Qing, Nursing Coal Mine Inspector, Elise, Charge Nurse, and CAMILO Carney. Safety plan has been established with patient, and care team, to adhere to patient goals, identify restrictions based on behavioral status, address nutrition, and determine allowed personal belongings, tools for hygiene and personal care. Determine level of activity including ambulation, level of supervision, visitors, and determine privileges based on behaviors and level of engagement by pt. SAFETY PLAN: 1. Will remain on suicide precautions. In Paper Clothes 2. Will remain in room under direct supervision of one-on-one staff at all times provided by [employer]PS[employer], KEVAN, SOFTWARE ENGINEERING ASSOCIATE MANAGER strap machine operator. 3. May have paper cups, plates, finger foods as well as a cardboard spoon with which to eat meals. 4. Follow [facility] Management of the Admitted Behavioral Health Patient policy. 5. Shower permitted with escort at RN discretion. 6. No personal belongings. 7. Visitors-none at this time. 8. Activities: soft cart items, music tablet, television if available, and other activities at RN discretion. 9. Bathroom privileges with escort in the ED, available in room without limitation on M/S. 10. Phone: may use hospital cordless phone at RN discretion. 11. Due to VOLUNTARY status, if patient wishes to leave [facility], staff will contact [facility] Crisis Screener ([phone]) and On-Call Color Technician ([phone]) as soon as possible. In the event of elopement, notify [facility] Police ([phone]). Patient is currently voluntarily at [facility] and seeking inpatient admission when a bed becomes available. [facility] Frontline Home Health Outreach Coordinator will continue seeking placement. Please contact the Thermal Surfacing Machine Operator Color Technician ([phone]) and [facility] Home Health Outreach Coordinator ([phone]) for any needed changes in the Safety Plan. Safety plan has been provided to interdepartmental care team.
[2021-05-11 16:58] LABS: Acetaminophen < 2 ug/mL (10-30)
[2021-05-11 18:34] VITALS: BP 133/94; PULSE 89; TEMP 36.8; O2SAT 94
[2021-05-11 18:38] LABS: ETHANOL BLOOD 24.1 mg/dL (<10)
[2021-05-11] MEDS: chlordiazePOXIDE 25 MG CAP 50 MG PO (18:47)
[2021-05-11 18:57] LABS: Bilirubin Negative (Negative); Blood Negative (Negative); Clarity Clear (Clear); Glucose Negative (Negative); Ketones Negative (Negative); Leukocyte Esterase Negative (Negative); Nitrite Negative (Negative); pH 6.5 (5-8)
[2021-05-11 19:02] LABS: *AMPHETAMINES SCREEN URINE Negative (Negative); *BARBITURATES SCREEN URINE Negative (Negative); *BENZODIAZEPINES SCREEN URINE Positive (Negative); Cannabinoids THC Positive (Negative); Cocaine Screen,Urine Positive (Negative); METHADONE URINE SCREEN Positive (Negative); OPIATES URINE SCREEN Negative (Negative)
[2021-05-11 19:04] LABS: Tricyclic Antidepressants Positive (Negative)
[2021-05-11 19:48] LABS: COVID-19 PCR Positive (Negative)
--- NOTE | 2021-05-11 20:59 | PDOC.MHCN_ITS ---
Date of service: 05/11/21 Time of Service: 20:59 Mental Health Crisis Note Presenting Issue How did you arrive at the ED and why did you come: Pt arrived today via ambulance at the request of [facility] after he and his [facility] nurse called seeking support. Pt was intoxicated at the time of arrival and call with [facility]. Precipitating Factors Pt endorsed suicide risk at a 6/10 stating he would do this via helium as it is a non-reactive gas that replaces the O2 in the lungs. He reported that he can get this gas on line but does not have it readily available at this time. Pt admits that he does not like anything that is messy. He is not showing any signs of delusions or thought disorders. Disposition BEHAVIOR: Pt is cooperative and engaged. He has fair insight and judgment now that he is sober. EYE CONTACT: Pt made fair eye contact. MOOD: Pt reported his mood as so depressed and then I got COVID and that made everything worse. AFFECT: Pt's affect is flat and emotionless. APPETITE: Pt reported he does not eat often and it has gotten worst in the last 2 days. SLEEP(trouble falling/staying asleep: Pt reported poor sleep in 2 days. Plan Pt is at a high risk of acting on his suicidal thoughts and there are no resources/supports to ensure safety at this time of the evening. Based on this the Pt will remain at [facility] for the night and be reassessed in the am when he is fully medically cleared (SHI at a .024 at the time of assessment. He will be assessed daily by [facility] until placed or until such time as he is able to be discharged on a safety plan back to the community. Signature Clinician's Name/Title: Ana Nam MS, [facility] Emergency Services Clinician, [facility]
[2021-05-12 05:30] VITALS: BP 126/77; PULSE 98; RESP 18; TEMP 36.4; O2SAT 93
[2021-05-12] MEDS: chlordiazePOXIDE 25 MG CAP 50 MG PO ×3 (06:15→17:55)
[2021-05-12 09:00] VITALS: BP 114/89; PULSE 108; TEMP 36.4; O2SAT 92
[2021-05-12] MEDS: Folic Acid 1 MG TAB PO (09:07)
[2021-05-12] MEDS: ARIPiprazole 5 MG TAB PO (09:07)
[2021-05-12] MEDS: Methadone Liquid 10 MG/ML 90 MG PO (09:07)
[2021-05-12] MEDS: hydroCHLOROthiazide 12.5 MG TAB PO (09:07)
[2021-05-12] MEDS: Atenolol 50 MG TAB PO (09:07)
[2021-05-12] MEDS: Gabapentin 600 MG TAB PO ×3 (09:07→20:41)
[2021-05-12] MEDS: Lisinopril 10 MG TAB PO (09:07)
[2021-05-12] MEDS: Omeprazole 20 MG CAPCR PO (09:08)
[2021-05-12] MEDS: Thiamine 100 MG TAB PO (09:08)
[2021-05-12] MEDS: Sertraline 50 MG TAB 150 MG PO (09:08)
[2021-05-12] MEDS: Multivitamin TAB 1 TAB PO (09:08)
--- NOTE | 2021-05-12 12:40 | PDOC.MHCN ---
Date of service: 05/12/21 Time of Service: 12:40 Mental Health Crisis Note Presenting Issue How did you arrive at the ED and why did you come: Pt arrived 2. via ambulance at the request of [facility] after he and his [facility]IN nurse called seeking support. Pt was intoxicated at the time of arrival and call with [facility]. Precipitating Factors Pt endorsed SI. He denied HI or NSSI. Pt reported he would kill himself via carbon monoxide via his car and a hose. He is not experiencing any delusions at this time. Disposition BEHAVIOR: Pt is cooperative and engaged. He has fair insight and judgment. He is reporting he is not feeling well and was given Librium by the attending. EYE CONTACT: Eye contact is fair. MOOD: Mood is described as I'd rather kill myself than to freeze to . Pt worries about not having housing when he gets out. AFFECT: Affect is flat. APPETITE: Pt attempted to eat but it is not setting well in his stomach. SLEEP(trouble falling/staying asleep: Pt reported he tossed and turned all night. Plan Pt has turned medical and so once cleared medically again [facility] will re-assess and seek plan accordingly. Signature Clinician's Name/Title: Ana Nam MS, [facility] Emergency Services Clinician, [facility]
[2021-05-12 19:30] VITALS: BP 124/81; PULSE 87; RESP 20; TEMP 36.7; O2SAT 95
[2021-05-13 07:21] VITALS: BP 121/82; PULSE 82; TEMP 36.6; O2SAT 90
[2021-05-13] MEDS: Omeprazole 20 MG CAPCR PO (07:31)
[2021-05-13] MEDS: ARIPiprazole 5 MG TAB PO (07:51)
[2021-05-13] MEDS: Atenolol 50 MG TAB PO (07:51)
[2021-05-13] MEDS: Folic Acid 1 MG TAB PO (07:51)
[2021-05-13] MEDS: Gabapentin 600 MG TAB PO ×3 (07:51→20:37)
[2021-05-13] MEDS: Lisinopril 10 MG TAB PO (07:51)
[2021-05-13] MEDS: hydroCHLOROthiazide 12.5 MG TAB PO (07:52)
[2021-05-13] MEDS: Sertraline 50 MG TAB 150 MG PO (07:52)
[2021-05-13] MEDS: Methadone Liquid 10 MG/ML 90 MG PO (07:52)
[2021-05-13] MEDS: Multivitamin TAB 1 TAB PO (07:52)
[2021-05-13] MEDS: Thiamine 100 MG TAB PO (07:52)
[2021-05-13] MEDS: chlordiazePOXIDE 25 MG CAP PO ×3 (08:27→21:09)
[2021-05-13 11:17] LABS: Source Nasal/Nares
--- NOTE | 2021-05-13 11:45 | PDOC.CMSAFED ---
- If Service Date Differs Date of service: 05/13/21 Time of Service: 11:45 Care Management Safety Plan Status: Voluntary - Reason for Wait Reason for Wait: Inpatient Admission Chief Complaint: Garrett is a 51 year old male who presents in the ED for depression, substance use, and to seek inpatient admission. He will be assessed by [facility] once he is medically cleared. VOLUNTARY FOR INPATIENT PSYCHIATRIC STABILIZATION. Patient is appropriate in all interactions since arriving at [facility]; Pt has demonstrated appropriate coping and communication skills, has articulated his or her needs and concerns and is fully engaged during staff interactions. Safety plan has been established with patient, and care team, to adhere to patient goals, identify restrictions based on behavioral status, address nutrition, and determine allowed personal belongings, tools for hygiene and personal care. Determine level of activity including ambulation, level of supervision, visitors, and determine privileges based on behaviors and level of engagement by pt. SAFETY PLAN: 1. Will remain on suicide precautions. In Paper Clothes 2. Will remain in room under direct supervision of one-on-one staff at all times provided by CPSO, SEE SUPERVISOR, DYER ASSISTANT game and fish protector. 3. May have paper cups, plates, finger foods as well as a cardboard spoon with which to eat meals. 4. Follow [facility] Management of the Admitted Behavioral Health Patient policy. 5. Shower permitted with escort at RN discretion. 6. No personal belongings. 7. Visitors-none at this time. 8. Activities: soft cart items, music tablet, television if available, and other activities at RN discretion. 9. Bathroom privileges with escort in the ED, available in room without limitation on M/S. 10. Phone: may use hospital cordless phone at RN discretion. 11. Due to VOLUNTARY status, if patient wishes to leave [facility], staff will contact [facility] Crisis Screener ([phone]) and On-Call Veterans Adviser ([phone]) as soon as possible. In the event of elopement, notify [facility] Police ([phone]). Patient is currently voluntarily at [facility] and seeking inpatient admission when a bed becomes available. [facility] Frontline Geotechnical Field Technician will continue seeking placement. Please contact the Instructor Physical Veterans Adviser ([phone]) and [facility] Geotechnical Field Technician ([phone]) for any needed changes in the Safety Plan. Safety plan has been provided to interdepartmental care team.
[2021-05-13 12:02] LABS: COVID-19 PCR POSITIVE (Negative)
[2021-05-13] MEDS: predniSONE 20 MG TAB 40 MG PO (13:36)
--- NOTE | 2021-05-13 14:21 | W.PM.HP.N ---
Date of service: 05/13/21 Time of Service: 14:21 Assessment and Plan Assessment and plan (1) Alcohol dependence: Status: Acute Assessment and plan: No alcohol since 05/11/21. PRN librium. If starting to see signs/sxs of withdrawal will initiate CIWA monitoring and transfer to [facility]. He desires dual-dx inpatient treatment; referral sent to [facility] where he has been treated in the past. Thiamine and folic acid daily. (2) COVID-19: Status: Acute Assessment and plan: Initially tested positive with PCR on 04/28/21. He had a [employer] & Austen vaccine with plans for a booster. Bronchitis type sxs resolving. PCR test today still positive, but likely d/t viral particles being amplified. He is 10 days past initial testing and given he is not immuno-compromised (Etoh abuse not a criteria for immuno-compromised state per CDC guidlines) will d/c COVID precautions. Not hypoxic. He is a smoker and likely has a componenet of COPD. Prednisone 40 mg daily initiated. (3) Hypertension: Status: Chronic Assessment and plan: Cont home HCTZ, lisinopril and atenolol. Monitor. (4) History of alcohol abuse: Status: Acute Assessment and plan: See Above (5) Methadone dependence: Status: Chronic Assessment and plan: Cont home methadone dosing. (6) Depression: Status: Chronic Assessment and plan: Cont Sertraline, aripiprazole and Trazadone. Mental health crisis team has evaluated and made a referral to [facility] [place]. Qualifiers: Active/Remission status: currently active Depression Type: major depressive disorder Major depression episode severity: moderate Major depression recurrence: recurrent Qualified Code(s): F33.1 - Major depressive disorder, recurrent, moderate (7) Suicidal ideation: Status: Inactive Assessment and plan: As above. Safety plan with sitter. History of Present Illness History of Present Illness Chief Complaint: Depression Narrative: This is a 51 yo male with a PMH of Depression with DI, alcohol and cocaine abuse, tobacco abuse disorder, alcohol withdrawal seizure, methadone dependence, HTN, Covid-19 dx on 04/28/21. He was last admitted and discharged from [facility] on 04/11/21 - 04/14/21 for depression/SI, intoxication. Prior to this admission he was evaluated in the ED and discharged with a librium taper. He presented on 05/11/21 with c/o depression with a stated desire for inpatient psychiatric treatment. He appeared mildly inebriated with an alcohol level of 130. He was managed in the ED until 05/13/21 when admitted to a transition room. He had received a quick librium taper since presenting this time to the ED. His initial AST was 111, ALT 102, Total Bili 0.3. H/H normal. K 3.2. Crisis services evaluated the patient on the day of transfer from the ED to the transition unit, 05/13/21. They felt he would merit inpatient treatment for ongoing depression and SI. A referral to [facility] was placed. Of note, his COVID-19 test remains positive on 05/13/21; first positive on 04/28/21. He has no F/C. Previous cough improved. + residual hoarse voice. Therefore, he is past 10 days of his initial positive test (and subsequent PCR testing could remain positive for weeks while in a noninfectious state), so precautions can be lifted. Review of Systems All systems reviewed & are unremarkable except as noted in HPI and below PFSH All Active Problems Alcohol dependence (Acute) COVID-19 (Acute) Hypertension (Chronic) History of alcohol abuse (Acute) Alcohol withdrawal seizure (Acute) Back pain (Chronic) Methadone dependence (Chronic) Depression (Chronic) Medical History Alcohol abuse Anxiety Major depression Surgical History History of tonsillectomy and adenoidectomy Family History Maternal Grandfather Alcohol use disorder Social History Smoking/Tobacco Use Status: Current every day Tobacco Type: cigarettes Smoking risk assessment performed?: Yes Alcohol Intake: current Alcohol Intake frequency: 3 or more drinks per day Alcohol type: beer and hard liquor Drug use: Daily Substance use type: former substance user Date of last use: >5yrs, crack/cocaine, amphetamines and prescription drug Housing: other Details: lives in [facility] Do you feel safe at home: No Do you feel safe in your relationship?: Yes Additional Social history: Homeless Meds Allergies and Home Medications Allergies Allergy/AdvReac Type Severity Reaction Status Date / Time Sulfa (Sulfonamide Allergy Intermediate Skin Rash Unverified 05/11/21 13:48 Antibiotics) Home Medications Medication Instructions Recorded Confirmed Type atenolol 50 mg PO DAILY 01/09/21 05/11/21 History hydrochlorothiazide 12.5 mg PO DAILY 01/09/21 05/11/21 History lisinopril 10 mg PO DAILY 01/09/21 05/11/21 History omeprazole 20 mg PO DAILY 01/09/21 05/11/21 History trazodone 100 mg PO HS 01/09/21 05/11/21 History gabapentin 600 mg PO TID 01/10/21 05/11/21 History aripiprazole 5 mg PO DAILY 03/23/21 05/11/21 History cyclobenzaprine 5 mg PO HS 03/23/21 05/11/21 History disulfiram 250 mg PO DAILY 03/23/21 05/12/21 History nicotine 21 mg TRANSDERMAL DAILY 03/23/21 04/29/21 History nicotine (polacrilex) 4 mg BUCCAL Q2H 03/23/21 04/29/21 History sertraline 150 mg PO DAILY 03/23/21 05/11/21 History folic acid 1 mg PO QAM #30 tab 03/26/21 05/11/21 Rx multivitamin [Multiple Vitamins] 1 tab PO QAM #30 tab 03/26/21 05/11/21 Rx thiamine mononitrate (vit B1) 100 mg PO QAM #30 tab 03/26/21 05/11/21 Rx [Vitamin B-1 (mononitrate)] methadone [Methadone Intensol] 90 mg PO DAILY #0 ml 04/12/21 05/12/21 Rx chlordiazepoxide HCl See Rx Instructions .ROUTE 04/29/21 05/11/21 Rx .COMPLEX #16 cap Exam Narrative Exam Narrative: Lying on bed; sits up for exam and is engaging in conversation. Const General: cooperative and no acute distress Nutritional Appearance: obese Orientation: alert and oriented x3 HENMT Head: atraumatic Ears: hearing grossly normal bilaterally Eyes General: appearance normal, both eyes and all related structures Sclera: sclerae normal Resp Effort & Inspection: normal respiratory effort Auscultation: clear to auscultation bilaterally Cardio Rate: regular rate Rhythm: regular rhythm Heart Sounds: S1 normal and S2 normal GI Inspection: obesity Palpation: soft and nontender Auscultation: normal bowel sounds Skin General skin exam: no rashes or lesions noted Neuro General: no focal motor deficits Speech: speech normal Motor: no tremors Extrem General: no pedal edema and no calf tenderness Psych Appearance: grossly normal Speech and Movement: speech and movement normal Mood: dysthymic mood Affect: blunted Results Labs Result diagrams: 05/11/21 14:29 05/11/21 14:29 Labs: Laboratory Results - last 24 hr 05/13/21 11:00 COVID-19 Source Nasal/Nares SARS-CoV-2 (PCR) POSITIVE A* Last Vital Signs Temp 36.6 C 05/13/21 07:21 Pulse 82 05/13/21 07:21 Resp 20 05/12/21 19:30 BP 121/82 05/13/21 07:21 Pulse Ox 90 L 05/13/21 07:21
[2021-05-13 14:30] VITALS: BP 110/77; PULSE 73; RESP 18; TEMP 37.1; O2SAT 94
--- NOTE | 2021-05-13 15:54 | NUR.NOTE ---
Accessed patient chart to fax the most recent COVID result to [facility] Bob. Kathrine Otto [phone] fax Nursing Note:
[2021-05-13] MEDS: Enoxaparin 40 MG/0.4 ML SYR SC (18:01)
[2021-05-13] MEDS: Cyclobenzaprine 10 MG TAB 5 MG PO (21:09)
[2021-05-13] MEDS: traZODone 100 MG TAB PO (21:09)
[2021-05-13 22:48] VITALS: BP 117/72; PULSE 72; RESP 18; TEMP 36.4; O2SAT 92
[2021-05-14 07:11] LABS: HGB 13.2 g/dL (13.5-17.5); MCHC 32.2 % (32.0-36.0); MCV 96.2 fL (80-95); MPV 9.5 fL (8.0-11.0); Platelet Count 270 10^3/uL (130-400); RBC 4.26 10^6/uL (4.36-5.78); RDW 14.8 % (11.8-14.1); RDW-SD 52.8 fL; WBC 11.04 10^3/uL (4.4-10.8)
[2021-05-14 07:20] LABS: Anion Gap 4.7 mmol/L (3-11); BUN 14 mg/dL (7-18); CO2 32.3 mmol/L (21.0-32.0); CREATININE 0.9 mg/dL (0.70-1.30); Calcium 8.9 mg/dL (8.5-10.1); Chloride 106 mmol/L (98-107); Glucose 129 mg/dL (74-106); Sodium 143 mmol/L (136-145)
[2021-05-14 07:37] VITALS: BP 139/75; PULSE 82; RESP 18; TEMP 36.9; O2SAT 93
[2021-05-14] MEDS: hydroCHLOROthiazide 12.5 MG TAB PO (08:37)
[2021-05-14] MEDS: predniSONE 20 MG TAB 40 MG PO (08:37)
[2021-05-14] MEDS: ARIPiprazole 5 MG TAB PO (08:37)
[2021-05-14] MEDS: Multivitamin TAB 1 TAB PO (08:38)
[2021-05-14] MEDS: Thiamine 100 MG TAB PO (08:38)
[2021-05-14] MEDS: Gabapentin 600 MG TAB PO ×3 (08:38→21:03)
[2021-05-14] MEDS: Lisinopril 10 MG TAB PO (08:38)
[2021-05-14] MEDS: Folic Acid 1 MG TAB PO (08:38)
[2021-05-14] MEDS: Sertraline 50 MG TAB 150 MG PO (08:39)
[2021-05-14] MEDS: Nicotine 21 MG/24 HR PATCH TD (08:39)
[2021-05-14] MEDS: Omeprazole 20 MG CAPCR PO (08:39)
[2021-05-14] MEDS: Atenolol 50 MG TAB PO (08:39)
[2021-05-14] MEDS: Methadone Liquid 10 MG/ML 90 MG PO (08:41)
[2021-05-14] MEDS: chlordiazePOXIDE 25 MG CAP PO (08:59)
[2021-05-14] MEDS: LORazepam 1 MG TAB 2 MG PO (11:02)
[2021-05-14] MEDS: LORazepam 1 MG TAB PO/SL (14:52)
[2021-05-14 15:11] VITALS: BP 134/78; PULSE 65; RESP 18; TEMP 36.7; O2SAT 95
--- NOTE | 2021-05-14 15:27 | PGE_ITS ---
Date of Service Date of service: 05/14/21 Time of Service: 12:00 Assessment and Plan Assessment and plan (1) Alcohol dependence: Start date: 05/14/21 Start time: 12:00 Status: Acute Assessment and plan: No alcohol since 05/11/21. Patient states severe anxiety will schedule ativan QID He desires dual-dx inpatient treatment; referral sent to [facility] where he has been treated in the past. Thiamine and folic acid daily. Usually does not go through Qualifiers: Substance use status: in withdrawal Complication of substance-induced condition: uncomplicated Qualified Code(s): F10.230 - Alcohol dependence with withdrawal, uncomplicated (2) COVID-19: Start date: 05/14/21 Start time: 12:00 Status: Acute Assessment and plan: Initially tested positive with PCR on 04/28/21. He had a [employer]en & Austen vaccine with plans for a booster. Bronchitis type sxs resolving. PCR test today still positive, but likely d/t viral particles being amplified. He is 10 days past initial testing and given he is not immuno-compromised (Etoh abuse not a criteria for immuno-compromised state per CDC guidlines) will d/c COVID precautions. Not hypoxic. He is a smoker and likely has a componenet of COPD. Prednisone 40 mg daily initiated. (3) Hypertension: Start date: 05/14/21 Start time: 12:00 Status: Chronic Assessment and plan: Cont home HCTZ, lisinopril and atenolol. Monitor. (4) History of alcohol abuse: Start date: 05/14/21 Start time: 12:00 Status: Acute Assessment and plan: See Above (5) Methadone dependence: Start date: 05/14/21 Start time: 12:00 Status: Chronic Assessment and plan: Cont home methadone dosing. (6) Depression: Start date: 05/14/21 Start time: 12:00 Status: Chronic Assessment and plan: Cont Sertraline, aripiprazole and Trazadone. Mental health crisis team has evaluated [facility] Qualifiers: Depression Type: major depressive disorder Major depression recurrence: recurrent Active/Remission status: currently active Major depression episode severity: moderate Qualified Code(s): F33.1 - Major depressive disorder, recurrent, moderate (7) Suicidal ideation: Start date: 05/14/21 Start time: 12:00 Status: Inactive Assessment and plan: As above. Safety plan with sitter. discussed with Dr. Batista Subjective Subjective Patient reports: other Interval history since last seen: Awaiting bed placement at facility. Scoring on CIWA, states severe anxiety will place on QID ativan for anxiety with ativan. CM working on referrals. Followed by , 1:1 [employer] Exam Narrative Exam Narrative: Lying on bed; sits up for exam and is engaging in conversation. Const General: cooperative and no acute distress Nutritional Appearance: obese Orientation: alert and oriented x3 HENMT Head: atraumatic Ears: hearing grossly normal bilaterally Eyes General: appearance normal, both eyes and all related structures Sclera: sclerae normal Resp Effort & Inspection: normal respiratory effort Auscultation: clear to auscultation bilaterally Cardio Rate: regular rate Rhythm: regular rhythm Heart Sounds: S1 normal and S2 normal GI Inspection: obesity Palpation: soft and nontender Auscultation: normal bowel sounds Skin General skin exam: no rashes or lesions noted Neuro General: no focal motor deficits Speech: speech normal Motor: no tremors Extrem General: no pedal edema and no calf tenderness Psych Appearance: grossly normal Speech and Movement: speech and movement normal Mood: dysthymic mood Affect: blunted Objective Last Vital Signs Temp 36.7 C 05/14/21 15:11 Pulse 65 05/14/21 15:11 Resp 18 05/14/21 15:11 BP 134/78 05/14/21 15:11 Pulse Ox 95 05/14/21 15:11 Laboratory Results - last 24 hr 05/14/21 05/14/21 07:00 07:00 WBC 11.04 H RBC 4.26 L Hgb 13.2 L Hct 41.0 MCV 96.2 H MCH 31.0 MCHC 32.2 RDW 14.8 H Plt Count 270 MPV 9.5 Sodium 143 Potassium 4.0 D Chloride 106 Carbon Dioxide 32.3 H Anion Gap 4.7 BUN 14 D Creatinine 0.9 Estimated GFR/1.73 m2 >= 60.00 Glucose 129 H Calcium 8.9 PAWSS Have you Been Recently Intoxicated or Drunk Within the Last 30 days?: Yes Have you Ever Experienced Previous Episodes of Alcohol Withdrawal?: Yes Have you ever Experienced Withdrawal Seizures?: Yes Have you ever Experienced Delirium Tremens(DT)s?: No Have you ever undergone Alcohol Rehabilitation Treatment (i.e, inpt ot outpatient treatment programs)?: Yes Have you ever Experienced Blackouts?: Yes Have you ever Combined Alcohol with other Downers within the last 90 days?: No Have you ever Combined Alcohol with any other Substance of Abuse during the last 90 days?: Yes Positive Blood Alcohol level on Presentation? [PCS.BAL]: Unable to Obtain Evidence of Increased Autonomic Activity (i.e. HR>120, tremor, sweating, agit ation, nausea)?: No Result: 7
[2021-05-14] MEDS: LORazepam 1 MG TAB PO ×2 (17:03→21:04)
[2021-05-14] MEDS: Enoxaparin 40 MG/0.4 ML SYR SC (17:03)
--- NOTE | 2021-05-14 17:30 | PDOC.CMSAFE ---
- If Service Date Differs Date of service: 05/14/21 Time of Service: 17:31 Care Management Safety Plan Status: Voluntary - Reason for Wait Reason for Wait: Inpatient Admission VOLUNTARY FOR INPATIENT PSYCHIATRIC STABILIZATION. Patient is appropriate in all interactions since arriving at [facility]; Pt has demonstrated appropriate coping and communication skills, has articulated his or her needs and concerns and is fully engaged during staff interactions. Safety plan has been established with patient, and care team, to adhere to patient goals, identify restrictions based on behavioral status, address nutrition, and determine allowed personal belongings, tools for hygiene and personal care. Determine level of activity including ambulation, level of supervision, visitors, and determine privileges based on behaviors and level of engagement by pt. SAFETY PLAN: 1. Will remain on suicide precautions. In Paper Clothes 2. Will remain in room under direct supervision of one-on-one staff at all times provided by CPSO, ASSOCIATE FINANCIAL ANALYST, SURGICAL TRAINING SPECIALIST ross lift operator. 3. May have paper cups, plates, finger foods as well as a cardboard spoon with which to eat meals. 4. Follow [facility] Management of the Admitted Behavioral Health Patient policy. 5. Shower permitted with escort at RN discretion. 6. No personal belongings. 7. Visitors-none at this time. 8. Activities: soft cart items, music tablet, television if available, and other activities at RN discretion. 9. Bathroom privileges with escort in the ED, available in room without limitation on M/S. 10. Phone: may use hospital cordless phone at RN discretion. 11. Due to VOLUNTARY status, if patient wishes to leave [facility], staff will contact [facility] Crisis Screener ([phone]) and On-Call Back End Developer ([phone]) as soon as possible. In the event of elopement, notify [facility] Police ([phone]). Patient is currently voluntarily at [facility] and seeking inpatient admission when a bed becomes available. [facility] Frontline Public Health Nutritionist will continue seeking placement. Please contact the Cargo Worker Back End Developer ([phone]) and [facility] Public Health Nutritionist ([phone]) for any needed changes in the Safety Plan. Safety plan has been provided to interdepartmental care team.
--- NOTE | 2021-05-14 17:32 | CMPROGNOTE_ITS ---
- If Service Date Differs Date of service: 05/14/21 Time of Service: 17:32 Care Management Progress Note S/O: Garrett is sitting up in bed watching television when CM comes to meet with him. 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 A: Garrett is a 51 year old male admitted to [facility] on 05/11/2021 for depression with suicidal ideation and alcohol abuse. P: Garrett is seeking a voluntary psychiatric hospitalization. [facility], [facility], and [facility] for review. [facility] has already declined patient. There are currently no psych beds available. Garrett will remain at [facility] voluntarily and will be reassessed daily by [facility] until a bed can be secured for him. - Status Status: Voluntary - Reason for Wait Reason for Wait: Inpatient Admission
--- NOTE | 2021-05-14 17:32 | PDOC.CMPRO ---
- If Service Date Differs Date of service: 05/14/21 Time of Service: 17:32 Care Management Progress Note S/O: Garrett is sitting up in bed watching television when CM comes to meet with him. 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 A: Garrett is a 51 year old male admitted to [facility] on 05/11/2021 for depression with suicidal ideation and alcohol abuse. P: Garrett is seeking a voluntary psychiatric hospitalization. [facility], [facility], and [facility] for review. [facility] has already declined patient. There are currently no psych beds available. Garrett will remain at [facility] voluntarily and will [facility] until a bed can be secured for him. - Status Status: Voluntary - Reason for Wait Reason for Wait: Inpatient Admission
[2021-05-14] MEDS: Cyclobenzaprine 10 MG TAB 5 MG PO (21:03)
[2021-05-14] MEDS: traZODone 100 MG TAB PO (21:04)
[2021-05-15] MEDS: Nicotine 21 MG/24 HR PATCH TD (08:44)
[2021-05-15] MEDS: Atenolol 50 MG TAB PO (08:46)
[2021-05-15] MEDS: ARIPiprazole 5 MG TAB PO (08:46)
[2021-05-15] MEDS: Omeprazole 20 MG CAPCR PO (08:46)
[2021-05-15] MEDS: predniSONE 20 MG TAB 40 MG PO (08:46)
[2021-05-15] MEDS: Gabapentin 600 MG TAB PO ×3 (08:46→20:57)
[2021-05-15] MEDS: Multivitamin TAB 1 TAB PO (08:46)
[2021-05-15] MEDS: Folic Acid 1 MG TAB PO (08:46)
[2021-05-15] MEDS: Sertraline 50 MG TAB 150 MG PO (08:46)
[2021-05-15] MEDS: Lisinopril 10 MG TAB PO (08:47)
[2021-05-15] MEDS: Thiamine 100 MG TAB PO (08:47)
[2021-05-15] MEDS: LORazepam 1 MG TAB PO ×4 (08:47→20:57)
[2021-05-15 09:08] VITALS: BP 118/76; PULSE 80; RESP 18; TEMP 36; O2SAT 97
[2021-05-15] MEDS: Methadone Liquid 10 MG/ML 90 MG PO (09:11)
--- NOTE | 2021-05-15 09:30 | CMSP_ITS ---
- If Service Date Differs Date of service: 05/15/21 Time of Service: 09:30 Care Management Safety Plan Status: Voluntary - Reason for Wait Reason for Wait: Inpatient Admission VOLUNTARY FOR INPATIENT PSYCHIATRIC STABILIZATION. Patient is appropriate in all interactions since arriving at [facility]; Pt has demonstrated appropriate coping and communication skills, has articulated his or her needs and concerns and is fully engaged during staff interactions. Safety plan has been established with patient, and care team, to adhere to patient goals, identify restrictions based on behavioral status, address nutrition, and determine allowed personal belongings, tools for hygiene and personal care. Determine level of activity including ambulation, level of supervision, visitors, and determine privileges based on behaviors and level of engagement by pt. Referrals are faxed to [facility], [facility], and [facility] for review. [place] has already declined patient. Garrett will remain at [facility] voluntarily and will be reassessed daily by [facility] until a bed can be secured for him. Referrals pending [facility] and [facility]. [facility] declined referral. [address] [facility] reports speaking with Garrett, and shared that he refused care bed at this time. Jaida reports she will call facilities and report back on bed availability, referral status and will continue conversation with Garrett re: discharging to care bed. VOLUNTARY SAFETY PLAN: 1. Will remain on suicide precautions. In Paper Clothes 2. Will remain in room under direct supervision of one-on-one staff at all times provided by CPSO, PAINT MIXER MACHINE, BANQUET STEWARD it risk advisor. 3. May have paper cups, plates, finger foods as well as a cardboard spoon with which to eat meals. 4. Follow [facility] Management of the Admitted Behavioral Health Patient policy. 5. Shower permitted with escort at RN discretion. 6. No personal belongings. 7. Visitors-none at this time. 8. Activities: soft cart items, music tablet, television if available, and other activities at RN discretion. 9. Bathroom privileges with escort in the ED, available in room without limitation on M/S. 10. Phone: may use hospital cordless phone at RN discretion. 11. Due to VOLUNTARY status, if patient wishes to leave [facility], staff will contact [facility] Crisis Screener ([phone]) and On-Call Airplane Pilot Photogrammetry ([phone]) as soon as possible. In the event of elopement, notify [facility] Police ([phone]). Patient is currently voluntarily at [facility] and seeking inpatient admission when a bed becomes available. [facility] Frontline Antisqueak Filler will continue seeking placement. Please contact the Inspector Set Up And Lay Out Airplane Pilot Photogrammetry ([phone]) and [facility] Antisqueak Filler ([phone]) for any needed changes in the Safety Plan. Safety plan has been provided to interdepartmental care team.
--- NOTE | 2021-05-15 09:30 | PDOC.CMSAFE ---
- If Service Date Differs Date of service: 05/15/21 Time of Service: 09:30 Care Management Safety Plan Status: Voluntary - Reason for Wait Reason for Wait: Inpatient Admission VOLUNTARY FOR INPATIENT PSYCHIATRIC STABILIZATION. Patient is appropriate in all interactions since arriving at [facility]; Pt has demonstrated appropriate coping and communication skills, has articulated his or her needs and concerns and is fully engaged during staff interactions. Safety plan has been established with patient, and care team, to adhere to patient goals, identify restrictions based on behavioral status, address nutrition, and determine allowed personal belongings, tools for hygiene and personal care. Determine level of activity including ambulation, level of supervision, visitors, and determine privileges based on behaviors and level of engagement by pt. Referrals are faxed to [facility], [facility], and [facility] for review. [facility] has already declined patient. Garrett will remain at [facility] voluntarily and will be reassessed daily by [facility] until a bed can be secured for him. Referrals pending [facility] and [facility]. [facility] declined referral. [address] [facility] reports speaking with Garrett, and shared that he refused care bed at this time. Jaida reports she will call facilities and report back on bed availability, referral status and will continue conversation with Garrett re: discharging to care bed. VOLUNTARY SAFETY PLAN: 1. Will remain on suicide precautions. In Paper Clothes 2. Will remain in room under direct supervision of one-on-one staff at all times provided by CPSO, SUPERVISOR GENERAL, SAP SD ANALYST senior corporate recruiter. 3. May have paper cups, plates, finger foods as well as a cardboard spoon with which to eat meals. 4. Follow [facility] Management of the Admitted Behavioral Health Patient policy. 5. Shower permitted with escort at RN discretion. 6. No personal belongings. 7. Visitors-none at this time. 8. Activities: soft cart items, music tablet, television if available, and other activities at RN discretion. 9. Bathroom privileges with escort in the ED, available in room without limitation on M/S. 10. Phone: may use hospital cordless phone at RN discretion. 11. Due to VOLUNTARY status, if patient wishes to leave [facility], staff will contact [facility] Crisis Screener ([phone]) and On-Call Sheep Boner ([phone]) as soon as possible. In the event of elopement, notify [facility] Police ([phone]). Patient is currently voluntarily at [facility] and seeking inpatient admission when a bed becomes available. [facility] Frontline Pole Peeler will continue seeking placement. Please contact the Office Auditor Sheep Boner ([phone]) and [facility] Pole Peeler ([phone]) for any needed changes in the Safety Plan. Safety plan has been provided to interdepartmental care team.
--- NOTE | 2021-05-15 10:16 | PDOC.MHCN ---
Date of service: 05/15/21 Time of Service: 10:16 Mental Health Crisis Note Presenting Issue How did you arrive at the ED and why did you come: Client arrived on 05/13/21 due to increasing depression and anxiety after being kicked out of nursing home house in January. Client also states that he has been drinking alcohol heavily as well as become dependent on drugs. Client endorsing SI with plan to OD on drugs, crash car, or ingest helium. Precipitating Factors Client currently rating SI as a 7/10 with plan if discharged to OD on drugs, crash car, or ingese helium. Disposition BEHAVIOR: Client is laying down in hospital bed dressed in proper paper hospital attire when this life underwriter arrives via zoom. He appears to be dozing at the beginning of the assessment, however when verbally prompted by this life underwriter he sits up and engages answering all questions that are asked of hm. EYE CONTACT: Client gives good eye contact during assessment. MOOD: Clients mood appears to be depressed and anxious. AFFECT: Very flat affect. APPETITE: Client states that his appetite has been good. SLEEP(trouble falling/staying asleep: Client states that he has been sleeping well, stating I slept the best last night. Plan Client will remain at [facility] pending admission to an inpatient facility. Client was offered Care bed referral, however he declines stating that he would be more comfortable in a hospital setting and he has heard negative things about the care bed. All hospitals called, [facility] is reviewing referral but has not beds available today. [facility]ala received updated notes and is reviewing referral and said to call back early this afternoon. Care Management updated. Signature Clinician's Name/Title: Jaida Aragon [facility] Emergency Clinician
--- NOTE | 2021-05-15 13:10 | W.PM.PROGNOT ---
Date of Service Date of service: 05/15/21 Time of Service: 13:10 Assessment and Plan Assessment and plan (1) Alcohol dependence: Start date: 05/15/21 Start time: 13:12 Status: Acute Assessment and plan: No alcohol since 05/11/21. Patient states severe anxiety will schedule ativan QID He desires dual-dx inpatient treatment; referral sent to [facility] where he has been treated in the past. Thiamine and folic acid daily. Usually does not go through Qualifiers: Substance use status: in withdrawal Complication of substance-induced condition: uncomplicated Qualified Code(s): F10.230 - Alcohol dependence with withdrawal, uncomplicated (2) COVID-19: Start date: 05/15/21 Start time: 13:12 Status: Acute Assessment and plan: Initially tested positive with PCR on 04/28/21. He had a [employer] vaccine with plans for a booster. Bronchitis type sxs resolving. PCR test today still positive, but likely d/t viral particles being amplified. He is 10 days past initial testing and given he is not immuno-compromised (Etoh abuse not a criteria for immuno-compromised state per CDC guidlines) will d/c COVID precautions. Not hypoxic. He is a smoker and likely has a componenet of COPD. Prednisone 40 mg daily initiated. (3) Hypertension: Start date: 05/15/21 Start time: 13:12 Status: Chronic Assessment and plan: Cont home HCTZ, lisinopril and atenolol. Monitor. (4) History of alcohol abuse: Start date: 05/15/21 Start time: 13:12 Status: Acute Assessment and plan: See Above (5) Methadone dependence: Start date: 05/15/21 Start time: 13:12 Status: Chronic Assessment and plan: Cont home methadone dosing. (6) Depression: Start date: 05/15/21 Start time: 13:13 Status: Chronic Assessment and plan: Cont Sertraline, aripiprazole and Trazadone. Mental health crisis team has evaluated and made a referral to [facility]. Qualifiers: Depression Type: major depressive disorder Major depression recurrence: recurrent Active/Remission status: currently active Major depression episode severity: moderate Qualified Code(s): F33.1 - Major depressive disorder, recurrent, moderate (7) Suicidal ideation: Start date: 05/15/21 Start time: 13:13 Status: Inactive Assessment and plan: As above. Safety plan with sitter. discussed with Dr. Batista Subjective Subjective Patient reports: no new complaints Interval history since last seen: Patient doing well on scheduled ativan. He seems to have more of anxiety than anything. CM sent referral to facility. Awaiting bed placement. 1:1 CPSO Exam Const General: cooperative and no acute distress Nutritional Appearance: obese Orientation: alert and oriented x3 HENMT Head: atraumatic Ears: hearing grossly normal bilaterally Eyes General: appearance normal, both eyes and all related structures Sclera: sclerae normal Resp Effort & Inspection: normal respiratory effort Auscultation: clear to auscultation bilaterally Cardio Rate: regular rate Rhythm: regular rhythm Heart Sounds: S1 normal and S2 normal GI Inspection: obesity Palpation: soft and nontender Auscultation: normal bowel sounds Skin General skin exam: no rashes or lesions noted Neuro General: no focal motor deficits Speech: speech normal Motor: no tremors Extrem General: no pedal edema and no calf tenderness Psych Appearance: grossly normal Speech and Movement: speech and movement normal Mood: dysthymic mood Affect: blunted Objective Last Vital Signs Temp 36.0 C L 05/15/21 09:08 Pulse 80 05/15/21 09:08 Resp 18 05/15/21 09:08 BP 118/76 05/15/21 09:08 Pulse Ox 97 05/15/21 09:08 PAWSS Have you Been Recently Intoxicated or Drunk Within the Last 30 days?: Yes Have you Ever Experienced Previous Episodes of Alcohol Withdrawal?: Yes Have you ever Experienced Withdrawal Seizures?: Yes Have you ever Experienced Delirium Tremens(DT)s?: No Have you ever undergone Alcohol Rehabilitation Treatment (i.e, inpt ot outpatient treatment programs)?: Yes Have you ever Experienced Blackouts?: Yes Have you ever Combined Alcohol with other Downers within the last 90 days?: No Have you ever Combined Alcohol with any other Substance of Abuse during the last 90 days?: Yes Positive Blood Alcohol level on Presentation? [PCS.BAL]: Unable to Obtain Evidence of Increased Autonomic Activity (i.e. HR>120, tremor, sweating, agitation, nausea)?: No Result: 7
[2021-05-15] MEDS: Enoxaparin 40 MG/0.4 ML SYR SC (16:16)
[2021-05-15] MEDS: traZODone 100 MG TAB PO (20:57)
[2021-05-15] MEDS: Cyclobenzaprine 10 MG TAB 5 MG PO (20:57)
[2021-05-16 06:08] VITALS: BP 109/78; PULSE 81; RESP 18; TEMP 36.8; O2SAT 94
[2021-05-16] MEDS: Methadone Liquid 10 MG/ML 90 MG PO (08:43)
[2021-05-16] MEDS: Nicotine 21 MG/24 HR PATCH TD (08:43)
[2021-05-16] MEDS: predniSONE 20 MG TAB 40 MG PO (08:44)
[2021-05-16] MEDS: ARIPiprazole 5 MG TAB PO (08:44)
[2021-05-16] MEDS: Lisinopril 10 MG TAB PO (08:44)
[2021-05-16] MEDS: Atenolol 50 MG TAB PO (08:44)
[2021-05-16] MEDS: Thiamine 100 MG TAB PO (08:44)
[2021-05-16] MEDS: LORazepam 1 MG TAB PO ×3 (08:44→16:41)
[2021-05-16] MEDS: Omeprazole 20 MG CAPCR PO (08:44)
[2021-05-16] MEDS: Multivitamin TAB 1 TAB PO (08:44)
[2021-05-16] MEDS: Sertraline 50 MG TAB 150 MG PO (08:45)
[2021-05-16] MEDS: Folic Acid 1 MG TAB PO (08:45)
[2021-05-16] MEDS: Gabapentin 600 MG TAB PO ×2 (08:45→14:04)
--- NOTE | 2021-05-16 09:38 | CMSP_ITS ---
- If Service Date Differs Date of service: 05/16/21 Time of Service: 09:39 Care Management Safety Plan Status: Voluntary - Reason for Wait Reason for Wait: Inpatient Admission VOLUNTARY FOR INPATIENT PSYCHIATRIC STABILIZATION. Patient is appropriate in all interactions since arriving at [facility]; Pt has demonstrated appropriate coping and communication skills, has articulated his or her needs and concerns and is fully engaged during staff interactions. Safety plan has been established with patient, and care team, to adhere to patient goals, identify restrictions based on behavioral status, address nutrition, and determine allowed personal belongings, tools for hygiene and personal care. Determine level of activity including ambulation, level of supervision, visitors, and determine privileges based on behaviors and level of engagement by pt. Garrett will remain at [facility] voluntarily and will be reassessed daily by [facility] until a bed can be secured for him. Referrals faxed to [facility], [facility] [place] and [facility] [place]. Ja[facility] Crisis Screener continues to seek placement. VOLUNTARY SAFETY PLAN: 1. Will remain on suicide precautions. In Paper Clothes 2. Will remain in room under direct supervision of one-on-one staff at all times provided by CPSO, SIGNALS INTELLIGENCE SUPERINTENDENT, LUMBER HANDLER core loader. 3. May have paper cups, plates, finger foods as well as a cardboard spoon with which to eat meals. 4. Follow [facility] Management of the Admitted Behavioral Health Patient policy. 5. Shower permitted with escort at RN discretion. 6. No personal belongings. 7. Visitors-none at this time. 8. Activities: soft cart items, music tablet, television if available, and other activities at RN discretion. 9. Bathroom privileges with escort in the ED, available in room without limitation on M/S. 10. Phone: may use hospital cordless phone at RN discretion. 11. Due to VOLUNTARY status, if patient wishes to leave [facility], staff will contact [facility] Crisis Screener ([phone]) and On-Call Career Development Counselor ([phone]) as soon as possible. In the event of elopement, notify [facility] Police ([phone]). Patient is currently voluntarily at [facility] and seeking inpatient admission when a bed becomes available. [facility] Frontline Web Production Manager will continue seeking placement. Please contact the Director Business Development Career Development Counselor ([phone]) and [facility] Web Production Manager ([phone]) for any needed changes in the Safety Plan. Safety plan has been provided to interdepartmental care team.
--- NOTE | 2021-05-16 09:38 | PDOC.CMSAFE ---
- If Service Date Differs Date of service: 05/16/21 Time of Service: 09:39 Care Management Safety Plan Status: Voluntary - Reason for Wait Reason for Wait: Inpatient Admission VOLUNTARY FOR INPATIENT PSYCHIATRIC STABILIZATION. Patient is appropriate in all interactions since arriving at [facility]; Pt has demonstrated appropriate coping and communication skills, has articulated his or her needs and concerns and is fully engaged during staff interactions. Safety plan has been established with patient, and care team, to adhere to patient goals, identify restrictions based on behavioral status, address nutrition, and determine allowed personal belongings, tools for hygiene and personal care. Determine level of activity including ambulation, level of supervision, visitors, and determine privileges based on behaviors and level of engagement by pt. Garrett will remain at [facility] voluntarily and will be reassessed daily by [facility] until a bed can be secured for him. Referrals faxed to [facility], [facility], [place] and [facility] for review. Jaida Crisis Screener continues to seek placement. VOLUNTARY SAFETY PLAN: 1. Will remain on suicide precautions. In Paper Clothes 2. Will remain in room under direct supervision of one-on-one staff at all times provided by CPSO, SOFTWARE IMPLEMENTATION SPECIALIST, CONTRACT TECHNICIAN flight engineer instructor. 3. May have paper cups, plates, finger foods as well as a cardboard spoon with which to eat meals. 4. Follow [facility] Management of the Admitted Behavioral Health Patient policy. 5. Shower permitted with escort at RN discretion. 6. No personal belongings. 7. Visitors-none at this time. 8. Activities: soft cart items, music tablet, television if available, and other activities at RN discretion. 9. Bathroom privileges with escort in the ED, available in room without limitation on M/S. 10. Phone: may use hospital cordless phone at RN discretion. 11. Due to VOLUNTARY status, if patient wishes to leave [facility], staff will contact [facility] Crisis Screener ([phone]) and On-Call Ore Grader ([phone]) as soon as possible. In the event of elopement, notify [facility] Police ([phone]). Patient is currently voluntarily at [facility] and seeking inpatient admission when a bed becomes available. [facility] Frontline Feeder Tender will continue seeking placement. Please contact the [place] Supervisor Ore Grader ([phone]) and [facility] Feeder Tender ([phone]) for any needed changes in the Safety Plan. Safety plan has been provided to interdepartmental care team.
--- NOTE | 2021-05-16 10:34 | PDOC.MHCN_ITS ---
Date of service: 05/16/21 Time of Service: 10:34 Mental Health Crisis Note Presenting Issue How did you arrive at the ED and why did you come: Client arrived at [facility] ED on 05/12/21 with increasing depression and SI with intent and plan. Precipitating Factors Client currently states that he is having SI with intent rated on as a 7/10. Clients plan remains the same if he were to be discharged: OD on drugs, crash c ar with intent to , or ingest helium. Disposition BEHAVIOR: Client is laying down in hospital bed dressed in proper paper hospital attire when this adjusto writer operator arrives via zoom. Client appears to be sleepy, however when verbally prompted multiple times client sits up and engages with this adjusto writer operator. Client answers all questions that this adjusto writer operator asks of him. EYE CONTACT: Client gives minimal eye contact, he is observed to close his eyes or look towards the wall during assessment. MOOD: Clients mood appears to be depressed and hopeless. AFFECT: Client presents with very flat affect. APPETITE: Client states that he has been eating good since being at the hospital. SLEEP(trouble falling/staying asleep: Client states that he did not sleep very well last night and that he kept waking up throughout the night. Client states that he does not know what is going on, but it seems like he cannot get enough sleep. Plan Client will remain at [facility] pending admission to an inpatient hospital. Lala is reviewing clients referral, however there is no bed availability today. [facility] is also reviewing clients referral, however said to call back this afternoon as there is discharges happening today. This adjusto writer operator will call [facility] and check on referral in afternoon. Due to clients intent, plan, and lack of natural supports this adjusto writer operator does not feel that client should be discharged on safety plan. Signature Clinician's Name/Title: Jaida Aragon [facility] Emergency Clinician
[2021-05-16 15:34] VITALS: BP 127/85; PULSE 61; RESP 18; TEMP 36.4; O2SAT 95
--- NOTE | 2021-05-16 16:03 | W.PM.DS.N ---
Date of service: 05/16/21 Time of Service: 16:03 DS: Diagnosis Discharge Diagnosis (1) Alcohol dependence: Status: Acute (2) COVID-19: Status: Acute (3) Hypertension: Status: Chronic (4) History of alcohol abuse: Status: Acute (5) Methadone dependence: Status: Chronic (6) Depression: Status: Chronic (7) Suicidal ideation: Status: Inactive Discharge Plan Disposition Patient Disposition: [facility] Condition: Stable Discharge Details Reason For Visit: Depression with Suicidal Ideations,Alcohol Abuse Admit Date/Time: 05/13/21 12:42 Admit Provider: Rinku Batista Attending Provider: Rinku Batista Primary Care Provider: Jada Mulligan [facility] Course Hospital Course: This is a 51 yo male well known to [facility], with a history of depression with suicidal ideation, alcohol and cocaine abuse, tobacco abuse disorder, alcohol withdrawal seizure, methadone dependence, HTN, Covid-19 dx on 04/28/21. He was last admitted and discharged from [facility] on 04/11/21 - 04/14/21 for depression/SI, intoxication. Prior to this admission he was evaluated in the ED and discharged with a librium taper. He presented on 05/11/21 with ongoing worsening depression with a stated desire for inpatient psychiatric treatment. He appeared mildly inebriated with an alcohol level of 130. He was managed in the ED until 05/13/21 when admitted to a transition room. He had received a quick librium taper since presenting this time to the ED. His initial AST was 111, ALT 102, Total Bili 0.3. H/H normal. K 3.2. Potassium was repleted and now up to 4.0. Crisis services evaluated the patient on the day of transfer from the ED to the transition unit, 05/13/21. They felt he would merit inpatient treatment for ongoing depression and SI. A referral to [facility] was placed and he has been accepted. He is being transported by [facility]. Of note, his COVID-19 test remains positive on 05/13/21; first positive on 04/28/21. He has no F/C. Previous cough improved. + residual hoarse voice. Therefore, he is past 10 days of his initial positive test (and subsequent PCR testing could remain positive for weeks while in a noninfectious state), so precautions can be lifted. discharge discussed with DR Batista. Home Meds and New Rx's Prescriptions: Continued methadone [Methadone Intensol] 10 mg/mL Concentrate 90 mg PO DAILY Qty: 0 RF: 0 trazodone 100 mg Tablet 100 mg PO HS RF: 0 lisinopril 10 mg Tablet 10 mg PO DAILY RF: 0 atenolol 50 mg Tablet 50 mg PO DAILY RF: 0 hydrochlorothiazide 12.5 mg Tablet 12.5 mg PO DAILY RF: 0 omeprazole 20 mg Tablet,Delayed Release (Dr/Ec) 20 mg PO DAILY RF: 0 gabapentin 600 mg Tablet 600 mg PO TID RF: 0 aripiprazole 5 mg Tablet 5 mg PO DAILY RF: 0 sertraline 50 mg Tablet 150 mg PO DAILY RF: 0 cyclobenzaprine 5 mg Tablet 5 mg PO HS RF: 0 disulfiram 250 mg Tablet 250 mg PO DAILY RF: 0 nicotine 21 mg/24 hr Patch 24 Hour 21 mg transdermal DAILY RF: 0 nicotine (polacrilex) 4 mg Gum 4 mg BUCCAL Q2H RF: 0 folic acid 1 mg Tablet 1 mg PO QAM Qty: 30 RF: 0 multivitamin [Multiple Vitamins] Tablet 1 tab PO QAM Qty: 30 RF: 0 thiamine mononitrate (vit B1) [Vitamin B-1 (mononitrate)] 100 mg Tablet 100 mg PO QAM Qty: 30 RF: 0 chlordiazepoxide HCl 25 mg Capsule See Rx Instructions .ROUTE .COMPLEX Qty: 16 RF: 0 Discharge Instructions Instructions: Depression (DC), Suicide Prevention (DC) Referrals: Jada Mulligan NP [Primary Care Provider] - Activity:: Activity as Tolerated Diet:: As Tolerated DS: Summary Time Spent with Patient providing and/or coordinating discharge services: Greater than 30 minutes Status at Discharge Functional status at discharge: independent ambulation Overall status at discharge: patient is not back to baseline Mental Status: mental status grossly normal Speech and Movement: speech and movement normal Mood: congruent mood Affect: blunted Exam Const General: cooperative, no acute distress and ill appearing (older than stated age, disheveled. ) chronically Nutritional Appearance: obese Orientation: alert and oriented x3 HENMT Head: atraumatic Ears: hearing grossly normal bilaterally Eyes General: appearance normal, both eyes and all related structures Sclera: sclerae normal Resp Effort & Inspection: normal respiratory effort Auscultation: clear to auscultation bilaterally Cardio Rate: regular rate Rhythm: regular rhythm GI Inspection: obesity Palpation: soft and nontender Auscultation: normal bowel sounds Skin General skin exam: no rashes or lesions noted Neuro General: no focal motor deficits Speech: speech normal Motor: no tremors Extrem General: no pedal edema and no calf tenderness Psych Mental Status: mental status grossly normal Speech and Movement: speech and movement normal Mood: congruent mood Affect: blunted DS: Data Vitals/I&O Vitals and I&O: Vital Signs Temperature 36.4 C L 05/16/21 15:34 Temperature Source Tympanic 05/16/21 15:34 Pulse 61 05/16/21 15:34 Pulse Rhythm Regular 05/16/21 08:05 Respiratory Rate 18 05/16/21 15:34 Respiratory Effort 05/16/21 08:05 Respiratory Depth Normal 05/16/21 08:05 Respiratory Pattern Normal 05/16/21 08:05 Blood Pressure 127/85 05/16/21 15:34 Blood Pressure Position Sitting 05/11/21 13:43 Pulse Oximetry 95 05/16/21 15:34 Oxygen Delivery Method Room Air 05/16/21 15:34 Oxygen Flow Rate 0 05/16/21 15:34 Pain Level 5 05/16/21 15:34 Intake & Output 05/15/21 05/16/21 05/16/21 23:59 11:59 23:59 Intake Total 210 / 210 Balance 210 / 210 Intake: Oral 210 / 210 PFSH All Active Problems (Updated 05/14/21 @ 15:28 by Tracey Guzman NP) Alcohol dependence (Acute) COVID-19 (Acute) Hypertension (Chronic) History of alcohol abuse (Acute) Alcohol withdrawal seizure (Acute) Back pain (Chronic) Methadone dependence (Chronic) Depression (Chronic) Medical History Alcohol abuse Anxiety Major depression Surgical History History of tonsillectomy and adenoidectomy Family History Maternal Grandfather Alcohol use disorder Social History Smoking/Tobacco Use Status: Current every day Tobacco Type: cigarettes Smoking risk assessment performed?: Yes Alcohol Intake: current Alcohol Intake frequency: 3 or more drinks per day Alcohol type: beer and hard liquor Drug use: Daily Substance use type: former substance user Date of last use: >5yrs, crack/cocaine, amphetamines and prescription drug Housing: other Details: lives in [facility], [facility] Do you feel safe at home: No Do you feel safe in your relationship?: Yes Additional Social history: Homeless
--- NOTE | 2021-05-16 16:24 | CMDISCH_ITS ---
- If Service Date Differs Date of service: 05/16/21 Time of Service: 16:24 LACE Index Scoring Tool - Questions: Length of Stay (in days): 3 Acuity (Admit via E.D.?): Yes E.D. Visits: 6 - Answers: Total Score: 10 Risk of Readmission: High Risk Care Management Discharge Reason for Hospitalization: Depression with SI, Alcohol abuse Discharge Plan: Garrett will discharge to [facility] via [facility] transport, coordinated by this food writer. Patient/Family Education Needs: Review discharge instructions, discuss Ask Me Three. Services Needed at Discharge: Psychiatric Facility, Transportation - Disposition Disposition: [place] [facility] via [facility]
[2021-05-16] MEDS: Enoxaparin 40 MG/0.4 ML SYR SC (16:41)
== END 2021-05-16 18:04 | disposition short-term general hospital (02) | DRG 885 ==
LOC: ER 05-13 13:27 → MS 05-13 14:04
PROVIDERS: Admitting Provider Family Medicine; Emergency Provider Emergency Medicine; PCP Nurse Practitioner Family; Visit Provider Family Medicine
DX: F33.1 Major depressive disorder, recurrent, moderate (principal); F10.230 Alcohol dependence with withdrawal, uncomplicated; F11.20 Opioid dependence, uncomplicated; R45.851 Suicidal ideations; F41.9 Anxiety disorder, unspecified; I10 Essential (primary) hypertension; J44.9 Chronic obstructive pulmonary disease, unspecified; F17.210 Nicotine dependence, cigarettes, uncomplicated; M54.9 Dorsalgia, unspecified; F19.11 Other psychoactive substance abuse, in remission; R49.0 Dysphonia; U09.9 Post COVID-19 condition, unspecified
CPT/HCPCS: 36415; 80048; 80053; 80307; 85027; 87635; 99285; J1650; 80320; 80329; 81003; 84443; 85025; 99223; 99232; 99238; J7512

== ENCOUNTER 2021-07-09 07:50 | Observation (INO) | payer MEDICARE, MEDICAID, SELFPAY ==
[2021-07-09] VITALS (137 sets, daily range): BP systolic 98–163; BP diastolic 53–141; PULSE 79–122; RESP 8–27; TEMP 36.2–36.6; O2SAT 89–99
--- NOTE | 2021-07-09 07:45 | RT.EKG_ITS ---
APPROVED REPORT Exam: Resting ECG Reason for Exam: overdose Patient Location: E HR:113 bpm ECG Measurements Heart Rate 113 AXIS MI 165 P 75 QRSd 101 QRS -21 QT [id number] T 55 QTc 0 Conclusion Sinus tachycardia...rate> 99 ST elevation, consider inferior injury...ST >0.08mV, II III aVF. Sinus. No STEMI. I have reviewed and interpreted ECG and agree with software generated interpretation.
[2021-07-09 08:29] LABS: Abs Immature Grans 0.02 10^3/uL (0.0-0.06); Absolute Basophil Count 0.11 10^3/uL (0.0-0.2); Absolute Eosinophil Count 0.15 10^3/uL (0.0-0.7); Absolute Lymphocyte Count 2.18 10^3/uL (1.2-3.4); Basophils % 1.2; Eosinophils % 1.7; HCT 42.3 % (40.0-50.0); HGB 14.1 g/dL (13.5-17.5); Immature Grans % 0.2; Lymphocytes % 24.3; MCH 30.1 pg (27.0-33.0); MCHC 33.3 % (32.0-36.0); MCV 90.2 fL (80-95); Monocytes % 6.7; Neutrophils % 65.9; Nucleated RBC 0 %; Platelet Count 325 10^3/uL (130-400); RBC 4.69 10^6/uL (4.36-5.78); RDW 13.6 % (11.8-14.1); RDW-SD 45.1 fL; WBC 8.96 10^3/uL (4.4-10.8)
[2021-07-09] MEDS: Normal Saline 1,000 ML 1000 ML IV (08:42)
[2021-07-09 08:50] LABS: ALT 45 U/L (16-63); AST 31 U/L (15-37); Albumin 3.7 g/dL (3.4-5.0); Alkaline Phosphatase 80 U/L (46-116); Anion Gap 11.3 mmol/L (3-11); BUN 26 mg/dL (7-18); Bilirubin, Total 0.3 mg/dL (0.2-1.0); CO2 26.7 mmol/L (21.0-32.0); CREATININE 1.3 mg/dL (0.70-1.30); Calcium 8.9 mg/dL (8.5-10.1); Chloride 97 mmol/L (98-107); Creatine Kinase 298 U/L (39-308); ETHANOL BLOOD 102.9 mg/dL (<10); Estimated GFR 57.97 (mL/min/1.73m2); Glucose 195 mg/dL (74-106); Potassium 3.5 mmol/L (3.5-5.1); Sodium 135 mmol/L (136-145); Total Protein 7.5 g/dL (6.4-8.2)
[2021-07-09 09:16] LABS: Salicylate < 2.8 mg/dL (<2.8)
[2021-07-09 09:18] LABS: Acetaminophen < 2 ug/mL (10-30)
--- NOTE | 2021-07-09 09:24 | W.ED.GENAD ---
Discharge Plan Disposition Patient Disposition: [facility] INPATIENT Condition: Stable Discharge Details Clinical Impression: Depression with suicidal ideation Admit Date/Time: 07/10/21 14:43 Admit Provider: Grant Zamudio Attending Provider: Grant Zamudio Primary Care Provider: Mayito Stearns ED Provider: Margie Lopes Discharge Data Discharge Date/Time-TO BE ENTERED AT DEPARTURE: 07/10/21 15:32 Medical Decision Making Patient is tired but easily arousable and conversant with slightly slurred speech consistent with gabapentin and alcohol consumption Blood alcohol 100 Case discussed with poison control immediately upon assessment and recommendation is for observation for respiratory depression in conjunction with alcohol consumption Patient monitored on telemetry Did have a short period of being hypoxic, 86%, likely secondary to body habitus and Neurontin/alcohol use Patient will need to be observed in the emergency department until he is able to be assessed by mental health Patient is suicidal with attempt Maintaining airway throughout encounter Reassessment exam at 1611, pending sobriety from Neurontin overdose and mental health reassessment Cleared from EtOH, pending medical clearance after Neurontin overdose, sleeping but arousable 1616 Care transferred to Grant Diaz PA-C at 1600 Grant Diaz PA-C 1600 I assumed care of this patient from my colleague CANDELARIA Puga, please see her initial HPI and examination. Patient initially presented for Neurontin overdose, polysubstance abuse, depression and SI. The case was discussed with poison control and their recommendations were followed. At this time he is medically cleared and awaiting mental health evaluation once he is no longer sleeping. Heart rate is 108, will be given a liter of lactated Ringer's Patient is awake, alert and oriented, talking without difficulty. Mental health evaluation completed. The plan is for the patient to be observed in the ER overnight and they will in the meantime obtain collateral information regarding his recent hospitalization and discharge. They will reevaluate the patient tomorrow and at that time hopefully come up with a more concrete disposition. Now that he is awake and talking, will provide his hypertensive medications that he did not take today. Given his overall somnolence, will continue to hold his methadone. Patient ate dinner without difficulty. Blood pressure and heart rate responded nicely to his medications and IV fluid. Patient is asymptomatic and has no acute concerns or complaints. Patient to be signed out to Dr. Machuca at 2330, now medically cleared and awaiting a second mental health evaluation and hopeful disposition tomorrow. ML- patient signed out to me, no staffing to admit upstairs, voluntary for SI/depressionand will be reevaluated in the morning. Currently sleeping and awakens easily, will continue to monitor KJS: Pt signed out to me at time of shift change. No issues during shift. Pt awaiting inpatient placement, to be admitted to [facility] awaiting psychiatric facility availability. HPI General Date/Time Provider Initiated Documentation: 07/09/21 08:19. HPI Narrative: This 51-year-old gentleman presents with report of intentional overdose on 20 tablets of Neurontin at 630 this morning. He thinks he took between 20 and 30 tablet of his 300 mg Neurontin. Also reports malt liquor approximately 430 this morning. Denies any chest pain or shortness of breath. He denies any dizziness or weakness. Did not have his methadone today. Last dose was yesterday reportedly. Has not injected any opiate for several months the since being on methadone. Last used cocaine yesterday evening. Reports depression with suicidal ideation. Denies homicidal ideation or auditory visual hallucinations. Drinks alcohol daily. reports history of etoh withdrawals. Related Data Home Medications Medication Instructions Recorded Confirmed atenolol 50 mg tablet 50 mg PO DAILY 01/09/21 07/09/21 hydrochlorothiazide 12.5 mg tablet 12.5 mg PO DAILY 01/09/21 07/09/21 lisinopril 10 mg tablet 10 mg PO DAILY 01/09/21 07/09/21 omeprazole 20 mg tablet,delayed 20 mg PO DAILY 01/09/21 07/09/21 release trazodone 100 mg tablet 100 mg PO HS 01/09/21 07/09/21 gabapentin 600 mg tablet 600 mg PO TID 01/10/21 07/09/21 cyclobenzaprine 5 mg tablet 5 mg PO HS 03/23/21 07/09/21 disulfiram 250 mg tablet 250 mg PO DAILY 03/23/21 07/09/21 nicotine (polacrilex) 4 mg gum 4 mg BUCCAL Q2H 03/23/21 07/09/21 nicotine 21 mg/24 hr daily 21 mg TRANSDERMAL DAILY 03/23/21 07/09/21 transdermal patch folic acid 1 mg tablet 1 mg PO QAM #30 tab 03/26/21 07/09/21 multivitamin (Multiple Vitamins) 1 tab PO QAM #30 tab 03/26/21 07/09/21 thiamine mononitrate (vit B1) 100 100 mg PO QAM #30 tab 03/26/21 07/09/21 mg tablet (Vitamin B-1 (mononitrate)) methadone 10 mg/mL oral 90 mg (9 mL) PO DAILY #0 ml 04/12/21 07/09/21 concentrate (Methadone Intensol) nortriptyline 25 mg capsule mg DAILY 07/09/21 Previous Rx's Medication Instructions Recorded folic acid 1 mg tablet 1 mg PO QAM #30 tab 03/26/21 multivitamin (Multiple Vitamins) 1 tab PO QAM #30 tab 03/26/21 thiamine mononitrate (vit B1) 100 100 mg PO QAM #30 tab 03/26/21 mg tablet (Vitamin B-1 (mononitrate)) methadone 10 mg/mL oral 90 mg (9 mL) PO DAILY #0 ml 04/12/21 concentrate (Methadone Intensol) Allergies Allergy/AdvReac Type Severity Reaction Status Date / Time Sulfa (Sulfonamide Allergy Intermediate Skin Rash Unverified 07/09/21 08:08 Antibiotics) General Stated Complaint: PsychEval RODGER: 2 Review of Systems All systems reviewed & are unremarkable except as noted in HPI and below PFSH All Active Problems (Updated 07/18/21 @ 09:54 by Margie Lopes MD) Depression with suicidal ideation (Acute) Alcohol withdrawal seizure (Acute) Back pain (Chronic) Medical History Alcohol abuse Anxiety Major depression Surgical History History of tonsillectomy and adenoidectomy Family History Maternal Grandfather Alcohol use disorder Social History Smoking/Tobacco Use Status: Current every day Tobacco Type: cigarettes Smoking risk assessment performed?: Yes Alcohol Intake: current Alcohol Intake frequency: 0-2 drinks per day Alcohol type: beer and hard liquor Drug use: Daily Substance use type: former substance user Date of last use: >5yrs, crack/cocaine, amphetamines and prescription drug Housing: other Details: lives in hotel room, [facility] Do you feel safe at home: No Do you feel safe in your relationship?: Yes Additional Social history: Homeless Course Vital Signs Vital signs: Vital Signs Temperature 36.2 C L 07/09/21 07:58 Pulse 122 H 07/09/21 07:58 Respiratory Rate 20 07/09/21 07:58 Blood Pressure 160/53 H 07/09/21 07:58 Pulse Oximetry 96 07/09/21 07:58 Temperature 36.2 C L 07/09/21 07:58 Temperature Source Skin 07/09/21 07:58 Pulse 108 H 07/09/21 08:46 Pulse 106 H 07/09/21 08:50 Respiratory Rate 14 07/09/21 08:50 Respiratory Effort Non-Labored 07/09/21 08:26 Respiratory Depth Normal 07/09/21 08:26 Respiratory Pattern Normal 07/09/21 08:51 Blood Pressure 145/110 H 07/09/21 08:46 Blood Pressure Mean 118 07/09/21 08:46 Blood Pressure Position Sitting 07/09/21 07:58 Pulse Oximetry 94 07/09/21 08:50 Oxygen Delivery Method Nasal Cannula 07/09/21 08:50 Oxygen Flow Rate 2 07/09/21 08:50 Pain Level 0 07/09/21 07:58 Lab/Test Results Lab/Test Results: Laboratory Tests Range/Units 07/09/21 07/09/21 07/09/21 08:20 08:20 08:20 WBC (4.4-10.8) 10^3/uL 8.96 RBC (4.36-5.78) 10^6/uL 4.69 Hgb (13.5-17.5) g/dL 14.1 Hct (40.0-50.0) % 42.3 MCV (80-95) fL 90.2 MCH (27.0-33.0) pg 30.1 MCHC (32.0-36.0) % 33.3 RDW (11.8-14.1) % 13.6 Plt Count (130-400) 10^3/uL 325 MPV (8.0-11.0) fL 9.0 Immature Gran % 0.2 Neutrophils % 65.9 Lymphocytes % 24.3 Monocytes % 6.7 Eosinophils % 1.7 Basophils % 1.2 Nucleated RBC % % 0 Absolute Neutrophils (1.2-6.7) 10^3/uL 5.90 Absolute Lymphocytes (1.2-3.4) 10^3/uL 2.18 Absolute Monocytes (0.1-0.8) 10^3/uL 0.60 Absolute Eosinophils (0.0-0.7) 10^3/uL 0.15 Absolute Basophils (0.0-0.2) 10^3/uL 0.11 Sodium (136-145) mmol/L 135 L Potassium (3.5-5.1) mmol/L 3.5 Chloride (98-107) mmol/L 97 L Carbon Dioxide (21.0-32.0) mmol/L 26.7 Anion Gap (3-11) mmol/L 11.3 H BUN (7-18) mg/dL 26 H Creatinine (0.70-1.30) mg/dL 1.3 Estimated GFR/1.73 m2 (mL/min/1.73m2) 57.97 Glucose (74-106) mg/dL 195 H Calcium (8.5-10.1) mg/dL 8.9 Total Bilirubin (0.2-1.0) mg/dL 0.3 AST (15-37) U/L 31 ALT (16-63) U/L 45 Alkaline Phosphatase (46-116) U/L 80 Creatine Kinase (39-308) U/L 298 Total Protein (6.4-8.2) g/dL 7.5 Albumin (3.4-5.0) g/dL 3.7 TSH (0.36-3.74) uIU/mL 0.70 Salicylates (<2.8) mg/dL < 2.8 Acetaminophen (10-30) ug/mL < 2 Ethyl Alcohol (<10) mg/dL 102.9 H Range/Units 07/09/21 08:20 WBC (4.4-10.8) 10^3/uL RBC (4.36-5.78) 10^6/uL Hgb (13.5-17.5) g/dL Hct (40.0-50.0) % MCV (80-95) fL MCH (27.0-33.0) pg MCHC (32.0-36.0) % RDW (11.8-14.1) % Plt Count (130-400) 10^3/uL MPV (8.0-11.0) fL Immature Gran % Neutrophils % Lymphocytes % Monocytes % Eosinophils % Basophils % Nucleated RBC % % Absolute Neutrophils (1.2-6.7) 10^3/uL Absolute Lymphocytes (1.2-3.4) 10^3/uL Absolute Monocytes (0.1-0.8) 10^3/uL Absolute Eosinophils (0.0-0.7) 10^3/uL Absolute Basophils (0.0-0.2) 10^3/uL Sodium (136-145) mmol/L Potassium (3.5-5.1) mmol/L Chloride (98-107) mmol/L Carbon Dioxide (21.0-32.0) mmol/L Anion Gap (3-11) mmol/L BUN (7-18) mg/dL Creatinine (0.70-1.30) mg/dL Estimated GFR/1.73 m2 (mL/min/1.73m2) Glucose (74-106) mg/dL Calcium (8.5-10.1) mg/dL Total Bilirubin (0.2-1.0) mg/dL AST (15-37) U/L ALT (16-63) U/L Alkaline Phosphatase (46-116) U/L Creatine Kinase (39-308) U/L Cancelled Total Protein (6.4-8.2) g/dL Albumin (3.4-5.0) g/dL TSH (0.36-3.74) uIU/mL Salicylates (<2.8) mg/dL Acetaminophen (10-30) ug/mL Ethyl Alcohol (<10) mg/dL Sign Out Sign Out Data: Sign Out Comment: pending obs for neurontin OD, Suicide attempt, needs reassessment when awakes hx of polysubstance abuse, ETOH, opiates needs ciwa and paws Last updated by Stephenie Puga PA at 07/09/21 16:11 Sign Out Comment: Initially presented for Neurontin overdose, SI. Has been medically cleared and initial mental health evaluation completed. Plan is to observe in the ER overnight and then have a second mental health evaluation tomorrow and hopeful disposition. Patient was awake, talkative, ate dinner without difficulty. Has no acute concerns or complaints. Last updated by Grant Diaz PA at 07/09/21 22:21 Sign Out Comment: here for SI and attempted to do so by taking neurontin. Medically cleared and saw mental health, currently voluntary with reeval in the morning Last updated by Flo Machuca MD at 07/09/21 23:08 PAWSS Have you Been Recently Intoxicated or Drunk Within the Last 30 days?: Yes Have you Ever Experienced Previous Episodes of Alcohol Withdrawal?: Yes Have you ever Experienced Withdrawal Seizures?: Yes Have you ever Experienced Delirium Tremens(DT)s?: No Have you ever undergone Alcohol Rehabilitation Treatment (i.e, inpt ot outpatient treatment programs)?: Yes Have you ever Experienced Blackouts?: Yes Have you ever Combined Alcohol with other Downers within the last 90 days?: Yes Have you ever Combined Alcohol with any other Substance of Abuse during the last 90 days?: Yes Positive Blood Alcohol level on Presentation? [PCS.BAL]: Yes Evidence of Increased Autonomic Activity (i.e. HR>120, tremor, sweating, agitation, nausea)?: No Result: 8
[2021-07-09 09:47] LABS: Source Nasal/Nares
[2021-07-09 10:28] LABS: COVID-19 PCR Negative (Negative)
--- NOTE | 2021-07-09 18:12 | NUR.NOTE ---
Pt is on phone with telehealth psych services. will do hourly CIWA and give meds when pt is off the phone. HEIDY
[2021-07-09] MEDS: Lisinopril 10 MG TAB PO (18:33)
[2021-07-09] MEDS: Acetaminophen 500 MG TAB 1000 MG PO (18:34)
[2021-07-09] MEDS: Atenolol 50 MG TAB PO (18:45)
--- NOTE | 2021-07-09 18:45 | PDOC.MHCN_ITS ---
Date of service: 07/09/21 Time of Service: 18:45 Mental Health Crisis Note Presenting Issue How did you arrive at the ED and why did you come: Pt arrived on his own seeking voluntary placement for SI. Precipitating Factors Pt endorsed SI and HI and denied NSSI. He is not showing any signs of delusions. Disposition BEHAVIOR: Pt is cooperative and engaged however is reporting housing, not seeing his in 2 years and substances as his stressors. He was released from [facility] 2 days ago after a 2 week hospitalization. EYE CONTACT: consistent MOOD: Normal Pt endorsed depression AFFECT: flat but appropriate. APPETITE: good SLEEP(trouble falling/staying asleep: Pt reported frequent nightmares and un-restful sleep. Plan Pt will stay over night however this seems to be more of a substance, housing and relationship crisis more than a mental health crisis to this clinician. This clinician requested that [facility] be called in, Pt noted that he was supposed to go to [facility] after his d/c from [facility] On 07.10.2021 [facility] will reassess but also look to [facility] to see if they will accept him back. If not, it is this clinician's professional belief that a return hospitalization is not in the best interest of the client and maybe other options can be sought, i.e. crisis beds or safety plan until he can get into a substance abuse program. Signature Clinician's Name/Title: Ana Nam MS, [facility], [facility]
[2021-07-09] MEDS: hydroCHLOROthiazide 12.5 MG TAB PO (18:46)
--- NOTE | 2021-07-09 20:22 | CMSP_ITS ---
- If Service Date Differs Date of service: 07/09/21 Time of Service: 20:22 Care Management Safety Plan Status: Voluntary - Reason for Wait Reason for Wait: Inpatient Admission VOLUNTARY FOR INPATIENT PSYCHIATRIC STABILIZATION. Patient is appropriate in all interactions since arriving at [facility]; Pt has demonstrated appropriate coping and communication skills, has articulated his or her needs and concerns and is fully engaged during staff interactions. Safety plan has been established with patient, and care team, to adhere to patient goals, identify restrictions based on behavioral status, address nutrition, and determine allowed personal belongings, tools for hygiene and personal care. Determine level of activity including ambulation, level of supervision, visitors, and determine privileges based on behaviors and level of engagement by pt. SAFETY PLAN: 1. Will remain on suicide precautions. In Paper Clothes 2. Will remain in room under direct supervision of one-on-one staff at all times provided by CPSO; KEVAN, FLAT BED OPERATOR production supervisor. 3. May have paper cups, plates, finger foods as well as a cardboard spoon with which to eat meals. 4. Follow [facility] Management of the Admitted Behavioral Health Patient policy. 5. Comfort bath system only, shower permitted with escort at RN discretion. 6. No personal belongings-soft items permitted at RN discretion. 7. Visitors-none at this time. 8. Activities: soft cart items approved per RN discretion. 9. Bathroom privileges with escort in the ED 10. Phone: contact limited to family at this time, via cordless phone at RN discretion. 11. Due to VOLUNTARY status, if patient wishes to leave [facility], staff will contact [facility] Crisis Screener ([phone]) and On-Call Angle Bender ([phone]) as soon as possible. In the event of elopement, notify [facility] Police ([phone]). Patient is currently voluntarily at [facility] and seeking inpatient admission when a bed becomes available. [facility] Frontline Microfilm Technician will continue seeking placement. Please contact the President And Chief Commercial Officer Angle Bender ([phone]) and [facility] Microfilm Technician ([phone]) for any needed changes in the Safety Plan. Safety plan has been provided to interdepartmental care team.
[2021-07-09] MEDS: Lactated Ringers 1,000 ML 1000 ML IV (21:25)
[2021-07-10] VITALS (27 sets, daily range): BP systolic 97–126; BP diastolic 56–98; PULSE 72–91; RESP 9–22; TEMP 36.8; O2SAT 91–97
[2021-07-10 02:11] LABS: Bilirubin Negative (Negative); Blood Negative (Negative); Clarity Clear (Clear); Glucose Negative (Negative); Ketones Negative (Negative); Leukocyte Esterase Negative (Negative); Nitrite Negative (Negative); Specific Gravity >= 1.030 (1.005-1.025); Urobilinogen 0.2 EU/dL (Up TO 0.2)
[2021-07-10 02:24] LABS: *AMPHETAMINES SCREEN URINE Negative (Negative); *BARBITURATES SCREEN URINE Negative (Negative); *BENZODIAZEPINES SCREEN URINE Negative (Negative); Cannabinoids THC Positive (Negative); Cocaine Screen,Urine Positive (Negative); METHADONE URINE SCREEN Positive (Negative); OPIATES URINE SCREEN Negative (Negative)
[2021-07-10 02:27] LABS: Tricyclic Antidepressants Positive (Negative)
--- NOTE | 2021-07-10 07:08 | NUR.NOTE ---
[facility] health plan: continuing to monitor patient for safety. Patient appears to be sleeping.
--- NOTE | 2021-07-10 07:42 | NUR.NOTE ---
Confirmed with BAART that patient's dose was 90 mg
[2021-07-10] MEDS: Methadone Liquid 10 MG/ML 90 MG PO (07:58)
--- NOTE | 2021-07-10 09:50 | NUR.NOTE ---
continuing to monitor patient with a CPSO for safety. Pateint remains in a safety precautions room
[2021-07-10] MEDS: LORazepam 1 MG TAB PO (09:55)
--- NOTE | 2021-07-10 12:09 | PDOC.MHCN_ITS ---
Date of service: 07/10/21 Time of Service: 10:40 Mental Health Crisis Note Presenting Issue How did you arrive at the ED and why did you come: Client arrived at [facility] ED on 07/09/21 endorsing SI with intent and plan. Client left [facility] [place] 07/07/21 against medical advice. Client is seen today for check-in assessment while awaiting voluntary hospitalization. Precipitating Factors Client currently endorsing SI with intent 9/10 with plans to overdose on medications or by carbon monoxide poisoning. Disposition BEHAVIOR: Client is laying down in hospital bed dressed in hospital gown when this ad copy writer arrives via zoom. Client is withdrawn and appears to be hopeless when talking about the future. Client states that his family does not talk to him and he has nothing to look forward to in life. EYE CONTACT: Client makes good eye contact. MOOD: Clients mood appears to be depressed and he is withdrawn and hopeless. AFFECT: Client has very flat affect. APPETITE: Client states that his appetite has been ok. SLEEP(trouble falling/staying asleep: Client states that he has been having trouble sleeping stating that he has nightmares about his past and the future and wanting to . Plan Client will remain at [facility] ED on voluntary status pending inpatient treatment. [facility] was called, however they stated that they are not accepting from outside hospitals at the moment. Referrals will be sent to , [facility], [facility], and [facility]. Signature Clinician's Name/Title: Jaida Aragon [facility] Emergency Clinician
--- NOTE | 2021-07-10 14:47 | HPE_ITS ---
Date of service: 07/10/21 Time of Service: 14:47 Assessment and Plan Assessment and plan (1) Suicidal ideation: Assessment and plan: mental health following remains here on voluntary status awaiting inpatient psychiatric placement. (2) Alcohol abuse: Assessment and plan: no signs of withdrawal cessation discussed (3) Hypertension: Assessment and plan: blood pressures stable, continue home medication and monitor (4) Methadone dependence: Assessment and plan: continue methadone dosing (5) Discharge planning issues: Status: Acute Assessment and plan: mental health following awaiting inpatient psychiatric placement discussed with DR Zamudio History of Present Illness History of Present Illness Chief Complaint: depression, suicidal attempt Narrative: presents to the ED intoxicated with suicidal attempt by overdosing on his gabapentin. he was medically cleared in the ED and has had no withdrawal or behavioral issues. he will be admitted to med/surg while awaiting a voluntary inpatient psychiatric treatment. Review of Systems All systems reviewed & are unremarkable except as noted in HPI and below Constitutional Constitutional: Denies fever(s) PFSH All Active Problems (Updated 07/11/21 @ 18:01 by Pennie Ulloa NP) Discharge planning issues (Acute) Alcohol withdrawal seizure (Acute) Back pain (Chronic) Medical History Alcohol abuse Anxiety Major depression Surgical History History of tonsillectomy and adenoidectomy Family History Maternal Grandfather Alcohol use disorder Social History Smoking/Tobacco Use Status: Current every day Tobacco Type: cigarettes Smoking risk assessment performed?: Yes Alcohol Intake: current Alcohol Intake frequency: 0-2 drinks per day Alcohol type: beer and hard liquor Drug use: Daily Substance use type: former substance user Date of last use: >5yrs, crack/cocaine, amphetamines and prescription drug Housing: other Details: lives in [facility] Do you feel safe at home: No Do you feel safe in your relationship?: Yes Additional Social history: Homeless Meds Allergies and Home Medications Allergies Allergy/AdvReac Type Severity Reaction Status Date / Time Sulfa (Sulfonamide Allergy Intermediate Skin Rash Unverified 07/09/21 08:08 Antibiotics) Home Medications Medication Instructions Recorded Confirmed Type atenolol 50 mg tablet 50 mg PO DAILY 01/09/21 07/09/21 History hydrochlorothiazide 12.5 mg tablet 12.5 mg PO DAILY 01/09/21 07/09/21 History lisinopril 10 mg tablet 10 mg PO DAILY 01/09/21 07/09/21 History omeprazole 20 mg tablet,delayed 20 mg PO DAILY 01/09/21 07/09/21 History release trazodone 100 mg tablet 100 mg PO HS 01/09/21 07/09/21 History gabapentin 600 mg tablet 600 mg PO TID 01/10/21 07/09/21 History cyclobenzaprine 5 mg tablet 5 mg PO HS 03/23/21 07/09/21 History disulfiram 250 mg tablet 250 mg PO DAILY 03/23/21 07/09/21 History nicotine (polacrilex) 4 mg gum 4 mg BUCCAL Q2H 03/23/21 07/09/21 History nicotine 21 mg/24 hr daily 21 mg TRANSDERMAL DAILY 03/23/21 07/09/21 History transdermal patch folic acid 1 mg tablet 1 mg PO QAM #30 tab 03/26/21 07/09/21 Rx multivitamin (Multiple Vitamins) 1 tab PO QAM #30 tab 03/26/21 07/09/21 Rx thiamine mononitrate (vit B1) 100 100 mg PO QAM #30 tab 03/26/21 07/09/21 Rx mg tablet (Vitamin B-1 (mononitrate)) methadone 10 mg/mL oral 90 mg (9 mL) PO DAILY #0 ml 04/12/21 07/09/21 Rx concentrate (Methadone Intensol) chlordiazepoxide HCl 25 mg capsule See Rx Instructions .ROUTE 04/29/21 07/09/21 Rx .COMPLEX #16 cap nortriptyline 25 mg capsule mg DAILY 07/09/21 History Exam Const General: cooperative, comfortable, no acute distress, disheveled and ill appearing chronically Nutritional Appearance: obese Orientation: alert, awake and oriented x3 HENMT Head: normal to inspection, normocephalic and atraumatic Resp Effort & Inspection: normal respiratory effort Cardio Rate: regular rate Rhythm: regular rhythm GI Inspection: normal to inspection and obesity Palpation: soft Neuro General: patient alert, patient awake and patient oriented x3 Gait: normal gait Motor: muscle tone normal throughout Extrem General: normal to inspection and full ROM Psych Appearance: disheveled Mental Status: mental status grossly normal Speech and Movement: speech and movement normal Mood: congruent mood Affect: blunted Attitude: cooperative Thought Process: normal Thought Content: normal Insight: limited Judgment: limited Results Labs Result diagrams: 07/09/21 08:20 07/09/21 08:20 Labs: Laboratory Results - last 24 hr 07/10/21 07/10/21 02:05 02:05 Urine Color Yellow Urine Clarity Clear Urine pH 6.0 Ur Specific [place] >= 1.030 H Urine Protein Negative Urine Ketones Negative Urine Blood Negative Urine Nitrite Negative Urine Bilirubin Negative Urine Urobilinogen 0.2 Ur Leukocyte Esterase Negative Urine Glucose Negative Urine Opiates Screen Negative Urine Methadone Screen Positive A Ur Barbiturates Screen Negative Ur Tricyclics Screen Positive A Ur Amphetamines Screen Negative U Benzodiazepines Scrn Negative Urine Cocaine Screen Positive A Ur THC Screen Positive A Last Vital Signs Temp 36.8 C 07/10/21 10:12 Pulse 85 07/10/21 10:12 Resp 20 07/10/21 07:35 BP 117/75 07/10/21 10:12 Pulse Ox 93 07/10/21 10:12 PAWSS Have you Been Recently Intoxicated or Drunk Within the Last 30 days?: Yes Have you Ever Experienced Previous Episodes of Alcohol Withdrawal?: Yes Have you ever Experienced Withdrawal Seizures?: Unable to Obtain Have you ever Experienced Delirium Tremens(DT)s?: Yes Have you ever undergone Alcohol Rehabilitation Treatment (i.e, inpt ot outpatient treatment programs)?: Yes Have you ever Experienced Blackouts?: Yes Have you ever Combined Alcohol with other Downers within the last 90 days?: Unable to Obtain Have you ever Combined Alcohol with any other Substance of Abuse during the last 90 days?: Unable to Obtain Positive Blood Alcohol level on Presentation? [PCS.BAL]: Yes Evidence of Increased Autonomic Activity (i.e. HR>120, tremor, sweating, agitation, nausea)?: No Result: 6
--- NOTE | 2021-07-10 20:15 | PDOC.MHCN ---
Date of service: 07/09/21 Time of Service: 20:15 Mental Health Crisis Note Presenting Issue How did you arrive at the ED and why did you come: Pt arrived via his own seeking voluntary admission. Precipitating Factors Pt endorsed SI however his stressors appeared to be more related to his homelessness, relational and substance use. Disposition BEHAVIOR: Cooperative with fair insight and judgement. EYE CONTACT: consistent MOOD: depressed per Pt report AFFECT: flat APPETITE: Good SLEEP(trouble falling/staying asleep: Good Plan Consult with ED provider and requested [facility] be called for consult. This clinician requested that based on the Pt's answers to screening told that he be held overnight and this would give [facility] the ability to consult with [facility], [facility] and Substance Abuse programs to see if we can get him the necessary programing services for his needs. Pt stated that [facility] was going to accept him once he was d/c from [facility] this will need to be looked into further. Signature Clinician's Name/Title: Ana Nam MS, [facility] Emergency Services Clinician
[2021-07-10] MEDS: traZODone 100 MG TAB PO (21:36)
[2021-07-11] MEDS: Methadone Liquid 10 MG/ML 90 MG PO (08:12)
[2021-07-11 08:45] VITALS: BP 154/99; PULSE 96; RESP 18; TEMP 35.9; O2SAT 100
[2021-07-11] MEDS: Folic Acid 1 MG TAB PO (11:49)
[2021-07-11] MEDS: Thiamine 100 MG TAB PO (11:50)
[2021-07-11] MEDS: Multivitamin TAB 1 TAB PO (11:50)
[2021-07-11] MEDS: hydroCHLOROthiazide 12.5 MG TAB PO (11:50)
[2021-07-11] MEDS: Lisinopril 10 MG TAB PO (11:51)
[2021-07-11] MEDS: Atenolol 50 MG TAB PO (11:51)
[2021-07-11] MEDS: Nicotine 21 MG/24 HR PATCH TD (11:51)
[2021-07-11] MEDS: Omeprazole 20 MG CAPCR PO (11:51)
[2021-07-11] MEDS: Gabapentin 600 MG TAB PO ×2 (14:22→19:54)
[2021-07-11] MEDS: Nicotine 4 MG GUM BC (14:23)
--- NOTE | 2021-07-11 17:11 | CMPROGNOTE_ITS ---
- If Service Date Differs Date of service: 07/11/21 Time of Service: 17:11 Care Management Progress Note S/O: Garrett was sitting up on the edge of his bed when CM met with him. He reported that he did not feel ready to leave [facility] (he was discharged on 07/07/21). CM asked if he has supports in the community, through [facility], [employer], or outpatient case management. 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 He stated that his suicidality is central to homelessness, and that he has a hard time finding support for his mental health, as his main barrier is housing. CM asked if he has applications to housing in process, which he stated that he did at one time, but he is unsure of where he is on the list, or if he is on a list at all. CM encouraged him to engage with his community supports that are there to keep him safe in the community, and help with his housing. He reported that he is interested in transitional housing. CM contacted the power and recovery supervisor, who came in to meet with Garrett and completed housing applications for [facility] and [facility]. The power and recovery supervisor reached out to both, and [facility] stated that they may have an opening soon in their [facility] location. CM will continue to follow. A: Garrett is a 51 year old male admitted to [facility] on 07/10/21 with Major Depression, SI. P: Garrett will remain at [facility] while [facility] seeks inpatient psychiatric treatment vs transitional housing. Transportation will depend on disposition. He will follow up with his PCP, community supports, and discharge plan of care. CM will continue to follow.
--- NOTE | 2021-07-11 17:21 | PDOC.CMSAFE ---
- If Service Date Differs Date of service: 07/11/21 Time of Service: 17:21 Care Management Safety Plan Status: Voluntary - Reason for Wait Reason for Wait: Inpatient Admission VOLUNTARY FOR INPATIENT PSYCHIATRIC STABILIZATION. Patient is appropriate in all interactions since arriving at [facility]; Pt has demonstrated appropriate coping and communication skills, has articulated his or her needs and concerns and is fully engaged during staff interactions. Safety plan has been established with patient, and care team, to adhere to patient goals, identify restrictions based on behavioral status, address nutrition, and determine allowed personal belongings, tools for hygiene and personal care. Determine level of activity including ambulation, level of supervision, visitors, and determine privileges based on behaviors and level of engagement by pt. SAFETY PLAN: 1. Will remain on suicide precautions. In Paper Clothes 2. Will remain in room under direct supervision of one-on-one staff at all times provided by [employer]; KEVAN, DIETARY INTERNSHIP senior it engineer. 3. May have paper cups, plates, finger foods as well as a cardboard spoon with which to eat meals. 4. Follow [facility] Management of the Admitted Behavioral Health Patient policy. 5. Comfort bath system only, shower permitted with escort at RN discretion. 6. No personal belongings-soft items permitted at RN discretion. 7. Visitors-none at this time. 8. Activities: soft cart items approved per RN discretion. 9. Bathroom privileges with escort in the ED 10. Phone: contact limited to family at this time, via cordless phone at RN discretion. 11. Due to VOLUNTARY status, if patient wishes to leave [facility], staff will contact [facility] Crisis Screener ([phone]) and On-Call Wastewater Treatment Operator ([phone]) as soon as possible. In the event of elopement, notify [facility] Police ([phone]). Patient is currently voluntarily at [facility] and seeking inpatient admission when a bed becomes available. [facility] Frontline Database Security Administrator will continue seeking placement. Please contact the Coil Tester Wastewater Treatment Operator ([phone]) and [facility] Database Security Administrator ([phone]) for any needed changes in the Safety Plan. Safety plan has been provided to interdepartmental care team.
[2021-07-11] MEDS: Cyclobenzaprine 10 MG TAB 5 MG PO (21:40)
[2021-07-11] MEDS: traZODone 100 MG TAB PO (21:40)
[2021-07-12 06:30] VITALS: BP 137/103; PULSE 75; RESP 18; TEMP 36.8; O2SAT 93
[2021-07-12] MEDS: Atenolol 50 MG TAB PO (08:19)
[2021-07-12] MEDS: hydroCHLOROthiazide 12.5 MG TAB PO (08:20)
[2021-07-12] MEDS: Lisinopril 10 MG TAB PO (08:20)
[2021-07-12] MEDS: Gabapentin 600 MG TAB PO ×2 (08:20→14:35)
[2021-07-12] MEDS: Folic Acid 1 MG TAB PO (08:20)
[2021-07-12] MEDS: Multivitamin TAB 1 TAB PO (08:21)
[2021-07-12] MEDS: Nicotine 21 MG/24 HR PATCH TD (08:21)
[2021-07-12] MEDS: Methadone Liquid 10 MG/ML 90 MG PO (08:21)
[2021-07-12] MEDS: Omeprazole 20 MG CAPCR PO (08:22)
[2021-07-12] MEDS: Thiamine 100 MG TAB PO (08:22)
[2021-07-12 08:25] VITALS: BP 123/79; PULSE 91; RESP 18; TEMP 36.7; O2SAT 94
[2021-07-12] MEDS: Ondansetron 4 MG TAB PO ×2 (15:19→19:31)
[2021-07-12] MEDS: Acetaminophen 325 MG TAB 650 MG PO ×2 (15:53→22:25)
--- NOTE | 2021-07-12 16:16 | W.PM.PROGNOT ---
Date of Service Date of service: 07/12/21 Time of Service: 16:17 Assessment and Plan Assessment and plan (1) Nausea: Status: Acute Assessment and plan: reporting some nausea but eating OK. denies abdominal pain and has had no vomiting. no fever and hemodynamically stable. abdominal exam benign. reports having a bowel movement, normal pattern. will add zofran prn. (2) Suicidal ideation: Assessment and plan: mental health following remains here on voluntary status awaiting inpatient psychiatric placement. no behavioral problems (3) Alcohol abuse: Assessment and plan: no signs of withdrawal cessation discussed (4) Hypertension: Assessment and plan: blood pressures stable, continue home medication and monitor (5) Methadone dependence: Assessment and plan: continue methadone dosing (6) Discharge planning issues: Status: Acute Assessment and plan: mental health following awaiting inpatient psychiatric placement vs discharge to the care bed. discussed with DR Franz Subjective Subjective Patient reports: no new complaints, tolerating liquids well, tolerating a regular diet, voiding w/o difficulty, bowel movement, nausea and afebrile; denies vomiting Exam Const General: cooperative, comfortable, no acute distress, disheveled and ill appearing chronically Nutritional Appearance: obese Orientation: alert, awake and oriented x3 HENMT Head: normal to inspection, normocephalic and atraumatic Resp Effort & Inspection: normal respiratory effort Cardio Rate: regular rate Rhythm: regular rhythm GI Inspection: normal to inspection and obesity Palpation: soft and nontender Neuro General: patient alert, patient awake and patient oriented x3 Gait: normal gait Motor: muscle tone normal throughout Extrem General: normal to inspection and full ROM Psych Appearance: disheveled Mental Status: mental status grossly normal Speech and Movement: speech and movement normal Mood: congruent mood Affect: blunted Attitude: cooperative Thought Process: normal Thought Content: normal Insight: limited Judgment: limited Objective Last Vital Signs Temp 36.7 C 07/12/21 08:25 Pulse 91 H 07/12/21 08:25 Resp 18 07/12/21 08:25 BP 123/79 07/12/21 08:25 Pulse Ox 94 07/12/21 08:25 PAWSS Have you Been Recently Intoxicated or Drunk Within the Last 30 days?: Yes Have you Ever Experienced Previous Episodes of Alcohol Withdrawal?: Yes Have you ever Experienced Withdrawal Seizures?: Unable to Obtain Have you ever Experienced Delirium Tremens(DT)s?: Yes Have you ever undergone Alcohol Rehabilitation Treatment (i.e, inpt ot outpatient treatment programs)?: Yes Have you ever Experienced Blackouts?: Yes Have you ever Combined Alcohol with other Downers within the last 90 days?: Unable to Obtain Have you ever Combined Alcohol with any other Substance of Abuse during the last 90 days?: Unable to Obtain Positive Blood Alcohol level on Presentation? [PCS.BAL]: Yes Evidence of Increased Autonomic Activity (i.e. HR>120, tremor, sweating, agitation, nausea)?: No Result: 6
--- NOTE | 2021-07-12 16:50 | PDOC.CMPRO ---
- If Service Date Differs Date of service: 07/12/21 Time of Service: 16:50 Care Management Progress Note S/O: Garrett was sitting up in bed when CM met with him. Cristy, [facility], met with him earlier today, and they discussed the possibility of him going to the Care Bed. He is agreeable, and they have a potential bed available tomorrow. Cristy submitted the referral, and he was tentatively accepted for tomorrow. [facility] will check in tomorrow morning to inform CM if he can transport to the Care Bed. Garrett is still interested in transitional housing, and he will be able to go from the Care Bed to transitional housing once he is accepted into that program. CM encouraged Garrett to engage with his community supports in order to keep himself safe and stable once he leaves [facility]. CM will continue to follow. A: Garrett is a 51 year old male admitted to [facility] on 07/10/21 with Major Depression, SI. P: Garrett will remain at [facility] while [facility] seeks inpatient psychiatric treatment vs transitional housing. Transportation will depend on disposition. He will follow up with his PCP, community supports, and discharge plan of care. CM will continue to follow.
--- NOTE | 2021-07-12 16:54 | PDOC.CMSAFE ---
- If Service Date Differs Date of service: 07/12/21 Time of Service: 16:54 Care Management Safety Plan Status: Voluntary - Reason for Wait Reason for Wait: Community Placement VOLUNTARY FOR INPATIENT PSYCHIATRIC STABILIZATION. Patient is appropriate in all interactions since arriving at [facility]; Pt has demonstrated appropriate coping and communication skills, has articulated his or her needs and concerns and is fully engaged during staff interactions. Safety plan has been established with patient, and care team, to adhere to patient goals, identify restrictions based on behavioral status, address nutrition, and determine allowed personal belongings, tools for hygiene and personal care. Determine level of activity including ambulation, level of supervision, visitors, and determine privileges based on behaviors and level of engagement by pt. SAFETY PLAN: 1. Will remain on suicide precautions. In Paper Clothes 2. Will remain in room under direct supervision of one-on-one staff at all times provided by [employer]; KEVAN, LITIGATION SERVICES MANAGER senior cobol developer. 3. May have paper cups, plates, finger foods as well as a cardboard spoon with which to eat meals. 4. Follow [facility] Management of the Admitted Behavioral Health Patient policy. 5. Comfort bath system only, shower permitted with escort at RN discretion. 6. No personal belongings-soft items permitted at RN discretion. 7. Visitors-none at this time. 8. Activities: soft cart items approved per RN discretion. 9. Bathroom privileges with escort in the ED 10. Phone: contact limited to family at this time, via cordless phone at RN discretion. 11. Due to VOLUNTARY status, if patient wishes to leave [facility], staff will contact [facility] Crisis Screener ([phone]) and On-Call Sandwich Hand ([phone]) as soon as possible. In the event of elopement, notify [facility] Police ([phone]). Patient is currently voluntarily at [facility] and seeking inpatient admission when a bed becomes available. [facility] Frontline Materials Branch Chief will continue seeking placement. Please contact the Algebra Tutor Sandwich Hand ([phone]) and [facility] Materials Branch Chief ([phone]) for any needed changes in the Safety Plan. Safety plan has been provided to interdepartmental care team.
[2021-07-12] MEDS: Cyclobenzaprine 10 MG TAB 5 MG PO (22:23)
[2021-07-12] MEDS: traZODone 100 MG TAB PO (22:25)
[2021-07-13] MEDS: Ondansetron 4 MG TAB PO (06:45)
[2021-07-13] MEDS: Acetaminophen 325 MG TAB 650 MG PO (06:45)
[2021-07-13 07:41] VITALS: BP 106/74; PULSE 98; RESP 18; TEMP 36.7; O2SAT 90
[2021-07-13] MEDS: Nicotine 21 MG/24 HR PATCH TD (08:55)
[2021-07-13] MEDS: hydroCHLOROthiazide 12.5 MG TAB PO (08:55)
[2021-07-13] MEDS: Lisinopril 10 MG TAB PO (08:56)
[2021-07-13] MEDS: Atenolol 50 MG TAB PO (08:56)
[2021-07-13] MEDS: Multivitamin TAB 1 TAB PO (08:56)
[2021-07-13] MEDS: Omeprazole 20 MG CAPCR PO (08:56)
[2021-07-13] MEDS: Gabapentin 600 MG TAB PO ×2 (08:56→14:46)
[2021-07-13] MEDS: Folic Acid 1 MG TAB PO (08:56)
[2021-07-13] MEDS: Thiamine 100 MG TAB PO (08:56)
[2021-07-13] MEDS: Methadone Liquid 10 MG/ML 90 MG PO (08:57)
--- NOTE | 2021-07-13 09:22 | CMPROGNOTE_ITS ---
- If Service Date Differs Date of service: 07/13/21 Time of Service: 09:22 Care Management Progress Note S/O: Garrett was lying in bed when CM met with him. He is agreeable to transfer to the Carebed today. Per Cristy at [facility], Garrett has been accepted to the Care Bed. Per Jeanna Moore, transportation to the Carebed will be arranged for 1pm. In addition, Garrett is still interested in transitional housing, and he will be able to go from the Care Bed to transitional housing once he is accepted into that program. CM encouraged Garrett to engage with his community supports in order to keep himself safe and stable once he leaves [facility]. CM will continue to follow. A: Garrett is a 51 year old male admitted to [facility] on 07/10/21 with Major Depression, SI. P: Garrett will remain at [facility] while [facility] seeks inpatient psychiatric treatment vs transitional housing. Transportation will depend on disposition. He will follow up with his PCP, community supports, and discharge plan of care. CM will continue to follow. - MH Services (Omit if N/A) Current MH Services: Care Bed
--- NOTE | 2021-07-13 09:24 | CMSP_ITS ---
- If Service Date Differs Date of service: 07/13/21 Time of Service: 09:24 Care Management Safety Plan Status: Voluntary - Reason for Wait Reason for Wait: Community Placement VOLUNTARY FOR INPATIENT PSYCHIATRIC STABILIZATION. Patient is appropriate in all interactions since arriving at [facility]; Pt has demonstrated appropriate coping and communication skills, has articulated his or her needs and concerns and is fully engaged during staff interactions. Safety plan has been established with patient, and care team, to adhere to patient goals, identify restrictions based on behavioral status, address nutrition, and determine allowed personal belongings, tools for hygiene and personal care. Determine level of activity including ambulation, level of supervision, visitors, and determine privileges based on behaviors and level of engagement by pt. SAFETY PLAN: 1. Will remain on suicide precautions. In Paper Clothes 2. Will remain in room under direct supervision of one-on-one staff at all times provided by [employer]; KEVAN, REGISTRATION CLERK food and beverage coordinator. 3. May have paper cups, plates, finger foods as well as a cardboard spoon with which to eat meals. 4. Follow [facility] Management of the Admitted Behavioral Health Patient policy. 5. Comfort bath system only, shower permitted with escort at RN discretion. 6. No personal belongings-soft items permitted at RN discretion. 7. Visitors-none at this time. 8. Activities: soft cart items approved per RN discretion. 9. Bathroom privileges with escort in the ED 10. Phone: contact limited to family at this time, via cordless phone at RN discretion. 11. Due to VOLUNTARY status, if patient wishes to leave [facility], staff will contact [facility] Crisis Screener ([phone]) and On-Call Rubber Cutter And Shape Carver ([phone]) as soon as possible. In the event of elopement, notify [facility] Police ([phone]). Patient is currently voluntarily at [facility] and seeking inpatient admission when a bed becomes available. [facility] Frontline Silhouette Artist will continue seeking placement. Please contact the Global Compensation Analyst Rubber Cutter And Shape Carver ([phone]) and [facility] Silhouette Artist ([phone]) for any needed changes in the Safety Plan. Safety plan has been provided to interdepartmental care team.
--- NOTE | 2021-07-13 11:55 | PDOC.CMDIS ---
- If Service Date Differs Date of service: 07/13/21 Time of Service: 11:55 LACE Index Scoring Tool - Questions: Length of Stay (in days): 3 E.D. Visits: 7 Care Management Discharge Reason for Hospitalization: Major Depression, SI Discharge Plan: Discharge to [facility] via facility vehicle. Follow up with community providers and discharge plan of care as prescribed. Patient/Family Education Needs: Review discharge instructions, limitations, medications and plan to follow up with community providers. ask me three. - MH Services (Omit if N/A) Current MH Services: Care Bed
--- NOTE | 2021-07-13 12:36 | W.PM.DS.N ---
Date of service: 07/13/21 Time of Service: 12:36 DS: Diagnosis Discharge Diagnosis (1) Nausea: Status: Acute (2) Suicidal ideation: (3) Alcohol abuse: (4) Hypertension: (5) Methadone dependence: Discharge Plan Disposition Patient Disposition: [facility] Condition: Stable Discharge Details Reason For Visit: Major Depressions w/Suicidal Ideation Admit Date/Time: 07/10/21 14:43 Admit Provider: Grant Zamudio Attending Provider: Grant Zamudio Primary Care Provider: Mayito Stearns Hospital Course Hospital Course: This is a 51 year old male well known to [facility] for recurrent depression, suicidal ideation and alcohol abuse who was recently hospitalized for depression and suicidal ideation and discharged to home. Shortly after being home, he resumed drinking alcohol and decided to overdose on his medication. He presented to the ED for evaluation and was medically screened. He was monitored and remained in the ED for observation and remained medically stable. He was screened by mental health and they feel he is safe for discharge to the care bed. He experienced no withdrawal from alcohol or complications from his overdose. There was no behavioral issues. He is being discharged to the care bed, he will continue to received his methadone from [facility]. There has been no medication changes, he states he does not take his disulfiram, which we have not been administering in the hospital. discharge discussed with DR Franz Nora Meds and New Rx's Prescriptions: Continued methadone [Methadone Intensol] 10 mg/mL Concentrate 90 mg PO DAILY Qty: 0 0RF nortriptyline 25 mg Capsule DAILY 0RF trazodone 100 mg Tablet 100 mg PO HS 0RF lisinopril 10 mg Tablet 10 mg PO DAILY 0RF atenolol 50 mg Tablet 50 mg PO DAILY 0RF hydrochlorothiazide 12.5 mg Tablet 12.5 mg PO DAILY 0RF omeprazole 20 mg Tablet,Delayed Release (Dr/Ec) 20 mg PO DAILY 0RF gabapentin 600 mg Tablet 600 mg PO TID 0RF cyclobenzaprine 5 mg Tablet 5 mg PO HS 0RF disulfiram 250 mg Tablet 250 mg PO DAILY 0RF Label Comments: States he has never taken it. States he is afraid to. nicotine 21 mg/24 hr Patch 24 Hour 21 mg transdermal DAILY 0RF nicotine (polacrilex) 4 mg Gum 4 mg BUCCAL Q2H 0RF folic acid 1 mg Tablet 1 mg PO QAM Qty: 30 0RF multivitamin [Multiple Vitamins] Tablet 1 tab PO QAM Qty: 30 0RF thiamine mononitrate (vit B1) [Vitamin B-1 (mononitrate)] 100 mg Tablet 100 mg PO QAM Qty: 30 0RF Discontinued chlordiazepoxide HCl 25 mg Capsule See Rx Instructions .ROUTE .COMPLEX Qty: 16 0RF Rx Instructions: 2 tabs TID for today and tomorrow, then 2 tabs BID x 2 days, then 1 tab BID for 2 days, then 1 tab nightly for 2 days. Discharge Instructions Instructions: Suicide Prevention (DC) Referrals: Mayito Stearns [Primary Care Provider] - Activity:: Activity as Tolerated Equipment/Supplies:: No Equipment Needed Diet:: As Tolerated Discharge Orders Discharge Orders: Discharge Order (Routine); Ordered 07/13/21 Ordered By: Pennie Ulloa DS: Summary Time Spent with Patient providing and/or coordinating discharge services: Greater than 30 minutes Status at Discharge Functional status at discharge: independent ambulation Overall status at discharge: patient is not back to baseline Mental Status: mental status grossly normal Speech and Movement: speech and movement normal Mood: congruent mood Affect: blunted Exam Const General: cooperative, comfortable, no acute distress, disheveled and ill appearing chronically Nutritional Appearance: obese Orientation: alert, awake and oriented x3 HENMT Head: normal to inspection, normocephalic and atraumatic Resp Effort & Inspection: normal respiratory effort Cardio Rate: regular rate Rhythm: regular rhythm GI Inspection: normal to inspection and obesity Palpation: soft and nontender Neuro General: patient alert, patient awake and patient oriented x3 Gait: normal gait Motor: muscle tone normal throughout Extrem General: normal to inspection and full ROM Psych Appearance: disheveled Mental Status: mental status grossly normal Speech and Movement: speech and movement normal Mood: congruent mood Affect: blunted Attitude: cooperative Thought Process: normal Thought Content: normal Insight: limited Judgment: limited DS: Data Vitals/I&O Vitals and I&O: Vital Signs Temperature 36.7 C 07/13/21 07:41 Temperature Source Tympanic 07/13/21 07:41 Pulse 98 H 07/13/21 07:41 Pulse Rhythm Regular 07/13/21 08:00 Pulse 77 07/10/21 01:50 Respiratory Rate 18 07/13/21 07:41 Respiratory Effort Non-Labored 07/13/21 08:00 Respiratory Depth Normal 07/13/21 08:00 Respiratory Pattern Normal 07/13/21 08:00 Blood Pressure 106/74 07/13/21 07:41 Blood Pressure Mean 88 07/10/21 02:04 Blood Pressure Position Sitting 07/09/21 07:58 Pulse Oximetry 90 L 07/13/21 07:41 Oxygen Delivery Method Room Air 07/13/21 07:41 Oxygen Flow Rate 0 07/13/21 07:41 Pain Level 0 07/13/21 07:41 Comment 07/10/21 23:29 Intake & Output 07/12/21 07/13/21 07/13/21 23:59 11:59 23:59 Intake Total 580 / 580 400 / 400 Balance 580 / 580 400 / 400 Intake: Oral 580 / 580 400 / 400 Other: Voiding Methods Toilet Toilet Data Completed and Pending Labs on day of discharge: Labs from last 24 hours 07/13/21 12:27 COVID-19 Source Pending SARS-CoV-2 (PCR) Pending [facility] All Active Problems (Updated 07/12/21 @ 16:25 by Pennie Ulloa NP) Nausea (Acute) Discharge planning issues (Acute) Alcohol withdrawal seizure (Acute) Back pain (Chronic) Medical History Alcohol abuse Anxiety Major depression Surgical History History of tonsillectomy and adenoidectomy Family History Maternal Grandfather Alcohol use disorder Social History Smoking/Tobacco Use Status: Current every day Tobacco Type: cigarettes Smoking risk assessment performed?: Yes Alcohol Intake: current Alcohol Intake frequency: 0-2 drinks per day Alcohol type: beer and hard liquor Drug use: Daily Substance use type: former substance user Date of last use: >5yrs, crack/cocaine, amphetamines and prescription drug Housing: other Details: lives in [facility] Do you feel safe at home: No Do you feel safe in your relationship?: Yes Additional Social history: Homeless
[2021-07-13 13:09] LABS: Source Nasal/Nares
[2021-07-13 14:03] LABS: COVID-19 PCR Negative (Negative)
--- NOTE | 2021-07-13 15:09 | MHPN_ITS ---
Date of service: 07/13/21 Time of Service: 14:15 Mental Health Progress Note Progress Note Progress Note: Presenting Issue: Client admitted himself to [facility] after a non-fatal attempt to overdose. Precipitating Factors Client is endorsing SI with intent of 9/10 and a plan to overdose. Disposition * Behavior: Calm and cooperative. Client appears to have a depressive presentation. *Eye Contact: Good. *Mood: Client describes his mood as dark. *Affect: Blunted *Appetite: Client reports he has had difficulty eating today due to his anxiety. *Sleep(troubel falling/staying asleep): Client reports his sleep was fitful and he had multiple bad dreams. Plan(please elaborate and include that physician is consulted with plan and/or placement): Due to clients acuity level, he is unable to be safety planned home at this time. Client is rating his intent a 9/10. Client will remain at [facility] waiting for placement, or until he can be safety planned back into his community. Referrals have been sent to [facility], [facility], , and [facility]. No beds available today. Working with Jonathan from [facility] to come up with a plan for sober living. Referrals have been sent to [facility] and [facility]. Clinician's Name , Title, and Signature NISREEN Escalante Make sure that you are photocopying and submitting this to [facility] records Dept. to be scanned into chart.
[2021-07-13 16:30] VITALS: O2SAT 96
--- NOTE | 2021-07-13 16:34 | PDOC.CMDIS ---
LACE Index Scoring Tool - Questions: Length of Stay (in days): 3 Acuity (Admit via E.D.?): Yes E.D. Visits: 7 - Answers: Total Score: 10 Risk of Readmission: High Risk Care Management Discharge Reason for Hospitalization: Major Depression with SI Discharge Plan: Discharge to [facility], transportation provided by [facility]. Garrett will olive picker his bad with home medications, located in his car in the [facility] parkinglot. Debbie from [facility] is aware. Apon arrival at the [facility] staff will assist patient with his medications and notify [facility] if additional RX's are needed. Last [facility] dose letter was sent with patient in a sealed envelope and also faxed to [facility] with standing orders. Patient will follow up with community providers and discharge plan of care as prescribed. Garrett has a follow up appointment with his PCP Dr. Stearns on 07/18/21. Patient/Family Education Needs: Review discharge instructions, medications and plan to follow up with PCP and community providers. ask me three. - MH Services (Omit if N/A) Current MH Services: Care Bed
--- NOTE | 2021-10-11 13:10 | PGE_ITS ---
Date of Service Date of service: 07/11/21 Time of Service: 13:10 Assessment and Plan Assessment and plan (1) Depression with suicidal ideation: Status: Acute Assessment and plan: will continue CPSO, suicide precautions per protocol awaiting voluntary placement mental health and case management following. (2) Alcohol abuse: Status: Chronic Assessment and plan: no sign of withdrawal thiamine ordered (3) Hypertension: Status: Chronic Assessment and plan: continue hctz and lisinopril monitor and adjust as needed. (4) Diabetes mellitus type 2 in obese: Status: Chronic Assessment and plan: change to diabetic diet no blood sugar checks at this time continue metformin. (5) Methadone dependence: Status: Acute Assessment and plan: continue home methadone dosing discussed with DR Franz Subjective Subjective Patient reports: no new complaints, tolerating liquids well, tolerating a regular diet and afebrile; denies shortness of breath Exam Const General: cooperative, comfortable, no acute distress, disheveled and ill appearing chronically Nutritional Appearance: obese Orientation: alert, awake and oriented x3 HENMT Head: normal to inspection, normocephalic and atraumatic Resp Effort & Inspection: normal respiratory effort Cardio Rate: regular rate Rhythm: regular rhythm GI Inspection: normal to inspection and obesity Palpation: soft and nontender Neuro General: patient alert, patient awake and patient oriented x3 Gait: normal gait Motor: muscle tone normal throughout Extrem General: normal to inspection and full ROM Psych Appearance: disheveled Mental Status: mental status grossly normal Speech and Movement: speech and movement normal Mood: congruent mood Affect: blunted Attitude: cooperative Thought Process: normal Thought Content: normal Insight: limited Judgment: limited Objective Last Vital Signs Temp 36.7 C 07/13/21 07:41 Pulse 98 H 07/13/21 07:41 Resp 18 07/13/21 07:41 BP 106/74 07/13/21 07:41 Pulse Ox 96 07/13/21 16:30 PAWSS Have you Been Recently Intoxicated or Drunk Within the Last 30 days?: Yes Have you Ever Experienced Previous Episodes of Alcohol Withdrawal?: Yes Have you ever Experienced Withdrawal Seizures?: Unable to Obtain Have you ever Experienced Delirium Tremens(DT)s?: Yes Have you ever undergone Alcohol Rehabilitation Treatment (i.e, inpt ot outpatient treatment programs)?: Yes Have you ever Experienced Blackouts?: Yes Have you ever Combined Alcohol with other Downers within the last 90 days?: Unable to Obtain Have you ever Combined Alcohol with any other Substance of Abuse during the last 90 days?: Unable to Obtain Positive Blood Alcohol level on Presentation? [PCS.BAL]: Yes Evidence of Increased Autonomic Activity (i.e. HR>120, tremor, sweating, rosa tation, nausea)?: No Result: 6
== END 2021-07-13 17:02 | disposition designated cancer center or children's hospital (05) ==
LOC: ER 07-10 07:50 → MS 07-10 15:38
PROVIDERS: Internal Medicine; Physician Assistant; Admitting Provider Internal Medicine; Emergency Provider Student in an Organized Health Care Education/Training Program; PCP Physician Assistant; Visit Provider Internal Medicine
DX: T42.6X2A Poisoning by other antiepileptic and sedative-hypnotic drugs, intentional self-harm, initial encounter (principal); T51.0X2A Toxic effect of ethanol, intentional self-harm, initial encounter; F33.9 Major depressive disorder, recurrent, unspecified; I10 Essential (primary) hypertension; F10.10 Alcohol abuse, uncomplicated; F11.20 Opioid dependence, uncomplicated; R40.0 Somnolence; R47.81 Slurred speech; Z20.822 Contact with and (suspected) exposure to COVID-19; Z59.00 Homelessness unspecified
CPT/HCPCS: 36415; 80053; 80307; 82550; 87635; 93005; 96361; 99285; 80320; 80329; 81003; 84443; 85025; 93010; 99217; 99220; 99226; G0378; J8597

== ENCOUNTER 2021-07-21 13:38 | Inpatient (IN) | payer MEDICARE, MEDICAID, SELFPAY ==
[2021-07-21] VITALS (21 sets, daily range): BP systolic 95–125; BP diastolic 55–86; PULSE 78–87; RESP 10–19; TEMP 35.8–37.3; O2SAT 89–95
--- NOTE | 2021-07-21 13:45 | RT.EKG_ITS ---
APPROVED REPORT Exam: Resting ECG Reason for Exam: OD Patient Location: E HR:84 bpm ECG Measurements Heart Rate 84 AXIS WY 177 P 24 QRSd 96 QRS -11 QT 391 T 30 QTc 463 Conclusion Sinus rhythm...normal P axis, V-rate 60- 99 sinus rhythm, left axis, normal intervals, non ischemic
--- NOTE | 2021-07-21 14:03 | ED.GENADUL_ITS ---
Discharge Plan Disposition Patient Disposition: [facility] INPATIENT Discharge Details Chief Complaint: PsychEval Clinical Impression: Gabapentin overdose, Alcohol abuse, Depression with suicidal ideation Primary Care Provider: Mayito Stearns ED Provider: Grant Diaz Home Meds and New Rx's Prescriptions: No Action methadone [Methadone Intensol] 10 mg/mL Concentrate 90 mg PO DAILY Qty: 0 0RF nortriptyline 25 mg Capsule DAILY 0RF trazodone 100 mg Tablet 100 mg PO HS 0RF lisinopril 10 mg Tablet 10 mg PO DAILY 0RF atenolol 50 mg Tablet 50 mg PO DAILY 0RF hydrochlorothiazide 12.5 mg Tablet 12.5 mg PO DAILY 0RF omeprazole 20 mg Tablet,Delayed Release (Dr/Ec) 20 mg PO DAILY 0RF gabapentin 600 mg Tablet 600 mg PO TID 0RF cyclobenzaprine 5 mg Tablet 5 mg PO HS 0RF disulfiram 250 mg Tablet 250 mg PO DAILY 0RF Label Comments: States he has never taken it. States he is afraid to. nicotine 21 mg/24 hr Patch 24 Hour 21 mg transdermal DAILY 0RF nicotine (polacrilex) 4 mg Gum 4 mg BUCCAL Q2H 0RF folic acid 1 mg Tablet 1 mg PO QAM Qty: 30 0RF multivitamin [Multiple Vitamins] Tablet 1 tab PO QAM Qty: 30 0RF thiamine mononitrate (vit B1) [Vitamin B-1 (mononitrate)] 100 mg Tablet 100 mg PO QAM Qty: 30 0RF Medical Decision Making 51-year-old gentleman presents to the ER reporting depression, SI with overdose attempt roughly 2 hours ago, a total of 60 tablets pending 300 mg. Patient states I do not want to live anymore. He reports feeling tired, otherwise no acute concerns or complaints. He was recently admitted to our facility for the same, discharged to a care bed, he left the care bed yesterday and is now presenting to the ER. Clinically he appears well, nontoxic. Poison control was contacted, they state this dose is not a toxic amount, he requires observation for 6 hours and supportive care. I have initiated a CPSO, interim care plan, medical screening laboratories, and once medically cleared she will need a mental health evaluation. Initial laboratory values reveal an alcohol level of 175, otherwise grossly unremarkable. Patient will require an additional 5 hours of observation before he can be medically cleared and at that time will require a mental health evaluation. Given his suicide attempt, I find it highly unlikely that he is discharged home at that time, and will discuss admission to our facility with our hospitalist team. Patient is sleeping but easily arousable to verbal stimuli. He was able to tolerate p.o. water without any difficulty. No evidence of any withdrawal Case discussed with Dr. Batista who is agreeable for admission and will write admission orders This documentation was generated using [employer] system, please disregard any oddities of phrase or misspellings. Medical Records Medical records reviewed: Yes I reviewed the patient's medical records. Lab Data Lab results reviewed: Yes I reviewed the patient's lab results. Labs: Laboratory Tests Range/Units 07/21/21 07/21/21 07/21/21 14:10 14:10 14:10 WBC (4.4-10.8) 10^3/uL 9.63 RBC (4.36-5.78) 10^6/uL 4.78 Hgb (13.5-17.5) g/dL 14.4 Hct (40.0-50.0) % 44.7 MCV (80-95) fL 93.5 MCH (27.0-33.0) pg 30.1 MCHC (32.0-36.0) % 32.2 RDW (11.8-14.1) % 14.0 Plt Count (130-400) 10^3/uL 408 H MPV (8.0-11.0) fL 8.9 Immature Gran % 0.6 Neutrophils % 53.8 Lymphocytes % 34.3 Monocytes % 7.7 Eosinophils % 2.6 Basophils % 1.0 Nucleated RBC % (0.0-0.3) % 0.0 Absolute Neutrophils (1.2-6.7) 10^3/uL 5.18 Absolute Lymphocytes (1.2-3.4) 10^3/uL 3.30 Absolute Monocytes (0.1-0.8) 10^3/uL 0.74 Absolute Eosinophils (0.0-0.7) 10^3/uL 0.25 Absolute Basophils (0.0-0.2) 10^3/uL 0.10 Sodium (136-145) mmol/L 142 Potassium (3.5-5.1) mmol/L 4.5 Chloride (98-107) mmol/L 101 Carbon Dioxide (21.0-32.0) mmol/L 29.9 Anion Gap (3-11) mmol/L 11.1 H BUN (7-18) mg/dL 23 H Creatinine (0.70-1.30) mg/dL 1.3 Estimated GFR/1.73 m2 (mL/min/1.73m2) 57.97 Glucose (74-106) mg/dL 94 Calcium (8.5-10.1) mg/dL 8.8 Total Bilirubin (0.2-1.0) mg/dL 0.2 AST (15-37) U/L 40 H ALT (16-63) U/L 60 Alkaline Phosphatase (46-116) U/L 83 Total Protein (6.4-8.2) g/dL 7.7 Albumin (3.4-5.0) g/dL 3.6 TSH (0.36-3.74) uIU/mL 0.77 Salicylates (<2.8) mg/dL 2.9 Acetaminophen (10-30) ug/mL < 2 Ethyl Alcohol (<10) mg/dL 175.6 H COVID-19 Source SARS-CoV-2 (PCR) (Negative) Range/Units 07/21/21 14:30 WBC (4.4-10.8) 10^3/uL RBC (4.36-5.78) 10^6/uL Hgb (13.5-17.5) g/dL Hct (40.0-50.0) % MCV (80-95) fL MCH (27.0-33.0) pg MCHC (32.0-36.0) % RDW (11.8-14.1) % Plt Count (130-400) 10^3/uL MPV (8.0-11.0) fL Immature Gran % Neutrophils % Lymphocytes % Monocytes % Eosinophils % Basophils % Nucleated RBC % (0.0-0.3) % Absolute Neutrophils (1.2-6.7) 10^3/uL Absolute Lymphocytes (1.2-3.4) 10^3/uL Absolute Monocytes (0.1-0.8) 10^3/uL Absolute Eosinophils (0.0-0.7) 10^3/uL Absolute Basophils (0.0-0.2) 10^3/uL Sodium (136-145) mmol/L Potassium (3.5-5.1) mmol/L Chloride (98-107) mmol/L Carbon Dioxide (21.0-32.0) mmol/L Anion Gap (3-11) mmol/L BUN (7-18) mg/dL Creatinine (0.70-1.30) mg/dL Estimated GFR/1.73 m2 (mL/min/1.73m2) Glucose (74-106) mg/dL Calcium (8.5-10.1) mg/dL Total Bilirubin (0.2-1.0) mg/dL AST (15-37) U/L ALT (16-63) U/L Alkaline Phosphatase (46-116) U/L Total Protein (6.4-8.2) g/dL Albumin (3.4-5.0) g/dL TSH (0.36-3.74) uIU/mL Salicylates (<2.8) mg/dL Acetaminophen (10-30) ug/mL Ethyl Alcohol (<10) mg/dL COVID-19 Source Nasal/Nares SARS-CoV-2 (PCR) (Negative) Negative ECG Data Attestation: I personally reviewed and interpreted this ECG (s) as follows: Interpretation: Please see official report by Dr. Cadena. Sinus rhythm, ventricular rate of 84, no STEMI HPI General Mode of arrival: ambulatory . Date/Time Provider Initiated Documentation: 07/21/21 13:40 . Limitations to Documentation: no limitations . Information obtained by: patient . HPI Narrative: This is a 51-year-old gentleman, past medical history of alcohol abuse, alcohol withdrawal seizures, hypertension, methadone dependence, anxiety, presenting to the ER for worsening depression with SI, gabapentin overdose about 2 hours ago. He states he took a total of 50 tablets, 300 mg each. He was recently seen in the ER for the same, admitted to the hospital, and subsequently discharged to a care bed, he tells me he left the care bed yesterday. He reports feeling a little sleepy right now but otherwise has no other complaints. Denies recent il lness or trauma. Related Data Home Medications Medication Instructions Recorded Confirmed atenolol 50 mg tablet 50 mg PO DAILY 01/09/21 07/09/21 hydrochlorothiazide 12.5 mg tablet 12.5 mg PO DAILY 01/09/21 07/09/21 lisinopril 10 mg tablet 10 mg PO DAILY 01/09/21 07/09/21 omeprazole 20 mg tablet,delayed 20 mg PO DAILY 01/09/21 07/09/21 release trazodone 100 mg tablet 100 mg PO HS 01/09/21 07/09/21 gabapentin 600 mg tablet 600 mg PO TID 01/10/21 07/09/21 cyclobenzaprine 5 mg tablet 5 mg PO HS 03/23/21 07/09/21 disulfiram 250 mg tablet 250 mg PO DAILY 03/23/21 07/09/21 nicotine (polacrilex) 4 mg gum 4 mg BUCCAL Q2H 03/23/21 07/09/21 nicotine 21 mg/24 hr daily 21 mg TRANSDERMAL DAILY 03/23/21 07/09/21 transdermal patch folic acid 1 mg tablet 1 mg PO QAM #30 tab 03/26/21 07/09/21 multivitamin (Multiple Vitamins) 1 tab PO QAM #30 tab 03/26/21 07/09/21 thiamine mononitrate (vit B1) 100 100 mg PO QAM #30 tab 03/26/21 07/09/21 mg tablet (Vitamin B-1 (mononitrate)) methadone 10 mg/mL oral 90 mg (9 mL) PO DAILY #0 ml 04/12/21 07/09/21 concentrate (Methadone Intensol) nortriptyline 25 mg capsule mg DAILY 07/09/21 Previous Rx's Medication Instructions Recorded folic acid 1 mg tablet 1 mg PO QAM #30 tab 03/26/21 multivitamin (Multiple Vitamins) 1 tab PO QAM #30 tab 03/26/21 thiamine mononitrate (vit B1) 100 100 mg PO QAM #30 tab 03/26/21 mg tablet (Vitamin B-1 (mononitrate)) methadone 10 mg/mL oral 90 mg (9 mL) PO DAILY #0 ml 04/12/21 concentrate (Methadone Intensol) Allergies Allergy/AdvReac Type Severity Reaction Status Date / Time Sulfa (Sulfonamide Allergy Intermediate Skin Rash Unverified 07/09/21 08:08 Antibiotics) General Stated Complaint: PsychEval RODGER: 2 Review of Systems Constitutional Constitutional: Denies fever(s) and Denies headache(s) Eyes Eyes: Denies change in vision ENT Ears, Nose, Mouth, and Throat: Denies headache(s) and Denies neck pain Cardiovascular Cardiovascular: Denies chest pain and Denies dyspnea Respiratory Respiratory: Denies cough and Denies dyspnea Gastrointestinal Gastrointestinal: Denies abdominal pain, Denies nausea and Denies vomiting Musculoskeletal Musculoskeletal: Denies neck pain Integumentary/Breasts Skin/Breast: Denies rash Neurologic Neurologic: Denies headache(s) Psychiatric Psychiatric: Reports depression, Denies homicidal ideation and Reports suicidal ideation Hematologic/Lymphatic Hematologic/Lymphatic: Denies easy bleeding and Denies easy bruising PFSH All Active Problems (Updated 07/21/21 @ 15:33 by CANDELARIA Ibrahim) Gabapentin overdose (Acute) Methadone dependence (Acute) Hypertension (Chronic) Alcohol abuse (Chronic) Depression with suicidal ideation (Acute) Alcohol withdrawal seizure (Acute) Back pain (Chronic) Medical History Alcohol dependence Anxiety COVID-19 Depression Major depression Suicidal ideation Surgical History History of tonsillectomy and adenoidectomy Family History Maternal Grandfather Alcohol use disorder Social History Smoking/Tobacco Use Status: Current every day Tobacco Type: cigarettes Smoking risk assessment performed?: Yes Alcohol Intake: current Alcohol Intake frequency: 0-2 drinks per day Alcohol type: beer and hard liquor Drug use: Daily Substance use type: former substance user Date of last use: >5yrs, crack/cocaine, amphetamines and prescription drug Housing: other Details: lives in [facility] Do you feel safe at home: No Do you feel safe in your relationship?: Yes Additional Social history: Homeless Exam Const General: cooperative, comfortable and no acute distress Orientation: alert, awake and oriented x3 HENMT Head: normal to inspection, normocephalic and atraumatic Face and sinus: normal facial exam Mouth: moist mucous membranes Eyes General: appearance normal, both eyes and all related structures Conjunctivae: conjunctivae normal Neck Neck: normal visual inspection, trachea midline and supple Resp Effort & Inspection: normal respiratory effort and able to speak in complete sentences Auscultation: clear to auscultation bilaterally Cardio Rate: regular rate Rhythm: regular rhythm GI Inspection: obesity Palpation: soft and nontender Back/Spine/Pelvis Back: No back tenderness Skin Rashes: no rashes Neuro General: patient alert, patient awake, patient oriented x3, moves all extremities and no focal motor deficits Cognition: normal cognition Speech: speech normal Gait: normal gait Motor: muscle tone normal throughout Sensory Exam: no sensory deficits noted Psych Appearance: grossly normal Mental Status: mental status grossly normal Speech and Movement: speech and movement normal Mood: dysthymic mood Affect: sad Attitude: cooperative Thought Process: normal Thought Content: suicidality Insight: fair Judgment: fair Course Vital Signs Vital signs: Vital Signs Temperature 35.8 C L 07/21/21 13:42 Pulse 86 07/21/21 13:42 Respiratory Rate 16 07/21/21 13:42 Blood Pressure 122/86 07/21/21 13:42 Pulse Oximetry 93 07/21/21 13:42 Temperature 35.8 C L 07/21/21 13:42 Temperature Source Skin 07/21/21 13:42 Pulse 86 07/21/21 13:42 Respiratory Rate 16 07/21/21 13:42 Respiratory Effort 07/21/21 13:46 Blood Pressure 122/86 07/21/21 13:42 Blood Pressure Position Sitting 07/21/21 13:42 Pulse Oximetry 93 07/21/21 13:42 Oxygen Delivery Method Room Air 07/21/21 13:42 Oxygen Flow Rate 0 07/21/21 13:42 Pain Level 0 07/21/21 13:42 PAWSS Have you Been Recently Intoxicated or Drunk Within the Last 30 days?: Yes Have you Ever Experienced Previous Episodes of Alcohol Withdrawal?: No Have you ever Experienced Withdrawal Seizures?: No Have you ever Experienced Delirium Tremens(DT)s?: No Have you ever undergone Alcohol Rehabilitation Treatment (i.e, inpt ot outpatient treatment programs)?: No Have you ever Experienced Blackouts?: No Have you ever Combined Alcohol with other Downers within the last 90 days?: No Have you ever Combined Alcohol with any other Substance of Abuse during the last 90 days?: No Positive Blood Alcohol level on Presentation? [PCS.BAL]: No Evidence of Increased Autonomic Activity (i.e. HR>120, tremor, sweating, agitation, nausea)?: No Result: 1
[2021-07-21] MEDS: Normal Saline 1,000 ML 1000 ML IV (14:20)
[2021-07-21 14:25] LABS: Abs Immature Grans 0.06 10^3/uL (0.0-0.06); Absolute Eosinophil Count 0.25 10^3/uL (0.0-0.7); Absolute Monocyte Count 0.74 10^3/uL (0.1-0.8); Absolute Neutrophil Count 5.18 10^3/uL (1.2-6.7); Eosinophils % 2.6; HCT 44.7 % (40.0-50.0); HGB 14.4 g/dL (13.5-17.5); Immature Grans % 0.6; Lymphocytes % 34.3; MCH 30.1 pg (27.0-33.0); MCHC 32.2 % (32.0-36.0); MCV 93.5 fL (80-95); MPV 8.9 fL (8.0-11.0); Monocytes % 7.7; Neutrophils % 53.8; Platelet Count 408 10^3/uL (130-400); RBC 4.78 10^6/uL (4.36-5.78); RDW-SD 47.8 fL; WBC 9.63 10^3/uL (4.4-10.8)
--- NOTE | 2021-07-21 14:31 | CMSP_ITS ---
- If Service Date Differs Date of service: 07/21/21 Time of Service: 14:32 Care Management Safety Plan Status: Interim - Reason for Wait Reason for Wait: Medical Clearance Chief Complaint: Garrett is a 51-year-old male who has struggled with anxiety, depression, substance use, and homelessness for an extended period of time. He presents in the ED today after taking an overdose of Gabapentin in a suicidal gesture. He receives services through [facility] and was recently discharged from the Care Bed. CM will respond to ED to assess patient after patient has been medically cleared and assessed by screener. If screener deems patient meets criteria for psychiatric stabilization CM will facilitate interdepartmental huddle with [facility] screener for safety planning considerations and meet with patient to review [facility] policy and safety plan, establish individual wishes for treatment and maintain patient rights. In the interim; please note safety plan below to guide patient care while awaiting further assessment in the ED. SAFETY PLAN: 1. Will remain on suicide precautions and in paper clothes. 2. Will remain in room under direct supervision of one-on-one staff at all times provided by CPSO, KEVAN, ADAPTED PHYSICAL EDUCATION TEACHER hair rooting machine operator. 3. May have paper cups, plates, finger foods as well as a cardboard spoon with which to eat meals. 4. Follow [facility] Management of the Admitted Behavioral Health Patient policy. 5. Personal care: Comfort bath system only at this time. 6. Bathroom privileges: with escort in ED. Available in room without limitation on Med/Surg. 6. No personal belongings at this time with the exception of eyeglasses. 7. No visitors at this time. 8. Phone contact limited to legal contact at this time. 9. Activities: Soft cart items, music tablet, television and other activities at RN discretion. 10. Due to VOLUNTARY status, if patient wishes to leave [facility], staff will contact [facility] Crisis Screener ([phone]) and On-Call Major Account Manager ([phone]) as soon as possible. In the event of elopement, notify [facility] Police ([phone]). If deemed appropriate for inpatient psychiatric care, safety plan will be established with patient, and care team, to adhere to patient goals, identify restrictions based on behavioral status, address nutrition, and determine allowed personal belongings, tools for hygiene and personal care. As well plan will determine level of activity including ambulation, level of supervision, visitors, and determine privileges based on level of acuity, behaviors and level of engagement by patient.
[2021-07-21 14:32] LABS: Source Nasal/Nares
[2021-07-21 14:36] LABS: Salicylate 2.9 mg/dL (<2.8)
[2021-07-21 14:37] LABS: Acetaminophen < 2 ug/mL (10-30)
[2021-07-21 14:44] LABS: ALT 60 U/L (16-63); AST 40 U/L (15-37); Albumin 3.6 g/dL (3.4-5.0); Alkaline Phosphatase 83 U/L (46-116); Anion Gap 11.1 mmol/L (3-11); BUN 23 mg/dL (7-18); Bilirubin, Total 0.2 mg/dL (0.2-1.0); CO2 29.9 mmol/L (21.0-32.0); CREATININE 1.3 mg/dL (0.70-1.30); Calcium 8.8 mg/dL (8.5-10.1); Chloride 101 mmol/L (98-107); ETHANOL BLOOD 175.6 mg/dL (<10); Estimated GFR 57.97 (mL/min/1.73m2); Glucose 94 mg/dL (74-106); Potassium 4.5 mmol/L (3.5-5.1); Sodium 142 mmol/L (136-145); TSH (W/Ref FT4) 0.77 uIU/mL (0.36-3.74); Total Protein 7.7 g/dL (6.4-8.2)
--- NOTE | 2021-07-21 15:07 | HPE_ITS ---
Date of service: 07/21/21 Time of Service: 15:07 Assessment and Plan Assessment and plan (1) Depression with suicidal ideation: Status: Acute Assessment and plan: will continue CPSO, suicide precautions per protocol mental health consult pending medical clearance (2) Alcohol abuse: Status: Chronic Assessment and plan: SHI 170 just discharged yesterday do not anticipate withdrawal. thiamine ordered (3) Hypertension: Status: Chronic Assessment and plan: continue hctz and lisinopril monitor and adjust as needed. (4) Methadone dependence: Status: Acute Assessment and plan: continue home methadone dosing discussed with DR Batista History of Present Illness History of Present Illness Chief Complaint: overdose, intoxicated Narrative: 51 year old well known to [facility] who was discharged from the care bed yesterday, went home and drank alcohol and reportedly overdosed on gabapentin. poison control contacted and recommends observation and symptom management. reported dose not toxic. will refer to observation and obtain mental health consult when medically stable. Review of Systems All systems reviewed & are unremarkable except as noted in HPI and below and Unobtainable due to mental status (patient intoxicated and sedate) Psychiatric Psychiatric: Reports suicidal ideation [facility] All Active Problems (Updated 07/21/21 @ 15:33 by CANDELARIA Ibrahim) Gabapentin overdose (Acute) Methadone dependence (Acute) Hypertension (Chronic) Alcohol abuse (Chronic) Depression with suicidal ideation (Acute) Alcohol withdrawal seizure (Acute) Back pain (Chronic) Medical History Alcohol dependence Anxiety COVID-19 Depression Major depression Suicidal ideation Surgical History History of tonsillectomy and adenoidectomy Family History Maternal Grandfather Alcohol use disorder Social History Smoking/Tobacco Use Status: Current every day Tobacco Type: cigarettes Smoking risk assessment performed?: Yes Alcohol Intake: current Alcohol Intake frequency: 0-2 drinks per day Alcohol type: beer and hard liquor Drug use: Daily Substance use type: former substance user Date of last use: >5yrs, crack/cocaine, amphetamines and prescription drug Housing: other Details: lives in [facility] Do you feel safe at home: No Do you feel safe in your relationship?: Yes Additional Social history: Homeless Meds Allergies and Home Medications Allergies Allergy/AdvReac Type Severity Reaction Status Date / Time Sulfa (Sulfonamide Allergy Intermediate Skin Rash Unverified 07/09/21 08:08 Antibiotics) Home Medications Medication Instructions Recorded Confirmed Type atenolol 50 mg tablet 50 mg PO DAILY 01/09/21 07/21/21 History hydrochlorothiazide 12.5 mg tablet 12.5 mg PO DAILY 01/09/21 07/21/21 History lisinopril 10 mg tablet 10 mg PO DAILY 01/09/21 07/21/21 History omeprazole 20 mg tablet,delayed 20 mg PO DAILY 01/09/21 07/21/21 History release trazodone 100 mg tablet 100 mg PO HS 01/09/21 07/21/21 History gabapentin 600 mg tablet 600 mg PO TID 01/10/21 07/21/21 History cyclobenzaprine 5 mg tablet 5 mg PO HS 03/23/21 07/21/21 History disulfiram 250 mg tablet 250 mg PO DAILY 03/23/21 07/09/21 History nicotine (polacrilex) 4 mg gum 4 mg BUCCAL Q2H 03/23/21 07/21/21 History nicotine 21 mg/24 hr daily 21 mg TRANSDERMAL DAILY 03/23/21 07/21/21 History transdermal patch folic acid 1 mg tablet 1 mg PO QAM #30 tab 03/26/21 07/21/21 Rx multivitamin (Multiple Vitamins) 1 tab PO QAM #30 tab 03/26/21 07/21/21 Rx thiamine mononitrate (vit B1) 100 100 mg PO QAM #30 tab 03/26/21 07/21/21 Rx mg tablet (Vitamin B-1 (mononitrate)) methadone 10 mg/mL oral 90 mg (9 mL) PO DAILY #0 ml 04/12/21 07/21/21 Rx concentrate (Methadone Intensol) nortriptyline 25 mg capsule mg DAILY 07/09/21 History Exam Const General: comfortable and no acute distress Nutritional Appearance: obese Orientation: oriented to person, oriented to place and other (sedate but arousable) HENMT Head: normal to inspection Resp Effort & Inspection: normal respiratory effort (even and unlabored) Cardio Jugular venous pressure: other (well perfused ) Neuro General: moves all extremities Extrem General: normal to inspection, full ROM and no pedal edema Psych Mental Status: other (intoxicated) Mood: other (intoxicated) Affect: blunted Attitude: cooperative Insight: poor Judgment: poor Results Labs Result diagrams: 07/21/21 14:10 07/21/21 14:10 Labs: Laboratory Results - last 24 hr 07/21/21 07/21/21 07/21/21 14:10 14:10 14:10 WBC 9.63 RBC 4.78 Hgb 14.4 Hct 44.7 MCV 93.5 MCH 30.1 MCHC 32.2 RDW 14.0 Plt Count 408 H MPV 8.9 Immature Gran % 0.6 Neutrophils % 53.8 Lymphocytes % 34.3 Monocytes % 7.7 Eosinophils % 2.6 Basophils % 1.0 Nucleated RBC % 0.0 Absolute Neutrophils 5.18 Absolute Lymphocytes 3.30 Absolute Monocytes 0.74 Absolute Eosinophils 0.25 Absolute Basophils 0.10 Sodium 142 Potassium 4.5 Chloride 101 Carbon Dioxide 29.9 Anion Gap 11.1 H BUN 23 H Creatinine 1.3 Estimated GFR/1.73 m2 57.97 Glucose 94 Calcium 8.8 Total Bilirubin 0.2 AST 40 H ALT 60 Alkaline Phosphatase 83 Total Protein 7.7 Albumin 3.6 TSH 0.77 Salicylates 2.9 Acetaminophen < 2 Ethyl Alcohol 175.6 H COVID-19 Source 07/21/21 14:30 WBC RBC Hgb Hct MCV MCH MCHC RDW Plt Count MPV Immature Gran % Neutrophils % Lymphocytes % Monocytes % Eosinophils % Basophils % Nucleated RBC % Absolute Neutrophils Absolute Lymphocytes Absolute Monocytes Absolute Eosinophils Absolute Basophils Sodium Potassium Chloride Carbon Dioxide Anion Gap BUN Creatinine Estimated GFR/1.73 m2 Glucose Calcium Total Bilirubin AST ALT Alkaline Phosphatase Total Protein Albumin TSH Salicylates Acetaminophen Ethyl Alcohol COVID-19 Source Nasal/Nares Last Vital Signs Temp 35.8 C L 07/21/21 13:42 Pulse 83 07/21/21 14:46 Resp 11 L 07/21/21 14:50 BP 122/75 07/21/21 14:46 Pulse Ox 94 07/21/21 14:50 PAWSS Have you Been Recently Intoxicated or Drunk Within the Last 30 days?: Yes Have you Ever Experienced Previous Episodes of Alcohol Withdrawal?: No Have you ever Experienced Withdrawal Seizures?: No Have you ever Experienced Delirium Tremens(DT)s?: No Have you ever undergone Alcohol Rehabilitation Treatment (i.e, inpt ot outpatient treatment programs)?: No Have you ever Experienced Blackouts?: No Have you ever Combined Alcohol with other Downers within the last 90 days?: No Have you ever Combined Alcohol with any other Substance of Abuse during the last 90 days?: No Positive Blood Alcohol level on Presentation? [PCS.BAL]: No Evidence of Increased Autonomic Activity (i.e. HR>120, tremor, sweating, agitation, nausea)?: No Result: 1
[2021-07-21 15:11] LABS: COVID-19 PCR Negative (Negative)
[2021-07-21 19:10] LABS: Acetaminophen < 2 ug/mL (10-30); Salicylate < 2.8 mg/dL (<2.8)
[2021-07-21 19:18] LABS: Bilirubin Negative (Negative); Blood Negative (Negative); Clarity Clear (Clear); Glucose Negative (Negative); Ketones Negative (Negative); Leukocyte Esterase Negative (Negative); Nitrite Negative (Negative); Specific Gravity >= 1.030 (1.005-1.025); Urobilinogen 0.2 EU/dL (Up TO 0.2); pH 5.5 (5-8)
[2021-07-21 19:25] LABS: *AMPHETAMINES SCREEN URINE Negative (Negative); *BARBITURATES SCREEN URINE Negative (Negative); *BENZODIAZEPINES SCREEN URINE Negative (Negative); Cannabinoids THC Negative (Negative); Cocaine Screen,Urine Positive (Negative); METHADONE URINE SCREEN Positive (Negative); OPIATES URINE SCREEN Negative (Negative); Tricyclic Antidepressants Positive (Negative)
[2021-07-21] MEDS: traZODone 100 MG TAB PO (21:50)
[2021-07-21] MEDS: Cyclobenzaprine 10 MG TAB 5 MG PO (21:51)
[2021-07-22 07:14] LABS: Abs Immature Grans 0.02 10^3/uL (0.0-0.06); Absolute Basophil Count 0.06 10^3/uL (0.0-0.2); Absolute Eosinophil Count 0.24 10^3/uL (0.0-0.7); Absolute Monocyte Count 0.52 10^3/uL (0.1-0.8); Absolute Neutrophil Count 4.01 10^3/uL (1.2-6.7); Basophils % 0.9; Eosinophils % 3.7; HCT 42.8 % (40.0-50.0); Immature Grans % 0.3; MCH 29.4 pg (27.0-33.0); MCHC 32.7 % (32.0-36.0); MCV 89.9 fL (80-95); MPV 9.1 fL (8.0-11.0); Monocytes % 7.9; Neutrophils % 61.2; Platelet Count 303 10^3/uL (130-400); RBC 4.76 10^6/uL (4.36-5.78); RDW 13.7 % (11.8-14.1); RDW-SD 45.6 fL; WBC 6.55 10^3/uL (4.4-10.8)
[2021-07-22 07:16] LABS: Anion Gap 8.6 mmol/L (3-11); BUN 21 mg/dL (7-18); CO2 30.4 mmol/L (21.0-32.0); CREATININE 1.1 mg/dL (0.70-1.30); Calcium 9.1 mg/dL (8.5-10.1); Chloride 101 mmol/L (98-107); Glucose 101 mg/dL (74-106); Potassium 3.6 mmol/L (3.5-5.1); Sodium 140 mmol/L (136-145)
[2021-07-22 07:35] VITALS: BP 126/84; PULSE 83; RESP 16; TEMP 36.9; O2SAT 96
[2021-07-22] MEDS: Nicotine 21 MG/24 HR PATCH TD (08:12)
[2021-07-22] MEDS: Lisinopril 10 MG TAB PO (08:13)
[2021-07-22] MEDS: Atenolol 50 MG TAB PO (08:13)
[2021-07-22] MEDS: Thiamine 100 MG TAB PO (08:13)
[2021-07-22] MEDS: hydroCHLOROthiazide 12.5 MG TAB PO (08:13)
[2021-07-22] MEDS: Multivitamin TAB 1 TAB PO (08:13)
[2021-07-22] MEDS: Omeprazole 20 MG CAPCR PO (08:13)
[2021-07-22] MEDS: Folic Acid 1 MG TAB PO (08:13)
[2021-07-22] MEDS: Methadone Liquid 10 MG/ML 90 MG PO (08:13)
[2021-07-22] MEDS: Normal Saline Flush 10 ML SYR IVP (08:14)
--- NOTE | 2021-07-22 12:50 | PDOC.MHCN_ITS ---
Date of service: 07/22/21 Time of Service: 09:55 Mental Health Crisis Note Presenting Issue How did you arrive at the ED and why did you come: Client presented to [facility] ED on 07/21/21 after an intentional overdose on his gabapentin prescription. Client states that he was attempting to by suicide. Precipitating Factors Client currently endorsing persistant SI, rating intent 9/10 and plan to overdose on recreational drugs, prescription medications, or by carbon monoxide poisoning via his car. Disposition BEHAVIOR: Client is laying down in hospital bed dressed in proper paper hospital attire when this typewriters functional tester arrives via person. Client is cooperative answering all questions that are asked of him. EYE CONTACT: Client eye contact is fair. MOOD: Depressed/hopeless. AFFECT: Flat APPETITE: Client reports that his appetite has not been good since being released from the care bed on . SLEEP(trouble falling/staying asleep: Client states that he woke up frequently last night. Plan Due to clients high intent/plan safety planning home is not an option at this time. Referrals will be sent to , [facility], [facility], [facility], , and [facility]. Signature Clinician's Name/Title: Jaida Aragon [facility] Emergency Clinician
--- NOTE | 2021-07-22 13:06 | PDOC.CMSAFE ---
- If Service Date Differs Date of service: 07/22/21 Time of Service: 13:06 Care Management Safety Plan Status: Voluntary - Reason for Wait Reason for Wait: Inpatient Admission VOLUNTARY FOR INPATIENT PSYCHIATRIC STABILIZATION. Patient is appropriate in all interactions since arriving at [facility]; Pt has demonstrated appropriate coping and communication skills, has articulated his or her needs and concerns and is fully engaged during staff interactions. Safety plan has been established with patient, and care team, to adhere to patient goals, identify restrictions based on behavioral status, address nutrition, and determine allowed personal belongings, tools for hygiene and personal care. Determine level of activity including ambulation, level of supervision, visitors, and determine privileges based on behaviors and level of engagement by pt. SAFETY PLAN: 1. Will remain on suicide precautions. In Paper Clothes 2. Will remain in room under direct supervision of one-on-one staff at all times provided by CPSO; KEVAN, REGISTERED NURSE NURSERY cosmetics demonstrator. 3. May have paper cups, plates, finger foods as well as a cardboard spoon with which to eat meals. 4. Follow [facility] Management of the Admitted Behavioral Health Patient policy. 5. Comfort bath system only, shower permitted with escort at RN discretion. 6. No personal belongings-soft items permitted at RN discretion. 7. Visitors-none at this time. 8. Activities: soft cart items approved per RN discretion. 9. Bathroom privileges with escort in the ED 10. Phone: contact limited to family at this time, via cordless phone at RN discretion. 11. Due to VOLUNTARY status, if patient wishes to leave [facility], staff will contact [facility] Crisis Screener ([phone]) and On-Call Log Data Technician ([phone]) as soon as possible. In the event of elopement, notify [facility] Police ([phone]). Patient is currently voluntarily at [facility] and seeking inpatient admission when a bed becomes available. [facility] Frontline Sap Basis Consultant will continue seeking placement. Please contact the [place] Tender Log Data Technician ([phone]) and [facility] Sap Basis Consultant ([phone]) for any needed changes in the Safety Plan. Safety plan has been provided to interdepartmental care team.
--- NOTE | 2021-07-22 13:30 | CMPROGNOTE_ITS ---
- If Service Date Differs Date of service: 07/22/21 Time of Service: 13:30 Care Management Progress Note This youssef Garrett's seventh admission since Jan 2021 for mental health and ZULEYKA related issues. Homelessness appears to be exacerbating these conditions. Timeline of crisis intervention as below. Though Garrett has been admitted to [facility] on two of these admissions, and the [facility] care bed on his previous admission, he has yet to stabilize once returning to the community. Attempts at community based service connection have also been unsuccessful, attributed to ongoing ZULEYKA. 01/10/21-01/17/21 Admission for SI/alcohol intoxication. Discharged home with O/P F/U [facility]. 01/22/21-01/27/21 Admission: Depression with SI: Discharged to [facility]. 03/22/21-03/26/21 Admission: ETOH recently discharged from [facility] after an extended stay for treatment of his depression and alcoholism. After his discharge, was placed at the [facility] and he began drinking heavily again. He was drinking up to 1/5 of vodka per day and was experiencing increased depression and thoughts of suicide. He tried to stop drinking alcohol on his own and experienced withdrawal and what sounds like a seizure. He presented to the ed on 03/22/21 stating that he wanted to detox from ETOH. Upon arrival the patient was found to be intoxicated with a blood alcohol level of 291 mg/dL. He discharged home to follow up with his community providers (PCP, [facility], [facility], [facility] and AA) and discharge plan of care as prescribed. Last dose letter provided for [facility]. He has been provided with contact information for [facility] [place] at his request as these facilities require self-referral. 04/10/21-04/12/21 Admission: Edema, Alcohol Intoxication. Last drink approx 5 hours prior to arrival. In ER findings of note for bilateral pedal edema and erythema, and EtOH 123. UDS + Methadone (prescribed), benzos and cocaine. Discharged home- offered to coordinate a follow up with a Bank Courier before discharge, however he declined. 04/28/21-04/29/21 ED: Alcohol dependence, Depression, COVID-19. 50-year-old male with depressed mood. States he had longstanding alcoholism, currently drinking liquor and malt beverages daily. States he is homeless and presents tonight with his friend due to that they are both needed and homeless. Denies any specific plan to kill himself. Patient's alcohol level was 186. Patient evaluated by [facility] human services. They recommended further observation given the patient's history of alcohol detox. Prescription for Librium sent to pharmacy. Discharged to home. 05/13/21-05/16/21 Admission: Depression with Suicidal Ideations, Alcohol Abuse. Discharged to [facility]. 07/10/21-07/13/21 Admission: Major Depressions w/Suicidal Ideation. Discharged to [facility] Care Bed. 07/21/21- Admission: Suicidal Ideation, ETOH Abuse. Patient admitted for suicidal ideation. States that he is upset he is homeless and that he doesn't have anyone. - MH Services (Omit if N/A) Current MH Services: Internal [facility] - Status Status: Voluntary - Reason for Wait Reason for Wait: Inpatient Admission
--- NOTE | 2021-07-22 15:10 | PGE_ITS ---
Date of Service Date of service: 07/22/21 Time of Service: 14:25 Assessment and Plan Assessment and plan (1) Depression with suicidal ideation: Status: Acute Assessment and plan: will continue CPSO, suicide precautions per protocol Patient medically cleared and awaiting mental health/ psychiatric consultation Pt is on home dose of Trazodone Nortriptyline as a home med not reordered as pt reports being suicidal. (2) Alcohol abuse: Status: Chronic Assessment and plan: ETOH 170 on arrival 07/20 [facility]. Will continue thiamine and folic acid (3) Hypertension: Status: Chronic Assessment and plan: continue hctz and lisinopril and atenolol monitor and adjust as needed. (4) Methadone dependence: Status: Acute Assessment and plan: continue home methadone dosing (5) Anxiety: Status: Chronic Assessment and plan: Will start hydroxyzine as needed for anxiety (6) Back pain: Status: Acute Assessment and plan: Cyclobenzaprine if needed (7) Discharge planning issues: Status: Acute Assessment and plan: Care management and mental health are following patients for discharge. I have independently examined patient and reviewed documentation and am in agreement discussed with Dr Zamudio Subjective Subjective Patient reports: tolerating a regular diet, voiding w/o difficulty, flatus, bowel movement, afebrile and other (Feeling suicidal); denies diarrhea, nausea, vomiting or shortness of breath Interval history since last seen: patient sleeping most of the shift but when awake reports anxiety. affect flat with no behavioral issues Exam Const General: cooperative and no acute distress Nutritional Appearance: obese Orientation: alert, awake and oriented x3 [facility] Head: normal to inspection, normocephalic and atraumatic Mouth: oral mucosae normal Eyes Alignment and Position: alignment normal, position normal and other (Glasses worn at all times) Neck Neck: normal visual inspection, full ROM and no lymphadenopathy Chest Chest: normal inspection of the chest Resp Effort & Inspection: normal respiratory effort and able to speak in complete sentences Cardio Jugular venous pressure: other (well perfused ) Rate: regular rate Heart Sounds: S1 normal and S2 normal GI Inspection: normal to inspection Palpation: soft and nontender Skin General skin exam: no rashes or lesions noted Lesions: no lesions Neuro General: patient alert, patient awake, patient oriented x3 and CN's II-XI intact bilaterally Extrem General: normal to inspection Psych Appearance: disheveled Mental Status: other (Depressed) Mood: other (Depressed) Affect: sad (Flat ) and blunted Attitude: cooperative Insight: poor Judgment: poor Objective Last Vital Signs Temp 98.4 F 07/22/21 07:35 Pulse 83 07/22/21 07:35 Resp 16 07/22/21 07:35 BP 126/84 07/22/21 07:35 Pulse Ox 96 07/22/21 07:35 Laboratory Results - last 24 hr 07/21/21 07/21/21 07/21/21 14:30 18:45 19:08 WBC RBC Hgb Hct MCV MCH MCHC RDW Plt Count MPV Immature Gran % Neutrophils % Lymphocytes % Monocytes % Eosinophils % Basophils % Nucleated RBC % Absolute Neutrophils Absolute Lymphocytes Absolute Monocytes Absolute Eosinophils Absolute Basophils Sodium Potassium Chloride Carbon Dioxide Anion Gap BUN Creatinine Estimated GFR/1.73 m2 Glucose Calcium Urine Color Urine Clarity Urine pH Ur Specific [place] Urine Protein Urine Ketones Urine Blood Urine Nitrite Urine Bilirubin Urine Urobilinogen Ur Leukocyte Esterase Urine Glucose Salicylates < 2.8 Urine Opiates Screen Negative Urine Methadone Screen Positive A Acetaminophen < 2 Ur Barbiturates Screen Negative Ur Tricyclics Screen Positive A Ur Amphetamines Screen Negative U Benzodiazepines Scrn Negative Urine Cocaine Screen Positive A Ur THC Screen Negative SARS-CoV-2 (PCR) Negative 07/21/21 07/22/21 07/22/21 19:08 07:00 07:00 WBC 6.55 D RBC 4.76 Hgb 14.0 Hct 42.8 MCV 89.9 D MCH 29.4 MCHC 32.7 RDW 13.7 Plt Count 303 D MPV 9.1 Immature Gran % 0.3 Neutrophils % 61.2 Lymphocytes % 26.0 Monocytes % 7.9 Eosinophils % 3.7 Basophils % 0.9 Nucleated RBC % 0.0 Absolute Neutrophils 4.01 Absolute Lymphocytes 1.70 Absolute Monocytes 0.52 Absolute Eosinophils 0.24 Absolute Basophils 0.06 Sodium 140 Potassium 3.6 Chloride 101 Carbon Dioxide 30.4 Anion Gap 8.6 BUN 21 H Creatinine 1.1 Estimated GFR/1.73 m2 >= 60.00 Glucose 101 Calcium 9.1 Urine Color Yellow Urine Clarity Clear Urine pH 5.5 Ur Specific [place] >= 1.030 H Urine Protein Negative Urine Ketones Negative Urine Blood Negative Urine Nitrite Negative Urine Bilirubin Negative Urine Urobilinogen 0.2 Ur Leukocyte Esterase Negative Urine Glucose Negative Salicylates Urine Opiates Screen Urine Methadone Screen Acetaminophen Ur Barbiturates Screen Ur Tricyclics Screen Ur Amphetamines Screen U Benzodiazepines Scrn Urine Cocaine Screen Ur THC Screen SARS-CoV-2 (PCR) PAWSS Have you Been Recently Intoxicated or Drunk Within the Last 30 days?: Yes Have you Ever Experienced Previous Episodes of Alcohol Withdrawal?: Yes Have you ever Experienced Withdrawal Seizures?: Yes Have you ever Experienced Delirium Tremens(DT)s?: Yes Have you ever undergone Alcohol Rehabilitation Treatment (i.e, inpt ot outpatient treatment programs)?: Yes Have you ever Experienced Blackouts?: Yes Have you ever Combined Alcohol with other Downers within the last 90 days?: Unable to Obtain Have you ever Combined Alcohol with any other Substance of Abuse during the last 90 days?: Yes Positive Blood Alcohol level on Presentation? [PCS.BAL]: Yes Evidence of Increased Autonomic Activity (i.e. HR>120, tremor, sweating, agitation, nausea)?: No Result: 9
[2021-07-22] MEDS: hydrOXYzine HCL 50 MG TAB PO (16:53)
[2021-07-22] MEDS: Acetaminophen 325 MG TAB 650 MG PO (17:55)
[2021-07-22] MEDS: Cyclobenzaprine 10 MG TAB 5 MG PO (21:29)
[2021-07-22] MEDS: traZODone 100 MG TAB PO (21:29)
[2021-07-22 23:00] VITALS: BP 128/75; PULSE 85; RESP 15; TEMP 36.7; O2SAT 95
[2021-07-23 07:50] VITALS: BP 127/81; PULSE 83; RESP 16; TEMP 36.3; O2SAT 95
[2021-07-23] MEDS: Lisinopril 10 MG TAB PO (07:57)
[2021-07-23] MEDS: hydroCHLOROthiazide 12.5 MG TAB PO (07:57)
[2021-07-23] MEDS: Multivitamin TAB 1 TAB PO (07:57)
[2021-07-23] MEDS: Omeprazole 20 MG CAPCR PO (07:57)
[2021-07-23] MEDS: Methadone Liquid 10 MG/ML 90 MG PO (07:57)
[2021-07-23] MEDS: Thiamine 100 MG TAB PO (07:57)
[2021-07-23] MEDS: Folic Acid 1 MG TAB PO (07:57)
[2021-07-23] MEDS: Atenolol 50 MG TAB PO (07:57)
[2021-07-23] MEDS: Nicotine 21 MG/24 HR PATCH TD (07:58)
--- NOTE | 2021-07-23 13:19 | PDOC.MHPN2 ---
Date of service: 07/23/21 Time of Service: 10:20 Mental Health Progress Note Progress Note Progress Note: Presenting Issue: Client arrived to the ED due to OD on Gabapentin Precipitating Factors Anxiety Disposition * Behavior: Agitated *Eye Contact: good *Mood: depressed *Affect:flat *Appetite: poor *Sleep(trouble falling/staying asleep): client is struggling to sleep Plan(please elaborate and include that physician is consulted with plan and/or placement):Client will remain at [facility] and await voluntary inpatient treatment at a Hospital TBD Clinician's Name , Title, and Signature Sulma Escobar [facility] Enhanced Crisis Aquarium Specialist Make sure that you are photocopying and submitting this to [facility] records Dept. to be scanned into chart.
--- NOTE | 2021-07-23 13:24 | PDOC.CMSAFE ---
- If Service Date Differs Date of service: 07/23/21 Time of Service: 13:24 Care Management Safety Plan Status: Voluntary - Reason for Wait Reason for Wait: Inpatient Admission VOLUNTARY FOR INPATIENT PSYCHIATRIC STABILIZATION. Patient is appropriate in all interactions since arriving at [facility]; Pt has demonstrated appropriate coping and communication skills, has articulated his or her needs and concerns and is fully engaged during staff interactions. Safety plan has been established with patient, and care team, to adhere to patient goals, identify restrictions based on behavioral status, address nutrition, and determine allowed personal belongings, tools for hygiene and personal care. Determine level of activity including ambulation, level of supervision, visitors, and determine privileges based on behaviors and level of engagement by pt. SAFETY PLAN: 1. Will remain on suicide precautions. In Paper Clothes 2. Will remain in room under direct supervision of one-on-one staff at all times provided by CPSO; KEVAN, MASTER MACHINIST boat laborer. 3. May have paper cups, plates, finger foods as well as a cardboard spoon with which to eat meals. 4. Follow [facility] Management of the Admitted Behavioral Health Patient policy. 5. Comfort bath system, shower permitted with escort. 6. No personal belongings-soft items permitted at RN discretion. 7. Visitors-none at this time. Staff from [facility] and the [facility] are permitted. 8. Activities: soft cart items approved per RN discretion. 9. Bathroom privileges available in room without limitation. 10. Phone: contact limited to family at this time, via cordless phone at RN discretion. 11. Due to VOLUNTARY status, if patient wishes to leave [facility], staff will contact [facility] Crisis Screener ([phone]) and On-Call Mushroom Sorter Grader ([phone]) as soon as possible. In the event of elopement, notify [facility] Police ([phone]). Patient is currently voluntarily at [facility] and seeking inpatient admission when a bed becomes available. [facility] Frontline Information Systems Architect will continue seeking placement. Please contact the Bromination Equipment Operator Mushroom Sorter Grader ([phone]) and [facility] Information Systems Architect ([phone]) for any needed changes in the Safety Plan. Safety plan has been provided to interdepartmental care team.
--- NOTE | 2021-07-23 14:50 | W.PM.PROGNOT ---
Date of Service Date of service: 07/23/21 Time of Service: 14:51 Assessment and Plan Assessment and plan (1) Depression with suicidal ideation: Status: Acute Assessment and plan: will continue CPSO, suicide precautions per protocol will resume home antidepressants mental health consulted and referrals sent for inpatient psychiatric placement (2) Alcohol abuse: Status: Chronic Assessment and plan: no withdrawal Will continue thiamine and folic acid (3) Diabetes mellitus type 2 in obese: Status: Chronic Assessment and plan: change to diabetic diet check hemoglobin A1C fasting has been controlled at 94 and 101 no blood sugar checks at this time will resume metformin. (4) Hypertension: Status: Chronic Assessment and plan: continue hctz and lisinopril monitor and adjust as needed. (5) Methadone dependence: Status: Acute Assessment and plan: continue home methadone dosing (6) Anxiety: Status: Chronic Assessment and plan: Will start hydroxyzine for anxiety (7) Discharge planning issues: Status: Acute Assessment and plan: Care management and mental health are following patients for discharge. discussed with Dr Zamudio Subjective Subjective Patient reports: no new complaints, tolerating liquids well, tolerating a regular diet and afebrile; denies shortness of breath Exam Const General: comfortable and no acute distress Nutritional Appearance: obese Orientation: oriented to person, oriented to place and other (sedate but arousable) HENMT Head: normal to inspection Mouth: oral mucosae normal Resp Effort & Inspection: normal respiratory effort (even and unlabored) Cardio Jugular venous pressure: other (well perfused ) Neuro General: moves all extremities Extrem General: normal to inspection, full ROM and no pedal edema Psych Mental Status: other (intoxicated) Mood: other (intoxicated) Affect: blunted Attitude: cooperative Insight: poor Judgment: poor Objective Last Vital Signs Temp 36.3 C L 07/23/21 07:50 Pulse 83 07/23/21 07:50 Resp 16 07/23/21 07:50 BP 127/81 07/23/21 07:50 Pulse Ox 95 07/23/21 07:50 PAWSS Have you Been Recently Intoxicated or Drunk Within the Last 30 days?: Yes Have you Ever Experienced Previous Episodes of Alcohol Withdrawal?: Yes Have you ever Experienced Withdrawal Seizures?: Yes Have you ever Experienced Delirium Tremens(DT)s?: Yes Have you ever undergone Alcohol Rehabilitation Treatment (i.e, inpt ot outpatient treatment programs)?: Yes Have you ever Experienced Blackouts?: Yes Have you ever Combined Alcohol with other Downers within the last 90 days?: Unable to Obtain Have you ever Combined Alcohol with any other Substance of Abuse during the last 90 days?: Yes Positive Blood Alcohol level on Presentation? [PCS.BAL]: Yes Evidence of Increased Autonomic Activity (i.e. HR>120, tremor, sweating, agitation, nausea)?: No Result: 9
[2021-07-23 19:48] VITALS: TEMP 36.4
[2021-07-23] MEDS: hydrOXYzine HCL 50 MG TAB PO (19:48)
[2021-07-23] MEDS: Gabapentin 600 MG TAB PO (19:49)
[2021-07-23] MEDS: busPIRone 5 MG TAB 10 MG PO (19:49)
[2021-07-23] MEDS: Acetaminophen 325 MG TAB 650 MG PO (20:03)
[2021-07-23 20:05] VITALS: BP 120/87; PULSE 68; RESP 18; TEMP 36.4; O2SAT 95
[2021-07-23] MEDS: Cyclobenzaprine 10 MG TAB 5 MG PO (21:27)
[2021-07-23] MEDS: traZODone 100 MG TAB PO (21:28)
[2021-07-23 21:29] LABS: Hemoglobin A1C 6.7 % (<5.7)
[2021-07-24 00:11] VITALS: PULSE 61; RESP 18; TEMP 36.7; O2SAT 95
[2021-07-24 08:12] VITALS: BP 119/68; PULSE 97; RESP 18; TEMP 36.7; O2SAT 97
[2021-07-24] MEDS: Nicotine 21 MG/24 HR PATCH TD (08:14)
[2021-07-24] MEDS: Sertraline 50 MG TAB 200 MG PO (08:15)
[2021-07-24] MEDS: hydrOXYzine HCL 50 MG TAB PO (08:15)
[2021-07-24] MEDS: Methadone Liquid 10 MG/ML 90 MG PO (08:15)
[2021-07-24] MEDS: hydroCHLOROthiazide 12.5 MG TAB PO (08:16)
[2021-07-24] MEDS: busPIRone 5 MG TAB 10 MG PO (08:16)
[2021-07-24] MEDS: Lisinopril 10 MG TAB PO (08:16)
[2021-07-24] MEDS: Gabapentin 600 MG TAB PO (08:16)
[2021-07-24] MEDS: Atenolol 50 MG TAB PO (08:16)
[2021-07-24] MEDS: Thiamine 100 MG TAB PO (08:16)
[2021-07-24] MEDS: metFORMIN 500 MG TAB PO (08:17)
[2021-07-24] MEDS: ARIPiprazole 5 MG TAB PO (08:17)
[2021-07-24] MEDS: Omeprazole 20 MG CAPCR PO (08:17)
[2021-07-24] MEDS: Folic Acid 1 MG TAB PO (08:17)
[2021-07-24] MEDS: Multivitamin TAB 1 TAB PO (08:17)
--- NOTE | 2021-07-24 09:23 | CMDISCH_ITS ---
- If Service Date Differs Date of service: 07/24/21 Time of Service: 09:23 LACE Index Scoring Tool - Questions: Length of Stay (in days): 3 Acuity (Admit via E.D.?): Yes E.D. Visits: 8 - Answers: Total Score: 10 Risk of Readmission: High Risk Care Management Discharge Reason for Hospitalization: SI, ETOH Discharge Plan: Garrett will discharge to [facility] via [facility] transport. Patient/Family Education Needs: Review transfer process, [facility] transport. Services Needed at Discharge: Psychiatric Facility, Transportation - Disposition Disposition: [facility] via of: [facility] Support Technician
--- NOTE | 2021-07-24 09:43 | W.PM.DS.N ---
Date of service: 07/24/21 Time of Service: 09:48 DS: Diagnosis Discharge Diagnosis (1) Depression with suicidal ideation: Status: Acute (2) Alcohol abuse: Status: Chronic (3) Diabetes mellitus type 2 in obese: Status: Chronic (4) Hypertension: Status: Chronic (5) Methadone dependence: Status: Acute (6) Anxiety: Status: Chronic Discharge Plan Disposition Patient Disposition: [facility] Condition: Serious Discharge Details Reason For Visit: Suicidal Ideation, ETOH Abuse Admit Date/Time: 07/21/21 15:03 Admit Provider: Rinku Batista Attending Provider: Rinku Batista Primary Care Provider: Mayito Stearns Hospital Course Hospital Course: This is a 51 year old male well known to [facility] who was discharged from the care bed after a short stay went home and drank alcohol and reportedly overdosed on gabapentin.? poison control was contacted and recommends observation and symptom management.? reported dose not toxic.?He was admitted to med/surg for further management and monitoring. Overnight he remained medically stable. In the am he was awake and at his baseline. he was eating and drinking well. His only complaint was of anxiety which I ordered hydroxyzine for. He was medically cleared for his psychiatric evaluation and recommendations for inpatient psychiatric care made. Patient is agreeable to admission to [facility]. He was complaining of indigestion prior to discharge and given famotidine 20 mg po. He was started back on all his home medications. [facility] is [facility] department. discharge discussed with Dr Zamudio. Home Meds and New Rx's Prescriptions: Continued methadone [Methadone Intensol] 10 mg/mL Concentrate 90 mg PO DAILY Qty: 0 0RF trazodone 100 mg Tablet 100 mg PO HS 0RF lisinopril 10 mg Tablet 10 mg PO DAILY 0RF atenolol 50 mg Tablet 50 mg PO DAILY 0RF hydrochlorothiazide 12.5 mg Tablet 12.5 mg PO DAILY 0RF omeprazole 20 mg Tablet,Delayed Release (Dr/Ec) 20 mg PO DAILY 0RF gabapentin 600 mg Tablet 600 mg PO BID 0RF cyclobenzaprine 5 mg Tablet 5 mg PO HS 0RF nicotine 21 mg/24 hr Patch 24 Hour 21 mg transdermal DAILY 0RF nicotine (polacrilex) 4 mg Gum 4 mg BUCCAL Q2H 0RF folic acid 1 mg Tablet 1 mg PO QAM Qty: 30 0RF multivitamin [Multiple Vitamins] Tablet 1 tab PO QAM Qty: 30 0RF thiamine mononitrate (vit B1) [Vitamin B-1 (mononitrate)] 100 mg Tablet 100 mg PO QAM Qty: 30 0RF metformin 500 mg tablet 500 mg PO DAILY 0RF Label Comments: Take 1 tablet by mouth once a day sertraline 100 mg tablet 200 mg PO DAILY 0RF Label Comments: TAKE 2 TABLETS BY MOUTH EVERY MORNING buspirone 10 mg tablet 10 mg PO TID 0RF Label Comments: TAKE 1 TABLET BY MOUTH THREE TIMES DAILY aripiprazole 5 mg tablet 5 mg PO QAM 0RF Label Comments: TAKE 1 TABLET BY MOUTH EVERY MORNING nortriptyline 50 mg capsule 100 mg PO DAILY 0RF Label Comments: Take 2 capsule by mouth once a day Discharge Instructions Instructions: Depression (DC), Suicide Prevention (DC) Stand Alone Forms: Nursing Discharge Form Referrals: Mayito Stearns [Primary Care Provider] - Activity:: Activity as Tolerated Diet:: As Tolerated DS: Summary Time Spent with Patient providing and/or coordinating discharge services: Greater than 30 minutes Status at Discharge Functional status at discharge: independent ambulation Overall status at discharge: patient is not back to baseline Mental Status: mental status grossly normal Speech and Movement: speech and movement normal Mood: congruent mood Affect: blunted Exam Const General: comfortable and no acute distress Nutritional Appearance: obese Orientation: oriented to person, oriented to place and other (sedate but arousable) HENMT Head: normal to inspection Mouth: oral mucosae normal Resp Effort & Inspection: normal respiratory effort (even and unlabored) Cardio Jugular venous pressure: other (well perfused ) Neuro General: moves all extremities Extrem General: normal to inspection, full ROM and no pedal edema Psych Mental Status: mental status grossly normal Speech and Movement: speech and movement normal Mood: congruent mood Affect: blunted Attitude: cooperative Insight: poor Judgment: poor DS: Data Vitals/I&O Vitals and I&O: Vital Signs Temperature 36.7 C 07/24/21 08:12 Temperature Source Tympanic 07/24/21 08:12 Pulse 97 H 07/24/21 08:12 Pulse Rhythm Regular 07/24/21 09:08 Pulse 79 07/21/21 15:40 Respiratory Rate 18 07/24/21 08:12 Respiratory Effort 07/24/21 09:08 Respiratory Depth Normal 04/18/22 09:08 Respiratory Pattern Normal 07/24/21 09:08 Blood Pressure 119/68 07/24/21 08:12 Blood Pressure Mean 64 07/21/21 15:33 Blood Pressure Position Sitting 07/21/21 13:42 Pulse Oximetry 97 07/24/21 08:12 Oxygen Delivery Method Room Air 07/24/21 08:12 Oxygen Flow Rate 0 07/24/21 08:12 Pain Level 0 07/24/21 08:12 Intake & Output 07/23/21 07/23/21 07/24/21 11:59 23:59 11:59 Intake Total 400 / 400 Balance 400 / 400 Intake: Oral 400 / 400 Other: Comment Per patient and CPSO patient has voided twice since 5pm today. independant Stool Characteristics Soft Brown Voiding Methods Toilet Toilet Data Completed and Pending Labs on day of discharge: Labs from last 24 hours 07/23/21 07/22/21 07:00 07:00 Hemoglobin A1c Cancelled 6.7 H PFSH All Active Problems (Updated 07/23/21 @ 14:56 by Pennie Ulloa NP) Diabetes mellitus type 2 in obese (Chronic) Discharge planning issues (Acute) Back pain (Chronic) Anxiety (Chronic) Gabapentin overdose (Acute) Methadone dependence (Acute) Hypertension (Chronic) Alcohol abuse (Chronic) Depression with suicidal ideation (Acute) Alcohol withdrawal seizure (Acute) Back pain (Chronic) Medical History Alcohol dependence Anxiety COVID-19 Depression Major depression Suicidal ideation Surgical History History of tonsillectomy and adenoidectomy Family History Maternal Grandfather Alcohol use disorder Social History Smoking/Tobacco Use Status: Current every day Tobacco Type: cigarettes Smoking risk assessment performed?: Yes Alcohol Intake: current Alcohol Intake frequency: 0-2 drinks per day Alcohol type: beer and hard liquor Drug use: Daily Substance use type: former substance user Date of last use: >5yrs, crack/cocaine, amphetamines and prescription drug Housing: other Details: lives in [facility] Do you feel safe at home: No Do you feel safe in your relationship?: Yes Additional Social history: Homeless
--- NOTE | 2021-07-24 09:57 | NUR.NOTE ---
nurse to nurse completed. Nursing Note:
[2021-07-24] MEDS: Famotidine 20 MG TAB 40 MG PO (10:03)
== END 2021-07-24 11:15 | disposition short-term general hospital (02) | DRG 918 ==
LOC: ER 15:33 → MS 16:09
PROVIDERS: Nurse Practitioner Acute Care; Admitting Provider Family Medicine; Emergency Provider Physician Assistant; PCP Physician Assistant; Visit Provider Family Medicine
DX: T42.6X2A Poisoning by other antiepileptic and sedative-hypnotic drugs, intentional self-harm, initial encounter (principal); R45.851 Suicidal ideations; F11.20 Opioid dependence, uncomplicated; Z68.41 Body mass index [BMI] 40.0-44.9, adult; R53.83 Other fatigue; F10.10 Alcohol abuse, uncomplicated; I10 Essential (primary) hypertension; F41.9 Anxiety disorder, unspecified; F10.129 Alcohol abuse with intoxication, unspecified; Y90.6 Blood alcohol level of 120-199 mg/100 ml; G89.29 Other chronic pain; M54.9 Dorsalgia, unspecified; F32.9 Major depressive disorder, single episode, unspecified; F17.210 Nicotine dependence, cigarettes, uncomplicated; E11.9 Type 2 diabetes mellitus without complications; E66.9 Obesity, unspecified
CPT/HCPCS: 36415; 80048; 80053; 80307; 87635; 93005; 96360; 99285; 80320; 80329; 81003; 83036; 84443; 85025; 93010; 99220; 99226; 99233; 99239; J3490

== ENCOUNTER 2021-10-07 00:21 | Emergency (ER) | payer MEDICARE, MEDICAID, SELFPAY ==
[2021-10-07] VITALS (38 sets, daily range): BP systolic 74–126; BP diastolic 19–102; PULSE 0–137; RESP 12–29; TEMP 36.8; O2SAT 62–95
--- NOTE | 2021-10-07 00:15 | RT.EKG_ITS ---
APPROVED REPORT Exam: Resting ECG Reason for Exam: chest pain Patient Location: E HR:96 bpm ECG Measurements Heart Rate 96 AXIS NV 169 P 56 QRSd 104 QRS 10 QT 401 T 19 QTc 506 Conclusion Sinus rhythm...normal P axis, V-rate 60- 99 Prolonged QT interval...QTc >500mS. Sinus. Normal axis. No STEMI. I have reviewed and interpreted ECG and agree with software generated interpretation.
--- NOTE | 2021-10-07 00:43 | W.ED.GENAD ---
Discharge Plan Disposition Patient Disposition: HOME Condition: Stable Discharge Details Clinical Impression: Fall down steps, Compression fracture of thoracic vertebra, Contusion of left foot, Facial abrasion Primary Care Provider: Mayito Stearns ED Provider: Sanjay Pardo Home Meds and New Rx's Prescriptions: Continued methadone [Methadone Intensol] 10 mg/mL Concentrate 90 mg PO DAILY Qty: 0 0RF trazodone 100 mg Tablet 100 mg PO HS lisinopril 10 mg Tablet 10 mg PO DAILY atenolol 50 mg Tablet 50 mg PO DAILY hydrochlorothiazide 12.5 mg Tablet 12.5 mg PO DAILY omeprazole 20 mg Tablet,Delayed Release (Dr/Ec) 20 mg PO DAILY gabapentin 600 mg Tablet 600 mg PO BID cyclobenzaprine 5 mg Tablet 5 mg PO HS nicotine 21 mg/24 hr Patch 24 Hour 21 mg transdermal DAILY nicotine (polacrilex) 4 mg Gum 4 mg BUCCAL Q2H folic acid 1 mg Tablet 1 mg PO QAM Qty: 30 0RF multivitamin [Multiple Vitamins] Tablet 1 tab PO QAM Qty: 30 0RF thiamine mononitrate (vit B1) [Vitamin B-1 (mononitrate)] 100 mg Tablet 100 mg PO QAM Qty: 30 0RF metformin 500 mg tablet 500 mg PO DAILY Label Comments: Take 1 tablet by mouth once a day sertraline 100 mg tablet 200 mg PO DAILY Label Comments: TAKE 2 TABLETS BY MOUTH EVERY MORNING buspirone 10 mg tablet 10 mg PO TID Label Comments: TAKE 1 TABLET BY MOUTH THREE TIMES DAILY aripiprazole 5 mg tablet 5 mg PO QAM Label Comments: TAKE 1 TABLET BY MOUTH EVERY MORNING nortriptyline 50 mg capsule 100 mg PO DAILY Label Comments: Take 2 capsule by mouth once a day Discharge Instructions Instructions: Vertebral Compression Fracture (ED), Head Injury (ED), Foot Contusion (ED) Additional Instructions: Your imaging today revealed that you have an acute compression fracture of your 5th thoracic vertebra. This was reviewed with [facility] spine and they are recommending follow-up with them at the [facility] spine clinic in 1 month. If your pain does not improve or worsens, you could consider wearing a back brace which you could purchase at a medical supply store. You left the emergency department before we were able to follow-up on any additional recommendations from [facility] neurosurgery regarding your thoracic spine x-rays. You will be notified if they have any additional recommendations before you follow-up with them in 1 month. Drink plenty of fluids and get plenty of rest. Alternate tylenol and motrin as needed and directed for pain. Follow-up with your primary care doctor in 1 week. Return to the emergency department with any worsening or new concerning symptoms such as extremity weakness, numbness, worsening headache, persistent vomiting or any other concerns. Discharge Data Discharge Physician: Delores Guajardo Medical Decision Making <Delores Guajardo DO - Last Filed: 10/07/21 08:22> 0045 -- 51-year-old male with a history of anxiety, depression, obesity, diabetes, methadone dependence, alcohol abuse with history of withdrawal seizure who presents for fall down 15 steps with head injury. Patient is intoxicated appearing but oriented x3 and able to answer most questions. He states I have pain everywhere, but mostly in his shoulders bilaterally. Vitals are within normal limits. He has superficial abrasions to his face no other obvious evidence of trauma. He is moving all extremities without deformity. Chest and abdomen nontender. Will obtain CT head, facial bones and cervical spine in addition to chest abdomen and pelvis and T and L-spine recons. We will obtain screening labs as he is intoxicated. Patient did endorse to nurse I have nothing to live for and does admit to depression but denies any active suicidal thoughts. Labs and imaging reviewed. Normal white blood cell count. Normal electrolytes. Alcohol level 49. COVID-negative. 0345 --Long delay in virtual radiology -- CT head/facial bones and cervical spine negative. CT chest and abdomen and pelvis negative for acute findings. CT T spine note compression fracture of T5 and mild compression deformities of T4 and T12. 5280 -- Imaging reviewed with [facility] spine who notes that the T4 compression fracture is chronic and the T12 deformity appears consistent with a Schmorl's node. States that the T5 compression fracture appears new and recommends upright thoracic spine x-rays when able to rule out worsening height loss of her kyphosis. Can recommend a brace if patient can tolerate but unlikely considering his body habitus. If no change in x-ray, recommend follow-up with spine in 1 month. 6093 --thoracic spine x-rays no loss of height of the T4 and T5 vertebral bodies without increased thoracic kyphosis. Call placed to [facility] neurosurgery who is covering for spine and awaiting callback for recommendations. 0820 --patient's ride is here and he is stating he needs to leave to go to [facility] for his methadone. Discussed yet we have not yet heard back from [facility] neurosurgery but he states he needs to leave. He understands the of and disability due to missed or incomplete diagnoses. Case endorsed to AUDIO VISUAL AIDE Brant Pardo to follow-up with [facility] neurosurgery regarding any further recommendations regarding thoracic spine x-rays. Medical Records Medical records reviewed: Yes I reviewed the patient's medical records. Imaging Data Radiologic Study: Radiologist's impression: Addendum created by Hamlet Cardona MD on 10/07/2021 3:46:35 AM EDT: Additional images of the lower cervical spine presented for evaluation.? No fractures or subluxations identified. Centrilobular emphysema within upper lung zones. CT Head Without Contrast Exam date and time: 10/07/2021 2:14 AM Age: 51 years old Clinical indication: Injury or trauma; Fall; Blunt trauma (contusions or hematomas) and concussion/head injury; Consciousness not specified; Loss of consciousness not known; Forehead; Blunt trauma and concussion/head injury; Injury date: 10/07/21; Injury details: Fell down stairs TECHNIQUE: Imaging protocol: Computed tomography of the head without contrast. Radiation optimization: All CT scans at this facility use at least one of these dose optimization techniques: automated exposure control; mA and/or kV adjustment per patient size (includes targeted exams where dose is matched to clinical indication); or iterative reconstruction. COMPARISON: No relevant prior studies available. FINDINGS: Brain: No hemorrhage. No significant white matter disease. No edema. Cerebral ventricles: No ventriculomegaly. Paranasal sinuses: Visualized sinuses are unremarkable. No fluid levels. Mastoid air cells: Unremarkable as visualized. No mastoid effusion. Bones/joints:? No acute fracture. Soft tissues: Unremarkable.? IMPRESSION: No acute intracranial abnormality. CT Maxillofacial Without Contrast Exam date and time: 10/07/2021 2:14 AM Age: 51 years old Clinical indication: Injury or trauma; Fall; Blunt trauma (contusions or hematomas) and concussion/head injury; Consciousness not specified; Loss of consciousness not known; Forehead; Blunt trauma and concussion/head injury; Injury date: 10/07/21; Injury details: Fell down stairs TECHNIQUE: Imaging protocol: Computed tomography of the of the face without contrast. Radiation optimization: All CT scans at this facility use at least one of these dose optimization techniques: automated exposure control; mA and/or kV adjustment per patient size (includes targeted exams where dose is matched to clinical indication); or iterative reconstruction. COMPARISON: No relevant prior studies available. FINDINGS: Orbital cavities: Orbits are normal. Globes are unremarkable. Bones/joints:? Bilateral nasal bone deformities, possibly chronic. Paranasal sinuses:? Partially opacified ethmoid sinuses. Mucosal polyp versus retention cyst within the right maxillary sinus.. Soft tissues: Unremarkable. IMPRESSION: No acute findings. CT Cervical Spine Without Contrast Exam date and time: 10/07/2021 2:14 AM Age: 51 years old Clinical indication: Injury or trauma; Fall; Blunt trauma (contusions or hematomas) and concussion/head injury; Consciousness not specified; Loss of consciousness not known; Forehead; Blunt trauma and concussion/head injury; Injury date: 10/07/21; Injury details: Fell down stairs TECHNIQUE: Imaging protocol: Computed tomography of the cervical spine without contrast. Radiation optimization: All CT scans at this facility use at least one of these dose optimization techniques: automated exposure control; mA and/or kV adjustment per patient size (includes targeted exams where dose is matched to clinical indication); or iterative reconstruction. COMPARISON: US EXTREMITY VENOUS BI 04/11/2021 8:32 AM FINDINGS: Bones/joints:? Lower cervical spine is not included. Degenerative changes at the atlantoaxial articulation.? No acute fracture. Normal alignment. Discs/Spinal canal/Neural foramina: No significant disc protrusion. No severe spinal canal stenosis. No significant neural foraminal narrowing. Soft tissues: Unremarkable. IMPRESSION: No acute findings.? Lower cervical spine is not included CT Chest With Contrast; Diagnostic Exam date and time: 10/07/2021 2:23 AM Age: 51 years old Clinical indication: Injury or trauma; Fall; Generalized; Blunt trauma (contusions or hematomas); Injury date: 10/07/21; Injury details: Fell down stairs TECHNIQUE: Imaging protocol: Diagnostic computed tomography of the chest with contrast. Radiation optimization: All CT scans at this facility use at least one of these dose optimization techniques: automated exposure control; mA and/or kV adjustment per patient size (includes targeted exams where dose is matched to clinical indication); or iterative reconstruction. Contrast material: OMNI 350; Contrast volume: 100 ml; Contrast route: INTRAVENOUS (IV);? COMPARISON: CR XR CHEST 2V PA LATERAL 04/10/2021 7:36 PM FINDINGS: Thyroid: Normal thyroid. Lungs: No consolidation or ground-glass opacity. Paraseptal emphysema noted. Pleural spaces: Unremarkable. No pneumothorax. No pleural effusion. Heart: No cardiomegaly. No pericardial effusion. No coronary artery calcifications. Lymph nodes: Unremarkable. No enlarged lymph nodes. Vasculature: Normal aorta. No dissection. No aneurysm. Bones/joints: No rib fractures observed. Intact sternum. Respiratory motion artifact. Compression fractures noted at T4 and T5. Soft tissues: No chest wall air. Mild gynecomastia. IMPRESSION: Compression fractures at T4 and T5. CT Abdomen And Pelvis With Contrast Exam date and time: 10/07/2021 2:23 AM Age: 51 years old Clinical indication: Injury or trauma; Fall; Generalized; Blunt trauma (contusions or hematomas); Injury date: 10/07/21; Injury details: Fell down stairs TECHNIQUE: Imaging protocol: Computed tomography of the abdomen and pelvis with contrast. Radiation optimization: All CT scans at this facility use at least one of these dose optimization techniques: automated exposure control; mA and/or kV adjustment per patient size (includes targeted exams where dose is matched to clinical indication); or iterative reconstruction. Contrast material: OMNI 350; Contrast volume: 100 ml; Contrast route: INTRAVENOUS (IV);? COMPARISON: US EXTREMITY VENOUS BI 04/11/2021 8:32 AM FINDINGS: Lungs: Please see CT chest dictated separately. Liver: Liver attenuation is low. Negative for mass or abscess. Liver is normal without laceration or hematoma. Gallbladder and bile ducts: Normal. No calcified stones. No ductal dilation. Pancreas: No pancreatic injury or hematoma. Spleen: Spleen is normal without laceration or hematoma. No perisplenic hemorrhage or fluid seen. Adrenal glands: Normal. No mass. Kidneys and ureters: Kidneys are intact without laceration or hematoma. No perinephric fluid or hematoma seen. Stomach and bowel: Unremarkable. No obstruction. No mucosal thickening. Appendix: Normal appendix. Intraperitoneal space: Negative for intraperitoneal free fluid or free air. Vasculature: Mild vascular calcifications. No aneurysm. No dissection. Lymph nodes: Unremarkable. No enlarged lymph nodes. Urinary bladder: Unremarkable as visualized. Reproductive: Unremarkable as visualized. Bones/joints: Mild compression deformity noted at T12. Multilevel facet arthropathy. Soft tissues: Unremarkable. IMPRESSION: 1. Mild compression deformity at T12. 2. Negative for acute traumatic injury in the abdomen or pelvis. 3. Hepatic steatosis. XR Left Foot Exam date and time: 10/07/2021 5:28 AM Age: 51 years old Clinical indication: Injury or trauma; Fall; Blunt trauma; Foot; Left; Injury date: 10/07/21; Injury details: L 5th metatarsal pain, R/O FX TECHNIQUE: Imaging protocol: Radiologic exam of the Left foot. Views: 3 or more views. COMPARISON: No relevant prior studies for comparison. FINDINGS: Bones/joints: No fractures are identified. Alignment is anatomic. There are changes of mild osteoarthritis in the 1st metatarsophalangeal joint with joint space narrowing and small marginal osteophytes. Soft tissues: Regional soft tissues are unremarkable. IMPRESSION: ?No fracture or malalignment in the left foot. XR Thoracic Spine Exam date and time: 10/07/2021 4:58 AM Age: 51 years old Clinical indication: Injury or trauma; Blunt trauma (contusions or hematomas); Injury date: 10/07/21; Injury details: Fall, assess for kyphosis due to t5 FX TECHNIQUE: Imaging protocol: Radiologic exam of the thoracic spine. Views: 3 views. COMPARISON: CT THORACIC LUMBAR SPINE WO 10/07/2021 2:23 AM FINDINGS: Bones/joints: There is a mild anterior wedge deformity of the T5 vertebral body and a slight superior endplate compression deformity at T4, not significantly changed.? There is no increased kyphosis in the thoracic spine, and no evidence of traumatic subluxation. Soft tissues:? No acute or suspicious abnormality in the regional soft tissues. IMPRESSION: Loss of height of the T4 and T5 vertebral bodies, without increased thoracic kyphosis. Lab Data Lab results reviewed: Yes I reviewed the patient's lab results. Labs: Laboratory Tests Range/Units 10/07/21 10/07/21 10/07/21 01:35 01:35 01:35 WBC (4.4-10.8) 10^3/uL 8.76 RBC (4.36-5.78) 10^6/uL 4.19 L Hgb (13.5-17.5) g/dL 13.1 L Hct (40.0-50.0) % 40.1 MCV (80-95) fL 96 H MCH (27.0-33.0) pg 31.3 MCHC (32.0-36.0) % 32.7 RDW (11.8-14.1) % 14.4 H Plt Count (130-400) 10^3/uL 249 MPV (8.0-11.0) fL 9.4 Immature Gran % 0.3 Neutrophils % 57.1 Lymphocytes % 28.9 Monocytes % 10.8 Eosinophils % 2.1 Basophils % 0.8 Nucleated RBC % (0.0-0.3) % 0.0 Absolute Neutrophils (1.2-6.7) 10^3/uL 5.00 Absolute Lymphocytes (1.2-3.4) 10^3/uL 2.53 Absolute Monocytes (0.1-0.8) 10^3/uL 0.95 H Absolute Eosinophils (0.0-0.7) 10^3/uL 0.18 Absolute Basophils (0.0-0.2) 10^3/uL 0.07 Sodium (136-145) mmol/L 137 Potassium (3.5-5.1) mmol/L 3.8 Chloride (98-107) mmol/L 101 Carbon Dioxide (21.0-32.0) mmol/L 28.7 Anion Gap (3-11) mmol/L 7.3 BUN (7-18) mg/dL 13 Creatinine (0.70-1.30) mg/dL 1.4 H Estimated GFR/1.73 m2 (mL/min/1.73m2) 53.22 Glucose (74-106) mg/dL 98 Calcium (8.5-10.1) mg/dL 8.9 Total Bilirubin (0.2-1.0) mg/dL 0.4 AST (15-37) U/L 70 H ALT (16-63) U/L 43 Alkaline Phosphatase (46-116) U/L 80 Total Protein (6.4-8.2) g/dL 6.6 Albumin (3.4-5.0) g/dL 3.0 L Ethyl Alcohol (<10) mg/dL 49.0 H COVID-19 Source SARS-CoV-2 (PCR) (Negative) Range/Units 10/07/21 02:00 WBC (4.4-10.8) 10^3/uL RBC (4.36-5.78) 10^6/uL Hgb (13.5-17.5) g/dL Hct (40.0-50.0) % MCV (80-95) fL MCH (27.0-33.0) pg MCHC (32.0-36.0) % RDW (11.8-14.1) % Plt Count (130-400) 10^3/uL MPV (8.0-11.0) fL Immature Gran % Neutrophils % Lymphocytes % Monocytes % Eosinophils % Basophils % Nucleated RBC % (0.0-0.3) % Absolute Neutrophils (1.2-6.7) 10^3/uL Absolute Lymphocytes (1.2-3.4) 10^3/uL Absolute Monocytes (0.1-0.8) 10^3/uL Absolute Eosinophils (0.0-0.7) 10^3/uL Absolute Basophils (0.0-0.2) 10^3/uL Sodium (136-145) mmol/L Potassium (3.5-5.1) mmol/L Chloride (98-107) mmol/L Carbon Dioxide (21.0-32.0) mmol/L Anion Gap (3-11) mmol/L BUN (7-18) mg/dL Creatinine (0.70-1.30) mg/dL Estimated GFR/1.73 m2 (mL/min/1.73m2) Glucose (74-106) mg/dL Calcium (8.5-10.1) mg/dL Total Bilirubin (0.2-1.0) mg/dL AST (15-37) U/L ALT (16-63) U/L Alkaline Phosphatase (46-116) U/L Total Protein (6.4-8.2) g/dL Albumin (3.4-5.0) g/dL Ethyl Alcohol (<10) mg/dL COVID-19 Source Nasal/Nares SARS-CoV-2 (PCR) (Negative) Negative ECG Data Attestation: I personally reviewed and interpreted this ECG (s) as follows: Interpretation: rate of 96, sinus, normal axis, no stemi. <Sanjay Pardo NP - Last Filed: 10/07/21 14:33> 0045 -- 51-year-old male with a history of anxiety, depression, obesity, diabetes, methadone dependence, alcohol abuse with history of withdrawal seizure who presents for fall down 15 steps with head injury. Patient is intoxicated appearing but oriented x3 and able to answer most questions. He states I have pain everywhere, but mostly in his shoulders bilaterally. Vitals are within normal limits. He has superficial abrasions to his face no other obvious evidence of trauma. He is moving all extremities without deformity. Chest and abdomen nontender. Will obtain CT head, facial bones and cervical spine in addition to chest abdomen and pelvis and T and L-spine recons. We will obtain screening labs as he is intoxicated. Patient did endorse to nurse I have nothing to live for and does admit to depression but denies any active suicidal thoughts. Labs and imaging reviewed. Normal white blood cell count. Normal electrolytes. Alcohol level 49. COVID-negative. 0345 --Long delay in virtual radiology -- CT head/facial bones and cervical spine negative. CT chest and abdomen and pelvis negative for acute findings. CT T spine note compression fracture of T5 and mild compression deformities of T4 and T12. 0430 -- Imaging reviewed with [facility] spine who notes that the T4 compression fracture is chronic and the T12 deformity appears consistent with a Schmorl's node. States that the T5 compression fracture appears new and recommends upright thoracic spine x-rays when able to rule out worsening height loss of her kyphosis. Can recommend a brace if patient can tolerate but unlikely considering his body habitus. If no change in x-ray, recommend follow-up with spine in 1 month. 1215 --thoracic spine x-rays no loss of height of the T4 and T5 vertebral bodies without increased thoracic kyphosis. Call placed to [facility] neurosurgery who is covering for spine and awaiting callback for recommendations. 0820 --patient's ride is here and he is stating he needs to leave to go to [facility] for his methadone. Discussed yet we have not yet heard back from [facility] neurosurgery but he states he needs to leave. He understands the of and disability due to missed or incomplete diagnoses. Case endorsed to CLARKE Pardo to follow-up with [facility] neurosurgery regarding any further recommendations regarding thoracic spine x-rays. 1400-spoke with Dr. Hooks at [facility] [place]. She had no further recommendations regarding patient's plan of care. She stated follow-up in 6-week with thoracic brace use if tolerated or desired by patient. Did discuss with her the loss of height without kyphosis. She stated that this appeared stable on her review and again patient to follow-up as previously recommended without any other interventions needed. HPI <Delores Guajardo DO - Last Filed: 10/07/21 08:22> General Mode of arrival: EMS. Date/Time Provider Initiated Documentation: 10/07/21 00:56. Limitations to Documentation: no limitations. Information obtained by: patient. HPI Narrative: Patient is a 51-year-old male with a history of anxiety, depression, hypertension, obesity, diabetes, methadone dependence, alcohol abuse and history of alcohol withdrawal seizures who presents for fall while intoxicated prior to arrival. Patient states he fell down approximately 15 stairs and landed on his head. He is intoxicated and a poor historian at this time. He did also endorse depression but denies any active thoughts of suicide. He is endorsing pain mainly in his upper body in his shoulders but denies any chest pain, abdominal pain, back pain or other extremity pain. Related Data Home Medications Medication Instructions Recorded Confirmed atenolol 50 mg tablet 50 mg PO DAILY 01/09/21 07/21/21 hydrochlorothiazide 12.5 mg tablet 12.5 mg PO DAILY 01/09/21 07/21/21 lisinopril 10 mg tablet 10 mg PO DAILY 01/09/21 07/21/21 omeprazole 20 mg tablet,delayed 20 mg PO DAILY 01/09/21 07/21/21 release trazodone 100 mg tablet 100 mg PO HS 01/09/21 07/21/21 gabapentin 600 mg tablet 600 mg PO BID 01/10/21 07/23/21 cyclobenzaprine 5 mg tablet 5 mg PO HS 03/23/21 07/21/21 nicotine (polacrilex) 4 mg gum 4 mg buccal Q2H 03/23/21 07/21/21 nicotine 21 mg/24 hr daily 21 mg transdermal DAILY 03/23/21 07/21/21 transdermal patch folic acid 1 mg tablet 1 mg PO QAM #30 tabs 03/26/21 07/21/21 multivitamin (Multiple Vitamins 1 tab PO QAM #30 tabs 03/26/21 07/21/21 tablet) thiamine mononitrate (vit B1) 100 100 mg PO QAM #30 tabs 03/26/21 07/21/21 mg tablet (Vitamin B-1 (mononitrate)) methadone 10 mg/mL oral 90 mg (9 mL) PO DAILY #0 mL 04/12/21 07/21/21 concentrate (Methadone Intensol) aripiprazole 5 mg tablet 5 mg PO QAM 07/23/21 07/23/21 buspirone 10 mg tablet 10 mg PO TID 07/23/21 07/23/21 metformin 500 mg tablet 500 mg PO DAILY 07/23/21 07/23/21 nortriptyline 50 mg capsule 100 mg PO DAILY 07/23/21 07/23/21 sertraline 100 mg tablet 200 mg PO DAILY 07/23/21 07/23/21 Previous Rx's Medication Instructions Recorded folic acid 1 mg tablet 1 mg PO QAM #30 tabs 03/26/21 multivitamin (Multiple Vitamins 1 tab PO QAM #30 tabs 03/26/21 tablet) thiamine mononitrate (vit B1) 100 100 mg PO QAM #30 tabs 03/26/21 mg tablet (Vitamin B-1 (mononitrate)) methadone 10 mg/mL oral 90 mg (9 mL) PO DAILY #0 mL 04/12/21 concentrate (Methadone Intensol) Allergies Allergy/AdvReac Type Severity Reaction Status Date / Time Sulfa (Sulfonamide Allergy Intermediate Skin Rash Unverified 10/07/21 00:32 Antibiotics) General Stated Complaint: Trauma RODGER: 3 Review of Systems <Delores Guajardo DO - Last Filed: 10/07/21 08:22> All systems reviewed & are unremarkable except as noted in HPI and below Constitutional Constitutional: Denies chills, Denies excessive sweating, Denies fatigue, Denies fever(s), Denies weakness and Denies weight loss Eyes Eyes: Reports system reviewed and no additional complaints, except as documented and Denies blurry vision ENT Ears, Nose, Mouth, and Throat: Denies vertigo, Denies dizziness, Denies otalgia, Denies nasal congestion, Denies sore throat and Denies throat swelling Cardiovascular Cardiovascular: Denies chest pain, Denies syncope, Denies rapid heart rate and Denies dyspnea Respiratory Respiratory: Denies chest congestion, Denies cough, Denies pain on inspiration and Denies dyspnea Gastrointestinal Gastrointestinal: Denies abdominal pain, Denies diarrhea and Denies vomiting Genitourinary Genitourinary: Denies hematuria, Denies dysuria and Denies flank pain Musculoskeletal Musculoskeletal: Denies back pain and Denies joint swelling Comments: b/l shoulder pain Integumentary/Breasts Skin/Breast: Denies lesions and Denies rash Neurologic Neurologic: Denies behavioral changes, Denies confusion, Denies vertigo, Denies dizziness, Denies syncope, Denies localized weakness and Denies weakness Psychiatric Psychiatric: Denies behavioral changes, Denies confusion and Denies depression Endocrine Endocrine: Denies excessive sweating and Denies fatigue Hematologic/Lymphatic Hematologic/Lymphatic: Denies easy bruising and Denies lymphadenopathy Allergic/Immunologic Allergic/Immunologic: Denies throat swelling PFS <Delores Guajardo DO - Last Filed: 10/07/21 08:22> All Active Problems (Updated 10/07/21 @ 05:25 by Delores Guajardo DO) Fall down steps (Acute) Compression fracture of thoracic vertebra (Acute) Contusion of left foot (Acute) Facial abrasion (Acute) Diabetes mellitus type 2 in obese (Chronic) Back pain (Chronic) Anxiety (Chronic) Methadone dependence (Acute) Hypertension (Chronic) Alcohol abuse (Chronic) Depression with suicidal ideation (Acute) Alcohol withdrawal seizure (Acute) Back pain (Chronic) Medical History Alcohol dependence Anxiety COVID-19 Depression Major depression Suicidal ideation Surgical History History of tonsillectomy and adenoidectomy Family History Maternal Grandfather Alcohol use disorder Social History Smoking/Tobacco Use Status: Current every day Tobacco Type: cigarettes Smoking risk assessment performed?: Yes Alcohol Intake: current Alcohol Intake frequency: 0-2 drinks per day Alcohol type: beer and hard liquor Drug use: Daily Substance use type: former substance user Date of last use: >5yrs, crack/cocaine, amphetamines, opiates and prescription drug Housing: other Details: lives in [facility] Do you feel safe at home: No Do you feel safe in your relationship?: Yes Additional Social history: Homeless Exam <Delores Guajardo DO - Last Filed: 10/07/21 08:22> Const General: cooperative and intoxicated appearing Orientation: alert, awake and oriented x3 HENMT Head: normal to inspection Head images: 1. 3x3mm superficial abrasion 2. 2x2cm ulcer vs superficial abrasion Ears: hearing grossly normal bilaterally, external ears normal and TM's normal bilaterally General nose exam: external nose normal Face and sinus: normal facial exam Mouth: oral mucosae normal Teeth and gingiva: dentition normal Throat: posterior oropharynx normal Eyes General: appearance normal, both eyes and all related structures Eyelids: eyelids normal Pupils: PERRL EOM: EOM intact bilaterally Neck Neck: normal visual inspection Lymphatic: no lymphadenopathy noted Chest Chest: normal inspection of the chest Resp Effort & Inspection: normal respiratory effort and able to speak in complete sentences Auscultation: clear to auscultation bilaterally Cardio Rate: regular rate Rhythm: regular rhythm GI Inspection: normal to inspection Palpation: soft, not firm, no guarding, no hepatosplenomegaly, no masses and nontender Auscultation: normal bowel sounds Back/Spine/Pelvis Back: no CVA tenderness Skin General skin exam: no rashes or lesions noted Neuro General: patient alert and patient awake Cognition: normal cognition Speech: speech normal Gait: normal gait Motor: muscle tone normal throughout Sensory Exam: no sensory deficits noted Extrem General: normal to inspection, full ROM and capillary refill normal Psych Appearance: grossly normal Mental Status: mental status grossly normal Speech and Movement: speech and movement normal Affect: normal affect Thought Process: normal Course <Delores Guajardo DO - Last Filed: 10/07/21 08:22> Vital Signs Vital signs: Vital Signs Temperature 98.2 F 10/07/21 00:24 Pulse 97 H 10/07/21 00:24 Respiratory Rate 12 10/07/21 00:24 Blood Pressure 105/59 L 10/07/21 00:24 Pulse Oximetry 94 10/07/21 00:24 Temperature 98.2 F 10/07/21 00:24 Pulse 97 H 10/07/21 00:24 Respiratory Rate 12 10/07/21 00:24 Respiratory Effort 10/07/21 00:36 Blood Pressure 105/59 L 10/07/21 00:24 Blood Pressure Position Sitting 10/07/21 00:24 Pulse Oximetry 94 10/07/21 00:24 Oxygen Delivery Method Room Air 10/07/21 00:24 Oxygen Flow Rate 0 10/07/21 00:24 Pain Level 5 10/07/21 00:24 Sign Out <Delores Guajardo DO - Last Filed: 10/07/21 08:22> Sign Out Data: Sign Out Comment: Follow-up with [facility] neurosurgery for recommendations regarding thoracic spine x-rays. Last updated by Delores Guajardo DO at 10/07/21 08:23 PAWSS <Delores Guajardo DO - Last Filed: 10/07/21 08:22> Have you Been Recently Intoxicated or Drunk Within the Last 30 days?: Yes Have you Ever Experienced Previous Episodes of Alcohol Withdrawal?: Yes Have you ever Experienced Withdrawal Seizures?: Yes Have you ever Experienced Delirium Tremens(DT)s?: Unable to Obtain Have you ever undergone Alcohol Rehabilitation Treatment (i.e, inpt ot outpatient treatment programs)?: Yes Have you ever Experienced Blackouts?: Yes Have you ever Combined Alcohol with other Downers within the last 90 days?: Yes Have you ever Combined Alcohol with any other Substance of Abuse during the last 90 days?: Yes Positive Blood Alcohol level on Presentation? [PCS.BAL]: Unable to Obtain Evidence of Increased Autonomic Activity (i.e. HR>120, tremor, sweating, agitation, nausea)?: No Result: 7 <Sanjay Pardo NP - Last Filed: 10/07/21 14:33> Result: 7
--- NOTE | 2021-10-07 00:45 | DI.CT_ITS ---
Exam(s) CT THORACIC LUMBAR SPINE WO EXAM: CT THORACIC LUMBAR SPINE WO CLINICAL HISTORY: fall down stairs, r/o fx. TECHNIQUE: Imaging Protocol: Axial computed tomography images with coronal and sagittal reformatted images were created and reviewed. CONTRAST MATERIAL: None COMPARISON: CT CT HEAD CERV SPINE FACIAL WO from 10/07/2021 FINDINGS: THORACIC SPINAL COLUMN: There is mild wedge compression fracture of T5, age indeterminate. Also mild indentation of superior endplate of T4. Also Schmorl's node invagination superior endplate of T12. LUMBOSACRAL SPINAL COLUMN: No evidence of fracture. No listhesis. No disc space narrowing. No face t malalignment. No pars defects. No osseous lesions. IMPRESSION: No evidence acute fractures in the thoracic and lumbar spinal columns. There is slight anterior wedg ing of T5 which is probably not acute. Other findings as above. RADIATION DOSE DELIVERED: Total DLP DATA REPOSITORY: All CT scans at this facility are submitted to the National Radiology Data Registry (NRDR) Dose Index Registry (DIR) with the [employer] (ACR). RADIATION OPTIMIZATION: All CT scans at this facility use at least one of these dose optimization te chniques: automated exposure control; mA and/or kV adjustment per patient size (includes targeted exa ms where dose is matched to clinical indication); or iterative reconstruction.
--- NOTE | 2021-10-07 00:45 | DI.CT_ITS ---
Exam(s) CT CHEST/ABD/PEL W EXAM: CT CHEST/ABD/PEL W CLINICAL HISTORY: fall down stairs, r/o fx, chest/abd injury. TECHNIQUE: Imaging Protocol: Axial computed tomography images with coronal and sagittal reformatted images were created and reviewed CONTRAST MATERIAL: Intravenous: Omnipaque 350 Contrast volume:100 ml Oral: None COMPARISON: CT CT THORACIC LUMBAR SPINE WO from 10/07/2021 FINDINGS: CHEST: LUNGS: Mild respiratory motion artifact. However, there are no infiltrates nor lung contusion. No p leural effusions. No pneumothorax. No incidental ominous pulmonary nodules. No significant focal f indings in the trachea and mainstem bronchi.. MEDIASTINUM: No mediastinal hematoma. No sternal fracture. No incidental hilar nor mediastinal ben opathy. Visualized thyroid unremarkable. Visualized thyroid unremarkable. CARDIAC: Heart size is normal. There is no pericardial effusion.Thoracic aorta is diameter within no rmal limits. No dissection. OSSEOUS: Anterior wedging of T5 as well as Schmorl's node invagination superior endplate of T5; these findings are probably not acute. Also Schmorl's node invagination superior endplate of T4, also pro bably not included. Similar finding superior endplate Schmorl's node invagination of T12.. ABDOMEN: There is no ascites. LIVER: Hepatic steatosis. No evidence of a patent laceration. No focal hepatic lesions. GALLBLADDER/BILIARY: No obvious gallbladder pathology. CBD is not dilated. PANCREAS: No evidence of pancreatic mass nor dilatation of the pancreatic duct. SPLEEN: Spleen is not enlarged. There are no intrasplenic lesions. Splenic and portal veins are ceballos nt. ADRENALS: There are no significant adrenal masses. KIDNEYS: Left kidney unremarkable. There are 3 findings in the right kidney. Two of these are small exophytic findings off the inferior and midpole levels. The other is a parapelvic finding measuring 3 by 1.6 cm. Probably parapelvic cysts. The other smaller findings exhibits Hounsfield units highe r than CIS and should undergo ultrasound exam. Similar findings are not seen in the left kidney.. N o cysts evident. ABDOMINAL AORTA: Abdominal aorta is intact and not enlarged. LYMPH NODES: There is no retroperitoneal nor paraaortic adenopathy. ABDOMINAL WALL: There is anterior abdominal wall fat containing umbilical hernia. No other anterior abdominal wall nor inguinal hernias. GI: There is no evidence of bowel obstruction.No evidence of bowel wall hematoma nor mesenteric hemat enedelia. PELVIS: LYMPH NODES: There is no intrapelvic nor inguinal adenopathy. GI: No evidence of appendicitis.Sigmoid diverticula but no diverticulitis. URINARY BLADDER: No calculi nor masses evident REPRODUCTIVE: Prostate and seminal vesicles unremarkable. OSSEOUS: No fractures. No significant osseous lesions. IMPRESSION: 1. No significant trauma sequelae in the chest, abdomen, and pelvis. 2. Anterior wedging of T5 vertebral body which does not have an obvious acute appearance. 3. Three right kidney findings which appears slightly denser than typical cyst. Follow-up ultrasound recommended. No trauma sequelae in the kidneys evident 4. Fat only containing umbilical hernia. No bowel obstruction. No evidence of bowel wall nor mesent abril hematoma. RADIATION DOSE DELIVERED: Total DLP DATA REPOSITORY: All CT scans at this facility are submitted to the National Radiology Data Registry (NRDR) Dose Index Registry (DIR) with the [employer] (ACR). RADIATION OPTIMIZATION: All CT scans at this facility use at least one of these dose optimization te chniques: automated exposure control; mA and/or kV adjustment per patient size (includes targeted exa ms where dose is matched to clinical indication); or iterative reconstruction.
--- NOTE | 2021-10-07 01:15 | DI.CT_ITS ---
Exam(s) CT HEAD CERV SPINE FACIAL WO EXAM: CT HEAD CERV SPINE FACIAL WO CLINICAL HISTORY: fall down stair, facial/chin abrasion. TECHNIQUE: Imaging Protocol: Axial computed tomography images with coronal and sagittal reformatted images were created and reviewed COMPARISON: No exams were available for comparison FINDINGS: CT BRAIN: There are no skull fractures nor fluid in the visualized paranasal sinuses. Some mucosal thickening is noted in the maxillary sinus right side. No associated fluid level. There is no evidence of intracranial hemorrhage, mass effect, or shift of midline structures. There are no extra-axial fluid collections. The ventricles are not enlarged or shifted and there is no blo od within the ventricular system nor within the basal cisterns. CT MAXILLOFACIAL BONES: There is no evidence of facial fractures nor fluid in the visualized paranasal sinuses. there is no evidence of orbital blowout fracture. Mucosal thickening including post inflammatory retention cysts noted in the floor the right maxillary sinus. Also some mucosal thickening in the sphenoid sinuses and left maxillary sinus. CT CERVICAL SPINE: Suboptimal study. C7 vertebral body is not included in the field of view. There is no evidence of fracture nor listhesis. No significant prevertebral soft tissue swelling. N o facet malalignment evident. No significant osseous lesions evident. Please note that C7 is not included in the field of view here. IMPRESSION: No acute intracranial findings on this noninfused CT scan of the brain. No evidence of facial nor orbital blowout fractures. Incomplete cervical spine study. C7 level is not included. From C1 through C6 there is no evidence of fracture, malalignment, nor acute compromise of the cervical spinal canal. Please note that C7 level is not included in the field of view here. RADIATION DOSE DELIVERED: 2,317.28mGy.cm Total DLP DATA REPOSITORY: All CT scans at this facility are submitted to the National Radiology Data Registry (NRDR) Dose Index Registry (DIR) with the [employer] (ACR). RADIATION OPTIMIZATION: All CT scans at this facility use at least one of these dose optimization te chniques: automated exposure control; mA and/or kV adjustment per patient size (includes targeted exa ms where dose is matched to clinical indication); or iterative reconstruction.
[2021-10-07 01:44] LABS: Abs Immature Grans 0.03 10^3/uL (0.0-0.06); Absolute Basophil Count 0.07 10^3/uL (0.0-0.2); Absolute Eosinophil Count 0.18 10^3/uL (0.0-0.7); Absolute Lymphocyte Count 2.53 10^3/uL (1.2-3.4); Absolute Monocyte Count 0.95 10^3/uL (0.1-0.8); Basophils % 0.8; Eosinophils % 2.1; HCT 40.1 % (40.0-50.0); HGB 13.1 g/dL (13.5-17.5); Immature Grans % 0.3; Lymphocytes % 28.9; MCH 31.3 pg (27.0-33.0); MCHC 32.7 % (32.0-36.0); MCV 96 fL (80-95); MPV 9.4 fL (8.0-11.0); Monocytes % 10.8; Neutrophils % 57.1; Platelet Count 249 10^3/uL (130-400); RBC 4.19 10^6/uL (4.36-5.78); RDW 14.4 % (11.8-14.1); RDW-SD 50.4 fL; WBC 8.76 10^3/uL (4.4-10.8)
[2021-10-07 02:08] LABS: ALT 43 U/L (16-63); AST 70 U/L (15-37); Alkaline Phosphatase 80 U/L (46-116); Anion Gap 7.3 mmol/L (3-11); BUN 13 mg/dL (7-18); Bilirubin, Total 0.4 mg/dL (0.2-1.0); CO2 28.7 mmol/L (21.0-32.0); CREATININE 1.4 mg/dL (0.70-1.30); Calcium 8.9 mg/dL (8.5-10.1); Chloride 101 mmol/L (98-107); Estimated GFR 53.22 (mL/min/1.73m2); Glucose 98 mg/dL (74-106); Potassium 3.8 mmol/L (3.5-5.1); Sodium 137 mmol/L (136-145); Total Protein 6.6 g/dL (6.4-8.2)
[2021-10-07 02:39] LABS: Source Nasal/Nares
[2021-10-07] MEDS: Omnipaque 350 MG/ML 100 ML BTL IJ (02:39)
--- NOTE | 2021-10-07 02:52 | DI.VRAD_ITS ---
PROCEDURE INFORMATION: Exam: CT Chest With Contrast; Diagnostic Exam date and time: 10/07/2021 2:23 AM Age: 51 years old Clinical indication: Injury or trauma; Fall; Generalized; Blunt trauma (contusions or hematomas); Injury date: 10/07/21; Injury details: Fell down stairs TECHNIQUE: Imaging protocol: Diagnostic computed tomography of the chest with contrast. Radiation optimization: All CT scans at this facility use at least one of these dose optimization techniques: automated exposure control; mA and/or kV adjustment per patient size (includes targeted exams where dose is matched to clinical indication); or iterative reconstruction. Contrast material: OMNI 350; Contrast volume: 100 ml; Contrast route: INTRAVENOUS (IV); COMPARISON: CR XR CHEST 2V PA LATERAL 04/10/2021 7:36 PM FINDINGS: Thyroid: Normal thyroid. Lungs: No consolidation or ground-glass opacity. Paraseptal emphysema noted. Pleural spaces: Unremarkable. No pneumothorax. No pleural effusion. Heart: No cardiomegaly. No pericardial effusion. No coronary artery calcifications. Lymph nodes: Unremarkable. No enlarged lymph nodes. Vasculature: Normal aorta. No dissection. No aneurysm. Bones/joints: No rib fractures observed. Intact sternum. Respiratory motion artifact. Compression fractures noted at T4 and T5. Soft tissues: No chest wall air. Mild gynecomastia. IMPRESSION: Compression fractures at T4 and T5. PROCEDURE INFORMATION: Exam: CT Abdomen And Pelvis With Contrast Exam date and time: 10/07/2021 2:23 AM Age: 51 years old Clinical indication: Injury or trauma; Fall; Generalized; Blunt trauma (contusions or hematomas); Injury date: 10/07/21; Injury details: Fell down stairs TECHNIQUE: Imaging protocol: Computed tomography of the abdomen and pelvis with contrast. Radiation optimization: All CT scans at this facility use at least one of these dose optimization techniques: automated exposure control; mA and/or kV adjustment per patient size (includes targeted exams where dose is matched to clinical indication); or iterative reconstruction. Contrast material: OMNI 350; Contrast volume: 100 ml; Contrast route: INTRAVENOUS (IV); COMPARISON: US EXTREMITY VENOUS BI 04/11/2021 8:32 AM FINDINGS: Lungs: Please see CT chest dictated separately. Liver: Liver attenuation is low. Negative for mass or abscess. Liver is normal without laceration or hematoma. Gallbladder and bile ducts: Normal. No calcified stones. No ductal dilation. Pancreas: No pancreatic injury or hematoma. Spleen: Spleen is normal without laceration or hematoma. No perisplenic hemorrhage or fluid seen. Adrenal glands: Normal. No mass. Kidneys and ureters: Kidneys are intact without laceration or hematoma. No perinephric fluid or hematoma seen. Stomach and bowel: Unremarkable. No obstruction. No mucosal thickening. Appendix: Normal appendix. Intraperitoneal space: Negative for intraperitoneal free fluid or free air. Vasculature: Mild vascular calcifications. No aneurysm. No dissection. Lymph nodes: Unremarkable. No enlarged lymph nodes. Urinary bladder: Unremarkable as visualized. Reproductive: Unremarkable as visualized. Bones/joints: Mild compression deformity noted at T12. Multilevel facet arthropathy. Soft tissues: Unremarkable. IMPRESSION: 1. Mild compression deformity at T12. 2. Negative for acute traumatic injury in the abdomen or pelvis. 3. Hepatic steatosis. Dictated and Authenticated by: Flo Murphy MD. Ordering:YAEL Estrella MD
--- NOTE | 2021-10-07 02:56 | DI.VRAD_ITS ---
Addendum created by Hamlet Cardona MD on 10/07/2021 3:46:35 AM EDT: Additional images of the lower cervical spine presented for evaluation. No fractures or subluxations identified. Centrilobular emphysema within upper lung zones. Initial report created on 10/07/2021 2:55:51 AM EDT: PROCEDURE INFORMATION: Exam: CT Head Without Contrast Exam date and time: 10/07/2021 2:14 AM Age: 51 years old Clinical indication: Injury or trauma; Fall; Blunt trauma (contusions or hematomas) and concussion/head injury; Consciousness not specified; Loss of consciousness not known; Forehead; Blunt trauma and concussion/head injury; Injury date: 10/07/21; Injury details: Fell down stairs TECHNIQUE: Imaging protocol: Computed tomography of the head without contrast. Radiation optimization: All CT scans at this facility use at least one of these dose optimization techniques: automated exposure control; mA and/or kV adjustment per patient size (includes targeted exams where dose is matched to clinical indication); or iterative reconstruction. COMPARISON: No relevant prior studies available. FINDINGS: Brain: No hemorrhage. No significant white matter disease. No edema. Cerebral ventricles: No ventriculomegaly. Paranasal sinuses: Visualized sinuses are unremarkable. No fluid levels. Mastoid air cells: Unremarkable as visualized. No mastoid effusion. Bones/joints: No acute fracture. Soft tissues: Unremarkable. IMPRESSION: No acute intracranial abnormality. PROCEDURE INFORMATION: Exam: CT Maxillofacial Without Contrast Exam date and time: 10/07/2021 2:14 AM Age: 51 years old Clinical indication: Injury or trauma; Fall; Blunt trauma (contusions or hematomas) and concussion/head injury; Consciousness not specified; Loss of consciousness not known; Forehead; Blunt trauma and concussion/head injury; Injury date: 10/07/21; Injury details: Fell down stairs TECHNIQUE: Imaging protocol: Computed tomography of the of the face without contrast. Radiation optimization: All CT scans at this facility use at least one of these dose optimization techniques: automated exposure control; mA and/or kV adjustment per patient size (includes targeted exams where dose is matched to clinical indication); or iterative reconstruction. COMPARISON: No relevant prior studies available. FINDINGS: Orbital cavities: Orbits are normal. Globes are unremarkable. Bones/joints: Bilateral nasal bone deformities, possibly chronic. Paranasal sinuses: Partially opacified ethmoid sinuses. Mucosal polyp versus retention cyst within the right maxillary sinus.. Soft tissues: Unremarkable. IMPRESSION: No acute findings. PROCEDURE INFORMATION: Exam: CT Cervical Spine Without Contrast Exam date and time: 10/07/2021 2:14 AM Age: 51 years old Clinical indication: Injury or trauma; Fall; Blunt trauma (contusions or hematomas) and concussion/head injury; Consciousness not specified; Loss of consciousness not known; Forehead; Blunt trauma and concussion/head injury; Injury date: 10/07/21; Injury details: Fell down stairs TECHNIQUE: Imaging protocol: Computed tomography of the cervical spine without contrast. Radiation optimization: All CT scans at this facility use at least one of these dose optimization techniques: automated exposure control; mA and/or kV adjustment per patient size (includes targeted exams where dose is matched to clinical indication); or iterative reconstruction. COMPARISON: US EXTREMITY VENOUS BI 04/11/2021 8:32 AM FINDINGS: Bones/joints: Lower cervical spine is not included. Degenerative changes at the atlantoaxial articulation. No acute fracture. Normal alignment. Discs/Spinal canal/Neural foramina: No significant disc protrusion. No severe spinal canal stenosis. No significant neural foraminal narrowing. Soft tissues: Unremarkable. IMPRESSION: No acute findings. Lower cervical spine is not included Dictated and Authenticated by: Hamlet Cardona MD. Ordering:YAEL Estrella MD
--- NOTE | 2021-10-07 03:04 | DI.VRAD_ITS ---
PROCEDURE INFORMATION: Exam: CT Thoracic Spine Without Contrast Exam date and time: 10/07/2021 2:23 AM Age: 51 years old Clinical indication: Injury or trauma; Fall; Blunt trauma (contusions or hematomas); Injury date: 10/07/21; Injury details: Fell down stairs TECHNIQUE: Imaging protocol: Computed tomography of the thoracic spine without contrast. Radiation optimization: All CT scans at this facility use at least one of these dose optimization techniques: automated exposure control; mA and/or kV adjustment per patient size (includes targeted exams where dose is matched to clinical indication); or iterative reconstruction. COMPARISON: CT HEAD CERV SPINE FACIAL WO 10/07/2021 2:14 AM FINDINGS: Bones/joints: Mild right apex curvature in the thoracic spine. Mild endplate irregularity and depression the T4 superior endplate. No retropulsion. Intact pedicles and lamina. Intact spinous process. Depression and loss of height noted at the T5 superior endplate, 25% loss of height anteriorly. No retropulsion. Intact pedicles. Intact spinous process. Mild Schmorl's node at the T8 and T10 endplates. Prominent endplate depression at the T12 superior endplate. No retropulsion. No significant loss of height. Mild facet arthropathy. Discs/Spinal canal/Neural foramina: No significant spinal canal stenosis. Soft tissues: Mild paraspinal hematoma at T4 and T5. IMPRESSION: 1. Stable anterior column compression fracture at T5. 2. Mild compression deformities versus large Schmorl's nodes T4 and T12. PROCEDURE INFORMATION: Exam: CT Lumbar Spine Without Contrast Exam date and time: 10/07/2021 2:23 AM Age: 51 years old Clinical indication: Injury or trauma; Fall; Blunt trauma (contusions or hematomas); Injury date: 10/07/21; Injury details: Fell down stairs TECHNIQUE: Imaging protocol: Computed tomography of the lumbar spine without contrast. Radiation optimization: All CT scans at this facility use at least one of these dose optimization techniques: automated exposure control; mA and/or kV adjustment per patient size (includes targeted exams where dose is matched to clinical indication); or iterative reconstruction. COMPARISON: No relevant prior studies available. FINDINGS: Bones/joints: Negative for compression fracture. Endplates are intact. Negative for anterior or posterior translation of vertebral bodies. Discs/Spinal canal/Neural foramina: Mild disc bulges and ligamentous thickening at L3-L4, L4-L5, and L5-S1. Mild spinal canal stenosis L3-L4. Soft tissues: Negative for paraspinal hematoma. IMPRESSION: Negative for lumbar spine fracture. Dictated and Authenticated by: Flo Murphy MD. Ordering:YAEL Estrella MD
[2021-10-07 03:28] LABS: COVID-19 PCR Negative (Negative)
--- NOTE | 2021-10-07 04:30 | DI.RAD_ITS ---
Exam(s) XR THORACIC SPINE COMPLETE EXAM: XR THORACIC SPINE COMPLETE CLINICAL HISTORY: assess for worsening kyphosis or height loss. TECHNIQUE: 2D digital imaging was performed. COMPARISON: No exams were available for comparison FINDINGS: Two views-AP and lateral There is slight anterior wedging of what is probably T5. Age indeterminate. No other osteophytic fi ndings. No disc space narrowing. No scoliosis. No abnormal widening of the paraspinal lines. IMPRESSION: Mild anterior wedging of what is probably the T5 vertebral body. Age indeterminate. DATA REPOSITORY: RADIATION DOSE DELIVERED:
--- NOTE | 2021-10-07 05:15 | DI.RAD_ITS ---
Exam(s) XR FOOT LT COMPLETE EXAM: XR FOOT LT COMPLETE CLINICAL HISTORY: L 5th metatarsal pain, r/o fx. TECHNIQUE: 2D digital imaging was performed. COMPARISON: No exams were available for comparison FINDINGS: 3 views No evidence of fracture nor diastasis of the Elisha lauro joint. Mild degenerative changes are noted in the great toe metatarsophalangeal joint. No hallux valgus. Mild degenerative changes at the tarsom etatarsal joints. Small inferior calcaneal spur. No place planus. No osseous lesions. Bone densit y normal. IMPRESSION: No fracture evident. DATA REPOSITORY: RADIATION DOSE DELIVERED:
--- NOTE | 2021-10-07 06:26 | NUR.NOTE ---
Referral to Care Management to help get appt with Spine clinic at [facility] in a month for compression fx's. Dr Guajardo consulted with [facility] 10/06/21.Nursing Note:
--- NOTE | 2021-10-07 07:05 | DI.VRAD_ITS ---
PROCEDURE INFORMATION: Exam: XR Thoracic Spine Exam date and time: 10/07/2021 4:58 AM Age: 51 years old Clinical indication: Injury or trauma; Blunt trauma (contusions or hematomas); Injury date: 10/07/21; Injury details: Fall, assess for kyphosis due to t5 FX TECHNIQUE: Imaging protocol: Radiologic exam of the thoracic spine. Views: 3 views. COMPARISON: CT THORACIC LUMBAR SPINE WO 10/07/2021 2:23 AM FINDINGS: Bones/joints: There is a mild anterior wedge deformity of the T5 vertebral body and a slight superior endplate compression deformity at T4, not significantly changed. There is no increased kyphosis in the thoracic spine, and no evidence of traumatic subluxation. Soft tissues: No acute or suspicious abnormality in the regional soft tissues. IMPRESSION: Loss of height of the T4 and T5 vertebral bodies, without increased thoracic kyphosis. Dictated and Authenticated by: Barbara Bautista MD. Ordering:YAEL Estrella MD
--- NOTE | 2021-10-07 07:07 | DI.VRAD_ITS ---
PROCEDURE INFORMATION: Exam: XR Left Foot Exam date and time: 10/07/2021 5:28 AM Age: 51 years old Clinical indication: Injury or trauma; Fall; Blunt trauma; Foot; Left; Injury date: 10/07/21; Injury details: L 5th metatarsal pain, R/O FX TECHNIQUE: Imaging protocol: Radiologic exam of the Left foot. Views: 3 or more views. COMPARISON: No relevant prior studies for comparison. FINDINGS: Bones/joints: No fractures are identified. Alignment is anatomic. There are changes of mild osteoarthritis in the 1st metatarsophalangeal joint with joint space narrowing and small marginal osteophytes. Soft tissues: Regional soft tissues are unremarkable. IMPRESSION: No fracture or malalignment in the left foot. Dictated and Authenticated by: Barbara Bautista MD. Ordering:YAEL Estrella MD
--- NOTE | 2021-10-10 11:16 | PDOC.ERCMACT ---
- If Service Date Differs Date of service: 10/10/21 Time of Service: 11:16 Care Management Activity Note Garrett presents in the ED for contusion of left foot, facial abrasion, and a compression fracture of thoracic vertebra. At the request of ED provider, CM coordinates a referral to [facility] to assist Garrett in obtaining an appointment for further evaluation and treatment. Garrett has Medicare and Medicaid for insurance.
== END 2021-10-07 08:28 | disposition home or self-care (01) ==
PROVIDERS: Physician Assistant; Emergency Provider Nurse Practitioner Family; PCP Physician Assistant
DX: S22.049A Unspecified fracture of fourth thoracic vertebra, initial encounter for closed fracture (principal); S90.32XA Contusion of left foot, initial encounter; S00.81XA Abrasion of other part of head, initial encounter; E11.9 Type 2 diabetes mellitus without complications; F17.210 Nicotine dependence, cigarettes, uncomplicated; Z86.16 Personal history of COVID-19; Z23 Encounter for immunization; Z20.822 Contact with and (suspected) exposure to COVID-19; W10.9XXA Fall (on) (from) unspecified stairs and steps, initial encounter; Z79.84 Long term (current) use of oral hypoglycemic drugs
CPT/HCPCS: 74177; 80053; 87635; 90471; 93005; 96361; 96374; 99285; 70450; 70486; 71260; 72072; 72125; 72128; 72131; 73630; 80320; 85025; 93010; J3490

== ENCOUNTER 2021-10-25 13:14 | Inpatient (IN) | payer MEDICARE, MEDICAID, SELFPAY ==
[2021-10-25] VITALS (114 sets, daily range): BP systolic 87–136; BP diastolic 47–87; PULSE 54–81; RESP 6–31; TEMP 37.3–37.6; O2SAT 90–97
--- NOTE | 2021-10-25 13:15 | RT.EKG_ITS ---
APPROVED REPORT Exam: Resting ECG Reason for Exam: sob Patient Location: E HR:67 bpm ECG Measurements Heart Rate 67 AXIS SD 163 P 22 QRSd 97 QRS 2 QT 441 T 7 QTc 466 Conclusion Sinus rhythm...normal P axis, V-rate 60- 99
--- NOTE | 2021-10-25 13:30 | DI.RAD_ITS ---
Exam(s) XR TIB/FIB RT EXAM: XR TIB/FIB RT CLINICAL HISTORY: swelling, fall. TECHNIQUE: 2D digital imaging was performed. Two views. COMPARISON: No exams were available for comparison FINDINGS: BONES: No acute fracture is present. No bony destructive lesion is seen. Visualized portion of knee a nd ankle joints are unremarkable. SOFT TISSUE: Diffuse edema. IMPRESSION: Soft tissue edema. No evidence of fracture DATA REPOSITORY: RADIATION DOSE DELIVERED:
--- NOTE | 2021-10-25 13:30 | DI.US_ITS ---
Exam(s) US LOWER EXTREMITY VENOUS RT EXAM: US LOWER EXTREMITY VENOUS RT CLINICAL HISTORY: swollen, red. TECHNIQUE: Lower extremity venous ultrasound performed using grayscale, color-flow, and spectral Do ppler analysis. COMPARISON: No exams were available for comparison FINDINGS: The common femoral, femoral and popliteal veins demonstrate normal compressibility, augmentation, and color Doppler. The posterior tibial veins are patent. No saphenous vein thrombosis or other superfi cial venous thrombosis is seen. No hematoma or Cordero's cyst is seen. Mild calf edema. No drainable collection. IMPRESSION: Negative lower extremity ultrasound. No evidence of DVT. DATA REPOSITORY:
[2021-10-25 13:57] LABS: Abs Immature Grans 0.03 10^3/uL (0.0-0.06); Absolute Basophil Count 0.08 10^3/uL (0.0-0.2); Absolute Eosinophil Count 0.11 10^3/uL (0.0-0.7); Absolute Lymphocyte Count 2.95 10^3/uL (1.2-3.4); Absolute Monocyte Count 0.98 10^3/uL (0.1-0.8); Absolute Neutrophil Count 6.34 10^3/uL (1.2-6.7); Basophils % 0.8; Immature Grans % 0.3; Lymphocytes % 28.1; MCH 31.5 pg (27.0-33.0); MCHC 32.5 % (32.0-36.0); MCV 97 fL (80-95); MPV 9.2 fL (8.0-11.0); Monocytes % 9.3; Neutrophils % 60.5; Platelet Count 308 10^3/uL (130-400); RBC 4.13 10^6/uL (4.36-5.78); RDW 14.4 % (11.8-14.1); RDW-SD 51.4 fL; WBC 10.49 10^3/uL (4.4-10.8)
[2021-10-25 14:11] LABS: ALT 34 U/L (16-63); AST 25 U/L (15-37); Albumin 2.8 g/dL (3.4-5.0); Alkaline Phosphatase 74 U/L (46-116); BUN 15 mg/dL (7-18); Bilirubin, Total 0.3 mg/dL (0.2-1.0); CREATININE 1.1 mg/dL (0.70-1.30); Calcium 8.9 mg/dL (8.5-10.1); Chloride 102 mmol/L (98-107); ETHANOL BLOOD 127.6 mg/dL (<10); Glucose 92 mg/dL (74-106); Magnesium 2.2 mg/dL (1.8-2.4); Potassium 3.6 mmol/L (3.5-5.1); Sodium 139 mmol/L (136-145); Total Protein 7.1 g/dL (6.4-8.2)
[2021-10-25 14:30] LABS: Acetaminophen < 2 ug/mL (10-30)
[2021-10-25] MEDS: Clotrimazole 1% 15 GM TUBE TP (15:05)
--- NOTE | 2021-10-25 15:41 | ED.GENADUL_ITS ---
Discharge Plan Disposition Patient Disposition: STILL A PATIENT Condition: Serious Discharge Details Clinical Impression: Gabapentin overdose, Cellulitis of right leg, Tinea cruris, Suicidal ideations, Depression Primary Care Provider: Mayito Stearns ED Provider: Jeremy Lopes Home Meds and New Rx's Prescriptions: No Action methadone [Methadone Intensol] 10 mg/mL Concentrate 90 mg PO DAILY Qty: 0 0RF trazodone 100 mg Tablet 100 mg PO HS lisinopril 10 mg Tablet 10 mg PO DAILY atenolol 50 mg Tablet 50 mg PO DAILY hydrochlorothiazide 12.5 mg Tablet 12.5 mg PO DAILY omeprazole 20 mg Tablet,Delayed Release (Dr/Ec) 20 mg PO DAILY gabapentin 600 mg Tablet 600 mg PO BID cyclobenzaprine 5 mg Tablet 5 mg PO HS thiamine mononitrate (vit B1) [Vitamin B-1 (mononitrate)] 100 mg Tablet 100 mg PO QAM Qty: 30 0RF metformin 500 mg tablet 500 mg PO DAILY Label Comments: Take 1 tablet by mouth once a day sertraline 100 mg tablet 200 mg PO DAILY Label Comments: TAKE 2 TABLETS BY MOUTH EVERY MORNING buspirone 10 mg tablet 10 mg PO TID Label Comments: TAKE 1 TABLET BY MOUTH THREE TIMES DAILY aripiprazole 5 mg tablet 5 mg PO QAM Label Comments: TAKE 1 TABLET BY MOUTH EVERY MORNING nortriptyline 50 mg capsule 100 mg PO DAILY Label Comments: Take 2 capsule by mouth once a day Medical Decision Making 51-year-old male with history of depression, noncompliant with medications, significant social challenges including homelessness, here with worsening depression and suicidality with attempted overdose on gabapentin. Regarding gabapentin overdose, I called and spoke with Poison Control Center who recommended monitoring. 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 Will consult [facility] crisis screener given suicidality. One-to-one patient observer has been initiated. Patient with tinea cruris - will treat with clotrimazole. Patient has right lower extremity erythema and swelling. Considered DVT. Ultrasound was reviewed and interpreted by radiology and negative. Suspect cellulitis. Plan to treat with cefazolin 2 g TID and convert to oral with improvement. EKG was reviewed and interpreted by me: Please see report, nondiagnostic. 1600 --patient reassessed and BP low normal. Will give IV fluid bolus. Initial labs reviewed and UDS positive for prescribed methadone as well as cocaine, alcohol level 127, no significant electrolyte abnormalities, normal LFTs. Acetaminophen level undetectable at 1345. Plan to repeat at this time. HPI General Mode of arrival: ambulatory . Date/Time Provider Initiated Documentation: 10/25/21 13:22 . Limitations to Documentation: no limitations . Information obtained by: patient . HPI Narrative: 51-year-old male with history of diabetes, hypertension, alcohol abuse, methadone dependence, here with chief complaint of depression. Patient notes he has been depressed, increasing over the past couple weeks, now severe with suicidal ideation. Patient attempted to overdose on gabapentin earlier today. He states around 10-11a he ingested 28 to 30 tablets of gabapentin 600 mg. He is now feeling tired. He continues to have suicidal thoughts. Patient denies other ingestion. Related Data Home Medications Medication Instructions Recorded Confirmed atenolol 50 mg tablet 50 mg PO DAILY 01/09/21 10/25/21 hydrochlorothiazide 12.5 mg tablet 12.5 mg PO DAILY 01/09/21 10/25/21 lisinopril 10 mg tablet 10 mg PO DAILY 01/09/21 10/25/21 omeprazole 20 mg tablet,delayed 20 mg PO DAILY 01/09/21 10/25/21 release trazodone 100 mg tablet 100 mg PO HS 01/09/21 10/25/21 gabapentin 600 mg tablet 600 mg PO BID 01/10/21 10/25/21 cyclobenzaprine 5 mg tablet 5 mg PO HS 03/23/21 10/25/21 thiamine mononitrate (vit B1) 100 100 mg PO QAM #30 tabs 03/26/21 07/21/21 mg tablet (Vitamin B-1 (mononitrate)) methadone 10 mg/mL oral 90 mg (9 mL) PO DAILY #0 mL 04/12/21 10/25/21 concentrate (Methadone Intensol) aripiprazole 5 mg tablet 5 mg PO QAM 07/23/21 07/23/21 buspirone 10 mg tablet 10 mg PO TID 07/23/21 07/23/21 metformin 500 mg tablet 500 mg PO DAILY 07/23/21 10/25/21 nortriptyline 50 mg capsule 100 mg PO DAILY 07/23/21 10/25/21 sertraline 100 mg tablet 200 mg PO DAILY 04/17/22 04/17/22 Previous Rx's Medication Instructions Recorded thiamine mononitrate (vit B1) 100 100 mg PO QAM #30 tabs 03/26/21 mg tablet (Vitamin B-1 (mononitrate)) methadone 10 mg/mL oral 90 mg (9 mL) PO DAILY #0 mL 04/12/21 concentrate (Methadone Intensol) Allergies Allergy/AdvReac Type Severity Reaction Status Date / Time Sulfa (Sulfonamide Allergy Intermediate Skin Rash Unverified 10/25/21 13:36 Antibiotics) General Stated Complaint: OD/Poison RODGER: 2 Review of Systems All systems reviewed & are unremarkable except as noted in HPI and below Constitutional Constitutional: Reports fatigue and Denies fever(s) Cardiovascular Cardiovascular: Denies chest pain Psychiatric Psychiatric: Reports as per HPI Endocrine Endocrine: Reports fatigue PFSH All Active Problems (Updated 10/25/21 @ 16:11 by Jeremy Lopes MD) Fall down steps (Acute) Compression fracture of thoracic vertebra (Acute) Contusion of left foot (Acute) Facial abrasion (Acute) Gabapentin overdose (Acute) Cellulitis of right leg (Acute) Tinea cruris (Acute) Suicidal ideations (Acute) Depression (Chronic) Diabetes mellitus type 2 in obese (Chronic) Back pain (Chronic) Anxiety (Chronic) Methadone dependence (Acute) Hypertension (Chronic) Alcohol abuse (Chronic) Depression with suicidal ideation (Acute) Alcohol withdrawal seizure (Acute) Back pain (Chronic) Medical History Alcohol dependence Anxiety COVID-19 Depression Gabapentin overdose Major depression Suicidal ideation Surgical History History of tonsillectomy and adenoidectomy Family History Maternal Grandfather Alcohol use disorder Social History Smoking/Tobacco Use Status: Current every day Tobacco Type: cigarettes Smoking risk assessment performed?: Yes Alcohol Intake: current Alcohol Intake frequency: 0-2 drinks per day Alcohol type: beer and hard liquor Drug use: Daily Substance use type: former substance user Date of last use: >5yrs, crack/cocaine, amphetamines, opiates and prescription drug Housing: other Details: lives in [facility] Do you feel safe at home: No Do you feel safe in your relationship?: Yes Additional Social history: Homeless Exam Const General: cooperative Orientation: alert and awake Other: Tearful HENMT Head: normocephalic Mouth: moist mucous membranes Eyes Conjunctivae: normal conjunctivae Sclera: normal sclerae Pupils: PERRL Neck Neck: trachea midline and supple Resp Effort & Inspection: normal respiratory effort Auscultation: clear to auscultation bilaterally, no rales, no rhonchi and no wheezes Cardio Rate: regular rate and not tachycardic Rhythm: regular rhythm GI Palpation: soft, not firm, no guarding, no masses, not rigid and nontender Skin General skin exam: erythema (rt lower leg circumferential) Rashes: rashes noted (Continue tinea cruris right axilla and suprapubic; right lower leg erythema) Neuro General: patient alert, patient awake and tone normal Cognition: abnormal cognition (slowed responses) Other: gcs14 Extrem General: edema Laterality: right (mild) Psych Mental Status: mental status grossly normal Mood: anxious mood Affect: blunted Attitude: cooperative Thought Content: suicidality Insight: insight good Other: depressed Course Vital Signs Vital signs: Vital Signs Temperature 37.3 C 10/25/21 13:22 Pulse 66 10/25/21 13:22 Respiratory Rate 16 10/25/21 13:22 Blood Pressure 105/61 10/25/21 13:22 Pulse Oximetry 93 10/25/21 13:22 Temperature 37.3 C 10/25/21 13:22 Temperature Source Temporal Artery Scan 10/25/21 13:22 Pulse 66 10/25/21 15:01 Pulse 73 10/25/21 13:31 Respiratory Rate 10 L 10/25/21 15:06 Respiratory Depth Normal 10/25/21 13:51 Respiratory Pattern Normal 10/25/21 13:51 Blood Pressure 114/64 10/25/21 15:01 Blood Pressure Mean 87 10/25/21 13:31 Blood Pressure Position Sitting 10/25/21 13:22 Pulse Oximetry 93 10/25/21 14:18 Oxygen Delivery Method Room Air 10/25/21 13:22 Oxygen Flow Rate 0 10/25/21 13:22 Pain Level 0 10/25/21 13:22 Lab/Test Results Lab/Test Results: Laboratory Tests Range/Units 07/10/25/21 10/25/21 13:36 13:45 13:45 WBC (4.4-10.8) 10^3/uL RBC (4.36-5.78) 10^6/uL Hgb (13.5-17.5) g/dL Hct (40.0-50.0) % MCV (80-95) fL MCH (27.0-33.0) pg MCHC (32.0-36.0) % RDW (11.8-14.1) % Plt Count (130-400) 10^3/uL MPV (8.0-11.0) fL Immature Gran % Neutrophils % Lymphocytes % Monocytes % Eosinophils % Basophils % Nucleated RBC % (0.0-0.3) % Absolute Neutrophils (1.2-6.7) 10^3/uL Absolute Lymphocytes (1.2-3.4) 10^3/uL Absolute Monocytes (0.1-0.8) 10^3/uL Absolute Eosinophils (0.0-0.7) 10^3/uL Absolute Basophils (0.0-0.2) 10^3/uL Sodium (136-145) mmol/L 139 Potassium (3.5-5.1) mmol/L 3.6 Chloride (98-107) mmol/L 102 Carbon Dioxide (21.0-32.0) mmol/L 29.0 Anion Gap (3-11) mmol/L 8.0 BUN (7-18) mg/dL 15 Creatinine (0.70-1.30) mg/dL 1.1 Estimated GFR/1.73 m2 (mL/min/1.73m2) >= 60.00 Glucose (74-106) mg/dL 92 Calcium (8.5-10.1) mg/dL 8.9 Magnesium (1.8-2.4) mg/dL 2.2 Total Bilirubin (0.2-1.0) mg/dL 0.3 AST (15-37) U/L 25 ALT (16-63) U/L 34 Alkaline Phosphatase (46-116) U/L 74 Total Protein (6.4-8.2) g/dL 7.1 Albumin (3.4-5.0) g/dL 2.8 L Salicylates (<2.8) mg/dL 6.0 Acetaminophen Cancelled Ethyl Alcohol (<10) mg/dL 127.6 H Range/Units 10/25/21 10/25/21 13:45 13:45 WBC (4.4-10.8) 10^3/uL 10.49 RBC (4.36-5.78) 10^6/uL 4.13 L Hgb (13.5-17.5) g/dL 13.0 L Hct (40.0-50.0) % 40.0 MCV (80-95) fL 97 H MCH (27.0-33.0) pg 31.5 MCHC (32.0-36.0) % 32.5 RDW (11.8-14.1) % 14.4 H Plt Count (130-400) 10^3/uL 308 MPV (8.0-11.0) fL 9.2 Immature Gran % 0.3 Neutrophils % 60.5 Lymphocytes % 28.1 Monocytes % 9.3 Eosinophils % 1.0 Basophils % 0.8 Nucleated RBC % (0.0-0.3) % 0.0 Absolute Neutrophils (1.2-6.7) 10^3/uL 6.34 Absolute Lymphocytes (1.2-3.4) 10^3/uL 2.95 Absolute Monocytes (0.1-0.8) 10^3/uL 0.98 H Absolute Eosinophils (0.0-0.7) 10^3/uL 0.11 Absolute Basophils (0.0-0.2) 10^3/uL 0.08 Sodium (136-145) mmol/L Potassium (3.5-5.1) mmol/L Chloride (98-107) mmol/L Carbon Dioxide (21.0-32.0) mmol/L Anion Gap (3-11) mmol/L BUN (7-18) mg/dL Creatinine (0.70-1.30) mg/dL Estimated GFR/1.73 m2 (mL/min/1.73m2) Glucose (74-106) mg/dL Calcium (8.5-10.1) mg/dL Magnesium (1.8-2.4) mg/dL Total Bilirubin (0.2-1.0) mg/dL AST (15-37) U/L ALT (16-63) U/L Alkaline Phosphatase (46-116) U/L Total Protein (6.4-8.2) g/dL Albumin (3.4-5.0) g/dL Salicylates (<2.8) mg/dL Acetaminophen < 2 Ethyl Alcohol (<10) mg/dL PAWSS Have you Been Recently Intoxicated or Drunk Within the Last 30 days?: Yes Have you Ever Experienced Previous Episodes of Alcohol Withdrawal?: Yes Have you ever Experienced Withdrawal Seizures?: Yes Have you ever Experienced Delirium Tremens(DT)s?: Yes Have you ever undergone Alcohol Rehabilitation Treatment (i.e, inpt ot outpatient treatment programs)?: Yes Have you ever Experienced Blackouts?: Yes Have you ever Combined Alcohol with other Downers within the last 90 days?: Yes Have you ever Combined Alcohol with any other Substance of Abuse during the last 90 days?: Yes Evidence of Increased Autonomic Activity (i.e. HR>120, tremor, sweating, agitation, nausea)?: No Result: 8
[2021-10-25 15:46] LABS: *AMPHETAMINES SCREEN URINE Negative (Negative); *BARBITURATES SCREEN URINE Negative (Negative); *BENZODIAZEPINES SCREEN URINE Negative (Negative); Cannabinoids THC Negative (Negative); Cocaine Screen,Urine Positive (Negative); METHADONE URINE SCREEN Positive (Negative); OPIATES URINE SCREEN Negative (Negative)
[2021-10-25 15:47] LABS: Tricyclic Antidepressants Negative (Negative)
[2021-10-25] MEDS: ceFAZolin 2 GM/50 ML BAG IVPB (15:49)
[2021-10-25] MEDS: Lactated Ringers 1,000 ML 1000 ML IV (16:24)
[2021-10-25 16:29] LABS: TSH (W/Ref FT4) 1.35 uIU/mL (0.36-3.74)
--- NOTE | 2021-10-25 16:38 | PDOC.MHCN ---
Date of service: 10/25/21 Time of Service: 16:15 Mental Health Crisis Note Presenting Issue How did you arrive at the ED and why did you come: Client arrived to the ed after OD on Gabapentin and alcohol in an attempt to end his life Precipitating Factors Depression, Anxiety, SI attempt Disposition BEHAVIOR: Client is cooperative EYE CONTACT: Poor MOOD: depressed AFFECT: flat APPETITE: poor SLEEP(trouble falling/staying asleep: poor Plan client will remain at [facility] until inpatient treatment is secured [facility] [place], [facility], [facility] all have no beds available at this time. Signature Clinician's Name/Title: Sulma Escobar [facility] Enhanced Crisis Home And School Visitor
--- NOTE | 2021-10-25 16:39 | PDOC.CMSAFED ---
- If Service Date Differs Date of service: 10/25/21 Time of Service: 16:39 Care Management Safety Plan Status: Interim - Reason for Wait Reason for Wait: Medical Clearance Chief Complaint: Garrett presents in the ED after reportedly taking 20 to 30 600 mg gabapentin and drinking four 16 oz beers in a suicide attempt. Garrett has struggled with depression, anxiety, and substance use for many years. He has had multiple psychiatric hospitalizations with his last hospitalization being in July 2021 at [facility]. CM will continue to follow. CM will respond to ED to assess patient after patient has been medically cleared and assessed by screener. If screener deems patient meets criteria for psychiatric stabilization CM will facilitate interdepartmental huddle with [facility] screener for safety planning considerations and meet with patient to review [facility] policy and safety plan, establish individual wishes for treatment and maintain patient rights. In the interim; please note safety plan below to guide patient care while awaiting further assessment in the ED. SAFETY PLAN: 1. Will remain on suicide precautions and in paper clothes. 2. Will remain in room under direct supervision of one-on-one staff at all times provided by CPSO, KEVAN, [employer]AL[employer] ASSURANCE LAB TECHNICIAN rn labor and delivery. 3. May have paper cups, plates, finger foods as well as a cardboard spoon with which to eat meals. 4. Follow [facility] Management of the Admitted Behavioral Health Patient policy. 5. Personal care: Comfort bath system only at this time. 6. Bathroom privileges: with escort in ED. Available in room without limitation on Med/Surg. 6. No personal belongings at this time; per RN discretion. 7. No visitors at this time. 8. Phone contact limited to legal contact at this time. 9. Activities: Soft cart items, music tablet, television if available, and other activities at RN discretion. 10. Due to VOLUNTARY status, if patient wishes to leave [facility], staff will contact [facility] Crisis Screener ([phone]) and On-Call Credit Review Analyst ([phone]) as soon as possible. In the event of elopement, notify [facility] Police ([phone]). If deemed appropriate for inpatient psychiatric care, safety plan will be established with patient, and care team, to adhere to patient goals, identify restrictions based on behavioral status, address nutrition, and determine allowed personal belongings, tools for hygiene and personal care. As well plan will determine level of activity including ambulation, level of supervision, visitors, and determine privileges based on level of acuity, behaviors and level of engagement by patient.
--- NOTE | 2021-10-25 16:43 | NUR.NOTE ---
Nursing Note: Roseann from poison control called to check on lab results for patient. They recommended a repeat ASA level as the patient has a detectable level and does not take asa on a daily basis. Relayed to Dr. Cornell
[2021-10-25 17:23] LABS: Acetaminophen < 2 ug/mL (10-30)
[2021-10-25 18:55] LABS: Salicylate 4.8 mg/dL (<2.8)
--- NOTE | 2021-10-25 19:22 | HPE_ITS ---
Date of service: 10/25/21 Time of Service: 19: Assessment and Plan Assessment and plan (1) Gabapentin overdose: Start date: 10/25/21 Status: Acute Assessment and plan: This is a 51-year-old gentleman who has had repeated suicidal episodes and thoughts of suicide who is depressed with significant overdose of gabapentin prior to this admission. He is stable with blood pressure and sedation presently and will be observed with mental health evaluation and placement for inpatient psych care if appropriate. He needs better compliance as an outpatient with his psychiatric care and this has been a chronic problem. He will be on suicide precautions. He is a full code. (2) Suicidal ideations: Start date: 10/25/21 Status: Acute Assessment and plan: Acute episode with chronic suicidal ideation and previous episodes. Suicide precautions and mental health consultation with possible inpatient placement once patient is medically cleared. (3) Cellulitis of right leg: Start date: 10/25/21 Status: Acute Assessment and plan: Negative imaging for DVT with patient to have continued IV Kefzol converting to oral therapy once stable. Patient is diabetic with some skin breakdown which puts him at increased risk for recurrent infection. Obesity is also an issue. Wound care as indicated. (4) Diabetes mellitus type 2 in obese: Status: Chronic Assessment and plan: Glucometers with short acting insulin coverage while in the hospital. Long-term patient needs to lose weight. (5) Tinea cruris: Status: Acute Assessment and plan: Chronic intertriginous rash which will be treated with topical treatment. Patient does have this as skin breakdown and possibility of introduction of infection chronically. Weight loss would help. History of Present Illness History of Present Illness Chief Complaint: Suicidal ideation with gabapentin overdose Narrative: This is a 51-year-old male patient who has a history of depression on chronic antidepressants which she has not been taking recently and a history of hy pertension for which she has been taking medical therapy as well as diabetes with treatment. He also is on methadone with opioid dependence. He presented with increasing thoughts of suicide over the last couple weeks which is very severe prompted patient to overdose on gabapentin the day of admission. He states that the morning of admission just before noon he ingested 30 tablets of his gabapentin 600 mg tablets. Poison control advised observation for sedation and hypotension. The patient at the time he presented to the ED was feeling tired but awake and had no problems with blood pressure or respiratory status. He states that he continues to have suicidal ideation and after medically cleared he will see mental health for possible inpatient psychiatric care. Patient also is obese and was found to have a red and swollen right leg with skin breakdown over the front of the ankle with surrounding erythema and warmth. He was started on Kefzol in the ED for possible cellulitis and this will be continued. He did have imaging to rule out DVT which was negative. Review of Systems Narrative: 13 point review of systems otherwise unrevealing or stable. Patient chronically has depression and poor coping. PFSH All Active Problems Fall down steps (Acute) Compression fracture of thoracic vertebra (Acute) Contusion of left foot (Acute) Facial abrasion (Acute) Gabapentin overdose (Acute) Cellulitis of right leg (Acute) Tinea cruris (Acute) Suicidal ideations (Acute) Depression (Chronic) Diabetes mellitus type 2 in obese (Chronic) Back pain (Chronic) Anxiety (Chronic) Methadone dependence (Acute) Hypertension (Chronic) Alcohol abuse (Chronic) Depression with suicidal ideation (Acute) Alcohol withdrawal seizure (Acute) Back pain (Chronic) Medical History Alcohol dependence Anxiety COVID-19 Depression Gabapentin overdose Major depression Suicidal ideation Surgical History History of tonsillectomy and adenoidectomy Family History Maternal Grandfather Alcohol use disorder Social History Smoking/Tobacco Use Status: Current every day Tobacco Type: cigarettes Smoking risk assessment performed?: Yes Alcohol Intake: current Alcohol Intake frequency: 0-2 drinks per day Alcohol type: beer and hard liquor Drug use: Daily Substance use type: former substance user Date of last use: >5yrs, crack/cocaine, amphetamines, opiates and prescription drug Housing: other Details: lives in [facility] Do you feel safe at home: No Do you feel safe in your relationship?: Yes Additional Social history: Homeless Meds Allergies and Home Medications Allergies Allergy/AdvReac Type Severity Reaction Status Date / Time Sulfa (Sulfonamide Allergy Intermediate Skin Rash Unverified 10/25/21 13:36 Antibiotics) Home Medications Medication Instructions Recorded Confirmed Type atenolol 50 mg tablet 50 mg PO DAILY 01/09/21 10/25/21 History hydrochlorothiazide 12.5 mg tablet 12.5 mg PO DAILY 01/09/21 10/25/21 History lisinopril 10 mg tablet 10 mg PO DAILY 01/09/21 10/25/21 History omeprazole 20 mg tablet,delayed 20 mg PO DAILY 01/09/21 10/25/21 History release trazodone 100 mg tablet 100 mg PO HS 01/09/21 10/25/21 History gabapentin 600 mg tablet 600 mg PO BID 01/10/21 10/25/21 History cyclobenzaprine 5 mg tablet 5 mg PO HS 03/23/21 10/25/21 History thiamine mononitrate (vit B1) 100 100 mg PO QAM #30 tabs 03/26/21 07/21/21 Rx mg tablet (Vitamin B-1 (mononitrate)) methadone 10 mg/mL oral 90 mg (9 mL) PO DAILY #0 mL 04/12/21 10/25/21 Rx concentrate (Methadone Intensol) aripiprazole 5 mg tablet 5 mg PO QAM 07/23/21 07/23/21 History buspirone 10 mg tablet 10 mg PO TID 07/23/21 07/23/21 History metformin 500 mg tablet 500 mg PO DAILY 07/23/21 10/25/21 History nortriptyline 50 mg capsule 100 mg PO DAILY 07/23/21 10/25/21 History sertraline 100 mg tablet 200 mg PO DAILY 07/23/21 07/23/21 History Exam Narrative Exam Narrative: General: Patient appears older than stated age, morbidly obese, laying on left side in the position with minimal eye contact and flattened affect. He is in no acute distress. Speech is slowed and monotonous. He is alert and oriented to person place and time. HEENT: Normocephalic, eyes with pupils equal and reactive light symmetric, extraocular movement intact and sclera anicteric. Oropharynx with moist mucosa. Neck: Supple without JVD. Back: Stooped posture without CVA tenderness. Lungs: Fair aeration clear with bronchovesicular breath sounds diffusely. No expiratory wheeze and no adventitious sounds. Heart: Regular rate and rhythm without murmurs or gallops appreciated. Abdomen: Obese contour with pannus, soft nontender to palpation with no palpable hepatosplenomegaly. Genitalia/rectal: Exam deferred. Extremities: Right leg with nonpitting 2+ hard edema and erythema with ulcerated scabbed area over the anterior tib area with surrounding erythema and increased warmth. Slight scaliness of skin. Negative Homans' sign. Left lower extremity with chronic skin changes but no swelling or erythema with slight hyperpigmentation and loss of hair. No clubbing or cyanosis. Joints have fair range of motion. Skin: Skin changes over lower extremities otherwise normal color, warm and dry. Intertriginous rash under pannus. Neuro: Cranial nerves II through XII grossly intact. No focalizing motor deficits. Psych: Depressed mood and flat affect. No abnormal thought processes. Remote and recent memory grossly intact. Results Imaging Imaging Studies: EXAM:? US LOWER EXTREMITY VENOUS RT CLINICAL HISTORY: ? swollen, red.? TECHNIQUE: ? Lower extremity venous ultrasound performed using grayscale, color- flow, and spectral Doppler analysis. COMPARISON:? No exams were available for comparison FINDINGS: The common femoral, femoral and popliteal veins demonstrate normal compressibility, augmentation, and color Doppler. The posterior tibial veins are patent.? No saphenous vein thrombosis or other superficial venous thrombosis is seen.? No hematoma or Cordero's cyst is seen.? Mild calf edema.? No drainable collection. IMPRESSION: Negative lower extremity ultrasound.? No evidence of DVT.? EXAM:? XR TIB/FIB RT CLINICAL HISTORY: ? swelling, fall.? TECHNIQUE:? 2D digital imaging was performed.? Two views. COMPARISON:? No exams were available for comparison FINDINGS: BONES: No acute fracture is present. No bony destructive lesion is seen. Visualized portion of knee and ankle joints are unremarkable. SOFT TISSUE: Diffuse edema. IMPRESSION: Soft tissue edema.? No evidence of fracture Labs Result diagrams: 10/26/21 06:11 10/26/21 06:11 Labs: Laboratory Results - last 24 hr 10/25/21 10/25/21 10/25/21 13:36 13:45 13:45 WBC RBC Hgb Hct MCV MCH MCHC RDW Plt Count MPV Immature Gran % Neutrophils % Lymphocytes % Monocytes % Eosinophils % Basophils % Nucleated RBC % Absolute Neutrophils Absolute Lymphocytes Absolute Monocytes Absolute Eosinophils Absolute Basophils Sodium 139 Potassium 3.6 Chloride 102 Carbon Dioxide 29.0 Anion Gap 8.0 BUN 15 Creatinine 1.1 Estimated GFR/1.73 m2 >= 60.00 Glucose 92 Calcium 8.9 Magnesium 2.2 Total Bilirubin 0.3 AST 25 ALT 34 Alkaline Phosphatase 74 Total Protein 7.1 Albumin 2.8 L TSH Salicylates 6.0 Urine Opiates Screen Urine Methadone Screen Acetaminophen Cancelled Ur Barbiturates Screen Ur Tricyclics Screen Ur Amphetamines Screen U Benzodiazepines Scrn Urine Cocaine Screen Ur THC Screen Ethyl Alcohol 127.6 H 10/25/21 10/25/21 10/25/21 13:45 13:45 13:45 WBC 10.49 RBC 4.13 L Hgb 13.0 L Hct 40.0 MCV 97 H MCH 31.5 MCHC 32.5 RDW 14.4 H Plt Count 308 MPV 9.2 Immature Gran % 0.3 Neutrophils % 60.5 Lymphocytes % 28.1 Monocytes % 9.3 Eosinophils % 1.0 Basophils % 0.8 Nucleated RBC % 0.0 Absolute Neutrophils 6.34 Absolute Lymphocytes 2.95 Absolute Monocytes 0.98 H Absolute Eosinophils 0.11 Absolute Basophils 0.08 Sodium Potassium Chloride Carbon Dioxide Anion Gap BUN Creatinine Estimated GFR/1.73 m2 Glucose Calcium Magnesium Total Bilirubin AST ALT Alkaline Phosphatase Total Protein Albumin TSH 1.35 Salicylates Urine Opiates Screen Urine Methadone Screen Acetaminophen < 2 Ur Barbiturates Screen Ur Tricyclics Screen Ur Amphetamines Screen U Benzodiazepines Scrn Urine Cocaine Screen Ur THC Screen Ethyl Alcohol 10/25/21 10/25/21 10/25/21 15:16 16:19 18:14 WBC RBC Hgb Hct MCV MCH MCHC RDW Plt Count MPV Immature Gran % Neutrophils % Lymphocytes % Monocytes % Eosinophils % Basophils % Nucleated RBC % Absolute Neutrophils Absolute Lymphocytes Absolute Monocytes Absolute Eosinophils Absolute Basophils Sodium Potassium Chloride Carbon Dioxide Anion Gap BUN Creatinine Estimated GFR/1.73 m2 Glucose Calcium Magnesium Total Bilirubin AST ALT Alkaline Phosphatase Total Protein Albumin TSH Salicylates 4.8 Urine Opiates Screen Negative Urine Methadone Screen Positive A Acetaminophen < 2 Ur Barbiturates Screen Negative Ur Tricyclics Screen Negative Ur Amphetamines Screen Negative U Benzodiazepines Scrn Negative Urine Cocaine Screen Positive A Ur THC Screen Negative Ethyl Alcohol Last Vital Signs Temp 37.3 C 10/25/21 13:22 Pulse 54 L 10/25/21 17:30 Resp 13 10/25/21 17:31 BP 95/54 L 10/25/21 17:30 Pulse Ox 92 10/25/21 17:31 PAWSS Have you Been Recently Intoxicated or Drunk Within the Last 30 days?: Yes Have you Ever Experienced Previous Episodes of Alcohol Withdrawal?: Yes Have you ever Experienced Withdrawal Seizures?: Yes Have you ever Experienced Delirium Tremens(DT)s?: Yes Have you ever undergone Alcohol Rehabilitation Treatment (i.e, inpt ot outpatient treatment programs)?: Yes Have you ever Experienced Blackouts?: Yes Have you ever Combined Alcohol with other Downers within the last 90 days?: Yes Have you ever Combined Alcohol with any other Substance of Abuse during the last 90 days?: Yes Evidence of Increased Autonomic Activity (i.e. HR>120, tremor, sweating, agitation, nausea)?: No Result: 8
[2021-10-25 20:32] LABS: Source Nasal/Nares
[2021-10-25 21:22] LABS: COVID-19 PCR Negative (Negative)
[2021-10-25] MEDS: Lactated Ringers 1,000 ML 150 ML IV (21:30)
[2021-10-25] MEDS: Enoxaparin 40 MG/0.4 ML SYR SC (21:55)
[2021-10-26] VITALS (11 sets, daily range): BP systolic 102–144; BP diastolic 52–91; PULSE 45–120; RESP 17–24; TEMP 35.6–37; O2SAT 94–98
[2021-10-26] MEDS: ceFAZolin 2 GM/50 ML BAG IVPB (03:09)
[2021-10-26] MEDS: Lactated Ringers 1,000 ML 150 ML IV ×3 (03:09→16:40)
[2021-10-26] MEDS: Acetaminophen 325 MG TAB 650 MG PO ×2 (04:16→14:22)
[2021-10-26] MEDS: Mylanta Suspension 30 ML CUP PO (05:27)
[2021-10-26 07:10] LABS: Abs Immature Grans 0.02 10^3/uL (0.0-0.06); Absolute Basophil Count 0.05 10^3/uL (0.0-0.2); Absolute Eosinophil Count 0.11 10^3/uL (0.0-0.7); Absolute Lymphocyte Count 1.83 10^3/uL (1.2-3.4); Absolute Monocyte Count 0.74 10^3/uL (0.1-0.8); Basophils % 0.8; Eosinophils % 1.8; HCT 39.3 % (40.0-50.0); HGB 12.9 g/dL (13.5-17.5); Immature Grans % 0.3; Lymphocytes % 29.3; MCH 31.5 pg (27.0-33.0); MCHC 32.8 % (32.0-36.0); MCV 96 fL (80-95); Monocytes % 11.8; Platelet Count 255 10^3/uL (130-400); RBC 4.09 10^6/uL (4.36-5.78); RDW 14.2 % (11.8-14.1); RDW-SD 50.3 fL; WBC 6.25 10^3/uL (4.4-10.8)
[2021-10-26 07:31] LABS: ALT 28 U/L (16-63); AST 20 U/L (15-37); Albumin 2.4 g/dL (3.4-5.0); Alkaline Phosphatase 62 U/L (46-116); Anion Gap 7.3 mmol/L (3-11); BUN 15 mg/dL (7-18); Bilirubin, Total 0.4 mg/dL (0.2-1.0); CO2 27.7 mmol/L (21.0-32.0); Calcium 8.8 mg/dL (8.5-10.1); Chloride 104 mmol/L (98-107); Glucose 98 mg/dL (74-106); Potassium 3.5 mmol/L (3.5-5.1); Sodium 139 mmol/L (136-145)
[2021-10-26] MEDS: Omeprazole 20 MG CAPCR PO (07:53)
[2021-10-26] MEDS: Thiamine 100 MG TAB PO (07:53)
[2021-10-26] MEDS: Nicotine 21 MG/24 HR PATCH TD (07:54)
[2021-10-26] MEDS: Clotrimazole 1% 15 GM TUBE TP ×2 (07:58→19:48)
[2021-10-26] MEDS: Methadone Liquid 10 MG/ML 110 MG PO (08:38)
--- NOTE | 2021-10-26 08:46 | PDOC.CMSAFE ---
- If Service Date Differs Date of service: 10/26/21 Time of Service: 08:46 Care Management Safety Plan Status: Voluntary - Guarianship if Applicable Guardianship: Other - Reason for Wait Reason for Wait: Inpatient Admission Chief Complaint: Garrett presents in the ED after reportedly taking 20 to 30 600 mg gabapentin and drinking four 16 oz beers in a suicide attempt. Garrett has struggled with depression, anxiety, and substance use for many years. He has had multiple psychiatric hospitalizations with his last hospitalization being in July 2021 at [facility]. CM will continue to follow. VOLUNTARY FOR INPATIENT PSYCHIATRIC STABILIZATION. Patient is appropriate in all interactions since arriving at [facility]; Pt has demonstrated appropriate coping and communication skills, has articulated his or her needs and concerns and is fully engaged during staff interactions. Safety plan has been established with patient, and care team, to adhere to patient goals, identify restrictions based on behavioral status, address nutrition, and determine allowed personal belongings, tools for hygiene and personal care. Determine level of activity including ambulation, level of supervision, visitors, and determine privileges based on behaviors and level of engagement by pt. SAFETY PLAN: 1. Will remain on suicide precautions. In Paper Clothes 2. Will remain in room under direct supervision of one-on-one staff at all times provided by [employer]; KEVAN, ARBORIST CLIMBER glass ribbon machine operator assistant. 3. May have paper cups, plates, finger foods as well as a cardboard spoon with which to eat meals. 4. Follow [facility] Management of the Admitted Behavioral Health Patient policy. 5. Comfort bath system only, shower permitted with escort at RN discretion. 6. No personal belongings-soft items permitted at RN discretion. 7. Visitors-none at this time. 8. Activities: soft cart items approved per RN discretion. 9. Bathroom privileges with escort in the ED, available in room without limitation on M/S. 10. Phone: contact limited to family at this time, via cordless phone at RN discretion. 11. Due to VOLUNTARY status, if patient wishes to leave [facility], staff will contact [facility] Crisis Screener ([phone]) and On-Call Senior Manager Asset Protection ([phone]) as soon as possible. In the event of elopement, notify [facility] Police ([phone]). Patient is currently voluntarily at [facility] and seeking inpatient admission when a bed becomes available. [facility] Frontline Instrument Worker will continue seeking placement. Please contact the Civil Engineer In Training Senior Manager Asset Protection ([phone]) and [facility] Instrument Worker ([phone]) for any needed changes in the Safety Plan. Safety plan has been provided to interdepartmental care team.
--- NOTE | 2021-10-26 08:50 | CMPROGNOTE_ITS ---
- If Service Date Differs Date of service: 10/26/21 Time of Service: 08:50 Care Management Progress Note S/O: Garrett is voluntarily admitted to [facility] following an attempted suicide attempt by OD on gabapentin. and drinking four 16 oz beers. Garrett has struggled with depression, anxiety, and substance use for many years. Garrett has had several psychiatric hospitalizations with his last hospitalization being in July 2021 at [facility]. Garrett is receiving [facility] crisis support and on SI precautions, with 1:1 CPSO. He is waiting for inpatient treatment. [facility] will start screening Garrett when medically appropriate. In addition, Garrett shares that he's been homeless X 2 months and reportedly sleeps at his friends house. He is not connected to any community sobriety services at this time. Garrett would like inpatient treatment. CM called [facility] and requested a return call from clinician. A: 51 year old male admitted to [facility] on 10/25/21 for intentional OD, SI and Right leg Cellulites P: Garrett is receiving [facility] crisis support and on SI precautions, with 1:1 CPSO. Anticipate, Garrett will remain at [facility] until inpatient treatment is secured. Per [facility]: [facility], [facility], [facility], [facility], [facility] all have no beds available at this time. - Guardianship if Applicable Guardianship: Other
--- NOTE | 2021-10-26 08:50 | PDOC.CMPRO ---
- If Service Date Differs Date of service: 10/26/21 Time of Service: 08:50 Care Management Progress Note S/O: Garrett is voluntarily admitted to [facility] following an attempted suicide attempt by OD on gabapentin. and drinking four 16 oz beers. Garrett has struggled with depression, anxiety, and substance use for many years. Garrett has had several psychiatric hospitalizations with his last hospitalization being in July 2021 at [facility]. Garrett is receiving [facility] crisis support and on SI precautions, with 1:1 CPSO. He is waiting for inpatient treatment. [facility] will start screening Garrett when medically appropriate. In addition, Garrett shares that he's been homeless X 2 months and reportedly sleeps at his friends house. He is not connected to any community sobriety services at this time. Garrett would like inpatient treatment. CM called [facility] and requested a return call from clinician. A: 51 year old male admitted to [facility] on 10/25/21 for intentional OD, SI and Right leg Cellulites P: Garrett is receiving [facility] crisis support and on SI precautions, with 1:1 CPSO. Anticipate, Garrett will remain at [facility] until inpatient treatment is secured. Per [facility]: [facility], [facility], [facility], [facility] all have no beds available at this time. - Guardianship if Applicable Guardianship: Other
[2021-10-26] MEDS: ceFAZolin 2,000 MG in Normal Saline 100 ML 200 MG IVPB ×2 (13:51→22:24)
--- NOTE | 2021-10-26 16:04 | PGE_ITS ---
Date of Service Date of service: 10/26/21 Time of Service: 16:05 Assessment and Plan Assessment and plan (1) Gabapentin overdose: Status: Acute Assessment and plan: he is now out of the danger period for over sedation from the gabapentin. He has had no significant arrhythmias. therefore we can dc his telemetry Professional time spent interviewing and examining patient, discussion of goals of care with hospital team (care management, nursing and consulting professionals) was 30 minutes. (2) Depression with suicidal ideation: Status: Acute Assessment and plan: patient had a mental health tele visit from [facility] today. He will seek voluntary psychiatric placement. (3) Alcohol abuse: Status: Chronic Assessment and plan: he was not put on CIWA scoring initially but now is scoring up to an 8. he has had hx of delirium tremens w/ seizures according to the patient. I will prophylax him w/ librium and use symtom triggered ativan and put him on MVS, folic acid and thiamine. (4) Cellulitis of right leg: Status: Acute Assessment and plan: currently on ancef but can change to oral keflex which can be completed as OP (5) Diabetes mellitus type 2 in obese: Status: Chronic Assessment and plan: BG in the 110's to 120. cont. low dose novolog sliding scale (6) Tinea cruris: Status: Acute Assessment and plan: will prescribe nystatin Subjective Subjective Interval history since last seen: Patient reports jittery feeling. No hallucinations. he is admitted for gabapentin overdose and suicidal ideation. he was found to have a mild cellulitis over his right lower leg. he has no fever or rigors. He was monitored overnight for OD of gabapentin but has had no ill effects. He denies any chest pains or dyspnea. This morning I took him off telemetry as his rhythm was sinus to sinus bradycardia w/ HR in the 40's to 50's. This afternoon he allegedly went into a PSVT however I was given the wrong rhythm strip. He does admit to occasional feeling of palpitations. Exam Narrative Exam Narrative: Obese white male, lying in bed, no distress, he does not have any tremors or diaphoresis Lungs: clear heart: RRR Abdomen: obese, soft, nontender, normal bowel sounds Legs: right lovett w/ healed scab over mid tibia, slight pinkness to the distal tibia but no increased warmth or tenderness, normal pedal pulses Objective Last Vital Signs Temp 37 C 10/26/21 15:37 Pulse 53 L 10/26/21 15:37 Resp 20 10/26/21 15:37 BP 144/91 H 10/26/21 15:37 Pulse Ox 96 10/26/21 15:37 Laboratory Results - last 24 hr 10/25/21 10/25/21 10/25/21 13:45 16:19 18:14 WBC RBC Hgb Hct MCV MCH MCHC RDW Plt Count MPV Immature Gran % Neutrophils % Lymphocytes % Monocytes % Eosinophils % Basophils % Nucleated RBC % Absolute Neutrophils Absolute Lymphocytes Absolute Monocytes Absolute Eosinophils Absolute Basophils Sodium Potassium Chloride Carbon Dioxide Anion Gap BUN Creatinine Estimated GFR/1.73 m2 Glucose Calcium Total Bilirubin AST ALT Alkaline Phosphatase Total Protein Albumin TSH 1.35 Salicylates 4.8 Acetaminophen < 2 COVID-19 Source SARS-CoV-2 (PCR) 10/25/21 10/26/21 10/26/21 20:25 06:11 06:11 WBC 6.25 RBC 4.09 L Hgb 12.9 L Hct 39.3 L MCV 96 H MCH 31.5 MCHC 32.8 RDW 14.2 H Plt Count 255 MPV 10.0 Immature Gran % 0.3 Neutrophils % 56.0 Lymphocytes % 29.3 Monocytes % 11.8 Eosinophils % 1.8 Basophils % 0.8 Nucleated RBC % 0.0 Absolute Neutrophils 3.50 Absolute Lymphocytes 1.83 Absolute Monocytes 0.74 Absolute Eosinophils 0.11 Absolute Basophils 0.05 Sodium 139 Potassium 3.5 Chloride 104 Carbon Dioxide 27.7 Anion Gap 7.3 BUN 15 Creatinine 1.0 Estimated GFR/1.73 m2 >= 60.00 Glucose 98 Calcium 8.8 Total Bilirubin 0.4 AST 20 ALT 28 Alkaline Phosphatase 62 Total Protein 6.0 L Albumin 2.4 L TSH Salicylates Acetaminophen COVID-19 Source Nasal/Nares SARS-CoV-2 (PCR) Negative PAWSS Have you Been Recently Intoxicated or Drunk Within the Last 30 days?: Yes Have you Ever Experienced Previous Episodes of Alcohol Withdrawal?: Yes Have you ever Experienced Withdrawal Seizures?: Yes Have you ever Experienced Delirium Tremens(DT)s?: Yes Have you ever undergone [facility]: Yes Have you ever Experienced Blackouts?: Yes Have you ever Combined Alcohol with other Downers within the last 90 days?: Yes Have you ever Combined Alcohol with any other Substance of Abuse during the last 90 days?: Yes Evidence of Increased Autonomic Activity (i.e. HR>120, tremor, sweating, agitation, nausea)?: No Result: 8
[2021-10-26] MEDS: hydroCHLOROthiazide 12.5 MG TAB PO (16:11)
[2021-10-26] MEDS: Lisinopril 10 MG TAB PO (16:11)
--- NOTE | 2021-10-26 16:34 | MHPN_ITS ---
Date of service: 10/26/21 Time of Service: 16:08 Mental Health Progress Note Progress Note Progress Note: Presenting Issue: Client is at [facility] because he took 20-30 600mg Gabapentin capsules hoping to end his life. Precipitating Factors Disposition * Behavior: Client's behavior is unremarkable *Eye Contact: Client maintained good eye contact *Mood: Client stated he was not very great. Client appears stressed and depressed. *Affect:Congruent with mood, flat. *Appetite: Client reports poor appetite. *Sleep(troubel falling/staying asleep): Client stated he slept horrible and has been having a difficult time falling and staying asleep. Plan(please elaborate and include that physician is consulted with plan and/or placement): Client will continue to wait at [facility] until voluntary placement is found. Once [facility] recieves the labs, doctor's note, and COVID test we will send referrals to [facility], [facility], [facility], and [facility]. Clinician's Name , Title, and Signature Valeria Louis, Apartment Leasing Consultant, [facility] Make sure that you are photocopying and submitting this to [facility] records Dept. to be scanned into chart.
--- NOTE | 2021-10-26 16:34 | PDOC.MHPN2 ---
Date of service: 10/26/21 Time of Service: 16:08 Mental Health Progress Note Progress Note Progress Note: Presenting Issue: Client is at [facility] because he took 20-30 600mg Gabapentin capsules hoping to end his life. Precipitating Factors Disposition * Behavior: Client's behavior is unremarkable *Eye Contact: Client maintained good eye contact *Mood: Client stated he was not very great. Client appears stressed and depressed. *Affect:Congruent with mood, flat. *Appetite: Client reports poor appetite. *Sleep(troubel falling/staying asleep): Client stated he slept horrible and has been having a difficult time falling and staying asleep. Plan(please elaborate and include that physician is consulted with plan and/or placement): Client will continue to wait at [facility] until voluntary placement is found. Once [facility] recieves the labs, doctor's note, and COVID test we will send referrals to [facility], [facility], [facility], and [facility]. Clinician's Name , Title, and Signature Valeria Louis, Special Duty Nurse, [facility] Make sure that you are photocopying and submitting this to [facility] records Dept. to be scanned into chart.
[2021-10-26] MEDS: busPIRone 5 MG TAB 10 MG PO (19:47)
[2021-10-26] MEDS: chlordiazePOXIDE 25 MG CAP 50 MG PO (19:47)
[2021-10-26] MEDS: traZODone 100 MG TAB PO (22:23)
[2021-10-26] MEDS: Cyclobenzaprine 10 MG TAB 5 MG PO (22:23)
[2021-10-26] MEDS: Normal Saline Flush 10 ML SYR IVP (22:24)
[2021-10-26] MEDS: Enoxaparin 40 MG/0.4 ML SYR SC (22:24)
[2021-10-27] MEDS: Normal Saline 500 ML 30 ML IV (05:59)
[2021-10-27] MEDS: ceFAZolin 2,000 MG in Normal Saline 100 ML 200 MG IVPB (05:59)
[2021-10-27] MEDS: Normal Saline Flush 10 ML SYR IVP (06:00)
[2021-10-27 07:00] VITALS: PULSE 58
[2021-10-27 07:42] VITALS: BP 124/80; PULSE 68; RESP 18; TEMP 35.9; O2SAT 96
[2021-10-27] MEDS: Methadone Liquid 10 MG/ML 110 MG PO (07:49)
[2021-10-27] MEDS: Folic Acid 1 MG TAB PO (07:50)
[2021-10-27] MEDS: Thiamine 100 MG TAB PO (07:51)
[2021-10-27] MEDS: Sertraline 100 MG TAB 200 MG PO (07:51)
[2021-10-27] MEDS: ARIPiprazole 5 MG TAB PO (07:51)
[2021-10-27] MEDS: Multivitamin TAB 1 TAB PO (07:51)
[2021-10-27] MEDS: busPIRone 5 MG TAB 10 MG PO ×2 (07:51→14:18)
[2021-10-27] MEDS: hydroCHLOROthiazide 12.5 MG TAB PO (07:51)
[2021-10-27] MEDS: metFORMIN 500 MG TAB PO (07:51)
[2021-10-27] MEDS: Atenolol 50 MG TAB PO (07:51)
[2021-10-27] MEDS: Omeprazole 20 MG CAPCR PO (07:51)
[2021-10-27] MEDS: chlordiazePOXIDE 25 MG CAP 50 MG PO ×2 (07:51→14:18)
[2021-10-27] MEDS: Lisinopril 10 MG TAB PO (07:51)
[2021-10-27] MEDS: Nicotine 21 MG/24 HR PATCH TD (07:52)
[2021-10-27] MEDS: Clotrimazole 1% 15 GM TUBE TP (09:00)
--- NOTE | 2021-10-27 09:01 | CMPROGNOTE_ITS ---
- If Service Date Differs Date of service: 10/27/21 Time of Service: 09:01 Care Management Progress Note S/O: Garrett is voluntarily admitted to [facility] following an attempted suicide attempt by OD on gabapentin. and drinking four 16 oz beers. Garrett has struggled with depression, anxiety, and substance use for many years. Garrett has had several psychiatric hospitalizations with his last hospitalization being in July 2021 at [facility]. Garrett is receiving [facility] crisis support and on SI precautions, with 1:1 CPSO. He is waiting for inpatient treatment. [facility] is following this admission. In addition, Garrett shares that he's been homeless X 2 months and reportedly sleeps at his friends house. He is not connected to any community sobriety services at this time. Garrett would like inpatient treatment. CM called [facility] and requested a return call from clinician. A: 51 year old male admitted to [facility] on 10/25/21 for intentional OD, SI and Right leg Cellulites P: Garrett is receiving [facility] crisis support and on SI precautions, with 1:1 CPSO. Anticipate, Garrett will remain at [facility] until inpatient treatment is secured. Flakito Ozuna at [facility] referral's were sent the morning of 10/27/21. - Guardianship if Applicable Guardianship: Other
--- NOTE | 2021-10-27 09:01 | PDOC.CMPRO ---
- If Service Date Differs Date of service: 10/27/21 Time of Service: 09:01 Care Management Progress Note S/O: Garrett is voluntarily admitted to [facility] following an attempted suicide attempt by OD on gabapentin. and drinking four 16 oz beers. Garrett has struggled with depression, anxiety, and substance use for many years. Garrett has had several psychiatric hospitalizations with his last hospitalization being in July 2021 at [facility]. Garrett is receiving [facility] crisis support and on SI precautions, with 1:1 CPSO. He is waiting for inpatient treatment. [facility] is following this admission. In addition, Garrett shares that he's been homeless X 2 months and reportedly sleeps at his friends house. He is not connected to any community sobriety services at this time. Garrett would like inpatient treatment. CM called [facility] and requested a return call from clinician. A: 51 year old male admitted to [facility] on 10/25/21 for intentional OD, SI and Right leg Cellulites P: Garrett is receiving [facility] crisis support and on SI precautions, with 1:1 CPSO. Anticipate, Garrett will remain at [facility] until inpatient treatment is secured. Flakito Ozuna at [facility] referral's were sent the morning of 10/27/21. - Guardianship if Applicable Guardianship: Other
--- NOTE | 2021-10-27 09:04 | PDOC.CMSAFE ---
- If Service Date Differs Date of service: 10/27/21 Time of Service: 09:04 Care Management Safety Plan Status: Voluntary - Guarianship if Applicable Guardianship: Other - Reason for Wait Reason for Wait: Inpatient Admission Chief Complaint: Garrett presents in the ED after reportedly taking 20 to 30 600 mg gabapentin and drinking four 16 oz beers in a suicide attempt. Garrett has struggled with depression, anxiety, and substance use for many years. He has had multiple psychiatric hospitalizations with his last hospitalization being in July 2021 at [facility]. CM will continue to follow. VOLUNTARY FOR INPATIENT PSYCHIATRIC STABILIZATION. Patient is appropriate in all interactions since arriving at [facility]; Pt has demonstrated appropriate coping and communication skills, has articulated his or her needs and concerns and is fully engaged during staff interactions. Safety plan has been established with patient, and care team, to adhere to patient goals, identify restrictions based on behavioral status, address nutrition, and determine allowed personal belongings, tools for hygiene and personal care. Determine level of activity including ambulation, level of supervision, visitors, and determine privileges based on behaviors and level of engagement by pt. SAFETY PLAN: 1. Will remain on suicide precautions. In Paper Clothes 2. Will remain in room under direct supervision of one-on-one staff at all times provided by CPSO; KEVAN, TRAUMA REGISTRAR alarm investigator. 3. May have paper cups, plates, finger foods as well as a cardboard spoon with which to eat meals. 4. Follow [facility] Management of the Admitted Behavioral Health Patient policy. 5. Comfort bath system only, shower permitted with escort at RN discretion. 6. No personal belongings-soft items permitted at RN discretion. 7. Visitors-none at this time. 8. Activities: soft cart items approved per RN discretion. 9. Bathroom privileges with escort in the ED, available in room without limitation on M/S. 10. Phone: contact limited to family at this time, via cordless phone at RN discretion. 11. Due to VOLUNTARY status, if patient wishes to leave [facility], staff will contact [facility] Crisis Screener ([phone]) and On-Call Maintenance Instructor ([phone]) as soon as possible. In the event of elopement, notify [facility] Police ([phone]). Patient is currently voluntarily at [facility] and seeking inpatient admission when a bed becomes available. [facility] Frontline Hot Water Heater Installer will continue seeking placement. Please contact the Cosmetic Account Coordinator Maintenance Instructor ([phone]) and [facility] Hot Water Heater Installer ([phone]) for any needed changes in the Safety Plan. Safety plan has been provided to interdepartmental care team.
--- NOTE | 2021-10-27 09:46 | W.INDIABCONS ---
Date of service: 10/27/21 Time of Service: 09:46 Diabetes Inpatient Consult Reason for Visit: dm DESCRIPTION/ASSESSMENT: 51 year old male admitted with depression, gabapentin overdose. BMI indicates class 2 obesity. PMH: Dm2, HTN, Depression. Following diabetic diet with excellent intake. Meeting 100% macro needs at this time. Most recent A1C 6.7% three months ago indicates good glycemic control. Home Dm meds: 500 mg metformin qd. Not at nutritional risk. No intervention needed at this time. PLAN: Will monitor po intake, labs and weight Time Spent in Nutritional Counseling and Treatment: 0
[2021-10-27 13:36] VITALS: PULSE 63
--- NOTE | 2021-10-27 13:54 | PGE_ITS ---
Date of Service Date of service: 10/27/21 Time of Service: 13:54 Assessment and Plan Assessment and plan (1) Gabapentin overdose: Status: Resolved Assessment and plan: he is now out of the danger period for over sedation from the gabapentin. He has had no significant arrhythmias. therefore we can dc his telemetry At this point, I think that his gabapentin can be resumed. Professional time spent interviewing and examining patient, discussion of goals of care with hospital team (care management, nursing and consulting professionals) was 15 minutes. (2) Depression with suicidal ideation: Status: Acute Assessment and plan: he continues to exhibit SI. Patient has been accepted to [facility] for later today. (3) Alcohol abuse: Status: Chronic Assessment and plan: patient is scoring a 0 on his CIWA levels.I will reduce his chlordiazepoxide dose to 25 mg bid. (4) Cellulitis of right leg: Status: Acute Assessment and plan: I have switched his ancef to keflex which he can complete as OP (5) Diabetes mellitus type 2 in obese: Status: Chronic Assessment and plan: BG in the 110's to 120. cont. low dose novolog sliding scale (6) Tinea cruris: Status: Acute Assessment and plan: will prescribe nystatin Subjective Subjective Interval history since last seen: Patient slept well last night. He still has suicidal thoughts, including jumping off a bridge or taking another overdose. he remains voluntary admission and is hopeful that he will get a psychiatry bed. Exam Narrative Exam Narrative: He seems calm, relaxed, no tremors. RLE w/ healing pretibial ulcer; has scab over it. the area of redness is nearly gone; just a faint salmon color to the skin w/ no purulent drainage or induration or pain. Objective Last Vital Signs Temp 35.9 C L 10/27/21 07:42 Pulse 63 10/27/21 13:36 Resp 18 10/27/21 07:42 BP 124/80 10/27/21 07:42 Pulse Ox 96 10/27/21 07:42 PAWSS Have you Been Recently Intoxicated or Drunk Within the Last 30 days?: Yes Have you Ever Experienced Previous Episodes of Alcohol Withdrawal?: Yes Have you ever Experienced Withdrawal Seizures?: Yes Have you ever Experienced Delirium Tremens(DT)s?: Yes Have you ever undergone Alcohol Rehabilitation Treatment (i.e, inpt ot outpatient treatment programs)?: Yes Have you ever Experienced Blackouts?: Yes Have you ever Combined Alcohol with other Downers within the last 90 days?: Yes Have you ever Combined Alcohol with any other Substance of Abuse during the last 90 days?: Yes Evidence of Increased Autonomic Activity (i.e. HR>120, tremor, sweating, agitation, nausea)?: No Result: 8
--- NOTE | 2021-10-27 14:14 | PDOC.CMDIS ---
- If Service Date Differs Date of service: 10/27/21 Time of Service: 14:14 LACE Index Scoring Tool - Questions: Length of Stay (in days): 2 Acuity (Admit via E.D.?): Yes E.D. Visits: 10 - Answers: Total Score: 9 Risk of Readmission: Low Risk Care Management Discharge Reason for Hospitalization: Depression, SI Discharge Plan: Garrett accepted transfer to [facility] for inpatient treatment. Transportation is arranged via [facility]. No Covid Test is needed prior to discharge per Amber at [facility]. Patient/Family Education Needs: Review transfer instructions and discharge plan. ask me three. Services Needed at Discharge: Transportation ([facility]ia [place] [facility].) - Disposition Disposition: [place] ([facility] for inpatient treatment.)
--- NOTE | 2021-10-27 14:14 | PHA.REVIEW ---
Pharmacy Admission Review - Admission Clinical Review (Last Reviewed 10/26/21 @ 01:29 by Garrett Dozier) Gabapentin overdose (Acute) Cellulitis of right leg (Acute) Tinea cruris (Acute) Suicidal ideations (Acute) Depression with suicidal ideation (Acute) Sulfa (Sulfonamide Antibiotics) Allergy (Intermediate, Unverified 10/25/21 13:36) Skin Rash Resuscitation Status Full Code Height 5 ft 8 in Weight 117 kg - Renal Dosing Renal Dosing: BUN 15 mg/dL (7-18) 10/26/21 06:11 Creatinine 1.0 mg/dL (0.70-1.30) 10/26/21 06:11 Medications needing adjustments: N/A (crcl = 83) - Anticoagulation Anticoagulation: Hgb 12.9 g/dL (13.5-17.5) L 10/26/21 06:11 Hct 39.3 % (40.0-50.0) L 10/26/21 06:11 Plt Count 255 10^3/uL (130-400) 10/26/21 06:11 Creatinine 1.0 mg/dL (0.70-1.30) 10/26/21 06:11 DVT Prophylaxis: Reviewed Medications: Enoxaparin (enoxaparin 40 mg daily) Therapeutic Anticoagulation: N/A - Opiate Usage Evaluate Pain Scale/Pains Meds: N/A (pt takes methadone 110 mg daily, confirmed with [facility] 10/26/21) - Relevant Labs Sodium 139 mmol/L (136-145) 10/26/21 06:11 Potassium 3.5 mmol/L (3.5-5.1) 10/26/21 06:11 Chloride 104 mmol/L (98-107) 10/26/21 06:11 Magnesium 2.2 mg/dL (1.8-2.4) 10/25/21 13:45 Electrolytes, C-Reactive P, ESR: Reviewed - DM Control DM Control: Glucose 98 mg/dL (74-106) 10/26/21 06:11 Finger Stick Blood Glucose 123 Finger Stick Blood Glucose 123 Finger Stick Blood Glucose 123 Finger Stick Blood Glucose 100 Finger Stick Blood Glucose 100 Finger Stick Blood Glucose 100 Insulin Dosing: Reviewed (does not use insulin at home. Has insulin aspart sliding scale ordered for use here AC & HS, BS have been in normal range so far and has not required any insulin) - Heart Failure/NH EF%, JAZMINE's, B-Blockers, Diuretics: N/A - BP Control BP Control: Blood Pressure 124/80 If elevated: N/A - Qtc Review If Elevated: Reviewed (QTc = 466) - IV to PO Switch IV Medications: Reviewed (cefazolin switched to cephalexin) - Home Meds Home Med List reviewed: Reviewed (appears to be noncompliant, some meds would have run out a month ago, some 2-3 months ago..Meds that have been filled recently: gabapentin, trazodone) Relevent Home Meds Not ordered & why?: meds ordered according to home med list. Gabapentin had been held (pt reports overdosing on ~30 tabs yesterday), will be restarted this evening - Current meds Current Medication Order Review: Reviewed (Concern for tricyclic antidepressant use (nortriptyline) as overdose with these medications can be life threatening, recommend dc'ing nortiptyline if possible (he may not even be taking this, last fill 07/19 for 30 days supply)) Antibiotic Activity - Pharmacy Antibiotic Review Pharmacy Antibiotic Activity: IV to PO (cefazolin switched to PO cephalexin)
[2021-10-27] MEDS: Cephalexin 500 MG CAP PO (14:18)
--- NOTE | 2021-10-27 14:46 | DSE_ITS ---
Date of service: 10/27/21 Time of Service: 14:46 DS: Diagnosis Discharge Diagnosis (1) Gabapentin overdose: Status: Resolved Asessment and Plan: Resume gabapentin to control his diabetic neuropathy (2) Depression with suicidal ideation: Status: Acute Asessment and Plan: Transfer to [facility] for inpatient psychiatric care (3) Alcohol abuse: Status: Chronic (4) Cellulitis of right leg: Status: Acute Asessment and Plan: Improving. Continue Keflex 500 mg 3 times daily for 5 more days (5) Diabetes mellitus type 2 in obese: Status: Chronic Asessment and Plan: Resume metformin. Patient was treated with sliding scale NovoLog while hospitalized. (6) Tinea cruris: Status: Acute Asessment and Plan: Treated with nystatin Discharge Plan Disposition Patient Disposition: [facility] Condition: Improving Discharge Details Reason For Visit: Gabapentin Overdose, Suicidal Ideation, Cellulitis Admit Date/Time: 10/25/21 19:24 Admit Provider: Garrett Dozier Attending Provider: Garrett Dozier Primary Care Provider: Mayito Stearns Hospital Course Hospital Course: 51-year-old male history of depression on chronic antidepressants, history hypertension, diabetes mellitus type 2 has been having increasing suicidal thoughts for last couple weeks and took an overdose of his gabapentin. He reportedly ingested 30 tablets of his gabapentin 600 mg tablets. He was admitted to the hospital because of his suicidal ideation and attempted suicide by overdose. He had no sequela Other than being sedated. He was found to have a mild cellulitis of his right tibia from previous operation to the tibia. There was some redness and swelling along with erythema and increased warmth. He was placed on Ancef. During his hospitalization he was monitored for acute alcohol withdrawal due to his prior history of alcohol abuse and previous withdrawal. He was put on CIWA scoring and prophylactically placed on Librium. CIWA scores never went higher than 8 and he did well with this. Librium was tapered down. Mental health consult was obtained with [facility] human services who felt that he would benefit from inpatient psychiatric consultation. Patient was voluntary for psychiatric admission. Patient was accepted for transfer to [facility] for further psychiatric evaluation and treatment. At the time of discharge she was calm relaxed but still having suicidal thoughts. CIWA score was 0. Vital signs are stable with a BP 124/80 pulse 63 respirations 18 and his SPO2 is 96% on room air. Blood sugars are on his admission more well controlled running in the low 100s to 120s. He will be discharged on 5 more days of Keflex 500 mg 3 times daily for his cellulitis. He should not need any further Librium at this time. Home Meds and New Rx's Prescriptions: New cephalexin 500 mg capsule 500 mg PO TID Qty: 15 0RF Continued methadone [Methadone Intensol] 10 mg/mL Concentrate 110 mg PO DAILY trazodone 100 mg Tablet 100 mg PO HS lisinopril 10 mg Tablet 10 mg PO DAILY atenolol 50 mg Tablet 50 mg PO DAILY hydrochlorothiazide 12.5 mg Tablet 12.5 mg PO DAILY omeprazole 20 mg Tablet,Delayed Release (Dr/Ec) 20 mg PO DAILY gabapentin 600 mg Tablet 600 mg PO BID cyclobenzaprine 5 mg Tablet 5 mg PO HS thiamine mononitrate (vit B1) [Vitamin B-1 (mononitrate)] 100 mg Tablet 100 mg PO QAM Qty: 30 0RF metformin 500 mg tablet 500 mg PO DAILY Label Comments: Take 1 tablet by mouth once a day sertraline 100 mg tablet 200 mg PO DAILY Label Comments: TAKE 2 TABLETS BY MOUTH EVERY MORNING buspirone 10 mg tablet 10 mg PO TID Label Comments: TAKE 1 TABLET BY MOUTH THREE TIMES DAILY aripiprazole 5 mg tablet 5 mg PO QAM Label Comments: TAKE 1 TABLET BY MOUTH EVERY MORNING nortriptyline 50 mg capsule 100 mg PO DAILY Label Comments: Take 2 capsule by mouth once a day Discharge Instructions Instructions: Depression (DC), Suicide Prevention (DC) Activity:: Activity as Tolerated Equipment/Supplies:: No Equipment Needed Diet:: Carb Counting Discharge Orders Discharge Orders: Discharge Order (Routine); Ordered 10/27/21 Ordered By: Grant Zamudio DS: Summary Time Spent with Patient providing and/or coordinating discharge services: Less than 30 minutes Status at Discharge Functional status at discharge: independent ambulation Overall status at discharge: patient is back to baseline Mental Status: mental status grossly normal Speech and Movement: speech and movement normal Mood: congruent mood Affect: normal affect Exam Narrative Exam Narrative: He seems calm, relaxed, no tremors. RLE w/ healing pretibial ulcer; has scab over it. the area of redness is nearly gone; just a faint salmon color to the skin w/ no purulent drainage or induration or pain. Psych Mental Status: mental status grossly normal Speech and Movement: speech and movement normal Mood: congruent mood Affect: normal affect DS: Data Vitals/I&O Vitals and I&O: Vital Signs Temperature 35.9 C L 10/27/21 07:42 Temperature Source Tympanic 10/27/21 07:42 Pulse 63 10/27/21 13:36 Pulse Rhythm Regular 10/27/21 09:08 Pulse 81 10/25/21 20:31 Respiratory Rate 18 10/27/21 07:42 Respiratory Effort Non-Labored 10/27/21 09:08 Respiratory Depth Normal 10/27/21 09:08 Respiratory Pattern Normal 10/27/21 09:08 Blood Pressure 124/80 10/27/21 07:42 Blood Pressure Mean 75 10/25/21 20:30 Blood Pressure Position Sitting 10/25/21 13:22 Pulse Oximetry 96 10/27/21 07:42 Oxygen Delivery Method Room Air 10/27/21 07:42 Oxygen Flow Rate 0 10/27/21 07:42 Pain Level 0 10/27/21 07:42 Comment 10/26/21 04:20 Intake & Output 10/26/21 10/27/21 10/27/21 23:59 11:59 23:59 Intake Total 2170 / 4780.0 1015.5 / 1255.5 240 / 1255.5 Balance 2170 / 4780.0 1015.5 / 1255.5 240 / 1255.5 Intake: IV 1690 / 3900.0 135.5 / 135.5 Oral 480 / 880 880 / 1120 240 / 1120 Other: Urine Appearance Clear Comment pT voided in toilet and flushed Voiding Methods Toilet Toilet Toilet PFSH All Active Problems (Updated 10/27/21 @ 14:46 by Grant Zamudio MD) Fall down steps (Acute) Compression fracture of thoracic vertebra (Acute) Contusion of left foot (Acute) Facial abrasion (Acute) Cellulitis of right leg (Acute) Tinea cruris (Acute) Suicidal ideations (Acute) Depression (Chronic) Diabetes mellitus type 2 in obese (Chronic) Back pain (Chronic) Anxiety (Chronic) Methadone dependence (Acute) Hypertension (Chronic) Alcohol abuse (Chronic) Depression with suicidal ideation (Acute) Alcohol withdrawal seizure (Acute) Back pain (Chronic) Medical History Alcohol dependence Anxiety COVID-19 Depression Gabapentin overdose Major depression Suicidal ideation Surgical History History of tonsillectomy and adenoidectomy Family History Maternal Grandfather Alcohol use disorder Social History Smoking/Tobacco Use Status: Current every day Tobacco Type: cigarettes Smoking risk assessment performed?: Yes Alcohol Intake: current Alcohol Intake frequency: 0-2 drinks per day Alcohol type: beer and hard liquor Drug use: Daily Substance use type: former substance user Date of last use: >5yrs, crack/cocaine, amphetamines, opiates and prescription drug Housing: other Details: lives in [facility] Do you feel safe at home: No Do you feel safe in your relationship?: Yes Additional Social history: Homeless
--- NOTE | 2021-10-27 14:46 | PDOC.CMPRO ---
- If Service Date Differs Date of service: 10/27/21 Time of Service: 14:46 Care Management Progress Note SBIRT screen in Med Surg following admission from ED. Pt is scheduled for admission to [facility]. Pt was encouraged and affirmed for accepting referral and given positive feedback regarding the facility. Pt reports daily drinking of up to a fifth of liquor (AUDIT 40). Pt reports crack cocaine use 7-8 x during the past 30 days and fentanyl twice in the past 30 days (DAST 5). Pt notes he used clean needles and received affirmation for harm reduction. Pt endorses severe depression symptoms (PHQ-9: 22) and anxiety symptoms (ANTONIO 15). Pt states he is aware of recovery programs for support and feels he needs to get out of the local area. Pt reports he has family in the [facility] and would prefer to relocate there. Pt states he is doubtful about any support from his family. - Guardianship if Applicable Guardianship: Other
[2021-10-27 14:56] VITALS: BP 114/84; PULSE 53; RESP 17; TEMP 35.6; O2SAT 95
== END 2021-10-27 17:35 | disposition short-term general hospital (02) | DRG 918 ==
LOC: ER 17:18 → MS 20:48
PROVIDERS: Student in an Organized Health Care Education/Training Program; Admitting Provider Family Medicine; Emergency Provider Emergency Medicine; PCP Physician Assistant; Visit Provider Family Medicine
DX: T42.6X2A Poisoning by other antiepileptic and sedative-hypnotic drugs, intentional self-harm, initial encounter (principal); L03.115 Cellulitis of right lower limb; F11.20 Opioid dependence, uncomplicated; F10.139 Alcohol abuse with withdrawal, unspecified; E66.9 Obesity, unspecified; F32.A Depression, unspecified; B35.6 Tinea cruris; Z79.84 Long term (current) use of oral hypoglycemic drugs; Z91.14 Patient's other noncompliance with medication regimen; E11.9 Type 2 diabetes mellitus without complications; I10 Essential (primary) hypertension; Z68.39 Body mass index [BMI] 39.0-39.9, adult; Z86.16 Personal history of COVID-19; F17.210 Nicotine dependence, cigarettes, uncomplicated; R00.1 Bradycardia, unspecified
CPT/HCPCS: 36415; 80053; 80307; 87635; 93005; 96361; 96365; 96366; 99285; J1650; 73590; 80320; 80329; 83735; 84443; 85025; 93010; 93971; 99223; 99232; 99238; J0690

== ENCOUNTER 2021-11-21 12:10 | Observation (INO) | payer MEDICARE, MEDICAID, SELFPAY ==
--- NOTE | 2021-11-21 12:00 | RT.EKG_ITS ---
APPROVED REPORT Exam: Resting ECG Reason for Exam: OD Patient Location: E HR:70 bpm ECG Measurements Heart Rate 70 AXIS WI 204 P 47 QRSd 104 QRS -12 QT 444 T 25 QTc 472 Conclusion Sinus rhythm...normal P axis, V-rate 60- 99 Ventricular premature complex...V complex w/ short R-R interval Borderline prolonged WI interval...WI >202, V-rate 50- 90
[2021-11-21 12:15] VITALS: BP 155/100; PULSE 78; RESP 18; TEMP 35.8; O2SAT 96
--- NOTE | 2021-11-21 12:23 | ED.GENADUL_ITS ---
Discharge Plan Disposition Patient Disposition: [facility] INPATIENT Condition: Stable Discharge Details Chief Complaint: OD/Poison Clinical Impression: Depression Primary Care Provider: Mayito Stearns ED Provider: Flo Machuca Home Meds and New Rx's Prescriptions: No Action methadone [Methadone Intensol] 10 mg/mL Concentrate 110 mg PO DAILY cephalexin 500 mg capsule 500 mg PO TID Qty: 15 0RF trazodone 100 mg Tablet 100 mg PO HS lisinopril 10 mg Tablet 10 mg PO DAILY atenolol 50 mg Tablet 50 mg PO DAILY hydrochlorothiazide 12.5 mg Tablet 12.5 mg PO DAILY omeprazole 20 mg Tablet,Delayed Release (Dr/Ec) 20 mg PO DAILY gabapentin 600 mg Tablet 600 mg PO BID cyclobenzaprine 5 mg Tablet 5 mg PO HS thiamine mononitrate (vit B1) [Vitamin B-1 (mononitrate)] 100 mg Tablet 100 mg PO QAM Qty: 30 0RF metformin 500 mg tablet 500 mg PO DAILY Label Comments: Take 1 tablet by mouth once a day sertraline 100 mg tablet 200 mg PO DAILY Label Comments: TAKE 2 TABLETS BY MOUTH EVERY MORNING buspirone 10 mg tablet 10 mg PO TID Label Comments: TAKE 1 TABLET BY MOUTH THREE TIMES DAILY aripiprazole 5 mg tablet 5 mg PO QAM Label Comments: TAKE 1 TABLET BY MOUTH EVERY MORNING nortriptyline 50 mg capsule 100 mg PO DAILY Label Comments: Take 2 capsule by mouth once a day Medical Decision Making 51 yo male with hx of htn, substance abuse, depression, comes in with chief complaint of depression and thoughts of self harm. He states he was released from inpatient psychiatric care about a week ago at [place] and has been couch surfing which has made him feel unsafe and started to feel depressed. He then started to have thoughts of self harm and states he took 20 tablets of his 10mg buspirone aroud 10am in an attempt to self harm. He arrives stable, caox4 with clear speech. No focal deficits, normal gait. no concerning findings on physical exam or history to suggest underlying medical process and suspect this is his chronic depression and also partly due to his living situation. Will perform toxicology workup including ekg, acetaminophen, salicylates, ethyl alcohol and reassess. pt asymptomatic without tremors or tachycardia 4 hours after ingestion, labs unremarkable other than mild elevation in lfts and has had this in the past in the setting of alcohol and states she drank last night. Discussed with poison control and given 4 hours and no concerning symptoms is cleared medically from the ingestion. Mental health evaluated and will be voluntary for bed placement, discussed with Dr. Zamudio who accepts for admission Differential Diagnosis Differential Diagnosis: depression, si Medical Records Medical records reviewed: Yes I reviewed the patient's medical records. Lab Data Lab results reviewed: Yes I reviewed the patient's lab results. ECG Data Attestation: I personally reviewed and interpreted this ECG (s) as follows: Prior ECG tracings: available for review Interpretation: sinnus rhythm, rate of 70, no acute st t wave ischemic findings HPI General Mode of arrival: ambulatory . Date/Time Provider Initiated Documentation: 11/21/21 12:11 . Limitations to Documentation: no limitations . Information obtained by: patient . History of Present Illness 51 year old M presents to the emergency department with the chief complaint of suicidal thoughts, described as moderate, and it has been constant. No relieving factors improve symptom(s), No exacerbating factors reported . Patient did receive the following treatments prior to arrival, none Related Data Home Medications Medication Instructions Recorded Confirmed atenolol 50 mg tablet 50 mg PO DAILY 01/09/21 11/21/21 hydrochlorothiazide 12.5 mg tablet 12.5 mg PO DAILY 01/09/21 11/21/21 lisinopril 10 mg tablet 10 mg PO DAILY 01/09/21 11/21/21 omeprazole 20 mg tablet,delayed 20 mg PO DAILY 01/09/21 11/21/21 release trazodone 100 mg tablet 100 mg PO HS 01/09/21 11/21/21 gabapentin 600 mg tablet 600 mg PO BID 01/10/21 11/21/21 cyclobenzaprine 5 mg tablet 5 mg PO HS 03/23/21 11/21/21 thiamine mononitrate (vit B1) 100 100 mg PO QAM #30 tabs 03/26/21 11/21/21 mg tablet (Vitamin B-1 (mononitrate)) aripiprazole 5 mg tablet 5 mg PO QAM 07/23/21 10/27/21 buspirone 10 mg tablet 10 mg PO TID 07/23/21 11/21/21 metformin 500 mg tablet 500 mg PO DAILY 07/23/21 11/21/21 nortriptyline 50 mg capsule 100 mg PO DAILY 07/23/21 11/21/21 sertraline 100 mg tablet 200 mg PO DAILY 07/23/21 11/21/21 cephalexin 500 mg capsule 500 mg PO TID #15 caps 10/27/21 11/21/21 methadone 10 mg/mL oral 110 mg PO DAILY 10/27/21 11/21/21 concentrate (Methadone Intensol) Previous Rx's Medication Instructions Recorded thiamine mononitrate (vit B1) 100 100 mg PO QAM #30 tabs 03/26/21 mg tablet (Vitamin B-1 (mononitrate)) cephalexin 500 mg capsule 500 mg PO TID #15 caps 10/27/21 Allergies Allergy/AdvReac Type Severity Reaction Status Date / Time Sulfa (Sulfonamide Allergy Intermediate Skin Rash Unverified 10/25/21 13:36 Antibiotics) General Stated Complaint: OD/Poison RODGER: 2 Review of Systems All systems reviewed & are unremarkable except as noted in HPI and below Constitutional Constitutional: Denies chills, Denies fever(s) and Denies weakness Cardiovascular Cardiovascular: Denies chest pain and Denies dyspnea Respiratory Respiratory: Denies cough and Denies dyspnea Gastrointestinal Gastrointestinal: Denies abdominal pain, Denies nausea and Denies vomiting Integumentary/Breasts Skin/Breast: Denies rash Neurologic Neurologic: Denies weakness PFSH All Active Problems (Updated 11/21/21 @ 15:17 by Flo Machuca MD) Cellulitis of right leg (Acute) Tinea cruris (Acute) Suicidal ideations (Acute) Depression (Chronic) Diabetes mellitus type 2 in obese (Chronic) Back pain (Chronic) Anxiety (Chronic) Methadone dependence (Acute) Hypertension (Chronic) Alcohol abuse (Chronic) Depression with suicidal ideation (Acute) Alcohol withdrawal seizure (Acute) Back pain (Chronic) Medical History Alcohol dependence Anxiety COVID-19 Depression Gabapentin overdose Major depression Suicidal ideation Surgical History History of tonsillectomy and adenoidectomy Family History Maternal Grandfather Alcohol use disorder Social History Smoking/Tobacco Use Status: Current every day Tobacco Type: cigarettes Smoking risk assessment performed?: Yes Alcohol Intake: current Alcohol Intake frequency: 3 or more drinks per day Alcohol type: beer and hard liquor Drug use: Daily Substance use type: former substance user Date of last use: >5yrs, crack/cocaine, amphetamines, opiates and prescription drug Details: Pt drank 4-5 tall boys yesterday between 12noon and 1700 yesterday, pt states he usually drinks a fifth of vodka. Housing: other Details: lives in [facility] Do you feel safe at home: No Do you feel safe in your relationship?: Yes Additional Social history: Homeless Exam Const General: no acute distress Orientation: alert HENMT Head: normal to inspection Ears: external ears normal General nose exam: external nose normal Mouth: moist mucous membranes Eyes General: appearance normal, both eyes and all related structures Neck Neck: normal visual inspection Resp Effort & Inspection: normal respiratory effort and able to speak in complete sentences Cardio Rate: regular rate Skin General skin exam: no rashes or lesions noted Neuro General: patient alert and patient oriented x3 Extrem General: normal to inspection Psych Speech and Movement: speech and movement normal Course Vital Signs Vital signs: Vital Signs Temperature 35.8 C L 11/21/21 12:15 Pulse 78 11/21/21 12:15 Respiratory Rate 18 11/21/21 12:15 Blood Pressure 155/100 H 11/21/21 12:15 Pulse Oximetry 96 11/21/21 12:15 Temperature 35.8 C L 11/21/21 12:15 Temperature Source Temporal Artery Scan 11/21/21 12:15 Pulse 78 11/21/21 12:15 Respiratory Rate 18 11/21/21 12:15 Blood Pressure 155/100 H 11/21/21 12:15 Blood Pressure Position Sitting 11/21/21 12:15 Pulse Oximetry 96 11/21/21 12:15 Oxygen Delivery Method Room Air 11/21/21 12:15 Oxygen Flow Rate 0 11/21/21 12:15
[2021-11-21 12:51] LABS: Abs Immature Grans 0.03 10^3/uL (0.0-0.06); Absolute Basophil Count 0.07 10^3/uL (0.0-0.2); Absolute Eosinophil Count 0.14 10^3/uL (0.0-0.7); Absolute Lymphocyte Count 2.13 10^3/uL (1.2-3.4); Absolute Monocyte Count 0.62 10^3/uL (0.1-0.8); Absolute Neutrophil Count 4.87 10^3/uL (1.2-6.7); Basophils % 0.9; Eosinophils % 1.8; HCT 39.7 % (40.0-50.0); HGB 13.3 g/dL (13.5-17.5); Immature Grans % 0.4; Lymphocytes % 27.1; MCH 30.9 pg (27.0-33.0); MCHC 33.5 % (32.0-36.0); MCV 92 fL (80-95); Monocytes % 7.9; Neutrophils % 61.9; Platelet Count 247 10^3/uL (130-400); RBC 4.31 10^6/uL (4.36-5.78); RDW 13.7 % (11.8-14.1); RDW-SD 46.8 fL; WBC 7.86 10^3/uL (4.4-10.8)
[2021-11-21 12:55] LABS: Source Nasal/Nares
[2021-11-21 13:16] LABS: ALT 88 U/L (16-63); AST 46 U/L (15-37); Albumin 3.3 g/dL (3.4-5.0); Alkaline Phosphatase 175 U/L (46-116); Anion Gap 7.3 mmol/L (3-11); BUN 18 mg/dL (7-18); Bilirubin, Total 0.5 mg/dL (0.2-1.0); CO2 29.7 mmol/L (21.0-32.0); Chloride 103 mmol/L (98-107); ETHANOL BLOOD 4.1 mg/dL (<10); Glucose 89 mg/dL (74-106); Potassium 4.3 mmol/L (3.5-5.1); Sodium 140 mmol/L (136-145); TSH (W/Ref FT4) 1.19 uIU/mL (0.36-3.74); Total Protein 7.6 g/dL (6.4-8.2)
--- NOTE | 2021-11-21 13:19 | PDOC.CMSAFED ---
- If Service Date Differs Date of service: 11/21/21 Time of Service: 13:20 Care Management Safety Plan Status: Voluntary - Reason for Wait Reason for Wait: Inpatient Admission CHIEF COMPLAINT: Garrett presents in the ED after reportedly taking 20 tablets of his 10 mg buspirone in a suicidal gesture. Garrett has a significant psychiatric history with several recent suicide attempts via overdose. He additionally is homeless and has a polysubstance use history. His last psychiatric hospitalization was on 10/27/21 at [facility]. A decentralized huddle is held at 15:[address] Shore, ED provider, Qing, nursing dry cell assembly supervisor, and CM. Angelika [facility]OLUNT[facility] FOR INPATIENT PSYCHIATRIC STABILIZATION. Patient is appropriate in all interactions since arriving at [facility]; Pt has demonstrated appropriate coping and communication skills, has articulated his or her needs and concerns and is fully engaged during staff interactions. Safety plan has been established with patient, and care team, to adhere to patient goals, identify restrictions based on behavioral status, address nutrition, and determine allowed personal belongings, tools for hygiene and personal care. Determine level of activity including ambulation, level of supervision, visitors, and determine privileges based on behaviors and level of engagement by pt. SAFETY PLAN: 1. Will remain on suicide precautions. In Paper Clothes. 2. Will remain in room under direct supervision of one-on-one staff at all times provided by CPSO, SCRAP BALLER, BODY COVERER shredding machine operator. 3. May have paper cups, plates, finger foods as well as a cardboard spoon with which to eat meals. 4. Follow [facility] Management of the Admitted Behavioral Health Patient policy. 5. Shower permitted with escort at RN discretion. 6. No personal belongings with the exception of eyeglasses. 7. Visitors-none at this time. 8. Activities: soft cart items, music tablet, television, and other activities at RN discretion. 9. Bathroom privileges with escort in the ED, available in room without limitation on M/S. 10. Phone: contact limited to family at this time, via [employer] hospital phone at RN discretion. 11. Due to VOLUNTARY status, if patient wishes to leave [facility], staff will contact [facility] Crisis Screener ([phone]) and On-Call Powder Loader ([phone]) as soon as possible. In the event of elopement, notify [facility] Police ([phone]). Patient is currently voluntarily at [facility] and seeking inpatient admission when a bed becomes available. [facility] Frontline [employer] will continue seeking placement. Please contact the Local Area Network Administrator Powder Loader ([phone]) and [facility] Drafter [employer] ([phone]) for any needed changes in the Safety Plan. Safety plan has been provided to interdepartmental care team.
[2021-11-21 13:26] LABS: COVID-19 PCR Negative (Negative)
[2021-11-21 13:56] LABS: Acetaminophen < 2 ug/mL (10-30)
[2021-11-21] MEDS: Mylanta Suspension 30 ML CUP PO (14:35)
[2021-11-21 15:51] LABS: *AMPHETAMINES SCREEN URINE Negative (Negative); *BARBITURATES SCREEN URINE Negative (Negative); *BENZODIAZEPINES SCREEN URINE Positive (Negative); Cannabinoids THC Negative (Negative); Cocaine Screen,Urine Positive (Negative); METHADONE URINE SCREEN Positive (Negative); OPIATES URINE SCREEN Negative (Negative)
[2021-11-21 15:52] LABS: Tricyclic Antidepressants Positive (Negative)
[2021-11-21 15:55] LABS: Bilirubin Negative (Negative); Blood Negative (Negative); Clarity Clear (Clear); Glucose Negative (Negative); Ketones Negative (Negative); Leukocyte Esterase Negative (Negative); Nitrite Negative (Negative); Specific Gravity >= 1.030 (1.005-1.025); Urobilinogen 0.2 EU/dL (Up TO 0.2); pH 5.5 (5-8)
--- NOTE | 2021-11-21 16:33 | W.PM.HP.N ---
Date of service: 11/21/21 Time of Service: 16:33 Assessment and Plan Assessment and plan (1) Overdose of buspirone: Status: Resolved Assessment and plan: ED provider spoke with poison control - they advise if it has been beyond 4h since he took the medication there is no danger of his status declining. Monitor VS, LOC (2) Hypertension: Status: Chronic Assessment and plan: BP stable; continue home meds. (3) Diabetes mellitus type 2 in obese: Status: Chronic Assessment and plan: 89 mg/dl - 90's every visit since July 2021 (4) Anxiety: Status: Chronic Assessment and plan: Monitor for any anxiety that is not managed by relaxation techniques Lorazepam prn (5) Alcohol abuse: Status: Chronic Assessment and plan: Initiate CIWA History of Present Illness History of Present Illness Chief Complaint: Depression Narrative: Garrett is a 51 yo male with pmhx of htn, substance abuse, depression, comes in to the [facility] emergency department with chief complaint of depression and thoughts of self harm. He stated he was released from an inpatient psychiatric unit at [facility], about a week ago and has been couch surfing which has made him feel unsafe and started to feel depressed. He then started to have thoughts of self harm and states he took 20 tablets of his 10mg buspirone aroud 10am in an attempt to self harm. He arrives stable, caox4 with clear speech. No focal deficits, normal gait. no concerning findings on physical exam or history to suggest underlying medical process and suspect this is his chronic depression and also partly due to his living situation. Will perform toxicology workup including ekg, acetaminophen, salicylates, ethyl alcohol and reassess. pt asymptomatic without tremors or tachycardia 4 hours after ingestion, labs unremarkable other than mild elevation in lfts and has had this in the past in the setting of alcohol and states she drank last night. Discussed with poison control and given 4 hours and no concerning symptoms is cleared medically from the ingestion. Mental health evaluated and will be voluntary for bed placement. Review of Systems All systems reviewed & are unremarkable except as noted in HPI and below PFSH All Active Problems (Updated 11/23/21 @ 00:09 by ANTIONE MCKNIGHT) Cellulitis of right leg (Acute) Tinea cruris (Acute) Suicidal ideations (Acute) Diabetes mellitus type 2 in obese (Chronic) Back pain (Chronic) Anxiety (Chronic) Methadone dependence (Acute) Hypertension (Chronic) Alcohol abuse (Chronic) Depression with suicidal ideation (Acute) Back pain (Chronic) Medical History Alcohol dependence Anxiety COVID-19 Depression Gabapentin overdose Major depression Suicidal ideation Surgical History History of tonsillectomy and adenoidectomy Family History Maternal Grandfather Alcohol use disorder Social History Smoking/Tobacco Use Status: Current every day Tobacco Type: cigarettes Smoking risk assessment performed?: Yes Alcohol Intake: current Alcohol Intake frequency: 3 or more drinks per day Alcohol type: beer and hard liquor Drug use: Daily Substance use type: former substance user Date of last use: >5yrs, crack/cocaine, amphetamines, opiates and prescription drug Details: Pt drank 4-5 tall boys yesterday between 12noon and 1700 yesterday, pt states he usually drinks a fifth of vodka. Housing: other Details: lives in [facility] Do you feel safe at home: No Do you feel safe in your relationship?: Yes Additional Social history: Homeless Meds Allergies and Home Medications Allergies Allergy/AdvReac Type Severity Reaction Status Date / Time Sulfa (Sulfonamide Allergy Intermediate Skin Rash Unverified 10/25/21 13:36 Antibiotics) Home Medications Medication Instructions Recorded Confirmed Type atenolol 50 mg tablet 50 mg PO DAILY 01/09/21 11/22/21 History hydrochlorothiazide 12.5 mg tablet 12.5 mg PO DAILY 01/09/21 11/22/21 History lisinopril 10 mg tablet 10 mg PO DAILY 01/09/21 11/22/21 History trazodone 100 mg tablet 100 mg PO HS 01/09/21 11/21/21 History thiamine mononitrate (vit B1) 100 100 mg PO QAM #30 tabs 03/26/21 11/22/21 Rx mg tablet (Vitamin B-1 (mononitrate)) buspirone 10 mg tablet 10 mg PO TID 07/23/21 11/21/21 History metformin 500 mg tablet 500 mg PO DAILY 07/23/21 11/22/21 History methadone 10 mg/mL oral 120 mg PO DAILY 10/27/21 11/22/21 History concentrate (Methadone Intensol) pantoprazole 40 mg tablet,delayed 40 mg PO DAILY 11/21/21 11/22/21 History release nortriptyline 25 mg capsule 125 mg PO HS 11/22/21 11/22/21 History (Pamelor) Exam Narrative Exam Narrative: Const General: no acute distress Nutritional Appearance: average body habitus [facility] Head: normocephalic Ears: external ears normal and no periauricular adenopathy General nose exam: nasal mucous membranes and turbinates normal Face and sinus: sinuses nontender Mouth: oropharynx normal and moist mucous membranes Teeth and gingiva: dentition normal Eyes General: appearance normal, both eyes and all related structures Pupils: PERRL Neck Neck: normal visual inspection and no lymphadenopathy Chest Chest: normal inspection of the chest Resp Effort & Inspection: normal respiratory effort Auscultation: no rales, no rhonchi and no wheezes Cardio Rate: 78 Rhythm: regular rhythm Heart Sounds: S1 normal, S2 normal and no murmurs Pulses: radial pulses present bilaterally GI Inspection: normal to inspection Palpation: soft Skin General skin exam: no rashes or lesions noted Neuro General: patient alert, patient awake and patient oriented x3 Extrem General: no clubbing, cyanosis or edema Psych Mental Status: mental status grossly normal Affect: normal affect Attitude: cooperative Results Labs Result diagrams: 11/21/21 12:44 11/21/21 12:44 Labs: Laboratory Results - last 24 hr 11/21/21 11/21/21 11/21/21 12:44 12:44 12:50 WBC 7.86 RBC 4.31 L Hgb 13.3 L Hct 39.7 L MCV 92 MCH 30.9 MCHC 33.5 RDW 13.7 Plt Count 247 MPV 9.0 Immature Gran % 0.4 Neutrophils % 61.9 Lymphocytes % 27.1 Monocytes % 7.9 Eosinophils % 1.8 Basophils % 0.9 Nucleated RBC % 0.0 Absolute Neutrophils 4.87 Absolute Lymphocytes 2.13 Absolute Monocytes 0.62 Absolute Eosinophils 0.14 Absolute Basophils 0.07 Sodium 140 Potassium 4.3 Chloride 103 Carbon Dioxide 29.7 Anion Gap 7.3 BUN 18 Creatinine 1.0 Estimated GFR/1.73 m2 >= 60.00 Glucose 89 Calcium 9.0 Total Bilirubin 0.5 AST 46 H ALT 88 H Alkaline Phosphatase 175 H Total Protein 7.6 Albumin 3.3 L TSH 1.19 Urine Color Urine Clarity Urine pH Ur Specific [place] Urine Protein Urine Ketones Urine Blood Urine Nitrite Urine Bilirubin Urine Urobilinogen Ur Leukocyte Esterase Urine Glucose Salicylates Urine Opiates Screen Urine Methadone Screen Acetaminophen Ur Barbiturates Screen Ur Tricyclics Screen Ur Amphetamines Screen U Benzodiazepines Scrn Urine Cocaine Screen Ur THC Screen Ethyl Alcohol 4.1 COVID-19 Source Nasal/Nares SARS-CoV-2 (PCR) Negative 11/21/21 11/21/21 11/21/21 13:17 15:30 15:30 WBC RBC Hgb Hct MCV MCH MCHC RDW Plt Count MPV Immature Gran % Neutrophils % Lymphocytes % Monocytes % Eosinophils % Basophils % Nucleated RBC % Absolute Neutrophils Absolute Lymphocytes Absolute Monocytes Absolute Eosinophils Absolute Basophils Sodium Potassium Chloride Carbon Dioxide Anion Gap BUN Creatinine Estimated GFR/1.73 m2 Glucose Calcium Total Bilirubin AST ALT Alkaline Phosphatase Total Protein Albumin TSH Urine Color Yellow Urine Clarity Clear Urine pH 5.5 Ur Specific [place] >= 1.030 H Urine Protein Negative Urine Ketones Negative Urine Blood Negative Urine Nitrite Negative Urine Bilirubin Negative Urine Urobilinogen 0.2 Ur Leukocyte Esterase Negative Urine Glucose Negative Salicylates 3.0 Urine Opiates Screen Negative Urine Methadone Screen Positive A Acetaminophen < 2 Ur Barbiturates Screen Negative Ur Tricyclics Screen Positive A Ur Amphetamines Screen Negative U Benzodiazepines Scrn Positive A Urine Cocaine Screen Positive A Ur THC Screen Negative Ethyl Alcohol COVID-19 Source SARS-CoV-2 (PCR) Last Vital Signs Temp 35.8 C L 11/21/21 12:15 Pulse 78 11/21/21 12:15 Resp 18 11/21/21 12:15 BP 155/100 H 11/21/21 12:15 Pulse Ox 96 11/21/21 12:15 PAWSS Have you Been Recently Intoxicated or Drunk Within the Last 30 days?: Yes Have you Ever Experienced Previous Episodes of Alcohol Withdrawal?: Yes Have you ever Experienced Withdrawal Seizures?: Yes Have you ever Experienced Delirium Tremens(DT)s?: Yes Have you ever undergone Alcohol Rehabilitation Treatment (i.e, inpt ot outpatient treatment programs)?: Yes Have you ever Experienced Blackouts?: Yes Have you ever Combined Alcohol with other Downers within the last 90 days?: Yes Evidence of Increased Autonomic Activity (i.e. HR>120, tremor, sweating, agitation, nausea)?: No Result: 6
[2021-11-21 16:35] VITALS: BP 126/81; PULSE 51; RESP 16; TEMP 36.4; O2SAT 94
--- NOTE | 2021-11-21 16:59 | PDOC.MHCN ---
Date of service: 11/21/21 Time of Service: 02:12 PHQ-9 Over the last 2 weeks, how often have you been bothered by any of the following problems? 1. Little interest or pleasure in doing things: nearly every day 2. Feeling down, depressed, or hopeless: nearly every day 3. Trouble falling or staying asleep, or sleeping too much: more than half the days 4. Feeling tired or having little energy: more than half the days 5. Poor appetite or overeating: nearly every day 6. Feeling bad about yourself - or that you are a failure or have let yourself and your family down: nearly every day 7. Trouble concentrating on things, such as reading the newspaper or watching television: not at all 8. Moving or speaking so slowly that other people could have noticed? - Or the opposite - being so fidgety or restless that you have been moving around a lot more than usual: more than half the days 9. Thoughts that you would be better off or of hurting yourself in some way: nearly every day Total score: 21 If you checked off any problems, how difficult have these problems made it for you to do your work, take care of things at home, or get along with other people?: very difficult PHQ-9 Results: Positive Source: Developed by Drs. Tanner Lowery, Jeanine Estrada, Andrew Thorne and colleagues, with an educational alexandru from [employer]. Suicide Severity Rate CSSRS Have you wished you were or wished you could go to sleep and not wake up?: Yes Have you actually had any thoughts of killing yourself?: Yes CSSRS2 Have you been thinking about how you might do this?: Yes Have you had these thoughts and had some intention of acting on them?: Yes Have you started to work out or worked out the details of how to kill yourself? Do you intend to carry out this plan?: Yes CSSRS3 Have you ever done anything, started to do anything or prepared to do anything to end your life?: Yes CSSRS4 Was this within the past three months?: Yes Screening Score Total Score: 8 Screening: Positive Mental Health Emergency Note Release [facility] release signed:: No Reason for Visit Client presented to [facility] ED after an intentional overdose of 25, 10 MG Buspar tablets and endorsing SI and multiple plans of how he could end his life. In the last 2 weeks has the pt presented for ES prior to today?: Unknown Client Information Client is: Adult Outpatient Well Housed: No,status: Homeless Unstable housing Non Suicidal Self Injury Current: Yes, Client intentionally overdosed on prescribed medication today with intent to end his life. History: yes, Client has hx of intentionally overdosing on medications. Safety Risk/Harm to Self or Others Current Ideation to Harm Self or Others: Yes to self. Intent: yes, has intent. Plan: yes,has a plan. History of suicide attempt: yes,history of suicide attempt reported. Details of previous suicide attempt: Client has multiple previous attempts via intentional overdoses. Risk: Does risk to harm exist?: yes. Risk: High Risk (Client states that if he were to leave the hosptial he would find a way to by suicide. Client states that he would jump off from the [facility] [place], intentionally overdose on medications until his heart stopped, or obtain a gun and shoot himself. ) Duty to warn indicated: No Asssessment/Mental Status Appearance: Disheveled Attitude: Cooperative Behavior: Unremarkable Speech: Soft and Slow Affect: Flat and Cogruent with mood Mood: Sad and Depressed Thought process: Unremarkable Hallucinations: No Delusions: No Attention: Unremarkable Perception: Not impaired Orientation: Fully orientated Memory: Intact Insight: Poor Judgement: Poor Neurovegetative Symptoms Sleep: Decrease (Client reports that he does not sleep well. Client reports that he averages about 3 hours of sleep per day. ) Appetitie: Decrease (Client reports that he has not eaten anything in 2 days. ) Interests: Decrease (Client reports that he has no interest in doing anything. ) Energy: Decrease Libido: Not applicable Substance Use: ETOH dependence (Client reports that he drinks alcohol daily. ) Drug Issues: Dependence Do you use nicotine?: Yes Have you used substances in the last 7 days?: yes, Client reports that he used both alcohol and crack yesterday. Additional Issues: Assaultive/Threatening Behavior: No Medical Concerns: No Client engaged in active self harm w/weapon: No Threatening to run away: No Child reported abuse/neglect: No Voluntarily presenting for services: Yes Domestic violence is a concern: No Extreme Psychosis or extreme behavior is present: No Impression Client presents laying down in hospital bed dressed in proper paper hospital attire when this newswriter arrives via zoom. Client is cooperative with assessment answering all of the questions that are asked of him. Client states: I have no desire to be alive right now, there is just so much going wrong in my life and I don't know what to do. I just want to feel better. Client reports: I was standing on the [address] today trying to get up the courage to just jump. Client appears to be demonstrating poor insight and judgment at this time and appears to be a danger to himself stating that he would act on one of his plans if he were to be released from the hospital. Resources [employer] reviewed and given:: Other (Client given phone number for both [employer] and [facility] so he can utilize the ED phone to make self-referrals for substance abuse treatment. ) Plan/Disposition Recommended Disposition: Hospitalization (Referrals [place] to [facility] [facility], , and [facility]. ) facilities contacted and Med management. Plan: Client will remain at [facility] pending admission to an inpatient facility on a voluntary basis. Referrals will be faxed to [facility], , and [facility] for review. Client also given phone numbers for [facility] and [facility] for him to contact to do a self- referral for substance abuse treatment. Person reported agreement to plan: Yes Facilities contacted if Applicable [facility] Not accepted, No bed available (No current beds available, send referral) [facility] Not accepted, No bed available (No beds available, send referral) [facility] Not accepted, No bed available (Only accepting from their own ED, however referral sent so client is their que. ), [facility] Not accepted, Other (Beds available send referral for review. ) Reports/communication Outcome discussed with: ED/Personnel (Verbal passover given to [facility] attending physician Dr. Machuca) Final Disposition/Discharge Transportation Checklist completed and faxed: No
[2021-11-21 19:15] VITALS: BP 102/69; PULSE 64; RESP 18; TEMP 36.5; O2SAT 93
[2021-11-21] MEDS: Ibuprofen 600 MG TAB PO (21:05)
[2021-11-22 07:04] VITALS: BP 137/90; PULSE 60; RESP 19; TEMP 36.1; O2SAT 95
[2021-11-22] MEDS: metFORMIN 500 MG TAB PO (08:51)
[2021-11-22] MEDS: Thiamine 100 MG TAB PO (08:51)
[2021-11-22] MEDS: Atenolol 50 MG TAB PO (08:52)
[2021-11-22] MEDS: Lisinopril 10 MG TAB PO (08:52)
[2021-11-22] MEDS: hydroCHLOROthiazide 12.5 MG TAB PO (08:53)
[2021-11-22] MEDS: Methadone Liquid 10 MG/ML 120 MG PO (09:17)
[2021-11-22 10:48] VITALS: BP 142/95; PULSE 64; RESP 19; TEMP 36.4; O2SAT 94
--- NOTE | 2021-11-22 11:52 | W.PM.DS.N ---
Date of service: 11/22/21 Time of Service: 11:52 DS: Diagnosis Discharge Diagnosis (1) Overdose of buspirone: Status: Acute (2) Depression: Status: Chronic (3) Hypertension: Status: Chronic (4) Diabetes mellitus type 2 in obese: Status: Chronic (5) Anxiety: Status: Chronic (6) Alcohol abuse: Status: Chronic (7) Alcohol withdrawal seizure: Status: Acute (8) Discharge planning issues: Status: Acute Discharge Plan Disposition Patient Disposition: [facility] Condition: Stable Discharge Details Reason For Visit: Depression Admit Date/Time: 11/21/21 15:07 Admit Provider: Grant Zamudio Attending Provider: Grant Zamudio Primary Care Provider: Mayito Stearns Hospital Course Hospital Course: 51 yo male patient with past medical history of htn, substance abuse, depression, comes in to the [facility] emergency department with a chief complaint of depression and thoughts of self harm. He stated he was released from inpatient psychiatric care about a week ago at [facility] and has been couch surfing since, which has made him feel unsafe and started to feel more depressed. He then started to have thoughts of self harm and stated he took 20 tablets of his 10mg buspirone around 10am 11/21/2021 in an attempt to self harm. He arrived stable, caox4 with clear speech. No focal deficits, normal gait. no concerning findings on physical exam or history to suggest underlying medical process and suspect this is his chronic depression and also partly due to his living situation. Normal ekg, negative acetaminophen and salicylates, ethyl alcohol 4.1 mg/dl. Four hours after ingestion, pt was asymptomatic without tremors or tachycardia. His labs were unremarkable other than mild elevation in lfts and has had this in the past in the setting of alcohol and he does report he drank alcohol the previous day 11/20/21. Discussed with poison control and given 4 hours and no concerning symptoms is cleared medically from the ingestion. Mental health evaluated and he was admitted voluntarily for bed placement. He is calm, answers questions appropriately and is stable to be transferred to [facility] - Provider to Provider with Michelle Kennedy APRN who accepts Garrett in transfer. Garrett is willing to go to [facility]. He is being transferred by EMS for lack of other transport methods available. Discussed with Dr Zamudio Home Meds and New Rx's Prescriptions: Continued methadone [Methadone Intensol] 10 mg/mL Concentrate 120 mg PO DAILY trazodone 100 mg Tablet 100 mg PO HS lisinopril 10 mg Tablet 10 mg PO DAILY atenolol 50 mg Tablet 50 mg PO DAILY hydrochlorothiazide 12.5 mg Tablet 12.5 mg PO DAILY gabapentin 600 mg Tablet 600 mg PO BID cyclobenzaprine 5 mg Tablet 5 mg PO HS thiamine mononitrate (vit B1) [Vitamin B-1 (mononitrate)] 100 mg Tablet 100 mg PO QAM Qty: 30 0RF metformin 500 mg tablet 500 mg PO DAILY Label Comments: Take 1 tablet by mouth once a day sertraline 100 mg tablet 200 mg PO DAILY Label Comments: TAKE 2 TABLETS BY MOUTH EVERY MORNING buspirone 10 mg tablet 10 mg PO TID Label Comments: TAKE 1 TABLET BY MOUTH THREE TIMES DAILY aripiprazole 5 mg tablet 5 mg PO QAM Label Comments: TAKE 1 TABLET BY MOUTH EVERY MORNING pantoprazole 40 mg tablet,delayed release (DR/EC) 40 mg PO DAILY Label Comments: Take 1 tablet by mouth once a day nortriptyline [Pamelor] 25 mg capsule 125 mg PO HS Label Comments: TAKE 5 CAPSULES BY MOUTH EACH NIGHT AT BEDTIME FOR 30 DAYS Discharge Instructions Stand Alone Forms: Nursing Discharge Form Referrals: Mayito Stearns [Primary Care Provider] - (Follow up as needed per discharge from [place]) Activity:: Activity as Tolerated Equipment/Supplies:: No Equipment Needed Diet:: As Tolerated Discharge Orders Discharge Orders: Discharge Order (Routine); Ordered 11/22/21 Ordered By: Geeta Abbott DS: Summary Time Spent with Patient providing and/or coordinating discharge services: Less than 30 minutes Status at Discharge Functional status at discharge: independent ambulation Overall status at discharge: patient is progressing back to baseline Mental Status: mental status grossly normal Speech and Movement: speech and movement normal Mood: congruent mood Affect: anxious affect Exam Narrative Exam Narrative: Const General: no acute distress Nutritional Appearance: average body habitus HENMT Head: normocephalic Ears: external ears normal and no periauricular adenopathy General nose exam: nasal mucous membranes and turbinates normal Face and sinus: sinuses nontender Mouth: oropharynx normal and moist mucous membranes Teeth and gingiva: dentition normal Eyes General: appearance normal, both eyes and all related structures Pupils: PERRL Neck Neck: normal visual inspection and no lymphadenopathy Chest Chest: normal inspection of the chest Resp Effort & Inspection: normal respiratory effort Auscultation: no rales, no rhonchi and wheezes expiratory wheezes (expiratory squeeks bilateral lower lung lisa) Cardio Rate: tachycardic Rhythm: regular rhythm Heart Sounds: S1 normal, S2 normal and no murmurs Pulses: radial pulses present bilaterally GI Inspection: normal to inspection Palpation: soft Skin General skin exam: no rashes or lesions noted Neuro General: patient alert, patient awake and patient oriented x3 Extrem General: no clubbing, cyanosis or edema Psych Mental Status: mental status grossly normal Affect: normal affect Attitude: cooperative Psych Mental Status: mental status grossly normal Speech and Movement: speech and movement normal Mood: congruent mood Affect: anxious affect DS: Data Vitals/I&O Vitals and I&O: Vital Signs Temperature 36.4 C L 11/22/21 10:48 Temperature Source Tympanic 11/22/21 10:48 Pulse 64 11/22/21 10:48 Pulse Rhythm Regular 11/22/21 11:34 Respiratory Rate 19 11/22/21 10:48 Respiratory Effort Non-Labored 11/22/21 11:34 Respiratory Depth Normal 11/22/21 11:34 Respiratory Pattern Normal 11/22/21 11:34 Blood Pressure 142/95 H 11/22/21 10:48 Blood Pressure Position Sitting 11/21/21 12:15 Pulse Oximetry 94 11/22/21 10:48 Oxygen Delivery Method Room Air 11/22/21 10:48 Oxygen Flow Rate 0 11/22/21 10:48 Pain Level 0 11/22/21 10:48 Intake & Output 11/21/21 11/21/21 11/22/21 11:59 23:59 11:59 Intake Total 300 / 300 750 / 750 Balance 300 / 300 750 / 750 Weight 117.934 kg Intake: Oral 300 / 300 750 / 750 Other: Urine Color Yellow Urine Appearance Clear Urine Odor Normal Comment unmeasurable ammount Data Completed and Pending Labs on day of discharge: Labs from last 24 hours 11/21/21 11/21/21 11/21/21 15:30 15:30 13:17 WBC RBC Hgb Hct MCV MCH MCHC RDW Plt Count MPV Immature Gran % Neutrophils % Lymphocytes % Monocytes % Eosinophils % Basophils % Nucleated RBC % Absolute Neutrophils Absolute Lymphocytes Absolute Monocytes Absolute Eosinophils Absolute Basophils Sodium Potassium Chloride Carbon Dioxide Anion Gap BUN Creatinine Estimated GFR/1.73 m2 Glucose Calcium Total Bilirubin AST ALT Alkaline Phosphatase Total Protein Albumin TSH Urine Color Yellow Urine Clarity Clear Urine pH 5.5 Ur Specific Bayard >= 1.030 H Urine Protein Negative Urine Ketones Negative Urine Blood Negative Urine Nitrite Negative Urine Bilirubin Negative Urine Urobilinogen 0.2 Ur Leukocyte Esterase Negative Urine Glucose Negative Salicylates 3.0 Urine Opiates Screen Negative Urine Methadone Screen Positive A Acetaminophen < 2 Ur Barbiturates Screen Negative Ur Tricyclics Screen Positive A Ur Amphetamines Screen Negative U Benzodiazepines Scrn Positive A Urine Cocaine Screen Positive A Ur THC Screen Negative Ethyl Alcohol COVID-19 Source SARS-CoV-2 (PCR) 11/21/21 11/21/21 11/21/21 12:50 12:44 12:44 WBC 7.86 RBC 4.31 L Hgb 13.3 L Hct 39.7 L MCV 92 MCH 30.9 MCHC 33.5 RDW 13.7 Plt Count 247 MPV 9.0 Immature Gran % 0.4 Neutrophils % 61.9 Lymphocytes % 27.1 Monocytes % 7.9 Eosinophils % 1.8 Basophils % 0.9 Nucleated RBC % 0.0 Absolute Neutrophils 4.87 Absolute Lymphocytes 2.13 Absolute Monocytes 0.62 Absolute Eosinophils 0.14 Absolute Basophils 0.07 Sodium 140 Potassium 4.3 Chloride 103 Carbon Dioxide 29.7 Anion Gap 7.3 BUN 18 Creatinine 1.0 Estimated GFR/1.73 m2 >= 60.00 Glucose 89 Calcium 9.0 Total Bilirubin 0.5 AST 46 H ALT 88 H Alkaline Phosphatase 175 H Total Protein 7.6 Albumin 3.3 L TSH 1.19 Urine Color Urine Clarity Urine pH Ur Specific Bayard Urine Protein Urine Ketones Urine Blood Urine Nitrite Urine Bilirubin Urine Urobilinogen Ur Leukocyte Esterase Urine Glucose Salicylates Urine Opiates Screen Urine Methadone Screen Acetaminophen Ur Barbiturates Screen Ur Tricyclics Screen Ur Amphetamines Screen U Benzodiazepines Scrn Urine Cocaine Screen Ur THC Screen Ethyl Alcohol 4.1 COVID-19 Source Nasal/Nares SARS-CoV-2 (PCR) Negative PFSH All Active Problems (Updated 11/21/21 @ 16:53 by Geeta Abbott NP) Overdose of buspirone (Acute) Discharge planning issues (Acute) Cellulitis of right leg (Acute) Tinea cruris (Acute) Suicidal ideations (Acute) Depression (Chronic) Diabetes mellitus type 2 in obese (Chronic) Back pain (Chronic) Anxiety (Chronic) Methadone dependence (Acute) Hypertension (Chronic) Alcohol abuse (Chronic) Depression with suicidal ideation (Acute) Alcohol withdrawal seizure (Acute) Back pain (Chronic) Medical History Alcohol dependence Anxiety COVID-19 Depression Gabapentin overdose Major depression Suicidal ideation Surgical History History of tonsillectomy and adenoidectomy Family History Maternal Grandfather Alcohol use disorder Social History Smoking/Tobacco Use Status: Current every day Tobacco Type: cigarettes Smoking risk assessment performed?: Yes Alcohol Intake: current Alcohol Intake frequency: 3 or more drinks per day Alcohol type: beer and hard liquor Drug use: Daily Substance use type: former substance user Date of last use: >5yrs, crack/cocaine, amphetamines, opiates and prescription drug Details: Pt drank 4-5 tall boys yesterday between 12noon and 1700 yesterday, pt states he usually drinks a fifth of vodka. Housing: other Details: lives in [facility] Do you feel safe at home: No Do you feel safe in your relationship?: Yes Additional Social history: Homeless
--- NOTE | 2021-11-22 11:55 | PDOC.CMDIS ---
- If Service Date Differs Date of service: 11/22/21 Time of Service: 11:55 LACE Index Scoring Tool - Questions: Length of Stay (in days): 1 Acuity (Admit via E.D.?): Yes E.D. Visits: 11 - Answers: Total Score: 8 Risk of Readmission: Low Risk Care Management Discharge Reason for Hospitalization: Depression. Discharge Plan: Garrett is accepted by the [facility] for mood stabilization. He will follow up with [facility] and his plan of care as instructed upon discharge from the [facility] [place] [place]. He is transported to [place] by [facility]. Patient/Family Education Needs: Review expectations; discuss Ask Me Three. Services Needed at Discharge: Transportation ([facility]) - Disposition Disposition: [place]
[2021-11-22] MEDS: Nicotine 21 MG/24 HR PATCH TD (13:00)
== END 2021-11-22 12:55 | disposition short-term general hospital (02) ==
LOC: ER 15:18 → MS 16:32
PROVIDERS: Admitting Provider Internal Medicine; Emergency Provider Emergency Medicine; PCP Physician Assistant; Visit Provider Internal Medicine
DX: T43.592A Poisoning by other antipsychotics and neuroleptics, intentional self-harm, initial encounter (principal); Z20.822 Contact with and (suspected) exposure to COVID-19; F32.A Depression, unspecified; T14.91XA Suicide attempt, initial encounter; E11.9 Type 2 diabetes mellitus without complications; E66.9 Obesity, unspecified; Z68.39 Body mass index [BMI] 39.0-39.9, adult; M54.9 Dorsalgia, unspecified; F41.9 Anxiety disorder, unspecified; F11.20 Opioid dependence, uncomplicated; I10 Essential (primary) hypertension; F10.10 Alcohol abuse, uncomplicated; F17.210 Nicotine dependence, cigarettes, uncomplicated; Z79.84 Long term (current) use of oral hypoglycemic drugs; F19.10 Other psychoactive substance abuse, uncomplicated
CPT/HCPCS: 36415; 80053; 80307; 87635; 93005; 99285; 80320; 80329; 81003; 84443; 85025; 93010; 99217; G0378